=== PATIENT | female | born 1960 | race Caucasian/White ===

== ENCOUNTER → 2016-10-11 | Outpatient (CLI) | payer BC ==
[~2016-10-11] MED LIST: AMLO10TA4 PO; HCT25T PO; IBUP-15; LEVO500T69 PO; LOSA50TA6 PO; LVT.05T; MULT-608; [UNRECOGNIZED DRUG - CODE]
[2016-10-11 14:28] LABS: BASOPHILS % (AUTO) 0 % (0-10); EOSINOPHILS % (AUTO) 0 % (0-10); LYMPHOCYTES # (AUTO) 1.8 X 10^3 (1.0-4.0); LYMPHOCYTES % (AUTO) 82 % (12-44); MEAN CORPUSCULAR HEMOGLOBIN 34 PG (25-34); MEAN CORPUSCULAR HGB CONC 32 G/DL (32-36); MEAN CORPUSCULAR VOLUME 108 FL (80-99); MEAN PLATELET VOLUME 11.2 FL (7.4-10.4); MONOCYTES # (AUTO) 0.3 X 10^3 (0.0-1.0); MONOCYTES % (AUTO) 15 % (0-12); NEUTROPHILS # (AUTO) 0.1 X 10^3 (1.8-7.8); NEUTROPHILS % (AUTO) 3 % (42-75); PLATELET COUNT 120 10^3/uL (130-400); RED BLOOD COUNT 1.73 10^6/uL (4.35-5.85); RED CELL DISTRIBUTION WIDTH 14.2 % (10.0-14.5); RETICULOCYTE % 0.31 % (0.50-2.40); WHITE BLOOD COUNT 2.2 10^3/uL (4.3-11.0)
[2016-10-11 14:35] LABS: PATH WILL NEED TO REVIEW SMEAR PATH TO REVIEW
[2016-10-11 14:59] LABS: ANISOCYTOSIS SLIGHT; ATYPICAL LYMPHOCYTES 8 %; BAND NEUTROPHILS 0 %; BASOPHILS % (MANUAL) 0 %; EOSINOPHILS % (MANUAL) 0 %; LYMPHOCYTES % (MANUAL) 78 %; NEUTROPHILS % (MANUAL) 2 %; TEAR DROP CELLS SLIGHT
== END ==
LOC: LAB 14:08
PROVIDERS: ATTEND Internal Medicine
DX: C91.00 Acute lymphoblastic leukemia not having achieved remission (principal)
CPT/HCPCS: 36415; 85007; 85027; 85045

== ENCOUNTER 2017-05-09 21:30 | Emergency (ER) | payer BC ==
[~2017-05-09] VITALS: Ht 157.5 cm; Wt 42.2 kg
[2017-05-10] VITALS (7 sets, daily range): BP systolic 143–173; BP diastolic 80–97
[2017-05-10 00:58] LABS: BASOPHILS % (AUTO) 0 % (0-10); EOSINOPHILS % (AUTO) 0 % (0-10); LYMPHOCYTES # (AUTO) 1.2 X 10^3 (1.0-4.0); LYMPHOCYTES % (AUTO) 24 % (12-44); MEAN CORPUSCULAR HGB CONC 36 G/DL (32-36); MEAN CORPUSCULAR VOLUME 100 FL (80-99); MEAN PLATELET VOLUME 12.3 FL (7.4-10.4); MONOCYTES # (AUTO) 0.5 X 10^3 (0.0-1.0); MONOCYTES % (AUTO) 10 % (0-12); NEUTROPHILS # (AUTO) 3.2 X 10^3 (1.8-7.8); NEUTROPHILS % (AUTO) 66 % (42-75); RED BLOOD COUNT 1.24 10^6/uL (4.35-5.85); RED CELL DISTRIBUTION WIDTH 21.6 % (10.0-14.5); WHITE BLOOD COUNT 4.8 10^3/uL (4.3-11.0)
[2017-05-10 00:59] LABS: BILIRUBIN,URINE NEGATIVE (NEGATIVE); CLARITY,URINE CLEAR; COLOR,URINE YELLOW; GLUCOSE, URINE (UA) NEGATIVE (NEGATIVE); KETONES,URINE NEGATIVE (NEGATIVE); LEUKOCYTE ESTERASE ,URINE NEGATIVE (NEGATIVE); NITRITE,URINE NEGATIVE (NEGATIVE); PH,URINE 5 (5-9); PROTEIN,URINE NEGATIVE (NEGATIVE); UROBILINOGEN,URINE NORMAL (NORMAL)
[2017-05-10 01:03] LABS: HEMATOCRIT 12 % (35-52); HEMOGLOBIN 4.4 G/DL (11.5-16.0); MEAN CORPUSCULAR HEMOGLOBIN 35 PG (25-34); PLATELET COUNT 29 10^3/uL (130-400)
[2017-05-10 01:09] LABS: CREATININE SERUM 1.78 MG/DL (0.60-1.30); POTASSIUM 5.4 MMOL/L (3.6-5.0)
[2017-05-10 01:10] LABS: ALBUMIN 3.4 GM/DL (3.2-4.5); BILIRUBIN,TOTAL 0.6 MG/DL (0.1-1.0); CALCIUM 8.9 MG/DL (8.5-10.1); MAGNESIUM 1.9 MG/DL (1.8-2.4); TOTAL PROTEIN 5.2 GM/DL (6.4-8.2)
[2017-05-10 01:12] LABS: BACTERIA,URINE TRACE /HPF
[2017-05-10 03:08] LABS: ABSOLUTE RETIC # 19 10e9/L (24-90); BASOPHILS % (AUTO) 0 % (0-10); EOSINOPHILS % (AUTO) 0 % (0-10); LYMPHOCYTES # (AUTO) 0.7 X 10^3 (1.0-4.0); LYMPHOCYTES % (AUTO) 18 % (12-44); MEAN CORPUSCULAR HEMOGLOBIN 36 PG (25-34); MEAN CORPUSCULAR HGB CONC 36 G/DL (32-36); MEAN CORPUSCULAR VOLUME 101 FL (80-99); MONOCYTES # (AUTO) 0.4 X 10^3 (0.0-1.0); MONOCYTES % (AUTO) 10 % (0-12); NEUTROPHILS # (AUTO) 2.7 X 10^3 (1.8-7.8); NEUTROPHILS % (AUTO) 72 % (42-75); RED CELL DISTRIBUTION WIDTH 21.7 % (10.0-14.5); RETICULOCYTE % 1.54 % (0.50-2.40); WHITE BLOOD COUNT 3.7 10^3/uL (4.3-11.0)
[2017-05-10 03:14] LABS: HEMOGLOBIN 4.3 G/DL (11.5-16.0)
[2017-05-10 03:15] LABS: HEMATOCRIT 12 % (35-52); INR 1.3 (0.8-1.4); PLATELET COUNT 25 10^3/uL (130-400)
[2017-05-10 03:54] LABS: BAND NEUTROPHILS 2 %; LYMPHOCYTES % (MANUAL) 7 %; MONOCYTES % (MANUAL) 9 %; NEUTROPHILS % (MANUAL) 82 %
[2017-05-10 03:55] LABS: ANISOCYTOSIS MARKED; MICROCYTOSIS MODERATE
[2017-05-10] MEDS ORDERED: CYCLOBENZAPRINE 10 MG (FLEXERIL) TAB PO ONE (05:15)
[2017-05-10] MEDS ORDERED: diphenhydrAMINE 25 MG TAB (BENADRYL) PO ONE (05:30)
[2017-05-10] MEDS ORDERED: ACETAMINOPHEN 500 MG TAB (TYLENOL) PO ONE (05:30)
[2017-05-10] MEDS ORDERED: POSA100T (06:10)
[2017-05-10] MEDS ORDERED: CYCL5TAB (06:10)
[2017-05-10] MEDS ORDERED: ATOV750O4 (06:10)
[2017-05-10] MEDS ORDERED: LIDO700A45 (06:10)
[2017-05-10] MEDS ORDERED: POTA10TA14 (06:10)
[2017-05-10] MEDS ORDERED: LEVO750T39 (06:10)
[2017-05-10] MEDS ORDERED: ELTR50TA (06:10)
[2017-05-10] MEDS ORDERED: LEVO112T55 (06:13)
[2017-05-10] MEDS ORDERED: ACYC800T (06:13)
[2017-05-10 06:17] LABS: HEMOGLOBIN 7.7 G/DL (11.5-16.0); MEAN PLATELET VOLUME 11.7 FL (7.4-10.4); RED BLOOD COUNT 2.51 10^6/uL (4.35-5.85); RED CELL DISTRIBUTION WIDTH 18.7 % (10.0-14.5); WHITE BLOOD COUNT 3.5 10^3/uL (4.3-11.0)
[2017-05-10] MEDS ORDERED: CEFEPIME INJECTION 2,000 MG in NS (IVPB) 50 ML IV ONE (06:30)
--- NOTE | 2017-05-10 06:42 | Diagnostic Imaging Report ---
Indication: Weakness Portable chest 6:11 AM Heart size and pulmonary vascular normal. Lungs are clear. There are no effusions or pneumothoraces. Right IJ central tip projects over the SVC. Impression: No acute abnormalities in the chest Dictated by: Dictated on workstation # [id number]
--- NOTE | 2017-05-10 06:47 | ED General ---
General Chief Complaint: General Problems/Pain Stated Complaint: WEAKNESS Nursing Triage Note: pt reports having extreme weakness, worsening over the last few days. today weakness became significant, having difficulty ambulating, states this is the weakness she has ever been. pt was seen by cancer doctors today, and labs were stable and they were not concerned, although she did receive one liter ivf. pt reports once she arrived back home she could hardly stand or get to the bathroom. pt has had decreased appetite. pt reports feeling very faint in our waiting room. Nursing Sepsis Screen: No Definite Risk Source of Information: Patient, Family Exam Limitations: No Limitations History of Present Illness Date Seen by Provider: May 09, 2017 Time Seen by Provider: 00:35 Initial Comments This 57-year-old woman presents to the emergency room with complaints of severe weakness that has progressively worsened over the past few days. She reports having labs drawn at [facility] in the bone marrow transplant clinic yesterday. She reports those labs were "stable". She does not know exact values. She reports her weakness has progressed such that she now has difficulty ambulating even short distances around the home. She is short of breath without chest pain. The shortness of air is a new symptom today. 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 She has had some nausea and vomiting for a couple of days as well. She felt like she was overall compensating with these symptoms until she returned home from [facility] yesterday. She denies any significant pain. She was advised to present to the emergency room by Dr. Mancuso with the bone marrow transplant clinic. Her primary care provider is Dr. Love Chakraborty and her local oncologist is Dr. Crespo. Allergies and Home Medications Allergies Coded Allergies: Penicillins (Unverified Allergy, Mild, 05/19/09) Sulfa (Sulfonamide Antibiotics) (Verified Allergy, Unknown, 06/10/09) Uncoded Allergies: [id number] (SULFA (SULFONAMIDE ANTIBIOTICS)) (Allergy, Mild, RASH, 05/19/09) OPIOIDS (Allergy, Unknown, 05/09/17) Home Medications Acyclovir 800 Mg Tablet, (Reported) Amlodipine Besylate 10 Mg Tablet, 10 MG PO, (Reported) Atovaquone 750 Mg/5 Ml Oral.susp, (Reported) Cyclobenzaprine HCl 5 Mg Tablet, (Reported) Eltrombopag Olamine 50 Mg Tablet, (Reported) Levofloxacin 750 Mg Tablet, (Reported) Levothyroxine Sodium 50 Mcg Tab, (Reported) Levothyroxine Sodium 112 Mcg Tablet, (Reported) Lidocaine 1 Each Adh..patch, (Reported) Losartan Potassium 50 Mg Tablet, 50 MG PO DAILY, (Reported) Multivitamins 1 Tab Tablet, (Reported) Phenelzine Sulfate 15 Mg Tablet, (Reported) Posaconazole 100 Mg Tablet.dr, (Reported) Potassium Chloride 10 Meq Tab.er.prt, (Reported) Constitutional: see HPI, No fever EENTM: no symptoms reported Respiratory: see HPI Cardiovascular: no symptoms reported Gastrointestinal: see HPI Genitourinary: no symptoms reported : No Musculoskeletal: no symptoms reported Skin: no symptoms reported Psychiatric/Neurological: No Symptoms Reported Hematologic/Lymphatic: No Symptoms Reported Immunological/Allergic: no symptoms reported Past Jdcbupj-Iyiyzm-Xjxxuz Hx Patient Social History Alcohol Use: Denies Use Recreational Drug Use: No Smoking Status: Never a Smoker Recent Foreign Travel: No Contact w/Someone Who Travel: No Recent Infectious Disease Expo: No Immunizations Up To Date PED Vaccines UTD: Yes Date of Influenza Vaccine: Jan 10, 2017 Surgeries History of Surgeries: Yes (BARIATRIC, belt lipectomy, bone marrow transplant) Respiratory History of Respiratory Disorde: No Cardiovascular History of Cardiac Disorders: Yes Cardiac Disorders: Hypertension Neurological History of Neurological Disord: Yes Reproductive System : No Hx Reproductive Disorders: No Sexually Transmitted Disease: Yes (TRIC) Genitourinary History of Genitourinary Disor: No Gastrointestinal History of Gastrointestinal Di: No Musculoskeletal History of Musculoskeletal Dis: Yes Musculoskeletal Disorders: Arthritis, Chronic Back Pain Endocrine History of Endocrine Disorders: Yes (borderline diabetic) HEENT History of HEENT Disorders: No Cancer History of Cancer: Yes Cancer: Leukemia (AML) Cancer Comment: BONE MARROW TRANSPLANT 12/27/16 Psychosocial History of Psychiatric Problem: Yes Behavioral Health Disorders: Depression Blood Transfusions History of Blood Disorders: Yes (AML status post bone marrow transplant) Adverse Reaction to a Blood Tr: No Physical Exam Vital Signs Vital Signs - First Documented 05/09/17 22:58 Temp 98.7 Pulse 108 Resp 20 B/P (MAP) 87/62 (70) Pulse Ox 100 O2 Delivery Room Air Capillary Refill : Less Than 3 Seconds General Appearance: No Apparent Distress, Thin, Other (lethargic) HEENT: PERRL/EOMI, Normal ENT Inspection, Pharynx Normal Neck: Normal Inspection Respiratory: Lungs Clear, Normal Breath Sounds, No Accessory Muscle Use, No Respiratory Distress Cardiovascular: Regular Rate, Rhythm, No Edema, No Murmur Gastrointestinal: Normal Bowel Sounds, Non Tender, Soft Extremity: Normal Capillary Refill, Normal Inspection, No Pedal Edema Neurologic/Psychiatric: Alert, Oriented x3, No Motor/Sensory Deficits, Normal 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, 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 Skin: Normal Color, Warm/Dry Focused Exam Evaluation Lactate Level Laboratory Tests 05/10/17 06:00: Lactic Acid Level 0.78 Lactic Acid Level Progress/Results/Core Measures Suspected Sepsis Recent Fever Within 48 Hours: No Infection Criteria Present: None New/Unexplained Altered Menta: No Sepsis Screen: No Definite Risk Sepsis Diagnosis: SIRS Temperature:100.5 Pulse: 73 Respiratory Rate: 17 Laboratory Tests 05/10/17 00:23: White Blood Count 4.8 05/10/17 01:15: White Blood Count 3.7L 05/10/17 06:00: White Blood Count 3.5L Blood Pressure 163 /90 Mean: 114 Laboratory Tests 05/10/17 06:00: Lactic Acid Level 0.78 Laboratory Tests 05/10/17 00:23: Creatinine 1.78H, Platelet Count 29*L, Total Bilirubin 0.6 05/10/17 01:15: Platelet Count 25*L, INR Comment 1.3 05/10/17 06:00: Platelet Count 19*L Results/Orders Lab Results Laboratory Tests Test 05/10/17 00:23 05/10/17 01:15 05/10/17 06:00 Range/Units White Blood Count 4.8 3.7 L 3.5 L 4.3-11.0 10^3/uL Red Blood Count 1.24 L 1.20 L 2.51 L 4.35-5.85 10^6/uL Hemoglobin 4.4 *L 4.3 *L 7.7 #L 11.5-16.0 G/DL Hematocrit 12 *L 12 *L 22 L 35-52 % Mean Corpuscular Volume 100 H 101 H 87 80-99 FL Mean Corpuscular Hemoglobin 35 H 36 H 31 25-34 PG Mean Corpuscular Hemoglobin Concent 36 36 35 32-36 G/DL Red Cell Distribution Width 21.6 H 21.7 H 18.7 H 10.0-14.5 % Platelet Count 29 *L 25 *L 19 *L 130-400 10^3/uL Mean Platelet Volume 12.3 H 13.0 H 11.7 H 7.4-10.4 FL Neutrophils (%) (Auto) 66 72 42-75 % Lymphocytes (%) (Auto) 24 18 12-44 % Monocytes (%) (Auto) 10 10 0-12 % Eosinophils (%) (Auto) 0 0 0-10 % Basophils (%) (Auto) 0 0 0-10 % Neutrophils # (Auto) 3.2 2.7 1.8-7.8 X 10^3 Lymphocytes # (Auto) 1.2 0.7 L 1.0-4.0 X 10^3 Monocytes # (Auto) 0.5 0.4 0.0-1.0 X 10^3 Eosinophils # (Auto) 0.0 0.0 0.0-0.3 10^3/uL Basophils # (Auto) 0.0 0.0 0.0-0.1 10^3/uL Urine Color YELLOW Urine Clarity CLEAR Urine pH 5 5-9 Urine Specific [place] 1.020 1.016-1.022 Urine Protein NEGATIVE NEGATIVE Urine Glucose (UA) NEGATIVE NEGATIVE Urine Ketones NEGATIVE NEGATIVE Urine Nitrite NEGATIVE NEGATIVE Urine Bilirubin NEGATIVE NEGATIVE Urine Urobilinogen NORMAL NORMAL MG/DL Urine Leukocyte Esterase NEGATIVE NEGATIVE Urine RBC (Auto) NEGATIVE NEGATIVE Urine RBC NONE /HPF Urine WBC NONE /HPF Urine Squamous Epithelial Cells 2-5 /HPF Urine Crystals NONE /LPF Urine Bacteria TRACE /HPF Urine Casts NONE /LPF Urine Mucus NEGATIVE /LPF Urine Culture Indicated NO Sodium Level 133 L 135-145 MMOL/L Potassium Level 5.4 H 3.6-5.0 MMOL/L Chloride Level 114 H 98-107 MMOL/L Carbon Dioxide Level 10 L 21-32 MMOL/L Anion Gap 9 5-14 MMOL/L Blood Urea Nitrogen 41 H 7-18 MG/DL Creatinine 1.78 H 0.60-1.30 MG/DL Estimat Glomerular Filtration Rate 29 BUN/Creatinine Ratio 23 Glucose Level 132 H 70-105 MG/DL Calcium Level 8.9 8.5-10.1 MG/DL Magnesium Level 1.9 1.8-2.4 MG/DL Total Bilirubin 0.6 0.1-1.0 MG/DL Aspartate Amino Transf (AST/SGOT) 19 5-34 U/L Alanine Aminotransferase (ALT/SGPT) 31 0-55 U/L Alkaline Phosphatase 72 40-136 U/L Total Protein 5.2 L 6.4-8.2 GM/DL Albumin 3.4 3.2-4.5 GM/DL Neutrophils % (Manual) 82 % Lymphocytes % (Manual) 7 % Monocytes % (Manual) 9 % Band Neutrophils 2 % Anisocytosis MARKED Microcytosis MODERATE Macrocytosis MODERATE Absolute Reticulocyte Count 19 L 24-90 10e9/L Percent Reticulocyte Count 1.54 0.50-2.40 % Prothrombin Time 16.0 H 12.2-14.7 SEC INR Comment 1.3 0.8-1.4 Activated Partial Thromboplast Time 25 24-35 SEC Fibrinogen 164 L 221-496 MG/DL D-Dimer 0.65 H 0.00-0.49 UG/ML Lactate Dehydrogenase 108 L 125-220 U/L Lactic Acid Level 0.78 0.50-2.00 MMOL/L Micro Results Microbiology 05/10/17 Blood Culture - Preliminary, Resulted No growth 05/10/17 Blood Culture - Preliminary, Resulted No growth 05/10/17 Influenza Types A,B Antigen (BROOKS) - Final, Complete My Orders Orders - DIAMOND ANNE MD Cbc With Automated Diff (05/10/17 00:49) Comprehensive Metabolic Panel (05/10/17 00:49) Magnesium (05/10/17 00:49) Ua Culture If Indicated (05/10/17 00:49) Saline Lock/Iv-Start (05/10/17 00:49) Fibrin Degradation Products (05/10/17 01:03) Red Cells Leukocytes Reduced (05/10/17 02:02) Type And Screen (05/10/17 02:02) Reticulocyte Count (05/10/17 02:54) LDH (05/10/17 02:54) Fibrinogen (05/10/17 02:54) Haptoglobin Screen (05/10/17 02:54) Smear For Path Review (05/10/17 02:54) Direct Antiglobulin Test (05/10/17 02:54) Protime With Inr (05/10/17 02:54) Partial Thromboplastin Time (05/10/17 02:54) Cyclobenzaprine Tablet (Flexeril Tablet) (05/10/17 05:15) Chest 1 View, Ap/Pa Only (05/10/17 05:30) Blood Culture (05/10/17 05:30) Influenza A And B Antigens (05/10/17 05:30) Lactic Acid Analyzer (05/10/17 05:30) Acetaminophen Tablet (Tylenol Tablet) (05/10/17 05:30) Diphenhydramine Tablet (Benadryl Tablet) (05/10/17 05:30) Cbc No Diff (05/10/17 05:50) Red Cells Leukocytes Reduced (05/10/17 01:15) Platelet Pheresis Lr (05/10/17 06:17) Cefepime Injection (Maxipime Injection) (05/10/17 06:30) Ns Iv 500 Ml (Sodium Chloride 0.9%) (05/10/17 07:21) Iv Infusion <= First Hr Ed (05/09/17 ) Medications Given in ED Vital Signs/I&O Capillary Refill : Less Than 3 Seconds Blood Pressure Mean: 114 Progress Note #1: Time: 01:10 Progress Note Patient was seen and examined. Basic labs were ordered. D-dimer was also ordered because of shortness of breath. Vital signs are stable. Progress Note #2: Time: 03:00 Progress Note Patient is receiving 2 units of packed red blood cells after being found to be severely anemic. Case was discussed with Dr. Mancuso he would like the patient transferred to [facility] after transfusion is complete. At this time, she believes patient can probably come by private vehicle after transfusions. Additional labs were ordered to further evaluate the anemia and to evaluate for possible DIC. Progress Note #3: Time: 05:35 Progress Note Patient received the 2 units of packed red blood cells. During transfusion she developed a low-grade fever up to 100.5. She is receiving Tylenol and Benadryl orally because of possible transfusion reaction. She also received a Flexeril for her hip pain. Patient was noted to have a grossly bloody stool that was bright red and smelled of blood. I have been in contact with the transfer center. The presence of fever was communicated. They agree with proceeding with workup for possible infection. Chest x-ray, UA, blood culture, influenza screen and lactic acid were ordered. Progress Note #4: Time: 06:58 Progress Note Transfer of this patient was accepted by Dr. Mancuso. Due to evidence of active GI bleeding in the context of severe anemia and thrombocytopenia, transfusion of platelets was felt appropriate. One platelet pheresis pack was ordered. I' ve also ordered a crossmatch of 2 additional units of blood with the intent of sending at least one unit of blood with the flight crew. Cefepime is being administered for empiric antibiotic therapy due to the presence of fever. Influenza screen was negative. Chest x-ray and UA showed no evidence of infection. [facility]. Progress Note #5: Progress Note The platelet pack was starting at the time of departure. An additional unit of blood was sent with the patient for transfusion in route. Patient was sent by helicopter due to concerns for potential decompensation in route with possible active GI bleed. Patient was stable and feeling improved at the time of departure. Diagnostic Imaging Diagonstic Imaging: Xray Plain Films/CT/US/NM/MRI: chest Comments Chest x-ray viewed by me and report reviewed. See report below: NAME: DAI HERNANDEZ [facility] REC#: [id number] PT STATUS: REG ER : 1960 PHYSICIAN: DIAMOND ANNE MD ADMIT DATE: 05/09/17/ER Signed Date of Exam:05/10/17 CHEST 1 VIEW, AP/PA ONLY Indication: Weakness Portable chest 6:11 AM Heart size and pulmonary vascular normal. Lungs are clear. There are no effusions or pneumothoraces. Right IJ central tip projects over the SVC. Impression: No acute abnormalities in the chest Dictated by: Dictated on workstation # [id number] Dict: 05/10/17638 Trans: 05/10/1740 [id number] Interpreted by: CHAPARRITA BRIDGES MD Electronically signed by: CHAPARRITA BRIDGES MD 05/10/1740 Departure Impression Impression: Primary Impression: Severe anemia Additional Impressions: Thrombocytopenia Acute renal failure Qualified Codes: N17.9 - Acute kidney failure, unspecified Hematochezia Fever Qualified Codes: R50.9 - Fever, unspecified Disposition: XF SHT-TRM HOSP Condition: Stable Transfer Time Spoke to Accepting Phy: 02:45 Transfer Time: 07:30 Transfer Facility: [facility] to Dr. Mancuso Method of Transfer: Air Departure-Patient Inst. Referrals: LOVE ANDRADE DO (PCP/Family) Primary Care Physician DIAMOND ANNE MD May 10, 2017 06:47
[2017-05-10] MEDS ORDERED: NS IV 500 ML 500 ML ONE (07:21)
== END 2017-05-10 07:31 | disposition short-term general hospital (02) ==
LOC: EDUNIT# 21:30 → ER 21:31
DX: D64.9 Anemia, unspecified (principal); D69.6 Thrombocytopenia, unspecified; N17.9 Acute kidney failure, unspecified; K92.1 Melena; R50.9 Fever, unspecified; I10 Essential (primary) hypertension; F32.9 Major depressive disorder, single episode, unspecified; Z85.6 Personal history of leukemia; Z88.0 Allergy status to penicillin; Z88.2 Allergy status to sulfonamides; Z88.5 Allergy status to narcotic agent; Z98.84 Bariatric surgery status; Z94.81 Bone marrow transplant status
CPT/HCPCS: 36415; 36430; 71045; 80053; 81000; 83010; 83605; 83615; 83735; 85007; 85025; 85027; 85045; 85379; 85384; 85610; 85730; 86850; 86880; 86900; 86901; 86920; 87040; 87804; 96365

== ENCOUNTER → 2017-06-26 | Outpatient (CLI) | payer BC ==
[~2017-06-26] MED LIST changes: +ACYC800T; +ATOV750O4; +CYCL5TAB; +ELTR50TA; +LEVO112T55; +LEVO750T39; +LIDO700A45; +POSA100T; +POTA10TA14
--- NOTE | 2017-06-26 15:40 | Diagnostic Imaging Report ---
INDICATION: Chronic kidney disease. FINDINGS: The right kidney measures 9.0 x 4.6 x 5.1 cm and the left kidney measures 8.6 x 4.2 x 4.2 cm. Cortical thickness appears to be slightly thin. Echogenicity is unremarkable. No calculi are detected. There is no hydronephrosis. Partially filled urinary bladder is unremarkable. IMPRESSION: Mild cortical thinning. No other significant abnormality is detected. Dictated by: Dictated on workstation # [id number]
== END ==
LOC: RAD 13:38
PROVIDERS: ATTEND Internal Medicine Hematology & Oncology
DX: N18.9 Chronic kidney disease, unspecified (principal)
CPT/HCPCS: 76770

== ENCOUNTER 2017-08-19 14:51 | Outpatient (RCR) | payer BC ==
[2017-06-10 15:04] LABS: BASOPHILS % (AUTO) 0 % (0-10); EOSINOPHILS # (AUTO) 0.1 10^3/uL (0.0-0.3); EOSINOPHILS % (AUTO) 1 % (0-10); HEMATOCRIT 23 % (35-52); HEMOGLOBIN 7.5 G/DL (11.5-16.0); LYMPHOCYTES # (AUTO) 1.1 X 10^3 (1.0-4.0); LYMPHOCYTES % (AUTO) 29 % (12-44); MEAN CORPUSCULAR HEMOGLOBIN 33 PG (25-34); MEAN CORPUSCULAR HGB CONC 33 G/DL (32-36); MEAN CORPUSCULAR VOLUME 97 FL (80-99); MONOCYTES # (AUTO) 0.5 X 10^3 (0.0-1.0); MONOCYTES % (AUTO) 13 % (0-12); NEUTROPHILS # (AUTO) 2.1 X 10^3 (1.8-7.8); NEUTROPHILS % (AUTO) 57 % (42-75); PLATELET COUNT 174 10^3/uL (130-400); RED BLOOD COUNT 2.31 10^6/uL (4.35-5.85); WHITE BLOOD COUNT 3.7 10^3/uL (4.3-11.0)
[2017-06-10 15:29] LABS: ALBUMIN 4.1 GM/DL (3.2-4.5); BILIRUBIN,TOTAL 0.7 MG/DL (0.1-1.0); CALCIUM 9.2 MG/DL (8.5-10.1); CREATININE SERUM 1.7 MG/DL (0.60-1.30); MAGNESIUM 2.2 MG/DL (1.8-2.4); TOTAL PROTEIN 6.3 GM/DL (6.4-8.2)
[2017-06-24 14:56] LABS: BASOPHILS % (AUTO) 1 % (0-10); EOSINOPHILS # (AUTO) 0.1 10^3/uL (0.0-0.3); EOSINOPHILS % (AUTO) 1 % (0-10); HEMATOCRIT 24 % (35-52); HEMOGLOBIN 8.4 G/DL (11.5-16.0); LYMPHOCYTES # (AUTO) 1.3 X 10^3 (1.0-4.0); LYMPHOCYTES % (AUTO) 20 % (12-44); MEAN CORPUSCULAR HEMOGLOBIN 35 PG (25-34); MEAN CORPUSCULAR HGB CONC 34 G/DL (32-36); MEAN CORPUSCULAR VOLUME 102 FL (80-99); MEAN PLATELET VOLUME 10.2 FL (7.4-10.4); MONOCYTES # (AUTO) 0.6 X 10^3 (0.0-1.0); MONOCYTES % (AUTO) 9 % (0-12); NEUTROPHILS # (AUTO) 4.6 X 10^3 (1.8-7.8); NEUTROPHILS % (AUTO) 70 % (42-75); PLATELET COUNT 214 10^3/uL (130-400); RED CELL DISTRIBUTION WIDTH 23.2 % (10.0-14.5); WHITE BLOOD COUNT 6.5 10^3/uL (4.3-11.0)
[2017-06-24 15:18] LABS: ALBUMIN 4.2 GM/DL (3.2-4.5); BILIRUBIN,TOTAL 0.6 MG/DL (0.1-1.0); CALCIUM 9.7 MG/DL (8.5-10.1); CREATININE SERUM 2.01 MG/DL (0.60-1.30); TOTAL PROTEIN 6.5 GM/DL (6.4-8.2)
[2017-07-10 10:31] LABS: BASOPHILS % (AUTO) 1 % (0-10); EOSINOPHILS # (AUTO) 0.1 10^3/uL (0.0-0.3); EOSINOPHILS % (AUTO) 2 % (0-10); HEMATOCRIT 25 % (35-52); HEMOGLOBIN 8.5 G/DL (11.5-16.0); LYMPHOCYTES # (AUTO) 1.1 X 10^3 (1.0-4.0); LYMPHOCYTES % (AUTO) 18 % (12-44); MEAN CORPUSCULAR HEMOGLOBIN 37 PG (25-34); MEAN CORPUSCULAR HGB CONC 34 G/DL (32-36); MEAN CORPUSCULAR VOLUME 108 FL (80-99); MEAN PLATELET VOLUME 10.1 FL (7.4-10.4); MONOCYTES # (AUTO) 0.4 X 10^3 (0.0-1.0); MONOCYTES % (AUTO) 7 % (0-12); NEUTROPHILS # (AUTO) 4.3 X 10^3 (1.8-7.8); NEUTROPHILS % (AUTO) 72 % (42-75); PLATELET COUNT 177 10^3/uL (130-400); RED BLOOD COUNT 2.32 10^6/uL (4.35-5.85); RED CELL DISTRIBUTION WIDTH 18.6 % (10.0-14.5); WHITE BLOOD COUNT 5.9 10^3/uL (4.3-11.0)
[2017-07-10 10:53] LABS: BILIRUBIN,TOTAL 0.5 MG/DL (0.1-1.0); CALCIUM 9.8 MG/DL (8.5-10.1); CREATININE SERUM 2.16 MG/DL (0.60-1.30); POTASSIUM 3.9 MMOL/L (3.6-5.0); TOTAL PROTEIN 6.1 GM/DL (6.4-8.2)
[2017-07-22 12:47] LABS: BASOPHILS % (AUTO) 1 % (0-10); EOSINOPHILS # (AUTO) 0.1 10^3/uL (0.0-0.3); EOSINOPHILS % (AUTO) 2 % (0-10); HEMATOCRIT 28 % (35-52); HEMOGLOBIN 9.2 G/DL (11.5-16.0); LYMPHOCYTES # (AUTO) 1.2 X 10^3 (1.0-4.0); LYMPHOCYTES % (AUTO) 18 % (12-44); MEAN CORPUSCULAR HEMOGLOBIN 37 PG (25-34); MEAN CORPUSCULAR HGB CONC 33 G/DL (32-36); MEAN CORPUSCULAR VOLUME 110 FL (80-99); MEAN PLATELET VOLUME 9.5 FL (7.4-10.4); MONOCYTES # (AUTO) 0.5 X 10^3 (0.0-1.0); MONOCYTES % (AUTO) 8 % (0-12); NEUTROPHILS # (AUTO) 4.6 X 10^3 (1.8-7.8); NEUTROPHILS % (AUTO) 72 % (42-75); PLATELET COUNT 240 10^3/uL (130-400); RED BLOOD COUNT 2.52 10^6/uL (4.35-5.85); WHITE BLOOD COUNT 6.4 10^3/uL (4.3-11.0)
[2017-07-22 13:06] LABS: CREATININE SERUM 2.27 MG/DL (0.60-1.30); POTASSIUM 4.2 MMOL/L (3.6-5.0)
[2017-07-22 13:07] LABS: ALBUMIN 4.2 GM/DL (3.2-4.5); BILIRUBIN,TOTAL 0.5 MG/DL (0.1-1.0); CALCIUM 9.4 MG/DL (8.5-10.1); TOTAL PROTEIN 6.5 GM/DL (6.4-8.2)
[2017-08-05 11:32] LABS: BASOPHILS % (AUTO) 0 % (0-10); EOSINOPHILS # (AUTO) 0.1 10^3/uL (0.0-0.3); EOSINOPHILS % (AUTO) 2 % (0-10); HEMATOCRIT 28 % (35-52); HEMOGLOBIN 9.3 G/DL (11.5-16.0); LYMPHOCYTES # (AUTO) 0.6 X 10^3 (1.0-4.0); LYMPHOCYTES % (AUTO) 12 % (12-44); MEAN CORPUSCULAR HEMOGLOBIN 38 PG (25-34); MEAN CORPUSCULAR HGB CONC 34 G/DL (32-36); MEAN CORPUSCULAR VOLUME 112 FL (80-99); MONOCYTES # (AUTO) 0.3 X 10^3 (0.0-1.0); MONOCYTES % (AUTO) 6 % (0-12); NEUTROPHILS # (AUTO) 4.2 X 10^3 (1.8-7.8); NEUTROPHILS % (AUTO) 81 % (42-75); PLATELET COUNT 215 10^3/uL (130-400); RED BLOOD COUNT 2.48 10^6/uL (4.35-5.85); RED CELL DISTRIBUTION WIDTH 12.7 % (10.0-14.5); WHITE BLOOD COUNT 5.2 10^3/uL (4.3-11.0)
[2017-08-05 11:51] LABS: BILIRUBIN,TOTAL 0.4 MG/DL (0.1-1.0); CALCIUM 9.1 MG/DL (8.5-10.1); CREATININE SERUM 2.09 MG/DL (0.60-1.30); TOTAL PROTEIN 6.1 GM/DL (6.4-8.2)
[2017-08-05 11:52] LABS: ALBUMIN 3.9 GM/DL (3.2-4.5)
[~2017-08-19 14:51] MED LIST changes: +ONDANSETRON 4 MG/2 ML (SDV) Z0FRAN IV ONE
[2017-08-19 15:10] LABS: BASOPHILS % (AUTO) 0 % (0-10); EOSINOPHILS # (AUTO) 0.1 10^3/uL (0.0-0.3); EOSINOPHILS % (AUTO) 2 % (0-10); HEMATOCRIT 27 % (35-52); HEMOGLOBIN 8.9 G/DL (11.5-16.0); LYMPHOCYTES # (AUTO) 0.8 X 10^3 (1.0-4.0); LYMPHOCYTES % (AUTO) 16 % (12-44); MEAN CORPUSCULAR HEMOGLOBIN 37 PG (25-34); MEAN CORPUSCULAR HGB CONC 33 G/DL (32-36); MEAN CORPUSCULAR VOLUME 112 FL (80-99); MEAN PLATELET VOLUME 9.7 FL (7.4-10.4); MONOCYTES # (AUTO) 0.5 X 10^3 (0.0-1.0); MONOCYTES % (AUTO) 10 % (0-12); NEUTROPHILS # (AUTO) 3.4 X 10^3 (1.8-7.8); NEUTROPHILS % (AUTO) 73 % (42-75); PLATELET COUNT 223 10^3/uL (130-400); RED CELL DISTRIBUTION WIDTH 12.5 % (10.0-14.5); WHITE BLOOD COUNT 4.7 10^3/uL (4.3-11.0)
[2017-08-19 15:30] LABS: BILIRUBIN,TOTAL 0.3 MG/DL (0.1-1.0); CALCIUM 8.9 MG/DL (8.5-10.1); CREATININE SERUM 2.2 MG/DL (0.60-1.30); POTASSIUM 4.7 MMOL/L (3.6-5.0); TOTAL PROTEIN 6.1 GM/DL (6.4-8.2)
== END 2017-08-25 | disposition home or self-care (01) ==
LOC: ONC 14:51
PROVIDERS: ATTEND Internal Medicine Hematology & Oncology
DX: C92.00 Acute myeloblastic leukemia, not having achieved remission (principal); D61.818 Other pancytopenia; N18.4 Chronic kidney disease, stage 4 (severe); E03.9 Hypothyroidism, unspecified; Z79.899 Other long term (current) drug therapy
CPT/HCPCS: 36415; 36591; 80053; 83735; 85025; 96374; 99213; 99214

== ENCOUNTER → 2017-09-24 | Outpatient (CLI) | payer BC ==
[~2017-09-24] MED LIST changes: -ONDANSETRON 4 MG/2 ML (SDV) Z0FRAN IV ONE
[2017-09-24 16:31] LABS: HEMOGLOBIN 11.2 G/DL (11.5-16.0); MEAN PLATELET VOLUME 10.5 FL (7.4-10.4); RED BLOOD COUNT 3.27 10^6/uL (4.35-5.85); WHITE BLOOD COUNT 6.3 10^3/uL (4.3-11.0)
[2017-09-24 16:50] LABS: ALBUMIN 3.3 GM/DL (3.2-4.5); BILIRUBIN,TOTAL 0.6 MG/DL (0.1-1.0); CALCIUM 8.3 MG/DL (8.5-10.1); CREATININE SERUM 2.34 MG/DL (0.60-1.30); MAGNESIUM 1.8 MG/DL (1.8-2.4); PHOSPHORUS 2.4 MG/DL (2.3-4.7); POTASSIUM 3.7 MMOL/L (3.6-5.0); TOTAL PROTEIN 5.3 GM/DL (6.4-8.2)
== END ==
LOC: LAB 16:11
PROVIDERS: ATTEND Nurse Practitioner
DX: C92.01 Acute myeloblastic leukemia, in remission (principal); Z94.84 Stem cells transplant status
CPT/HCPCS: 36415; 80053; 83735; 84100; 85027

== ENCOUNTER 2017-12-10 10:12 | Outpatient (RCR) | payer BC ==
[2017-09-16 14:52] LABS: BASOPHILS % (AUTO) 0 % (0-10); EOSINOPHILS # (AUTO) 0.1 10^3/uL (0.0-0.3); EOSINOPHILS % (AUTO) 2 % (0-10); HEMATOCRIT 24 % (35-52); HEMOGLOBIN 8.2 G/DL (11.5-16.0); LYMPHOCYTES % (AUTO) 17 % (12-44); MEAN CORPUSCULAR HEMOGLOBIN 37 PG (25-34); MEAN CORPUSCULAR HGB CONC 35 G/DL (32-36); MEAN CORPUSCULAR VOLUME 107 FL (80-99); MEAN PLATELET VOLUME 9.2 FL (7.4-10.4); MONOCYTES # (AUTO) 0.6 X 10^3 (0.0-1.0); MONOCYTES % (AUTO) 9 % (0-12); NEUTROPHILS # (AUTO) 4.5 X 10^3 (1.8-7.8); NEUTROPHILS % (AUTO) 72 % (42-75); PLATELET COUNT 176 10^3/uL (130-400); RED BLOOD COUNT 2.22 10^6/uL (4.35-5.85); RED CELL DISTRIBUTION WIDTH 12.2 % (10.0-14.5); WHITE BLOOD COUNT 6.2 10^3/uL (4.3-11.0)
[2017-09-16 15:18] LABS: ALBUMIN 3.9 GM/DL (3.2-4.5); BILIRUBIN,TOTAL 0.5 MG/DL (0.1-1.0); CALCIUM 8.5 MG/DL (8.5-10.1); CREATININE SERUM 2.69 MG/DL (0.60-1.30); POTASSIUM 3.9 MMOL/L (3.6-5.0)
[2017-10-24 09:47] LABS: BASOPHILS % (AUTO) 0 % (0-10); EOSINOPHILS % (AUTO) 1 % (0-10); HEMATOCRIT 26 % (35-52); HEMOGLOBIN 8.8 G/DL (11.5-16.0); LYMPHOCYTES # (AUTO) 0.9 X 10^3 (1.0-4.0); LYMPHOCYTES % (AUTO) 19 % (12-44); MEAN CORPUSCULAR HEMOGLOBIN 33 PG (25-34); MEAN CORPUSCULAR HGB CONC 34 G/DL (32-36); MEAN CORPUSCULAR VOLUME 97 FL (80-99); MEAN PLATELET VOLUME 9.3 FL (7.4-10.4); MONOCYTES # (AUTO) 0.4 X 10^3 (0.0-1.0); MONOCYTES % (AUTO) 9 % (0-12); NEUTROPHILS # (AUTO) 3.4 X 10^3 (1.8-7.8); NEUTROPHILS % (AUTO) 71 % (42-75); PLATELET COUNT 163 10^3/uL (130-400); RED BLOOD COUNT 2.64 10^6/uL (4.35-5.85); RED CELL DISTRIBUTION WIDTH 17.4 % (10.0-14.5); WHITE BLOOD COUNT 4.8 10^3/uL (4.3-11.0)
[2017-10-24 10:08] LABS: ALBUMIN 3.9 GM/DL (3.2-4.5); BILIRUBIN,TOTAL 0.6 MG/DL (0.1-1.0); CREATININE SERUM 3.84 MG/DL (0.60-1.30)
[2017-11-14 16:35] LABS: ABSOLUTE RETIC # 46 10e9/L (24-90); BASOPHILS % (AUTO) 0 % (0-10); EOSINOPHILS % (AUTO) 0 % (0-10); LYMPHOCYTES # (AUTO) 0.8 X 10^3 (1.0-4.0); LYMPHOCYTES % (AUTO) 16 % (12-44); MEAN CORPUSCULAR HEMOGLOBIN 33 PG (25-34); MEAN CORPUSCULAR HGB CONC 33 G/DL (32-36); MEAN CORPUSCULAR VOLUME 101 FL (80-99); MEAN PLATELET VOLUME 9.4 FL (7.4-10.4); MONOCYTES # (AUTO) 0.4 X 10^3 (0.0-1.0); MONOCYTES % (AUTO) 8 % (0-12); NEUTROPHILS # (AUTO) 3.8 X 10^3 (1.8-7.8); NEUTROPHILS % (AUTO) 76 % (42-75); PLATELET COUNT 152 10^3/uL (130-400); RED BLOOD COUNT 1.95 10^6/uL (4.35-5.85); RED CELL DISTRIBUTION WIDTH 19.7 % (10.0-14.5); RETICULOCYTE % 2.38 % (0.50-2.40); WHITE BLOOD COUNT 5.1 10^3/uL (4.3-11.0)
[2017-11-14 16:39] LABS: HEMATOCRIT 20 % (35-52); HEMOGLOBIN 6.5 G/DL (11.5-16.0)
[2017-11-14 16:59] LABS: ALBUMIN 3.6 GM/DL (3.2-4.5); BILIRUBIN,TOTAL 0.4 MG/DL (0.1-1.0); CALCIUM 8.4 MG/DL (8.5-10.1); CREATININE SERUM 3.74 MG/DL (0.60-1.30); TOTAL PROTEIN 5.5 GM/DL (6.4-8.2)
[2017-11-19 13:10] LABS: BASOPHILS % (AUTO) 0 % (0-10); EOSINOPHILS % (AUTO) 1 % (0-10); HEMATOCRIT 30 % (35-52); HEMOGLOBIN 10.2 G/DL (11.5-16.0); LYMPHOCYTES % (AUTO) 19 % (12-44); MEAN CORPUSCULAR HEMOGLOBIN 32 PG (25-34); MEAN CORPUSCULAR HGB CONC 34 G/DL (32-36); MEAN CORPUSCULAR VOLUME 95 FL (80-99); MEAN PLATELET VOLUME 9.6 FL (7.4-10.4); MONOCYTES # (AUTO) 0.3 X 10^3 (0.0-1.0); MONOCYTES % (AUTO) 7 % (0-12); NEUTROPHILS # (AUTO) 3.7 X 10^3 (1.8-7.8); NEUTROPHILS % (AUTO) 73 % (42-75); PLATELET COUNT 164 10^3/uL (130-400); RED BLOOD COUNT 3.15 10^6/uL (4.35-5.85); RED CELL DISTRIBUTION WIDTH 21.5 % (10.0-14.5); WHITE BLOOD COUNT 5.1 10^3/uL (4.3-11.0)
[2017-11-19 13:39] LABS: CALCIUM 8.4 MG/DL (8.5-10.1); CREATININE SERUM 4.06 MG/DL (0.60-1.30); POTASSIUM 3.7 MMOL/L (3.6-5.0)
[2017-11-26 14:26] LABS: BASOPHILS % (AUTO) 0 % (0-10); EOSINOPHILS % (AUTO) 0 % (0-10); HEMATOCRIT 21 % (35-52); LYMPHOCYTES # (AUTO) 0.8 X 10^3 (1.0-4.0); LYMPHOCYTES % (AUTO) 15 % (12-44); MEAN CORPUSCULAR HEMOGLOBIN 33 PG (25-34); MEAN CORPUSCULAR HGB CONC 33 G/DL (32-36); MEAN CORPUSCULAR VOLUME 100 FL (80-99); MONOCYTES # (AUTO) 0.5 X 10^3 (0.0-1.0); MONOCYTES % (AUTO) 9 % (0-12); NEUTROPHILS % (AUTO) 76 % (42-75); PLATELET COUNT 120 10^3/uL (130-400); RED BLOOD COUNT 2.12 10^6/uL (4.35-5.85); RED CELL DISTRIBUTION WIDTH 20.9 % (10.0-14.5); WHITE BLOOD COUNT 5.3 10^3/uL (4.3-11.0)
[2017-12-04 13:53] LABS: BASOPHILS % (AUTO) 1 % (0-10); EOSINOPHILS % (AUTO) 1 % (0-10); HEMATOCRIT 22 % (35-52); LYMPHOCYTES # (AUTO) 0.7 X 10^3 (1.0-4.0); LYMPHOCYTES % (AUTO) 13 % (12-44); MEAN CORPUSCULAR HEMOGLOBIN 33 PG (25-34); MEAN CORPUSCULAR HGB CONC 31 G/DL (32-36); MEAN CORPUSCULAR VOLUME 106 FL (80-99); MEAN PLATELET VOLUME 8.9 FL (7.4-10.4); MONOCYTES # (AUTO) 0.5 X 10^3 (0.0-1.0); MONOCYTES % (AUTO) 9 % (0-12); NEUTROPHILS % (AUTO) 76 % (42-75); PLATELET COUNT 169 10^3/uL (130-400); RED BLOOD COUNT 2.11 10^6/uL (4.35-5.85); RED CELL DISTRIBUTION WIDTH 21.6 % (10.0-14.5); WHITE BLOOD COUNT 5.3 10^3/uL (4.3-11.0)
[~2017-12-10 10:12] MED LIST changes: +ACETAMINOPHEN 500 MG TAB (TYLENOL) CANCER CTR ONE; +DARBEPOETIN 10 MCG/0.4 ML ARANESP IJ SCH; +NS IV 1000 ML (CANCER CTR) 1,000 ML ONE; +NS IV 500 ML (CANCER CENTER) 500 ML ONE
[2017-12-10 10:54] LABS: BASOPHILS % (AUTO) 0 % (0-10); EOSINOPHILS # (AUTO) 0.1 10^3/uL (0.0-0.3); EOSINOPHILS % (AUTO) 1 % (0-10); HEMATOCRIT 23 % (35-52); HEMOGLOBIN 7.1 G/DL (11.5-16.0); LYMPHOCYTES # (AUTO) 0.6 X 10^3 (1.0-4.0); LYMPHOCYTES % (AUTO) 12 % (12-44); MEAN CORPUSCULAR HEMOGLOBIN 34 PG (25-34); MEAN CORPUSCULAR HGB CONC 32 G/DL (32-36); MEAN CORPUSCULAR VOLUME 109 FL (80-99); MEAN PLATELET VOLUME 9.2 FL (7.4-10.4); MONOCYTES # (AUTO) 0.5 X 10^3 (0.0-1.0); MONOCYTES % (AUTO) 10 % (0-12); NEUTROPHILS # (AUTO) 3.6 X 10^3 (1.8-7.8); NEUTROPHILS % (AUTO) 76 % (42-75); PLATELET COUNT 163 10^3/uL (130-400); RED BLOOD COUNT 2.07 10^6/uL (4.35-5.85); RED CELL DISTRIBUTION WIDTH 20.6 % (10.0-14.5); WHITE BLOOD COUNT 4.7 10^3/uL (4.3-11.0)
== END 2017-12-15 | disposition home or self-care (01) ==
LOC: ONC 10:12
PROVIDERS: ATTEND Internal Medicine Hematology & Oncology
DX: C92.00 Acute myeloblastic leukemia, not having achieved remission (principal); D61.818 Other pancytopenia; N18.4 Chronic kidney disease, stage 4 (severe); E03.9 Hypothyroidism, unspecified; R19.7 Diarrhea, unspecified; L60.0 Ingrowing nail; R63.4 Abnormal weight loss; Z98.84 Bariatric surgery status; Z79.899 Other long term (current) drug therapy
CPT/HCPCS: 36415; 36430; 80048; 80053; 82668; 82728; 83540; 83615; 85025; 85045; 86850; 86900; 86901; 86920; 86945; 86999; 87324; 87449; 96360; 96372; 99213

== ENCOUNTER 2017-12-24 15:05 | Outpatient (RCR) | payer BC ==
[2017-12-17 13:46] LABS: BASOPHILS % (AUTO) 1 % (0-10); EOSINOPHILS # (AUTO) 0.1 10^3/uL (0.0-0.3); EOSINOPHILS % (AUTO) 2 % (0-10); HEMATOCRIT 23 % (35-52); HEMOGLOBIN 7.4 G/DL (11.5-16.0); LYMPHOCYTES # (AUTO) 0.9 X 10^3 (1.0-4.0); LYMPHOCYTES % (AUTO) 20 % (12-44); MEAN CORPUSCULAR HEMOGLOBIN 35 PG (25-34); MEAN CORPUSCULAR HGB CONC 33 G/DL (32-36); MEAN CORPUSCULAR VOLUME 108 FL (80-99); MEAN PLATELET VOLUME 8.9 FL (7.4-10.4); MONOCYTES # (AUTO) 0.6 X 10^3 (0.0-1.0); MONOCYTES % (AUTO) 13 % (0-12); NEUTROPHILS # (AUTO) 2.9 X 10^3 (1.8-7.8); NEUTROPHILS % (AUTO) 65 % (42-75); PLATELET COUNT 168 10^3/uL (130-400); RED BLOOD COUNT 2.11 10^6/uL (4.35-5.85); RED CELL DISTRIBUTION WIDTH 18.9 % (10.0-14.5); WHITE BLOOD COUNT 4.5 10^3/uL (4.3-11.0)
[~2017-12-24 15:05] MED LIST changes: -ACETAMINOPHEN 500 MG TAB (TYLENOL) CANCER CTR ONE; -NS IV 1000 ML (CANCER CTR) 1,000 ML ONE; -NS IV 500 ML (CANCER CENTER) 500 ML ONE
[2017-12-24 15:16] LABS: ABSOLUTE RETIC # 41 10e9/L (24-90); BASOPHILS % (AUTO) 0 % (0-10); EOSINOPHILS # (AUTO) 0.1 10^3/uL (0.0-0.3); EOSINOPHILS % (AUTO) 1 % (0-10); HEMATOCRIT 24 % (35-52); HEMOGLOBIN 7.4 G/DL (11.5-16.0); LYMPHOCYTES % (AUTO) 15 % (12-44); MEAN CORPUSCULAR HEMOGLOBIN 34 PG (25-34); MEAN CORPUSCULAR HGB CONC 31 G/DL (32-36); MEAN CORPUSCULAR VOLUME 111 FL (80-99); MEAN PLATELET VOLUME 9.2 FL (7.4-10.4); MONOCYTES # (AUTO) 0.6 X 10^3 (0.0-1.0); MONOCYTES % (AUTO) 8 % (0-12); NEUTROPHILS # (AUTO) 5.4 X 10^3 (1.8-7.8); NEUTROPHILS % (AUTO) 76 % (42-75); PLATELET COUNT 154 10^3/uL (130-400); RED BLOOD COUNT 2.15 10^6/uL (4.35-5.85); RED CELL DISTRIBUTION WIDTH 17.9 % (10.0-14.5); RETICULOCYTE % 1.91 % (0.50-2.40); WHITE BLOOD COUNT 7.1 10^3/uL (4.3-11.0)
[2017-12-24 15:41] LABS: ALBUMIN 3.6 GM/DL (3.2-4.5); BILIRUBIN,TOTAL 0.4 MG/DL (0.1-1.0); CALCIUM 8.7 MG/DL (8.5-10.1); CREATININE SERUM 3.94 MG/DL (0.60-1.30); POTASSIUM 3.4 MMOL/L (3.6-5.0); TOTAL PROTEIN 5.9 GM/DL (6.4-8.2)
[2017-12-24] MEDS ORDERED: DARBEPOETIN 25 MCG/ML (CANCER CTR) 1 ML VIAL SC SCH (15:45)
== END 2017-12-29 | disposition home or self-care (01) ==
LOC: ONC 15:05
PROVIDERS: ATTEND Internal Medicine Hematology & Oncology
DX: C92.00 Acute myeloblastic leukemia, not having achieved remission (principal); D61.818 Other pancytopenia; N18.4 Chronic kidney disease, stage 4 (severe); E03.9 Hypothyroidism, unspecified; Z79.899 Other long term (current) drug therapy
CPT/HCPCS: 36415; 80053; 82728; 85025; 85045; 96372

== ENCOUNTER 2018-03-14 13:10 | Outpatient (RCR) | payer BC ==
[2018-01-01 12:33] LABS: BASOPHILS % (AUTO) 0 % (0-10); EOSINOPHILS # (AUTO) 0.1 10^3/uL (0.0-0.3); EOSINOPHILS % (AUTO) 1 % (0-10); HEMATOCRIT 23 % (35-52); HEMOGLOBIN 7.4 G/DL (11.5-16.0); LYMPHOCYTES # (AUTO) 0.9 X 10^3 (1.0-4.0); LYMPHOCYTES % (AUTO) 15 % (12-44); MEAN CORPUSCULAR HEMOGLOBIN 35 PG (25-34); MEAN CORPUSCULAR HGB CONC 32 G/DL (32-36); MEAN CORPUSCULAR VOLUME 110 FL (80-99); MEAN PLATELET VOLUME 9.6 FL (7.4-10.4); MONOCYTES # (AUTO) 0.6 X 10^3 (0.0-1.0); MONOCYTES % (AUTO) 10 % (0-12); NEUTROPHILS # (AUTO) 4.4 X 10^3 (1.8-7.8); NEUTROPHILS % (AUTO) 73 % (42-75); PLATELET COUNT 170 10^3/uL (130-400); RED BLOOD COUNT 2.11 10^6/uL (4.35-5.85); RED CELL DISTRIBUTION WIDTH 16.2 % (10.0-14.5)
[2018-01-07 16:11] LABS: BASOPHILS % (AUTO) 0 % (0-10); EOSINOPHILS # (AUTO) 0.1 10^3/uL (0.0-0.3); EOSINOPHILS % (AUTO) 2 % (0-10); HEMATOCRIT 31 % (35-52); HEMOGLOBIN 9.9 G/DL (11.5-16.0); LYMPHOCYTES # (AUTO) 1.2 X 10^3 (1.0-4.0); LYMPHOCYTES % (AUTO) 20 % (12-44); MEAN CORPUSCULAR HEMOGLOBIN 33 PG (25-34); MEAN CORPUSCULAR HGB CONC 32 G/DL (32-36); MEAN CORPUSCULAR VOLUME 104 FL (80-99); MONOCYTES # (AUTO) 0.9 X 10^3 (0.0-1.0); MONOCYTES % (AUTO) 15 % (0-12); NEUTROPHILS % (AUTO) 63 % (42-75); PLATELET COUNT 184 10^3/uL (130-400); RED BLOOD COUNT 2.99 10^6/uL (4.35-5.85); RED CELL DISTRIBUTION WIDTH 18.2 % (10.0-14.5); WHITE BLOOD COUNT 6.3 10^3/uL (4.3-11.0)
[2018-01-15 13:03] LABS: BASOPHILS % (AUTO) 0 % (0-10); EOSINOPHILS # (AUTO) 0.1 10^3/uL (0.0-0.3); EOSINOPHILS % (AUTO) 2 % (0-10); HEMATOCRIT 32 % (35-52); HEMOGLOBIN 10.8 G/DL (11.5-16.0); LYMPHOCYTES # (AUTO) 1.3 X 10^3 (1.0-4.0); LYMPHOCYTES % (AUTO) 16 % (12-44); MEAN CORPUSCULAR HEMOGLOBIN 35 PG (25-34); MEAN CORPUSCULAR HGB CONC 34 G/DL (32-36); MEAN CORPUSCULAR VOLUME 103 FL (80-99); MEAN PLATELET VOLUME 9.2 FL (7.4-10.4); MONOCYTES # (AUTO) 0.9 X 10^3 (0.0-1.0); MONOCYTES % (AUTO) 11 % (0-12); NEUTROPHILS # (AUTO) 5.7 X 10^3 (1.8-7.8); NEUTROPHILS % (AUTO) 71 % (42-75); PLATELET COUNT 162 10^3/uL (130-400); RED BLOOD COUNT 3.11 10^6/uL (4.35-5.85); RED CELL DISTRIBUTION WIDTH 17.6 % (10.0-14.5)
[2018-01-21 14:17] LABS: ABSOLUTE RETIC # 79 10e9/L (24-90); BASOPHILS % (AUTO) 0 % (0-10); EOSINOPHILS # (AUTO) 0.1 10^3/uL (0.0-0.3); EOSINOPHILS % (AUTO) 2 % (0-10); HEMATOCRIT 34 % (35-52); HEMOGLOBIN 10.9 G/DL (11.5-16.0); LYMPHOCYTES # (AUTO) 1.4 X 10^3 (1.0-4.0); LYMPHOCYTES % (AUTO) 19 % (12-44); MEAN CORPUSCULAR HEMOGLOBIN 34 PG (25-34); MEAN CORPUSCULAR HGB CONC 32 G/DL (32-36); MEAN CORPUSCULAR VOLUME 105 FL (80-99); MONOCYTES # (AUTO) 0.7 X 10^3 (0.0-1.0); MONOCYTES % (AUTO) 10 % (0-12); NEUTROPHILS # (AUTO) 4.9 X 10^3 (1.8-7.8); NEUTROPHILS % (AUTO) 70 % (42-75); PLATELET COUNT 170 10^3/uL (130-400); RED BLOOD COUNT 3.24 10^6/uL (4.35-5.85); RED CELL DISTRIBUTION WIDTH 17.2 % (10.0-14.5); RETICULOCYTE % 2.43 % (0.50-2.40); WHITE BLOOD COUNT 7.1 10^3/uL (4.3-11.0)
[2018-01-21 14:33] LABS: ALBUMIN 4.3 GM/DL (3.2-4.5); BILIRUBIN,TOTAL 0.5 MG/DL (0.1-1.0); CALCIUM 8.7 MG/DL (8.5-10.1); CREATININE SERUM 4.99 MG/DL (0.60-1.30); POTASSIUM 4.6 MMOL/L (3.6-5.0); TOTAL PROTEIN 7.1 GM/DL (6.4-8.2)
[2018-01-28 14:37] LABS: BASOPHILS % (AUTO) 0 % (0-10); EOSINOPHILS # (AUTO) 0.1 10^3/uL (0.0-0.3); EOSINOPHILS % (AUTO) 2 % (0-10); HEMATOCRIT 33 % (35-52); HEMOGLOBIN 10.8 G/DL (11.5-16.0); LYMPHOCYTES # (AUTO) 1.5 X 10^3 (1.0-4.0); LYMPHOCYTES % (AUTO) 18 % (12-44); MEAN CORPUSCULAR HEMOGLOBIN 34 PG (25-34); MEAN CORPUSCULAR HGB CONC 33 G/DL (32-36); MEAN CORPUSCULAR VOLUME 105 FL (80-99); MEAN PLATELET VOLUME 9.3 FL (7.4-10.4); MONOCYTES # (AUTO) 1.1 X 10^3 (0.0-1.0); MONOCYTES % (AUTO) 14 % (0-12); NEUTROPHILS # (AUTO) 5.5 X 10^3 (1.8-7.8); NEUTROPHILS % (AUTO) 67 % (42-75); PLATELET COUNT 167 10^3/uL (130-400); RED BLOOD COUNT 3.15 10^6/uL (4.35-5.85); WHITE BLOOD COUNT 8.2 10^3/uL (4.3-11.0)
[2018-02-04 14:55] LABS: BASOPHILS % (AUTO) 0 % (0-10); EOSINOPHILS # (AUTO) 0.1 10^3/uL (0.0-0.3); EOSINOPHILS % (AUTO) 1 % (0-10); HEMATOCRIT 33 % (35-52); HEMOGLOBIN 10.7 G/DL (11.5-16.0); LYMPHOCYTES # (AUTO) 1.6 X 10^3 (1.0-4.0); LYMPHOCYTES % (AUTO) 14 % (12-44); MEAN CORPUSCULAR HEMOGLOBIN 33 PG (25-34); MEAN CORPUSCULAR HGB CONC 32 G/DL (32-36); MEAN CORPUSCULAR VOLUME 103 FL (80-99); MEAN PLATELET VOLUME 9.1 FL (7.4-10.4); MONOCYTES # (AUTO) 1.3 X 10^3 (0.0-1.0); MONOCYTES % (AUTO) 11 % (0-12); NEUTROPHILS # (AUTO) 8.2 X 10^3 (1.8-7.8); NEUTROPHILS % (AUTO) 73 % (42-75); PLATELET COUNT 201 10^3/uL (130-400); RED BLOOD COUNT 3.24 10^6/uL (4.35-5.85); RED CELL DISTRIBUTION WIDTH 16.2 % (10.0-14.5); WHITE BLOOD COUNT 11.1 10^3/uL (4.3-11.0)
[2018-02-11 15:20] LABS: BASOPHILS % (AUTO) 0 % (0-10); EOSINOPHILS # (AUTO) 0.1 10^3/uL (0.0-0.3); EOSINOPHILS % (AUTO) 1 % (0-10); HEMATOCRIT 33 % (35-52); LYMPHOCYTES # (AUTO) 1.7 X 10^3 (1.0-4.0); LYMPHOCYTES % (AUTO) 13 % (12-44); MEAN CORPUSCULAR HEMOGLOBIN 33 PG (25-34); MEAN CORPUSCULAR HGB CONC 33 G/DL (32-36); MEAN CORPUSCULAR VOLUME 100 FL (80-99); MONOCYTES % (AUTO) 8 % (0-12); NEUTROPHILS # (AUTO) 9.7 X 10^3 (1.8-7.8); NEUTROPHILS % (AUTO) 78 % (42-75); PLATELET COUNT 203 10^3/uL (130-400); RED BLOOD COUNT 3.34 10^6/uL (4.35-5.85); RED CELL DISTRIBUTION WIDTH 15.7 % (10.0-14.5); WHITE BLOOD COUNT 12.4 10^3/uL (4.3-11.0)
[2018-02-18 16:36] LABS: BASOPHILS % (AUTO) 0 % (0-10); EOSINOPHILS # (AUTO) 0.1 10^3/uL (0.0-0.3); EOSINOPHILS % (AUTO) 1 % (0-10); HEMATOCRIT 30 % (35-52); HEMOGLOBIN 10.1 G/DL (11.5-16.0); LYMPHOCYTES # (AUTO) 2.2 X 10^3 (1.0-4.0); LYMPHOCYTES % (AUTO) 19 % (12-44); MEAN CORPUSCULAR HEMOGLOBIN 34 PG (25-34); MEAN CORPUSCULAR HGB CONC 34 G/DL (32-36); MEAN CORPUSCULAR VOLUME 100 FL (80-99); MONOCYTES # (AUTO) 1.1 X 10^3 (0.0-1.0); MONOCYTES % (AUTO) 9 % (0-12); NEUTROPHILS # (AUTO) 8.2 X 10^3 (1.8-7.8); NEUTROPHILS % (AUTO) 71 % (42-75); PLATELET COUNT 212 10^3/uL (130-400); RED CELL DISTRIBUTION WIDTH 15.2 % (10.0-14.5); WHITE BLOOD COUNT 11.5 10^3/uL (4.3-11.0)
[2018-03-11 12:13] LABS: BASOPHILS % (AUTO) 1 % (0-10); EOSINOPHILS # (AUTO) 0.2 10^3/uL (0.0-0.3); EOSINOPHILS % (AUTO) 2 % (0-10); HEMATOCRIT 29 % (35-52); HEMOGLOBIN 9.1 G/DL (11.5-16.0); LYMPHOCYTES % (AUTO) 28 % (12-44); MEAN CORPUSCULAR HEMOGLOBIN 34 PG (25-34); MEAN CORPUSCULAR HGB CONC 31 G/DL (32-36); MEAN CORPUSCULAR VOLUME 108 FL (80-99); MEAN PLATELET VOLUME 8.8 FL (7.4-10.4); MONOCYTES # (AUTO) 0.8 X 10^3 (0.0-1.0); MONOCYTES % (AUTO) 12 % (0-12); NEUTROPHILS # (AUTO) 3.9 X 10^3 (1.8-7.8); NEUTROPHILS % (AUTO) 57 % (42-75); PLATELET COUNT 195 10^3/uL (130-400); RED BLOOD COUNT 2.71 10^6/uL (4.35-5.85); WHITE BLOOD COUNT 6.9 10^3/uL (4.3-11.0)
[2018-03-11 12:33] LABS: ALBUMIN 4.1 GM/DL (3.2-4.5); BILIRUBIN,TOTAL 0.5 MG/DL (0.1-1.0); CALCIUM 9.8 MG/DL (8.5-10.1); CREATININE SERUM 3.77 MG/DL (0.60-1.30); POTASSIUM 4.4 MMOL/L (3.6-5.0); TOTAL PROTEIN 7.1 GM/DL (6.4-8.2)
[~2018-03-14 13:10] MED LIST changes: +ACETAMINOPHEN 500 MG TAB (TYLENOL) CANCER CTR ONE; -DARBEPOETIN 10 MCG/0.4 ML ARANESP IJ SCH; +DARBEPOETIN 25 MCG/ML (CANCER CTR) 1 ML VIAL SC SCH; +NS IV 500 ML (CANCER CENTER) 500 ML ONE; +diphenhydrAMINE 25 MG TAB (BENADRYL) CANCER CENTER PO ONE
== END 2018-04-01 | disposition home or self-care (01) ==
LOC: ONC 13:10
PROVIDERS: ATTEND Internal Medicine Hematology & Oncology
DX: D61.818 Other pancytopenia (principal); N18.4 Chronic kidney disease, stage 4 (severe); E03.9 Hypothyroidism, unspecified; Z79.899 Other long term (current) drug therapy
CPT/HCPCS: 36415; 36430; 80053; 82728; 83615; 85025; 85045; 86850; 86900; 86901; 86920; 86945; 86999; 96372; 99213

== ENCOUNTER → 2018-06-02 | Outpatient (CLI) | payer BC ==
[~2018-06-02] MED LIST changes: -ACETAMINOPHEN 500 MG TAB (TYLENOL) CANCER CTR ONE; -DARBEPOETIN 25 MCG/ML (CANCER CTR) 1 ML VIAL SC SCH; -NS IV 500 ML (CANCER CENTER) 500 ML ONE; -diphenhydrAMINE 25 MG TAB (BENADRYL) CANCER CENTER PO ONE
--- NOTE | 2018-06-02 18:28 | Diagnostic Imaging Report ---
INDICATION: Cough. COMPARISON: Comparison made with prior examination from 05/10/2017. FINDINGS: Heart size is normal. Mediastinum is unremarkable. Lungs are clear. There is no pleural effusion or pneumothorax. The central venous catheter has its tip in the superior vena cava. IMPRESSION: No acute cardiopulmonary abnormality. Dictated by: Dictated on workstation # [id number]
== END ==
LOC: RAD 15:42
PROVIDERS: ATTEND Internal Medicine
DX: R05 Cough (principal)
CPT/HCPCS: 71045

== ENCOUNTER 2018-06-25 14:55 | Outpatient (RCR) | payer BC ==
[2018-04-10 13:48] LABS: BASOPHILS % (AUTO) 0 % (0-10); EOSINOPHILS # (AUTO) 0.1 10^3/uL (0.0-0.3); EOSINOPHILS % (AUTO) 2 % (0-10); HEMATOCRIT 29 % (35-52); HEMOGLOBIN 9.3 G/DL (11.5-16.0); LYMPHOCYTES # (AUTO) 1.4 X 10^3 (1.0-4.0); LYMPHOCYTES % (AUTO) 20 % (12-44); MEAN CORPUSCULAR HEMOGLOBIN 35 PG (25-34); MEAN CORPUSCULAR HGB CONC 32 G/DL (32-36); MEAN CORPUSCULAR VOLUME 109 FL (80-99); MONOCYTES # (AUTO) 0.9 X 10^3 (0.0-1.0); MONOCYTES % (AUTO) 13 % (0-12); NEUTROPHILS # (AUTO) 4.4 X 10^3 (1.8-7.8); NEUTROPHILS % (AUTO) 64 % (42-75); PLATELET COUNT 212 10^3/uL (130-400); WHITE BLOOD COUNT 6.8 10^3/uL (4.3-11.0)
[2018-04-10 14:07] LABS: ALBUMIN 4.2 GM/DL (3.2-4.5); BILIRUBIN,TOTAL 0.5 MG/DL (0.1-1.0); CALCIUM 10.5 MG/DL (8.5-10.1); CREATININE SERUM 4.09 MG/DL (0.60-1.30); POTASSIUM 4.5 MMOL/L (3.6-5.0); TOTAL PROTEIN 7.1 GM/DL (6.4-8.2)
[~2018-06-25 14:55] MED LIST changes: +DARBEPOETIN 25 MCG/ML (CANCER CTR) 1 ML VIAL SC SCH
[2018-06-25 15:29] LABS: BASOPHILS % (AUTO) 0 % (0-10); EOSINOPHILS # (AUTO) 0.1 10^3/uL (0.0-0.3); EOSINOPHILS % (AUTO) 1 % (0-10); HEMATOCRIT 31 % (35-52); HEMOGLOBIN 10.2 G/DL (11.5-16.0); LYMPHOCYTES # (AUTO) 1.1 X 10^3 (1.0-4.0); LYMPHOCYTES % (AUTO) 15 % (12-44); MEAN CORPUSCULAR HEMOGLOBIN 35 PG (25-34); MEAN CORPUSCULAR HGB CONC 33 G/DL (32-36); MEAN CORPUSCULAR VOLUME 107 FL (80-99); MEAN PLATELET VOLUME 9.1 FL (7.4-10.4); MONOCYTES # (AUTO) 0.8 X 10^3 (0.0-1.0); MONOCYTES % (AUTO) 12 % (0-12); NEUTROPHILS # (AUTO) 4.9 X 10^3 (1.8-7.8); NEUTROPHILS % (AUTO) 72 % (42-75); PLATELET COUNT 164 10^3/uL (130-400); RED CELL DISTRIBUTION WIDTH 16.3 % (10.0-14.5); WHITE BLOOD COUNT 6.9 10^3/uL (4.3-11.0)
[2018-06-25 15:52] LABS: ALBUMIN 4.2 GM/DL (3.2-4.5); BILIRUBIN,TOTAL 0.5 MG/DL (0.1-1.0); CALCIUM 9.7 MG/DL (8.5-10.1); CREATININE SERUM 2.79 MG/DL (0.60-1.30); POTASSIUM 3.6 MMOL/L (3.6-5.0); TOTAL PROTEIN 7.1 GM/DL (6.4-8.2)
== END 2018-07-09 | disposition home or self-care (01) ==
LOC: ONC 14:55
PROVIDERS: ATTEND Internal Medicine Hematology & Oncology
DX: D61.818 Other pancytopenia (principal); N18.4 Chronic kidney disease, stage 4 (severe); E03.9 Hypothyroidism, unspecified; Z79.899 Other long term (current) drug therapy
CPT/HCPCS: 36415; 80053; 85025; 99213

== ENCOUNTER → 2018-07-23 | Outpatient (CLI) | payer BC ==
[~2018-07-23] MED LIST changes: -DARBEPOETIN 25 MCG/ML (CANCER CTR) 1 ML VIAL SC SCH
--- NOTE | 2018-07-23 15:58 | Diagnostic Imaging Report ---
PROCEDURE: US Thyroid. TECHNIQUE: Multiple real-time grayscale images were obtained of the thyroid in various projections. INDICATION: Thyroid nodule. COMPARISON: No prior imaging is available for comparison. FINDINGS: Right lobe of the thyroid measures 4.2 x 1.6 x 1.8 cm and the left lobe measures 6.1 x 2.7 x 1.8 cm. Isthmus is 6 mm in thickness. Bilateral thyroid nodules are identified. The largest nodules in the lower pole of the left lobe measuring 2.3 x 1.6 x 1.9 cm. This is circumscribed and hypoechoic. No definite microcalcifications are seen. Nodule more cephalad in the left lobe is noted measuring 1.1 x 0.9 x 0.8 cm. No microcalcifications are seen. The right lobe contains a 1.2 x 0.8 x 0.6 cm nodule. There is also a hypoechoic nodule in the medial aspect of the right lobe measuring approximately 1.9 x 0.8 x 0.8 cm which is somewhat ill-defined. IMPRESSION: Bilateral thyroid nodules. The largest nodule is in lower pole of left lobe. Fine needle aspiration of this nodule would be recommended if not already performed. Dictated by: Dictated on workstation # [id number]
== END ==
LOC: RAD 14:24
PROVIDERS: ATTEND Specialist
DX: Z01.818 Encounter for other preprocedural examination (principal); E04.2 Nontoxic multinodular goiter
CPT/HCPCS: 76536

== ENCOUNTER → 2018-08-04 | Outpatient (CLI) | payer BC ==
--- NOTE | 2018-08-04 15:23 | Diagnostic Imaging Report ---
PROCEDURE: CT chest without contrast. TECHNIQUE: Multiple contiguous axial images were obtained through the chest without the use of intravenous contrast. Auto Exposure Controls were utilized during the CT exam to meet ALARA standards for radiation dose reduction. INDICATION: Workup for renal transplant. COMPARISON: Correlation is made with prior chest radiograph from 06/02/2018. FINDINGS: Right-sided line has tip at the SVC right atrial junction. No axillary lymphadenopathy is seen. Hilar and mediastinal evaluation is limited without intravenous contrast but no gross abnormality is seen. No pericardial or pleural fluid is detected. Parenchymal evaluation demonstrates central airways to be patent. There is a micronodular in the right upper lobe adjacent to major fissure, image #16 measuring approximately 2 mm. Semisolid nodule in the subpleural location of the superior segment right lower lobe is noted image #16 measuring approximately 3 mm. Micronodule adjacent to major fissure on the left is seen on image #13 approximately 1-2 mm in size. No other nodules are identified. Upper abdomen demonstrates postoperative changes to the stomach. IMPRESSION: Pulmonary micronodules. Followup could be performed based on patient's risk factors. No other significant abnormality is seen. Dictated by: Dictated on workstation # [id number]
== END ==
LOC: RAD 13:18
PROVIDERS: ATTEND Specialist
DX: Z01.818 Encounter for other preprocedural examination (principal); R91.8 Other nonspecific abnormal finding of lung field
CPT/HCPCS: 71250

== ENCOUNTER 2018-09-08 12:09 | Outpatient (CLI) | payer BC ==
[~2018-09-08] VITALS: Ht 157.5 cm; Wt 61.2 kg
[2018-09-08 12:17] VITALS: BP 104/65
[2018-09-08] MEDS ORDERED: CLINDAMYCIN 600 MG/50 ML IVPB 50 ML IV ONE (12:30)
[2018-09-08] MEDS ORDERED: FA/V1TAB PO (12:46)
[2018-09-08] MEDS ORDERED: TURM538C PO (15:58)
[2018-09-08] MEDS ORDERED: CALC625T14 PO (15:58)
[2018-09-08] MEDS ORDERED: LEVO100T7 PO (15:58)
[2018-09-08] MEDS ORDERED: CETI10TA20 PO (15:58)
[2018-09-08] MEDS ORDERED: ERGO2000 PO (15:58)
[2018-09-08] MEDS ORDERED: VALA1000 PO (15:58)
[2018-09-08] MEDS ORDERED: PANT40TA3 PO (15:58)
[2018-09-08] MEDS ORDERED: AMLO5TAB9 PO (15:58)
[2018-09-08] MEDS ORDERED: MULT-985 PO (15:58)
== END 2018-09-08 12:40 | disposition home or self-care (01) ==
LOC: PREOP 12:09
PROVIDERS: ATTEND Surgery
DX: Z01.818 Encounter for other preprocedural examination (principal)
CPT/HCPCS: 87081

== ENCOUNTER 2018-09-09 15:07 | Outpatient (RCR) | payer BC ==
[~2018-09-09 15:07] MED LIST changes: +AMLO5TAB9 PO; +CALC625T14 PO; +CETI10TA20 PO; +ERGO2000 PO; +FA/V1TAB PO; +LEVO100T7 PO; +MULT-985 PO; +PANT40TA3 PO; +TURM538C PO; +VALA1000 PO
[2018-09-09 15:35] LABS: BASOPHILS % (AUTO) 1 % (0-10); EOSINOPHILS # (AUTO) 0.4 10^3/uL (0.0-0.3); EOSINOPHILS % (AUTO) 5 % (0-10); HEMATOCRIT 33 % (35-52); HEMOGLOBIN 10.6 G/DL (11.5-16.0); LYMPHOCYTES # (AUTO) 1.4 X 10^3 (1.0-4.0); LYMPHOCYTES % (AUTO) 20 % (12-44); MEAN CORPUSCULAR HEMOGLOBIN 36 PG (25-34); MEAN CORPUSCULAR HGB CONC 32 G/DL (32-36); MEAN CORPUSCULAR VOLUME 111 FL (80-99); MEAN PLATELET VOLUME 9.6 FL (7.4-10.4); MONOCYTES # (AUTO) 1.2 X 10^3 (0.0-1.0); MONOCYTES % (AUTO) 18 % (0-12); NEUTROPHILS # (AUTO) 3.8 X 10^3 (1.8-7.8); NEUTROPHILS % (AUTO) 56 % (42-75); PLATELET COUNT 161 10^3/uL (130-400); RED CELL DISTRIBUTION WIDTH 14.9 % (10.0-14.5); WHITE BLOOD COUNT 6.8 10^3/uL (4.3-11.0)
[2018-09-09 16:20] LABS: ALBUMIN 4.2 GM/DL (3.2-4.5); BILIRUBIN,TOTAL 0.3 MG/DL (0.1-1.0); CALCIUM 11.7 MG/DL (8.5-10.1); CREATININE SERUM 4.22 MG/DL (0.60-1.30); TOTAL PROTEIN 7.1 GM/DL (6.4-8.2)
[2018-09-11] MEDS ORDERED: ACHD5005 PO (09:38)
== END 2018-12-08 | disposition home or self-care (01) ==
LOC: ONC 15:07
PROVIDERS: ATTEND Internal Medicine Hematology & Oncology
DX: D61.818 Other pancytopenia (principal); N18.4 Chronic kidney disease, stage 4 (severe); E03.9 Hypothyroidism, unspecified; Z79.899 Other long term (current) drug therapy
CPT/HCPCS: 36415; 80053; 83615; 85025; 99213

== ENCOUNTER 2018-09-11 06:10 | Day surgery (SDC) | payer BC ==
[~2018-09-11] VITALS: Ht 157.5 cm; Wt 61.2 kg
[2018-09-11] VITALS (9 sets, daily range): BP systolic 93–127; BP diastolic 62–83
[2018-09-11] MEDS ORDERED: proPOfol 200 MG/20 ML (DIPRIVAN) VIAL IV ONE (06:50)
[2018-09-11] MEDS ORDERED: ONDANSETRON 4 MG/2 ML (SDV) Z0FRAN ONE (06:50)
[2018-09-11] MEDS ORDERED: LIDOCAINE PF 2% 5 ML (XYLOCAINE) VIAL ONE (06:50)
[2018-09-11] MEDS ORDERED: DEXAMETHASONE 10 MG/ML (DECADRON) 1 ML VIAL ONE (06:50)
[2018-09-11] MEDS ORDERED: ROCURONIUM 10 MG/ML 5 ML SYRINGE IV ONE (06:50)
[2018-09-11] MEDS ORDERED: fentaNYL INJECTION 100 MCG/2 ML AMP ONE (06:51)
[2018-09-11] MEDS ORDERED: SEVOFLURANE (ULTANE) 15 ML INHAL SOLN ONE ×2 (06:51→09:04)
[2018-09-11] MEDS ORDERED: NEOSTIGMINE 1 MG/ML 5 ML SYRINGE ONE (06:54)
[2018-09-11] MEDS ORDERED: GLYCOPYRROLATE 0.2 MG/ML (ROBINUL) 2 ML VIAL ONE ×2 (06:54→09:03)
[2018-09-11] MEDS ORDERED: LACTATED RINGERS 1,000 ML IV PRN (07:09)
[2018-09-11] MEDS ORDERED: CATHETER FLUSH 10 ML SYR IV PRN (07:15)
[2018-09-11] MEDS ORDERED: CLINDAMYCIN 600 MG/50 ML IVPB 50 ML IV ONE (07:15)
[2018-09-11] MEDS ORDERED: LIDOCAINE 1% INJ 20 ML 20 ML VIAL ONE (07:23)
[2018-09-11] MEDS ORDERED: BUP/EPI 0.5% 1:200,000 (SENSORCAINE) 30 ML VIAL ONE (07:23)
[2018-09-11] MEDS ORDERED: NS IV 500 ML 500 ML IV SCH (07:30)
--- NOTE | 2018-09-11 08:04 | Progress Note-Pre Operative ---
Pre-Operative Progress Note H&P Reviewed The H&P was reviewed, patient examined and no changes noted. Date Seen by Provider: Sep 11, 2018 Time Seen by Provider: 07:45 Date H&P Reviewed: Sep 11, 2018 Time H&P Reviewed: 07:45 Pre-Operative Diagnosis: chronic kidney disease VIDYA QUICK DO Sep 11, 2018 08:04
[2018-09-11] MEDS ORDERED: PHENYLEPHRINE 100 MCG/ML 10 ML (ANESTHESIA) SYR ONE (08:11)
[2018-09-11] MEDS ORDERED: HYDROmorphone 2 MG/ML VIAL (DILAUDID) IV ONE (09:30)
[2018-09-11] MEDS ORDERED: ONDANSETRON 4 MG/2 ML (SDV) Z0FRAN IVP PRN (09:30)
--- NOTE | 2018-09-11 09:37 | Progress Note-Post Operative ---
Post-Operative Progess Note Surgeon (s)/Workers Compensation Claims Assistant (s) Surgeon VIDYA QUICK DO Workers Compensation Claims Assistant: Dr. Chance Pre-Operative Diagnosis chronic kidney disease Post-Operative Diagnosis same Procedure & Operative Findings Date of Procedure 09/11/18 Procedure Performed/Findings lap peritoneal dialysis catheter placement and omental pexy ruq Anesthesia Type gen Estimated Blood Loss Estimated blood loss (mL): min Specimens/Packing Specimens Removed na VIDYA QUICK DO Sep 11, 2018 09:37
[2018-09-11] MEDS ORDERED: ACHD5005 PO (09:38)
--- NOTE | 2018-09-11 09:44 | Discharge Inst-Simple/Standard ---
Discharge Inst-Standard Discharge Medications New, Converted or Re-Newed RX: RX on Chart Patient Instructions/Follow Up Plan of Care/Instructions/FU: 2 weeks Randy. F/u with dialysis center as scheduled. Activity as Tolerated: No Discharge Diet: Regular Diet Other Inst to Patient Follow up Appt: Make appointment for 2 week Randy Keep appointments with Dialysis. Instructions: No lifting greater than 10 pounds. No strenuous activity. May shower in 24 hours, no tub bath or soaking. Use incentive spirometer at home as directed. No Smoking Skin/Wound Care: May remove bandages in 48 hours. You have special glue over incisions it will fall off on its own. Symptoms to Report: Appetite Changes, Extremity Discoloration, Numbness/Tingling, Swelling Increased, Bleeding Excessive, Eyesight Changes, Pain Increased, Urine Color Change, Constipation(Persistent), Fever over 101 degree F, Pain/Pressure in chest, Urinating Difficulty, Cough Up/Vomit Blood, Heart Beat Irreg/Pounding, Pain/Pressure in jaw, Vaginal Bleeding Increase, Cramps in feet or legs, Lightheadedness, Pain/Pressure in shoulder, Diarrhea(Persistent), Memory Changes Suddenly, Questions/Concerns, Weight gain consecutive days, Dizziness/Fainting, Nausea/Vomiting, Shortness of Breath, Weight gain over 2 pounds If questions or concerns contact your physician Or seek help at emergency department. VIDYA QUICK DO Sep 11, 2018 09:44
[2018-09-11] MEDS ORDERED: HYDROcodone/APAP 5 MG/325 MG (LORTAB) TAB ONE (10:32)
--- NOTE | 2018-09-11 10:40 | NUR ---
LORTAB 5/325 MG 1 PO GIVEN FOR PAIN THAT THE PATIENT RATES A 5 OUT OF 10.
--- NOTE | 2018-09-11 10:40 | Anesthesia-General Post-Op ---
General Patient Condition Mental Status/LOC: Same as Preop Cardiovascular: Satisfactory Nausea/Vomiting: Absent Respiratory: Satisfactory Pain: Controlled Complications: Absent Post Op Complications Complications None Follow Up Care/Instructions Patient Instructions None needed. Anesthesia/Patient Condition Patient Condition Patient is doing well, no complaints, stable vital signs, no apparent adverse anesthesia problems. No complications reported per nursing. RL CARDONA CRNA Sep 11, 2018 10:40
[2018-09-11] MEDS ORDERED: HYDROcodone/APAP 5 MG/325 MG (LORTAB) TAB PO ONE (12:45)
--- NOTE | 2018-09-11 19:26 | OPERATIVE REPORT ---
DATE OF SERVICE: 09/11/2018 PREOPERATIVE DIAGNOSIS: Chronic kidney disease. POSTOPERATIVE DIAGNOSIS: Chronic kidney disease. PROCEDURE: Laparoscopic peritoneal dialysis catheter placement and omentopexy. SURGEON: Liu Padilla DO APRON TRIMMER: Dr. Chance, assisted in retraction, dissection and closure. ANESTHESIA: General. ESTIMATED BLOOD LOSS: Minimal. COMPLICATIONS: None. INDICATIONS: The patient is a 58-year-old female who is going to start peritoneal dialysis. She was explained risks and benefits of procedure and wished to proceed with procedure. Consent was signed in the chart. PROCEDURE: The patient was taken to the operating suite. She was prepped and draped in sterile fashion. Timeout was performed. In the subxiphoid region a local anesthetic was infiltrated and a 12 mm incision was made. Cautery dissection was used to dissect down to the fascia, which was then scored, grasped and elevated and the abdomen was then entered. A 0 Vicryl was placed in a [id number] fashion for closure at the end of the case. A pneumoperitoneum was achieved. The abdomen had normal appearance. The omentum was draped all the way down into the pelvis and mobile. Local anesthetic was then infiltrated to the right of the umbilicus. A 10 mm incision was made at which a trocar was then placed in an angled fashion down towards the pelvis until the trocar was entered. A 62 cm peritoneal dialysis catheter was inserted through the trocar and placed down the pelvis in the usual fashion. The trocar was removed and the cuff was then placed intramuscularly. Concern of the omentum being down in the pelvis so far with risk of occluding the catheter. A 5 mm trocar was then placed in left lower quadrant. The omentum was grasped, elevated and a pexy was created using a Stefan-Jose through a stab incision in the right upper quadrant. This allowed more open space for the peritoneal dialysis catheter down the pelvis. The catheter was then tunneled from the insertion point out laterally on the right side. Approximately 500 mL of saline were then placed within the abdomen through the catheter and it flushed and cecil back without any difficulties. Approximately 300 mL of saline was left within the abdomen to float the catheter. The abdomen was then desufflated, the trocars removed. A 0 Vicryl placed in a [id number] fashion at the beginning of the case was then sutured that what was then tied. The skin was then closed using 4-0 Monocryl in subcuticular fashion and Skin Affix was placed over the incisions after it was washed and dried. The patient tolerated procedure well without any complications. She was taken to recovery room in stable condition. Job ID: [id number] DocumentID: [id number] Dictated Date: 09/11/2018 13:21:14 Stripping Shovel Oiler Date: 09/11/2018 19:25:50 Dictated By: DO ELEANOR DUTTON
== END 2018-09-11 11:20 | disposition home or self-care (01) ==
LOC: SDC 06:10
PROVIDERS: ATTEND Surgery
DX: I12.9 Hypertensive chronic kidney disease with stage 1 through stage 4 chronic kidney disease, or unspecified chronic kidney disease (principal); N18.4 Chronic kidney disease, stage 4 (severe); E03.9 Hypothyroidism, unspecified; C92.00 Acute myeloblastic leukemia, not having achieved remission; Z79.899 Other long term (current) drug therapy

== ENCOUNTER 2018-10-16 12:58 | Day surgery (SDC) | payer BC, MEDICARE ==
[~2018-10-16] VITALS: Ht 157.5 cm; Wt 62.6 kg
[2018-10-16] VITALS (7 sets, daily range): BP systolic 108–132; BP diastolic 68–86
[~2018-10-16 12:58] MED LIST changes: +ACHD5005 PO
[2018-10-16] MEDS ORDERED: NS IV 500 ML 500 ML IV SCH (14:00)
--- NOTE | 2018-10-16 14:10 | Progress Note-Pre Operative ---
Pre-Operative Progress Note H&P Reviewed The H&P was reviewed, patient examined and no changes noted. Date Seen by Provider: Oct 16, 2018 Time Seen by Provider: 14:09 Date H&P Reviewed: Oct 16, 2018 Time H&P Reviewed: 14:09 Pre-Operative Diagnosis: chronic kidney disease VIDYA QUICK DO Oct 16, 2018 14:10
[2018-10-16] MEDS ORDERED: BUP/EPI 0.5% 1:200,000 (MARCAINE) 10ML VIAL IJ ONE (14:12)
[2018-10-16] MEDS ORDERED: CLINDAMYCIN 600 MG/50 ML IVPB 50 ML IV ONE (14:15)
[2018-10-16] MEDS ORDERED: proPOfol 200 MG/20 ML (DIPRIVAN) VIAL IV ONE (14:16)
[2018-10-16] MEDS ORDERED: MIDAZOLAM 2 MG/2 ML (VERSED) VIAL ONE (14:16)
--- NOTE | 2018-10-16 14:51 | Progress Note-Post Operative ---
Post-Operative Progess Note Surgeon (s)/Transfer And Line Up Worker (s) Surgeon VIDYA QUICK DO Transfer And Line Up Worker: na Pre-Operative Diagnosis chronic kidney disease Post-Operative Diagnosis same Procedure & Operative Findings Date of Procedure 10/16/18 Procedure Performed/Findings removal hemodialysis catheter Anesthesia Type mac c local Estimated Blood Loss Estimated blood loss (mL): min Specimens/Packing Specimens Removed na VIDYA QUICK DO Oct 16, 2018 14:51
--- NOTE | 2018-10-16 14:54 | Discharge Inst-Simple/Standard ---
Discharge Inst-Standard Patient Instructions/Follow Up Plan of Care/Instructions/FU: 2 weeks niharika Activity as Tolerated: Yes Discharge Diet: Regular Diet Other Inst to Patient Follow up Appt: Make appointment for 2 weeks. Instructions: No strenuous activity. May shower in 24 hours, no tub bath or soaking. Use incentive spirometer at home as directed. No Smoking Skin/Wound Care: May remove bandage in 24 hours. Replace daily. Keep area clean and dry. Symptoms to Report: Appetite Changes, Extremity Discoloration, Numbness/Tingling, Swelling Increased, Bleeding Excessive, Eyesight Changes, Pain Increased, Urine Color Change, Constipation(Persistent), Fever over 101 degree F, Pain/Pressure in [address]irudh st, Urinating Difficulty, Cough Up/Vomit Blood, Heart Beat Irreg/Pounding, Pain/Pressure in jaw, Vaginal Bleeding Increase, Cramps in feet or legs, Lightheadedness, Pain/Pressure in shoulder, Diarrhea(Persistent), Memory Changes Suddenly, Questions/Concerns, Weight gain consecutive days, Dizziness/Fainting, Nausea/Vomiting, Shortness of Breath, Weight gain over 2 pounds If questions or concerns contact your physician Or seek help at emergency department. VIDYA QUICK DO Oct 16, 2018 14:54
[2018-10-16] MEDS ORDERED: ONDANSETRON 4 MG/2 ML (SDV) Z0FRAN IVP PRN (15:15)
[2018-10-16] MEDS ORDERED: morphine INJ 10 MG/ML 1ML (SYR OR VIAL) IVP ONE (15:15)
--- NOTE | 2018-10-17 02:47 | OPERATIVE REPORT ---
DATE OF SERVICE: 10/16/2018 PREOPERATIVE DIAGNOSES: Renal failure and chronic kidney disease. POSTOPERATIVE DIAGNOSES: Renal failure and chronic kidney disease. PROCEDURE: Removal of hemodialysis catheter, right chest. SURGEON: Vidya Padilla DO ANESTHESIA: MAC with local. ESTIMATED BLOOD LOSS: Minimal. COMPLICATIONS: None. INDICATIONS: The patient is a 58-year-old female, who has hemodialysis catheter, which is no longer using. The patient is using peritoneal dialysis now. The patient was explained risks and benefits of procedure and wished to proceed with procedure. Consent was signed in the chart. DESCRIPTION OF PROCEDURE: The patient was taken to the operating suite. She was prepped and draped in sterile fashion. Timeout was performed. Local anesthetic was infiltrated along the tract of the catheter. Catheter was grasped and had slight traction placed on and hemostat that was used to dissect around it until the catheter was freed all the way up to the cuff, which was then slowly withdrawn until completely removed. The pressure was held at the internal jugular vein for 10 minutes until hemostasis had been achieved. The area was then washed and dried and sterile bandage was applied. The patient tolerated procedure well without any complications. She was taken to recovery room in stable condition. Job ID: [id number] DocumentID: [id number] Dictated Date: 10/16/2018 17:06:36 Law Firm Partner Date: 10/17/2018 02:46:44 Dictated By: VIDYA PADILLA DO
--- OUTSIDE RECORDS SUMMARY | 2018-10-17 08:22 | XMS REPORT | Encounter Summary ---
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 documented as of this encounter Last Filed Vital Signs Reading Time Taken Comments Vital Sign 134/82 08/05/2018 12:11 PM CDT Blood Pressure 70 08/05/2018 12:11 PM CDT Pulse 36.6 C (97.8 F) 08/05/2018 12:11 PM CDT Temperature 16 08/05/2018 12:11 PM CDT Respiratory Rate 100% 08/05/2018 12:11 PM CDT Oxygen Saturation - - Inhaled Oxygen Concentration 60.4 kg (133 lb 3.2 oz) 08/05/2018 12:11 PM CDT Weight 157.5 cm (5' 2.01") 08/05/2018 12:11 PM CDT Height 24.36 08/05/2018 12:11 PM CDT Body Mass Index documented in this encounter Functional Status Date of Assessment Functional Status Response 06/19/2018 Does the patient have a hearing impairment: No 06/19/2018 Does the patient have a visual impairment: Yes 06/19/2018 Does the patient have impaired ambulation: No 06/19/2018 Does the patient have an activity of daily living No (ADL) impairment: 05/15/2017 Does the patient have an instrumental activity of No daily living (IADL) impairment: Date of Assessment Cognitive Status Response 06/19/2018 Does the patient have a cognitive impairment: No documented as of this encounter Progress Notes * Chemo Kaufman MD - 08/05/2018 12:30 PM CDT Date of Service: 03/29/2017 Reason for Visit: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 s/p post CD 34 selected boost for poor graft function. Underwent reversal of gastric bypass on 11/22/17. Heme/Onc Care Subjective: Still has occasional vomiting post dialysis. Denies fever, chills, nausea, diar pam, sore throat, cough, SOA, swelling, rash. No changes in mouth. No rash Acco mpanied in clinic today by her . Has gained wt, with increased appetite since starting hemo dialysis. May transition to peritoneal dialysis History of Present Illness Transplant History Date of Transplant:12/26/16 Transplant Type:Allogeneic Related Conditioning Regimen:BUCY post CY; CTN 1301 Conditioning Regimen Type:Myeloablative Rationale for reduced/NST regimen: N/A Diagnosis/Stage:AML FLT3+ Disease Status at Transplant:CR Cytogenetic/Fish AT DIAGNOSIS: 46, XX[20] fish neg Stem Cell Source:Bone Marrow Graft Manipulation:Not Applicable NMDP DID: N/A Donor Information: Age 58, Sex male, HLA-Match:8of8 HLA Antibody Screen: N/A CMV Status: Donor - Negative; Recipient - Positive Blood Type: Donor -A Positive; Recipient - O Positive Consents / Study# / Protocol#:8322, chemotherapy, blood, allogeneic, storage /processing, BU CY, 1301 Pretransplant Coordinator:Jessica Gautam RN PMH : Bariatric surgery 2 (08/13) years ago and lost 140 lbs. Recent plastic surgery on lower abdomen No other surgeries. No other hospitalizations. H/o hypothyroid on meds 110 mcg daily. Social Hist : . 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 No h/o smoking. Alcohol social ly. Has two children 30 and 32 yrs. 2 biological grand children Review of Systems Constitutional: Positive for fatigue after dialysis. HENT: Negative. Eyes: Negative. Respiratory: Negative. Cardiovascular: Negative. Gastrointestinal: vomiting after dialysis Genitourinary:elevated creat Musculoskeletal: leg cramps. Skin: Negative. Neurological: Negative. Psychiatric/Behavioral: Negative. Immunosuppressed Rest of ROS negative. Objective: acyclovir (ZOVIRAX) 200 mg capsule Take 1 capsule by mouth twice daily. atovaquone (MEPRON) 750 mg/5 mL oral suspension Take 10 mL by mouth daily breakfast. Biotin 2,500 mcg cap Take 2 capsules by mouth every morning. ergocalciferol (VITAMIN D-2) 50,000 unit capsule Take 1 capsule by mouth susana ry 7 days. fexofenadine(+) (YONAS) 180 mg tablet Take 180 mg by mouth every morning. KLOR-CON M10 10 mEq tablet TAKE TWO TABLETS BY MOUTH TWICE DAILY WITH A MEAL & FULL GLASS OF WATER (Patient taking differently: TAKE TWO TABLETS BY MOUTH ONCE DAILY WITH A MEAL & FULL GLASS OF WATER) levothyroxine (SYNTHROID) 100 mcg tablet Take 1 tablet by mouth daily 30 min utes before breakfast. bo-sp-bkra-FA-vit K-cwlm-toF10 (DEKAS BARIATRIC) 22.5 mg-400 mcg -500 mcg-10 mg chew Chew 1 Dose by mouth at bedtime daily. pantoprazole DR (PROTONIX) 40 mg tablet Take 1 tablet by mouth twice daily. thiamine (VITAMIN B-1) 100 mg tablet Take 1 tablet by mouth daily. traMADol (ULTRAM) 50 mg tablet Take 1 tablet by mouth every 6 hours as neede d. Vitals: 09/17/17 1356 BP: 123/77 Pulse: 73 Resp: 15 Temp: 36.7 C (98 F) TempSrc: Oral SpO2: 100% Weight: 42.9 kg (94 lb 9.6 oz) Height: 157.5 cm (62.01") Body mass index is 22.7 kg/(m^2). Pain Addressed: N/A Patient Evaluated for a Clinical Trial: Patient not eligible for a treatment tri al (including not needing treatment, needs palliative care, in remission). Karnofsky Scale: 70% Cares for self; unable to do normal activity, or active wor k Physical Exam Constitutional: She is oriented to person, place, and time. She appears well-dev eloped and well-nourished. No distress. Petite. Head: Normocephalic and atraumatic. Mouth/Throat: Oropharynx is clear and moist. No oropharyngeal exudate. Eyes: Conjunctivae and EOM are normal. Pupils are equal, round, and reactive to light. Right eye exhibits no discharge. Left eye exhibits no discharge. Neck: Normal range of motion. Cardiovascular: Normal rate, regular rhythm and normal heart sounds. Pulmonary/Chest: Effort normal and breath sounds normal. No respiratory distress . She has no wheezes. She has no rales. Abdominal: Soft. Bowel sounds are normal. She exhibits no distension. There is n o tenderness. Musculoskeletal: Normal range of motion. She exhibits no edema or deformity. No sclerosis Neurological: She is alert and oriented to person, place, and time. Coordination normal. Skin: Skin is warm and dry. No rash noted. She is not diaphoretic. Psychiatric: She has a normal mood and affect. Her behavior is normal. Judgment and thought content normal. CBC w/Diff Lab Results Component Value Date/Time WBC 4.3 (L) 08/05/2018 12:08 PM RBC 2.89 (L) 08/05/2018 12:08 PM HGB 10.7 (L) 08/05/2018 12:08 PM HCT 31.4 (L) 08/05/2018 12:08 PM MCV 108.9 (H) 08/05/2018 12:08 PM MCH 37.0 (H) 08/05/2018 12:08 PM MCHC 34.0 08/05/2018 12:08 PM RDW 16.5 (H) 08/05/2018 12:08 PM PLTCT 135 (L) 08/05/2018 12:08 PM MPV 8.0 08/05/2018 12:08 PM Lab Results Component Value Date/Time NEUT 52 08/05/2018 12:08 PM ANC 2.20 08/05/2018 12:08 PM LYMA 33 08/05/2018 12:08 PM ALC 1.40 08/05/2018 12:08 PM JENNIFER 11 08/05/2018 12:08 PM AMC 0.50 08/05/2018 12:08 PM EOSA 3 08/05/2018 12:08 PM AEC 0.10 08/05/2018 12:08 PM BASA 1 08/05/2018 12:08 PM ABC 0.00 08/05/2018 12:08 PM Comprehensive Metabolic Profile Lab Results Component Value Date/Time NA 134 (L) 08/05/2018 12:08 PM K 3.8 08/05/2018 12:08 PM CL 98 08/05/2018 12:08 PM CO2 30 08/05/2018 12:08 PM GAP 6 08/05/2018 12:08 PM BUN 38 (H) 08/05/2018 12:08 PM CR 3.75 (H) 08/05/2018 12:08 PM GLU 118 (H) 08/05/2018 12:08 PM GLU 112 (H) 06/25/2018 03:24 PM Lab Results Component Value Date/Time CA 10.4 08/05/2018 12:08 PM PO4 3.0 06/19/2018 03:31 PM ALBUMIN 4.6 08/05/2018 12:08 PM TOTPROT 7.1 08/05/2018 12:08 PM ALKPHOS 71 08/05/2018 12:08 PM AST 20 08/05/2018 12:08 PM ALT 13 08/05/2018 12:08 PM TOTBILI 0.4 08/05/2018 12:08 PM GFR 12 (L) 08/05/2018 12:08 PM GFRAA 15 (L) 08/05/2018 12:08 PM Assessment and Plan: Primary Diagnosis: Denovo AML, 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 -Lineage specific chimerism sent 02/25. Lymphoid 100% donor and Myeloid 100% d onor. - Plan to start midosaturin when counts are higher. - BM biopsy 02/26/17, negative for AML. Fish for XX/XY 99.4% donor - Day 100 BM on Apr 04 shows 30% cellularity and is neg for AML. - Post CD34 selected boost on 05/24/17. - 6 mos bmbx shows CR, 99.8% donor. -1 yr -100% donor ( of 518 cells, 500 are XY and 18 X-, suggestive of loss of Y chromosome) Heme: - chronic anemia. likely due to renal failure. receiving Aranesp through Dr. Silvana gilliam in [place]. --was on Promacta 03/12/2017- as Plt count is >150, decreased promacta to 100 /50 on 07/18; decreased to 50 mg daily from 07/29/17. Now stopped. FEN/Renal: - Creatinine remains elevated, Nephrology consulted, appreciate recommendations, s/p renal bx, which revealed Oxalate nephropathy - follows with nephrology in [place] Dr. Mckeon - This is likely related to previous gastric bypass surgery. - Per Nephrology, this may get better if we reverse bypass surgery. underwent reversal of gastric bypass on 11/22/17. - thinking of kidney transplant from the brother who donated the stem cells, bu t he may not be the best donor due to health issues ( prostate). She is on the d onor list for kidney Tx after 2 yrs post BMT -peritoneal dialysis planned ID: [email or web address]. - 6 mos vaccines 07/15/17 -8 mos vaccine September 2017 -10 vaccines 06 Jan 2018 with FLu vaccine -1 yr vaccines 03/06/18 - CMV Status:Donor - Negative; Recipient - Positive CMV. Once-weekly CMV monit oring until day 365. - CD4 cont at 1 yr 169, checking today and if >250 will d/c Mepron. Continuing Valacyclovir per [facility]. Cardiac: - hypertension, will follow with Nephrology re medications Pulm:Denies any respiratory distress. - Day 100 PFT are normal - Had PFT on 06/03, will use for day 180 LTFU. - 1yr FEV1 98% GI: - occasional vomiting, altho less and appetite improved Flex sig, on 05/10, showed: 12 mm clean based ulcer on jejunal side of anastomosis , changes of sleeve gastrectomy; distal gastric granularity and erythema, Venancio na throughout; exam stopped in sigmoid colon. Hemorrhoids. - Onprotonix - S/p Colonoscopy and EGD with capsule placement on05/14 which showed jejunal u lcers - push colonoscopy 05/29/16 neg for ulcers. Bx - inflammation and rare apop totic bodies. - History of gastric bypass, currently on M/vitamins - LFTs normalized. VENEER SAWYER:h/o vagina bleeding now resolved. Followed by [facility] at [facility] - [facility] Ordered outpatient, transvaginal US and pelvis US (05/09) showed multiple fi broids, complex cystic in low left adnexa. Rec to have hysterectomy in future - Per roller coaster designer recs, ordered MRI pelvis (05/13) for further evaluation of fibroids, showed 3 intramural fibroids, which distort the fundal endometrium. Patient to follow-up with ob-cash posting representative. Neuro: - H/o migraine headaches,none today Pain: - Hx chronic "sciatica" back pain that goes down left hip to knee. - Recent repeat MRI shows no fracture, avascular necrosis or marrow infiltration . Skin:No new rash - Has two left hip lipoma's that are stable. Psych: - Pleasant. Hx of dysthymia. - Onc-psych following. GvHD Staging/Grading: - 09/21/17- Started Solumedrol 1mg/kg/day, B&B on admission. EGD/flex sig results showing very rare crypt apoptoses in small bowel and colon, inconclusive for GVHD. With stool + for adenovirus will DC steroids and monitor closely. - Currently participant in 1301 clinical trial, not candidate for other gvhd cli nical trials. - Received post transplant Cytoxan on day +3 and +4. - No other GvHD ppx per CTN 1301 study -no acitve gvhd RTC 3 mos lab provider (LTFU in October) and palliative care. Follow up with [facility]. Patient planning a 3 mos stay in [place] later this year. Chemo Kaufman MD documented in this encounter Plan of Treatment Not on filedocumented as of this encounter Visit Diagnoses Diagnosis Acute myeloid leukemia in remission (HCC) - Primary Acute myeloid leukemia in remission H/O bone marrow transplant (HCC) Bone marrow replaced by transplant ESRD on hemodialysis (HCC) End stage renal disease documented in this encounter
--- OUTSIDE RECORDS SUMMARY | 2018-10-17 08:22 | XMS REPORT | Encounter Summary ---
Author Author [facility] Organization [facility] Address Unknown Phone Unavailable Care Team Providers Care Manager Law Name Role Phone Rebeca Green MD Unavailable Love Chambers DO PCP Reason for Visit * Reason Comments Pain Encounter Details Care Team Description Date Type Department Jeremiah Dave DO [address] [facility] [address] [place] [address] CKD (chronic kidney disease) stage 5, GFR less than 15 ml/min (HCC) (Primary Dx); Myalgia; Nausea 08/05/2018 Office Visit [facility] [address] [place] [address] [phone] Social History Date Tobacco Use Types Packs/Day [...] Time Taken Comments Vital Sign 134/82 08/05/2018 2:29 PM CDT Blood Pressure 70 08/05/2018 2:29 PM CDT Pulse 36.6 C (97.9 F) 08/05/2018 2:29 PM CDT Temperature 16 08/05/2018 2:29 PM CDT Respiratory Rate 100% 08/05/2018 2:29 PM CDT Oxygen Saturation - - Inhaled Oxygen Concentration 60.4 kg (133 lb 2.5 oz) 08/05/2018 2:29 PM CDT Weight 157.5 cm (5' 2.01") 08/05/2018 2:29 PM CDT Height 24.35 08/05/2018 2:29 PM CDT Body Mass Index documented in [...] as of this encounter Progress Notes * Jeremiah Dave, - 08/05/2018 1:15 PM CDT PALLIATIVE CARE OUTPATIENT VISIT PC Outpatient Visit #: 1 new Date of Service: 08/05/2018 Referring Clinician: Preferred Name: Ting PCP: Love Chambers PC Code: [id number] Shared Note: Not yet ASSESSMENT Ting Rob is a 58 y.o. female with AML S/P MSD AND CD34 STEM CELL BOOST 05/24/17. HAVING ISSUES WITH KIDNEY DUE TO A GASTRIC BYPASS HE HAD 2 YEARS AGO 2 015. NOW MAY NEED A KIDNEY TRANSPLANT FROM THE BROTHER THT HAVE HIM STEM. REVE RSED GASTRIC BYPASS ON 10/2017 CELLS. CREAT 3.43 GFR 14. - CKD V - Nausea - Myalgias Current Treatments: HD, following up on creatinine clearance test and either sto pping dialysis or pursuing PD. Awaiting kidney donation (she is on [facility], [facility] at this [facility]). Using Tylenol prn, reviewed no NSA IDs with her renal disease (she had previously only heard this from her dentist) . Nausea is self limited following dialysis, hoping to be off of this soon, cont inue to monitor. Prognosis (Estimated): Based on current function, current medical issues, goals of care, and prognosis models, my estimated prognosis is unknown, probably years with great functional status. PLAN Long discussion about illness planning for her planned travel to [place] for sever al months. Reviewed the following article (recognizing she does not have advance d cancer, but chronic illness that may require therapy overseas): doi: [email or web address]/p [email or web address] Advised: - Creating document with her medical history, translating into Tamazight - Calling her insurance company and checking on international coverage plans - She would work with the [employer] to get dialysate in [place] if she is on P D - Check with insurance regarding 4 month supply of medications - She is on no controlled substances, so this should not be an issue - Physically she should be strong enough to make the trip, did encourage wheelc hair transport arranged in airports. SERIOUS ILLNESS CONVERSATIONS: (include dates; if left blank not yet addressed) Illness understanding: Excellent Desire for information: Prognostic discussion: Goals: Worries: Strength comes from: Critical abilities you would not imagine being able to live without: Trade offs you would be willing or not willing to make for the possibility of m ore time: Family knowledge of the above: with her, he worries a bit about a trip but wants to take her if she is able to go. They are both well travelled. ADVANCE CARE PLANNING Goals of Care: Curative Code Status: Full Code (by default) Level of Intervention: Full Intervention (by default) DPOA: On file Living Will: None on file TPOPP: None on file Return to clinic: 6 weeks (if needed) sooner if needed. Will help with document preparation if needed. Subjective SUBJECTIVE Reason for Visit: Anna Marie Ting Rob is a 58 y.o. female with AML S/P MSD AND CD34 STEM CELL BOOST 05/24/17. HAVING ISSUES WITH KIDNEY DUE TO A GASTRIC BYPASS HE HAD 2 YEARS AGO 2 015. NOW MAY NEED A KIDNEY TRANSPLANT FROM THE BROTHER THT HAVE HIM STEM. REVE RSED GASTRIC BYPASS ON 10/2017 CELLS. CREAT 3.43 GFR 14. She is here with Mu. I attend this visit with Marj Wu. She is having nausea with vomiting 1-2x per week, usually following diaylsis. Sh e just had a creatinine clearance test yesterday, hoping to learn more in the ne xt few days regarding if she will need to continue dialysis, and if so if she ca n switch to PD. Urinates regularly. Trying to walk more. Wants to travel but quite concerned about impact on health. She now has a trip p ossibly set up for the end of October 2018. Her and her would be travelli ng to [place] for 3-4 months and she has several questions about this. If she is o n PD, a [employer] ([place] helps get patient supplies where they are at. Having body aches and cramping with HD. She has muscle aches related to gardenin g in the last several days, which she manages with Tylenol. Lincoln Symptom Assessment Scale (ESAS-r-CS) 08/06/2018 Symptom / Score Pain: 6 Shortness of Breath: 0 Tiredness / Fatigue: 4 Drowsiness / Sleepy: 0 Insomnia: 0 Nausea: 4 Lack of Appetite: 3 Constipation: 2 Depression: 0 Anxiety: 2 [place] Completed by: Patient 0=Best Possible 10=Worst Possible Comprehensive Pain Assessment Words: Muscle aches Intensity: Pain: 6; Location: Duration: after strenuous activity (gardening over the weekend) Aggrevating: Alleviating: Tylenol and rest, massage Review of Systems Constitutional: Positive for fatigue. Gastrointestinal: Positive for nausea. Musculoskeletal: Positive for myalgias. All other systems reviewed and are negative. ONCOLOGY HISTORY Cancer Staging No matching staging information was found for the patient. Gastric Bypass in July 2014. Reversal in October 2017. 160 lb weight loss and pann iculectomy. She developed oxylosis and renal failure and has been hemodialysis d ependent. AML s/p transplant on 12/26/16. Had CD34 boost on 05/24/17. Medical History: Diagnosis Date Anemia iron def Depression Hyperglycemia Hypothyroid Leukemia (HCC) Migraine headache Osteoarthritis Sleep apnea 160 lbs weight loss and second sleep study, no longer has sleep apnea per pt Weight gain Surgical History: Procedure Laterality Date ENDOMETRIAL ABLATION 06/22/2009 UPPER GASTROINTESTINAL ENDOSCOPY N/A 01/16/2017 ESOPHAGOGASTRODUODENOSCOPY performed by Ceasar Velez MD at ENDO/GI UPPER GASTROINTESTINAL ENDOSCOPY 01/16/2017 ESOPHAGOGASTRODUODENOSCOPY CONTROL BLEEDING performed by Ceasar Velez MD at EN DO/GI BRONCHOSCOPY N/A 02/25/2017 BRONCHOSCOPY WITH LAVAGE performed by Jose Pardo MD at ENDO/GI UPPER GASTROINTESTINAL ENDOSCOPY N/A 03/12/2017 ESOPHAGOGASTRODUODENOSCOPY performed by Danilo Liang MD at ENDO/GI SIGMOIDOSCOPY N/A 03/12/2017 SIGMOIDOSCOPY DIAGNOSTIC performed by Danilo Liang MD at ENDO/GI SIGMOIDOSCOPY N/A 05/10/2017 SIGMOIDOSCOPY DIAGNOSTIC performed by Danilo Liang MD at ENDO/GI UPPER GASTROINTESTINAL ENDOSCOPY N/A 05/10/2017 ESOPHAGOGASTRODUODENOSCOPY performed by Danilo Liang MD at ENDO/GI COLONOSCOPY N/A 05/14/2017 COLONOSCOPY performed by Shayne Kemp MD at ENDO/GI UPPER GASTROINTESTINAL ENDOSCOPY N/A 05/29/2017 Balloon Enteroscopy. performed by Ceasar Velez MD at ENDO/GI ENTEROSCOPY 05/29/2017 ENTEROSCOPY BIOPSY performed by Ceasar Velez MD at ENDO/GI UPPER GASTROINTESTINAL ENDOSCOPY N/A 09/17/2017 ESOPHAGOGASTRODUODENOSCOPY performed by Prerna Alvarez DO at ENDO/GI SIGMOIDOSCOPY N/A 09/17/2017 SIGMOIDOSCOPY DIAGNOSTIC performed by Prerna Alvaerz DO at ENDO/GI UPPER GASTROINTESTINAL ENDOSCOPY 09/17/2017 ESOPHAGOGASTRODUODENOSCOPY BIOPSY performed by Prerna Alvarez DO at ENDO/GI SIGMOIDOSCOPY 09/17/2017 SIGMOIDOSCOPY WITH BIOPSY - FLEXIBLE performed by Prerna Alvarez DO at ENDO /GI COSMETIC SURGERY Total lower body lift with muscle replari after lost 150lbs from gastric bypass GASTRIC BYPASS mini gastric bypass GASTRIC BYPASS Mini gastric bypass HX EYE SURGERY Family History Problem Relation Age of Onset Heart Disease Father Cancer-Breast Neg Hx Cervical Cancer Neg Hx Cancer-Colon Neg Hx Cancer-Ovarian Neg Hx Cancer-Uterine Neg Hx Diabetes Neg Hx Social History Socioeconomic History Marital status: Spouse name: Mu Grace Number of children: 2 Years of education: 20 Highest education level: Not on file Occupational History 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 Last reading 12:11 PM BP 134/82 Pulse 70 Resp 16 Temp 36.6 C (97.8 F) Temp src Oral SpO2 100 % Weight 60.4 kg (133 lb 3.2 oz) Height 157.5 cm (62.01") Pain Score Zero EXAM General appearance: no acute distress, sitting in chair in clinic, verbal, no gr imace, well-developed, Eyes: open, no discharge, no icterus, Throat: slight dry lips, normal dentition, no signs of thrush, Lungs: no secretions, no acc muscle use, no apnea, CTAB, no W/R/R, Heart: RRR, no MRG, Extremities: moves all extremities, no edema, Neurologic: no seizures, no myoclonus, no neuro deficits, oriented to time, pers on and place, Psych: calm, interactive, normal memory and judgement, Skin: warm, dry, no lesions, ECOG Performance Status: ECOG Performance Status: 1 - Restricted in physically s trenuous activity but ambulatory and able to carry out work of a light or sedent cassandra nature, e.g. light house work, office work. Palliative Performance Status: Palliative Performance Scale (PPS): 80 MEDICATIONS acetaminophen (TYLENOL EXTRA STRENGTH) 500 mg tablet Take 2 tablets by mouth daily as needed. Biotin 2,500 mcg cap Take 1 capsule by mouth every morning. calcitriol (ROCALTROL) 0.5 mcg capsule Take 0.5 mcg by mouth daily. calcium acetate (PHOSLO) 667 mg tablet Take two tablets by mouth three times daily with meals. cetirizine (ZYRTEC) 10 mg tablet Take 10 mg by mouth daily as needed for All ergy symptoms. Cholecalciferol (VITAMIN D3) 5,000 unit capsule Take one capsule by mouth da sarita. Post dialysis dextran 70/hypromellose (GENTEAL TEARS; BION TEARS) 0.1/0.3 % dpet ophthalmi c solution Apply 1 drop to both eyes every 8 hours as needed for Dry Eyes. fluticasone (FLONASE) 50 mcg/actuation nasal spray Apply 1 spray to each nos tril as directed daily as needed. Shake bottle gently before using. folic acid/B cplx/C/selen/zinc (DIALYVITE 3000 PO) Take 1 tablet by mouth da sarita. lactobacillus rhamnosus (GG) (CULTURELLE) 10 billion cell cap Take 1 capsule by mouth daily. levothyroxine (SYNTHROID) 100 mcg tablet TAKE 1 TABLET BY MOUTH ONCE DAILY 3 0 MINUTES BEFORE BREAKFAST methylcellulose (with sugar) (CITRUCEL FIBER LAXATIVE PO) Take 1 each by alvaro th daily. pantoprazole DR (PROTONIX) 40 mg tablet TAKE 1 TABLET BY MOUTH TWICE DAILY TURMERIC PO Take 500 mg by mouth daily. valACYclovir (VALTREX) 1 gram tablet Take 1,000 mg by mouth every 24 hours. RESULTS REVIEW Imaging and labs reviewed CBC Lab Results Component Value Date/Time WBC 4.3 (L) 08/05/2018 12:08 PM HGB 10.7 (L) 08/05/2018 12:08 PM PLTCT 135 (L) 08/05/2018 12:08 PM Lab Results Component Value Date/Time NEUT 52 08/05/2018 12:08 PM ANC 2.20 08/05/2018 12:08 PM Comprehensive Metabolic Profile Lab Results Component Value Date/Time NA 134 (L) 08/05/2018 12:08 PM K 3.8 08/05/2018 12:08 PM BUN 38 (H) 08/05/2018 [...] PM GFRAA 15 (L) 08/05/2018 12:08 PM ADMINISTRATIVE Jeremiah Dave, DO Palliative Medicine Attending Pager: [phone], or find me on Vo[employer]te Nights/Weekends - Page [phone] for Palliative Care On-Call Total Time 35min ([phone]) with 30 min spent education and counseling face-to- face with patient and in clinic. F/U - OUTPT Time [id number] [phone] [phone] 10 40 85 [id number] 15 45 90 [id number] 25 55 [phone] 40 70 115 documented in this encounter Plan of Treatment Not on filedocumented as of this encounter Visit Diagnoses Diagnosis CKD (chronic kidney disease) stage 5, GFR less than 15 ml/min (HCC) - Primary Chronic kidney disease, Stage V Myalgia Mylagia and myositis, unspecified Nausea Nausea alone documented in this encounter
--- OUTSIDE RECORDS SUMMARY | 2018-10-17 08:22 | XMS REPORT | Encounter Summary ---
Author Author [facility] Organization [facility] Address Unknown Phone Unavailable Care Team Providers Care Job Coach Name Role Phone Rebeca Green MD Unavailable Love Chambers DO PCP Reason for Visit * Reason Comments Medication Refill Encounter Details Care Team Description Date Type Department Lindsey Bruno RN 07/16/2018 Refill [facility] [address] [place] [phone] Social History Date Tobacco Use Types Packs/Day Years Used Never Smoker Smokeless Tobacco: Never Used Drinks/Week oz/Week Comments Alcohol Use very rarely Yes Sex Assigned at Date Recorded Not on file Industry Job Start Date Occupation Not on file Not on file Not on file Travel End Travel History Travel Start No recent travel history available. documented as of this encounter Functional Status Date of Assessment [...] impairment: No documented as of this encounter Plan of Treatment Not on filedocumented as of this encounter Visit Diagnoses Not on filedocumented in this encounter
--- OUTSIDE RECORDS SUMMARY | 2018-10-17 08:22 | XMS REPORT | Clinical Summary ---
Author Author [facility] Organization [facility] Address Unknown Phone Unavailable Care Team Providers Care Outside Sales Inspector Name Role Phone Rebeca Green MD Unavailable Love Chambers DO PCP Source Comments Some departments are not documenting in the electronic medical record. If you d o not see the information that you expected, contact Release of Information in [facility] [employer] Information Management department at [phone] for further assistan ce in locating additional records.[facility] Allergies Comments Active Allergy Reactions Severity Noted Date Pt states was only a rash due to amoxicillin Amoxicillin RASH Medium 06/29/2013 Hydrocodone RASH Medium 10/12/2016 Latex RASH Medium 10/12/2016 Oxycodone RASH Medium 10/12/2016 Pt states was only a rash due to amoxicillin Penicillin G RASH Medium 06/29/2013 Sulfa (Sulfonamide RASH High 06/29/2013 Antibiotics) Medications End Date Status Medication Sig Dispensed Refills Start Date Active Biotin 2,500 mcg cap Take 1 0 capsule by mouth every morning. Active acetaminophen (TYLENOL Take 2 0 EXTRA STRENGTH) 500 mg tablets by tablet mouth daily as needed. Active Cholecalciferol (VITAMIN Take one 90 capsule 0 D3) 5,000 unit capsule capsule by 9 mouth daily. Post dialysis Active levothyroxine (SYNTHROID) TAKE 1 TABLET 30 tablet 11 100 mcg tablet BY MOUTH ONCE 9 DAILY 30 MINUTES BEFORE BREAKFAST Active pantoprazole DR TAKE 1 TABLET 90 tablet 3 (PROTONIX) 40 mg tablet BY MOUTH 9 TWICE DAILY Active TURMERIC PO Take 500 mg 0 by mouth daily. Active valACYclovir (VALTREX) 1 Take 1,000 mg 0 gram tablet by mouth every 24 hours. Active calcitriol (ROCALTROL) Take 0.5 mcg 0 0.5 mcg capsule by mouth daily. Active methylcellulose (with Take 1 each 0 sugar) (CITRUCEL FIBER by mouth LAXATIVE PO) daily. Active cetirizine (ZYRTEC) 10 mg Take 10 mg by 0 tablet mouth daily as needed for Allergy symptoms. Active folic acid/B Take 1 tablet 0 cplx/C/selen/zinc by mouth (DIALYVITE 3000 PO) daily. Active lactobacillus rhamnosus Take 1 0 (GG) (CULTURELLE) 10 capsule by billion cell cap mouth daily. Active fluticasone (FLONASE) 50 Apply 1 spray 0 mcg/actuation nasal spray to each nostril as directed daily as needed. Shake bottle gently before using. Active dextran 70/hypromellose Apply 1 drop 0 (GENTEAL TEARS; BION to both eyes TEARS) 0.1/0.3 % dpet every 8 hours ophthalmic solution as needed for Dry Eyes. Active calcium acetate (PHOSLO) TAKE 2 180 tablet 0 667 mg tablet TABLETS BY 9 MOUTH THREE TIMES DAILY WITH MEALS Active Problems Problem Noted Date ESRD on hemodialysis 02/22/2018 Examination of participant in clinical trial 11/28/2017 History of small intestine ulcer 05/15/2017 Overview: Added automatically from request for surgery [id number] Left hip pain 05/10/2017 Hematochezia 05/10/2017 MARY (acute kidney injury) 03/27/2017 History of antineoplastic chemotherapy 03/19/2017 CMV pneumonia 03/05/2017 Hypocalcemia 02/25/[address] scan, chest 02/22/2017 Overview: Added automatically from request for surgery [id number] 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 Acute peptic ulcer of stomach 02/12/2017 Vaginal bleeding 01/19/2017 H/O stem cell transplant 01/05/2017 Overview: Transplant History Date of Transplant:12/26/16 Transplant Type:Allogeneic Related Conditioning Regimen:BUCY post CY 1301 Conditioning Regimen Type:Myeloablative Rationale for reduced/NST [...] / Study# / Protocol#:8322, chemotherapy, blood, allogeneic, storage/processing, BU CY, 1301 Pretransplant Coordinator:Jessica Gautam RN 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 Overview: Transplant History Date of Transplant:12/26/16 Transplant Type:Allogeneic Related Conditioning Regimen:BUCY post CY 1301 Conditioning Regimen Type:Myeloablative Rationale for reduced/NST [...] / Study# / Protocol#:8322, chemotherapy, blood, allogeneic, storage/processing, BU CY, 1301 Pretransplant Coordinator:Jessica Gautam RN Pancytopenia 12/18/2016 Overview: Added automatically from request for surgery [id number] Nausea 11/14/2016 Hypomagnesemia 11/08/2016 Fatigue 10/17/2016 Acute myeloid leukemia in remission 10/13/2016 H/O gastric bypass 10/13/2016 Drug-induced pancytopenia 10/12/2016 Anxiety about health 10/12/2016 Hypothyroidism 07/06/2013 Hypertension 07/06/2013 Resolved Problems Problem Noted Date Resolved Date Stage 5 chronic kidney disease not on chronic dialysis 02/20/2018 02/22/2018 Metabolic acidosis 02/20/2018 02/25/2018 Stage 5 chronic kidney disease not on chronic dialysis 12/04/2017 02/22/2018 Adenovirus infection 09/20/2017 03/06/2018 Malnutrition 05/14/2017 03/06/2018 Anemia due to unknown mechanism 05/10/2017 03/06/2018 Gastrointestinal hemorrhage 05/10/2017 05/15/2017 Overview: Added automatically from request for surgery [id number] Jaundice 02/18/2017 03/27/2017 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 02/01/2017 Neutropenic fever 01/06/2017 01/19/2017 Mucositis due to antineoplastic therapy 01/04/2017 01/22/2017 Cough 01/03/2017 01/19/2017 Fever 01/03/2017 01/19/2017 Diarrhea 12/31/2016 03/06/2018 Conditioning chemotherapy prior to peripheral blood stem cell transplant 12/19/2016 01/05/2017 GIB (gastrointestinal bleeding) 12/18/2016 01/19/2017 Overview: Added automatically from request for surgery [id number] Pancytopenia due to antineoplastic chemotherapy 11/24/2016 02/18/2017 On antineoplastic chemotherapy 11/24/2016 12/03/2016 Transaminitis 11/17/2016 12/03/2016 Hypokalemia 11/08/2016 12/04/2017 Anemia due to chemotherapy 11/07/2016 03/06/2018 Chemotherapy induced neutropenia 11/07/2016 12/18/2016 Acute leukemia 10/12/2016 01/22/2017 Obesity 07/06/2013 01/22/2017 Weight gain 07/06/2013 01/22/2017 Encounters Care Team Description Date Type Specialty Azalia Reid BMT Follow-up (2 year (12/26) labs, DEXA, ECHO, PFT, BMBX) 10/13/2018 Telephone Oncology Wendy Schultz Financial/Insurance Questions (updated benefit collection to add medicare secondary) 09/23/2018 Telephone Transplant Surgery Pat Drummond, MENDOZA Kidney Evaluation 09/23/2018 Telephone Transplant Surgery Erin Mancuso MD 08/12/2018 Refill Oncology Jeremiah Dave DO CKD (chronic kidney disease) stage 5, GFR less than 15 ml/min (HCC) (Primary Dx); Myalgia; Nausea 08/05/2018 Office Visit Oncology Chemo Kaufman MD Acute myeloid leukemia in remission (HCC) (Primary Dx); H/O bone marrow transplant (HCC); ESRD on hemodialysis (HCC) 08/05/2018 Office Visit Oncology Chemo Kaufman MD H/O stem cell transplant (HCC) 08/05/2018 Lab Only Oncology from Last 3 Months Immunizations Name Administration Dates Next Due Flu Vaccine=>6 Months 01/06/2018, 04/08/2017, 02/12/2017 Quadrivalent PF Hepatitis B Vaccine Adult 07/15/2017 3 Dose IM Hepatitis B Vaccine Ill 03/06/2018, 10/07/2017 Patient 4 Dose IM Hib conj vaccine, 4 dose 01/06/2018, 10/07/2017, 07/15/2017 (PRP-T) IM (ActHIB) IPV 01/06/2018, 10/07/2017, 07/15/2017 Meningococcal Conjug 07/15/2017 Vaccine IM (Menveo) Lan Component 1 Meningococcal Conjug 07/15/2017 Vaccine IM (Menveo) [id number] Component 2 Pneumococcal Vaccine 03/06/2018 (23-Yuliana Adult) Pneumococcal 01/06/2018, 10/07/2017, 07/15/2017 Vaccine(13-Yuliana Peds/immunocompromised adult) Tdap Vaccine 01/06/2018, 10/07/2017, 07/15/2017 Family History Medical History Relation Name Comments Heart Disease Father Cancer-Breast Neg Hx Cancer-Colon Neg Hx Cancer-Ovarian Neg Hx Cancer-Uterine Neg Hx Cervical Cancer Neg Hx Diabetes Neg Hx Relation Name Status Comments Father Alive Mother Alive Social History Date Tobacco Use Types Packs/Day Years Used Never Smoker Smokeless Tobacco: Never Used Drinks/Week oz/Week Comments Alcohol Use very rarely Yes Sex Assigned at Date Recorded Not on file Industry Job Start Date Occupation Not on file Not on file Not on file Travel End Travel History Travel Start No recent travel history available. Last Filed Vital Signs Reading Time Taken [...] 08/05/2018 2:29 PM CDT Body Mass Index Plan of Treatment Health Maintenance Due Date Last Done Comments PHYSICAL (COMPREHENSIVE) 01/19/1967 EXAM CERVICAL CANCER SCREENING 01/19/1990 SHINGLES RECOMBINANT 01/19/2010 VACCINE (1 of 2) INFLUENZA VACCINE 12/30/2018 01/06/2018, 04/08/2017, 02/12/2017 BREAST CANCER SCREENING 03/06/2019 03/06/2018, 12/06/2016 COLORECTAL CANCER 05/14/2027 05/14/2017 SCREENING DTAP/TDAP VACCINES (4 - 01/07/2028 01/06/2018, 10/07/2017, 07/15/2017 Td) HEPATITIS C SCREENING Completed 06/19/2018 HIV SCREENING Completed 06/19/2018 Implants Device Identifier Shelf Expiration Date Model / Serial / Lot Implanted Type Area Manufactur er [id number] 10/29/2018 [id number] / N/A / [id number] Catheter 19cm 12fr Hirsch Right: Chest UNIDENTIFI Trifusion Carbothane 3 Lumen - Sn/A Wall ED MFG Implanted: Qty: 1 on 12/18/2016 by Etienne Gilliam MD at [facility] [id number] 06/30/2019 [id number] / N/A / [id number] Catheter 24cm 14.5fr Glidepath Right: Chest C R BARD Straight Polyurethane Kit - Sn/A Wall Implanted: Qty: 1 on 02/21/2018 by Ricardo Ferrell MD at [facility] Procedures Comments Procedure Name Priority Date/Time Associated Diagnosis CBC AND DIFF Routine 08/05/2018 H/O stem cell transplant 12:08 PM CDT (HCC) COMPREHENSIVE METABOLIC Routine 08/05/2018 H/O stem cell transplant PANEL 12:08 PM CDT (HCC) MAGNESIUM Routine 08/05/2018 H/O stem cell transplant 12:08 PM CDT (HCC) from Last 3 Months Results * CBC AND DIFF (08/05/2018 12:08 PM CDT) White Blood 4.3 (L) 4.5 - 11.0 K/UL [facility] Cells RBC 2.89 (L) 4.0 - 5.0 M/UL [facility] Hemoglobin 10.7 (L) 12.0 - 15.0 GM/DL [facility] Hematocrit 31.4 (L) 36 - 45 % [facility] MCV 108.9 (H) 80 - 100 FL [facility] MCH 37.0 (H) 26 - 34 PG [facility] MCHC 34.0 32.0 - 36.0 G/DL [facility] RDW 16.5 (H) 11 - 15 % [facility] Platelet Count 135 (L) 150 - 400 K/UL [facility] MPV 8.0 7 - 11 FL [facility] Neutrophils 52 41 - 77 % [facility] Lymphocytes 33 24 - 44 % [facility] Monocytes 11 4 - 12 % [facility] Eosinophils 3 0 - 5 % [facility] Basophils 1 0 - 2 % [facility] Absolute 2.20 1.8 - 7.0 K/UL [facility] Neutrophil Count Absolute Lymph 1.40 1.0 - 4.8 K/UL [facility] Count Absolute 0.50 0 - 0.80 K/UL [facility] Monocyte Count Absolute 0.10 0 - 0.45 K/UL [facility] Eosinophil Count Absolute 0.00 0 - 0.20 K/UL [facility] Basophil Count Specimen Blood Performing Organization Address [facility] [place] Phone Number [facility] [address] [place] [address] * MAGNESIUM (08/05/2018 12:08 PM CDT) Pathologist [facility] Magnesium 2.3 1.6 - 2.6 mg/dL [facility] Specimen Blood Performing Organization Address [facility] [place] Phone Number [facility] [address] [place] [address] * COMPREHENSIVE METABOLIC PANEL (08/05/2018 12:08 PM CDT) Sodium 134 (L) 137 - 147 MMOL/L [facility] Potassium 3.8 3.5 - 5.1 MMOL/L [facility] Chloride 98 98 - 110 MMOL/L [facility] Glucose 118 (H) 70 - 100 MG/DL [facility] Blood Urea 38 (H) 7 - 25 MG/DL [facility] Nitrogen Creatinine 3.75 (H) 0.4 - 1.00 MG/DL [facility] Calcium 10.4 8.5 - 10.6 MG/DL [facility] Total Protein 7.1 6.0 - 8.0 G/DL [facility] Total Bilirubin 0.4 0.3 - 1.2 MG/DL [facility] Albumin 4.6 3.5 - 5.0 G/DL [facility] Alk Phosphatase 71 25 - 110 U/L [facility] AST (SGOT) 20 7 - 40 U/L [facility] CO2 30 21 - 30 MMOL/L [facility] ALT (SGPT) 13 7 - 56 U/L [facility] Anion Gap 6 3 - 12 [facility] eGFR Non 12 (L) >60 mL/min [facility] Comment: [place] The eGFR is not validated for use in drug dosing adjustments.Continue to use estimated creatinine clearance per dosing reference text.Please contact the Clinical Pharmacist for questions. eGFR 15 (L) >60 mL/min [facility] [place] Comment: The eGFR is not validated for use in drug dosing adjustments.Continue to use estimated creatinine clearance per dosing reference text.Please contact the Clinical Pharmacist for questions. Specimen Blood Performing Organization Address City/State/Zipcode Phone Number [facility] [address] [place] [address] from Last 3 Months Insurance Type Payer Benefit Subscriber ID Effective Phone Address Plan / Dates Group Medicare MEDICARE MEDICARE xxxxxxxxxxx 2018-P PART A AND resent B PPO BCBS BCBS xxxxxxxxxxxx 2018- TRANSPLANT Present Medicare MEDICARE MEDICARE xxxxxxxxxxx 2018- PART A AND Present B PPO [place] xxxxxxxxxxxx 2016-P PREF CARE resent BLUE Advance Directives Patient Peanut Picker Explanation Type Date Recorded Perceptive Content Scan Advance 05/29/2017 11:19 AM Directive/DPOA Date Inactivated Comments Code Status Date Activated 02/26/2018 2:55 PM Full Code 02/19/2018 8:05 PM Provider has discussed Code Status No, more discussion w/Patient or Family? needed 09/22/2017 2:53 PM Full Code 09/17/2017 6:08 PM Provider has discussed Code Status Yes w/Patient or Family? 05/15/2017 2:15 PM Full Code 05/10/2017 9:25 AM Provider has discussed Code Status No, discussion not w/Patient or Family? necessary based on Dx 03/07/2017 4:09 PM Full Code 03/01/2017 3:29 PM Provider has discussed Code Status Yes w/Patient or Family? 03/01/2017 3:29 PM Full Code 02/22/2017 7:31 PM Provider has discussed Code Status No, more discussion w/Patient or Family? needed
--- OUTSIDE RECORDS SUMMARY | 2018-10-17 08:22 | XMS REPORT | Encounter Summary ---
Author Author [facility] Organization [facility] Address Unknown Phone Unavailable Care Team Providers Care Quantity Surveyor Name Role Phone Rebeca Green MD Unavailable Love Chambers DO PCP Reason for Visit * Reason Comments Labs Only Encounter Details Care Team Description Date Type Department Chemo Kaufman MD [address] [place] [address] [phone] H/O stem cell transplant (HCC) 08/05/2018 Lab Only The [place] [address] [address] Social History Date Tobacco Use Types Packs/Day [...] Not on filedocumented as of this encounter Procedures Comments Procedure Name Priority Date/Time Associated Diagnosis CBC AND DIFF Routine 08/05/2018 H/O stem cell transplant 12:08 PM CDT (HCC) MAGNESIUM Routine 08/05/2018 H/O stem cell transplant 12:08 PM CDT (HCC) COMPREHENSIVE METABOLIC Routine 08/05/2018 H/O stem cell transplant PANEL 12:08 PM CDT (HCC) documented in this encounter Results * CBC AND DIFF (08/05/2018 12:08 [...] Basophil Count Specimen Blood Performing Organization Address City/State/Zipcode Phone Number [facility] [address] [place] [address] * COMPREHENSIVE METABOLIC PANEL (08/05/2018 12:08 PM [...] 12 (L) >60 mL/min [facility] Comment: Citizen [place] The eGFR is not validated for use in drug dosing adjustments.Continue to use estimated creatinine clearance per dosing reference text.Please contact the Clinical Pharmacist for questions. eGFR 15 (L) >60 mL/min [facility] Citizen [place] Comment: The eGFR is not validated for use in drug dosing adjustments.Continue to use estimated creatinine clearance per dosing reference text.Please contact the Clinical Pharmacist for questions. Specimen Blood Performing Organization Address City/[facility]/Zipcode Phone Number [facility] [address] [place] [address] * MAGNESIUM (08/05/2018 12:08 PM CDT) Magnesium 2.3 1.6 - 2.6 mg/dL [facility] Specimen Blood Performing Organization Address City/[facility]/Zipcode Phone Number [facility] [address] [place] [address] documented in this encounter Visit Diagnoses Diagnosis H/O stem cell transplant (HCC) Peripheral stem cells replaced by transplant documented in this encounter
--- OUTSIDE RECORDS SUMMARY | 2018-10-17 08:22 | XMS REPORT | Encounter Summary ---
Author Author [facility] Organization [facility] Address Unknown Phone Unavailable Care Team Providers Care Stenographer Secretary Name Role Phone Rebeca Green MD Unavailable Love Chambers DO PCP Reason for Visit * Reason Comments BMT Follow-up 2 year (12/26) labs, DEXA, ECHO, PFT, BMBX Encounter Details Care Team Description Date Type Department Azalia Reid BMT Follow-up (2 year (12/26) labs, DEXA, ECHO, PFT, BMBX) 10/13/2018 Telephone The [facility] [address] [place] [phone] Social History Date Tobacco Use Types Packs/Day [...] impairment: No documented as of this encounter Miscellaneous Notes * Telephone Encounter - Azalia Reid - 10/13/2018 2:48 PM CDT 10/13/2018 2:48 PM JAM - she said the testing needs to be done ADINA as she nee ds them completed before she can get on a list for a transplant. She is availab le any day about 9 am - on vacation 12/26-01/30. documented in this encounter Plan of Treatment Not on filedocumented as of this encounter Visit Diagnoses Not on filedocumented in this encounter
--- OUTSIDE RECORDS SUMMARY | 2018-10-17 08:22 | XMS REPORT | Encounter Summary ---
Author Author [facility] Organization [facility] Address Unknown Phone Unavailable Care Team Providers Care Cigarette Making Machine Hopper Feeder Name Role Phone Rebeca Green MD Unavailable Loev Chambers DO PCP Reason for Visit * Reason Comments Financial/Insurance updated benefit collection to add medicare secondary Questions Encounter Details Care Team Description Date Type Department Wendy Schultz Financial/Insurance Questions (updated benefit collection to add medicare secondary) 09/23/2018 Telephone The [address] [address] Social History Date Tobacco Use Types Packs/Day [...] encounter Miscellaneous Notes * Telephone Encounter - Wendy Schultz - 09/23/2018 3:20 PM CDT TFA received message from inp nurse coordinator that patient called to advise kenna szymanski now has medicare A and B effective 05/30/18 BENEFIT COLLECTION: UPDATED Verified by:Wendy Schultz Date: September 23, 2018 ID #: [id number] #: [id number] Subscriber: self Ins Plan: BCBARABRA KSEFF: 08/30/2016 Phone#: [phone] Plan Type: [facility] Plan A Deductible: $1000(met 2019) Co-ins:80/20% Out of Pocket:$6250(met 2019) Inpt Copay:subj to ded and coinsurance Outpt Copay: subj to ded and coinsurance OV PCP/Spec Copay:$40/ $60 Plan limitations/concerns:No BDCT facility required. Donor Benefits: covered Travel/lodging-Recipient: not covered Donor: not covered Spoke with: Genny Downs(call ref# [id number]) RX Plan:[facility] RXBIN:[id number] Phone #: [phone] 30 day retail/90 day m/o cost: 20% of drug cost(gen)/ 40% of drug cost(pref bra nd)/ 65% of drug cost(non pref brand) Valcyte: not covered Generic: $726.49 approx. RX Ded: $1000 w/medical(met 2019) RX OOP: $6250 w/medical(met 2019) Spoke with: Yaquelin JUDGE ID #: [id number] Subscriber: self Ins Plan:MEDICARE A&B EFF: 05/30/18 Phone#: [phone] Plan Type: A & B - 2019 BENEFIT SUMMARY: PART A: DAYS REFRESH AFTER 60 CONSECUTIVE OUTPT DAYS DAYS 1-60 $1364 DEDUCTIBLE DAYS 61-90 $341/DAY COPAY DAYS 91-150 (USING ANY LIFETIME RESERVE DAYS) $682DAY COPAY DAYS > 150 PT PORTION 100%; after a 3-day minimum medically necessary inpatient hospital stay for a related illness or injury. PART A/ SNF BENEFITS: IN 2018: DAYS 1-20 PT PORTION $0; DAYS 21-100 $170.50/DAY COPAY; DAYS > 100 PT PORTION 100% PART B IN 2018: DEDUCTIBLE $185 WITH 80% REIMBURSEMENT OF ALLOWABLE, NO OUT OF POCKET MAXIMUM MEDICARE WILL PAY FOR DRUGS INFUSED THROUGH AN ITEM OF DME, LIKE AN INFUSION PUM P, OR DRUGS GIVEN BY A NEBULIZER WHEN GIVEN BY A LICENSED MEDICAL PROVIDER. PART B WILL COVER IMMUNOSUPPRESSIVE DRUGS IF [facility] COVERED THE TRANSPLANT, EVEN SECONDARY PAYER No Case Management, No transplant Network, No prior authorizations, No benefit l imits Auth requirements:No eval or listing auth for kidney only documented in this encounter Plan of Treatment Not on filedocumented as of this encounter Visit Diagnoses Not on filedocumented in this encounter
--- OUTSIDE RECORDS SUMMARY | 2018-10-17 08:22 | XMS REPORT | Encounter Summary ---
Author Author [facility] Organization [facility] Address Unknown Phone Unavailable Care Team Providers Care Popcorn Vendor Name Role Phone Rebeca Green MD Unavailable Love Chambers DO PCP Reason for Visit * Reason Comments Medication Refill Encounter Details Care Team Description Date Type Department Chemo Kaufman MD [address] [place] [address] [phone] 07/15/2018 Refill The [place] [id number] [phone] Social History Date Tobacco Use Types Packs/Day [...]
--- OUTSIDE RECORDS SUMMARY | 2018-10-17 08:22 | XMS REPORT | Encounter Summary ---
Author Author [facility] Organization [facility] Address Unknown Phone Unavailable Care Team Providers Care Cullet Washer Name Role Phone Rebeca Green MD Unavailable Love Chambers DO PCP Reason for Visit * Reason Comments Kidney Evaluation Encounter Details Care Team Description Date Type Department Pat Drummond RN Kidney Evaluation 09/23/2018 Telephone The [address] [address] Social History Date Tobacco Use [...] encounter Miscellaneous Notes * Telephone Encounter - Pat Drummond RN - 09/23/2018 10:40 AM CDT Pt called to communicate new Medicare ID # [id number] and that she believed it was for both A&B. She also stated that her Heme/Onc apt is scheduled sometime in October. NE to verify with Dr. Gonzalez that she does not need a repeat colonoscopy. Verbalized to pt when she was next due for other routine cancer screenings. [place] v/u of conversation. documented in this encounter Plan of Treatment Not on filedocumented as of this encounter Visit Diagnoses Not on filedocumented in this encounter
--- OUTSIDE RECORDS SUMMARY | 2018-10-17 08:22 | XMS REPORT | Encounter Summary ---
Author Author [facility] Organization [facility] Address Unknown Phone Unavailable Care Team Providers Care Portal Administrator Name Role Phone Rebeca Green MD Unavailable Love Chambers DO PCP Reason for Visit * Reason Comments Medication Refill Encounter Details Care Team Description Date Type Department Erin Mancuso MD [address] [place] [address] [phone] 08/12/2018 Refill The [facility] [address] [place] [address] Social History Date Tobacco Use Types Packs/Day [...]
--- OUTSIDE RECORDS SUMMARY | 2018-10-17 08:22 | XMS REPORT | Encounter Summary ---
Author Author [facility] Organization [facility] Address Unknown Phone Unavailable Care Team Providers Care Head Animal Trainer Name Role Phone Rebeca Green MD Unavailable Love Chambers DO PCP Encounter Details Care Team Description Date Type Department Eliceo Gonzalez MD 4000 [facility] [address] [place] [address] 07/08/2018 Hospital [facility] 4000 [facility] [address] [place], [place] [id number] Social History Date Tobacco Use Types Packs/Day [...] impairment: No documented as of this encounter Medications at Time of Discharge Start Date End Date Medication Sig Dispensed Refills acetaminophen (TYLENOL Take 2 0 EXTRA STRENGTH) 500 mg tablets by tablet mouth daily as needed. Biotin 2,500 mcg cap Take 1 0 capsule by mouth every morning. calcitriol (ROCALTROL) Take 0.5 mcg 0 0.5 mcg capsule by mouth daily. cetirizine (ZYRTEC) 10 mg Take 10 mg by 0 tablet mouth daily as needed for Allergy symptoms. 05/06/2018 Cholecalciferol (VITAMIN Take one 90 capsule 0 D3) 5,000 unit capsule capsule by mouth daily. Post dialysis dextran 70/hypromellose Apply 1 drop 0 (GENTEAL TEARS; BION to both eyes TEARS) 0.1/0.3 % dpet every 8 hours ophthalmic solution as needed for Dry Eyes. fluticasone (FLONASE) 50 Apply 1 spray 0 mcg/actuation nasal spray to each nostril as directed daily as needed. Shake bottle gently before using. folic acid/B Take 1 tablet 0 cplx/C/selen/zinc by mouth (DIALYVITE 3000 PO) daily. lactobacillus rhamnosus Take 1 0 (GG) (CULTURELLE) 10 capsule by billion cell cap mouth daily. 06/06/2018 levothyroxine (SYNTHROID) TAKE 1 TABLET 30 tablet 11 100 mcg tablet BY MOUTH ONCE DAILY 30 MINUTES BEFORE BREAKFAST methylcellulose (with Take 1 each 0 sugar) (CITRUCEL FIBER by mouth LAXATIVE PO) daily. 06/06/[address] TAKE 1 TABLET 90 tablet 3 (PROTONIX) 40 mg tablet BY MOUTH TWICE DAILY TURMERIC PO Take 500 mg 0 by mouth daily. valACYclovir (VALTREX) 1 Take 1,000 mg 0 gram tablet by mouth every 24 hours. 05/06/2018 07/16/2018 calcium acetate (PHOSLO) Take two 180 each 0 667 mg tablet tablets by mouth three times daily with meals. documented as of this encounter Plan of Treatment Not on filedocumented as of this encounter Procedures Comments Procedure Name Priority Date/Time Associated Diagnosis US THYROID EXTERNAL Routine 07/08/2018 Pre-transplant evaluation IMAGING 12:25 PM CDT for kidney transplant documented in this encounter Results * US THYROID EXTERNAL IMAGING (07/08/2018 12:25 PM CDT) Specimen Narrative Performed At This order has been auto finalized and does not contain a result. [facility] Performing Organization Address City/State/Zipcode Phone Number [facility] [address] [address]A documented in this encounter Visit Diagnoses Diagnosis Pre-transplant evaluation for kidney transplant Other specified pre-operative examination documented in this encounter
--- OUTSIDE RECORDS SUMMARY | 2018-10-17 08:23 | XMS REPORT | Encounter Summary ---
Author Author [facility] Organization [facility] Address Unknown Phone Unavailable Care Team Providers Care School Nurse Name Role Phone Rebeca Green MD Unavailable Love Chambers DO PCP Encounter Details Care Team Description Date Type Department Marisol Godinez 07/08/2018 Documentation The [address] [address] Social History Date Tobacco Use [...] as of this encounter Progress Notes * Marisol Godinez - 07/08/2018 10:55 AM CDT SW left second message for patient's dialysis clinic requesting return call from RN or SW- wanting to confirm her dialysis adherence, as well as to confirm that she is not receiving any [facility] premium assistance. Marisol Godinez LMSW documented in this encounter Plan of Treatment Not on filedocumented as of this encounter Visit Diagnoses Not on filedocumented in this encounter
--- OUTSIDE RECORDS SUMMARY | 2018-10-17 08:23 | XMS REPORT | Encounter Summary ---
Author Author [facility] Organization [facility] Address Unknown Phone Unavailable Care Team Providers Care General Assignment Reporter Name Role Phone Rebeca Green MD Unavailable Love Chambers DO PCP Reason for Visit * Reason Comments Financial/Insurance financial assessment received, reviewed and approved Questions Encounter Details Care Team Description Date Type Department Wendy Schultz Financial/Insurance Questions (financial assessment received, reviewed and approved) 06/24/2018 Telephone The [address] [address] Social History Date Tobacco Use [...] * Telephone Encounter - Wendy Schultz - 06/24/2018 2:44 PM CDT TFA received patients financial assessment by mail with supporting documents. FA P has been reviewed and approved. Patient has adequate resources for post transp lant care. TFA will notify patient and TXP team that patient is financially shi red documented in this encounter Plan of Treatment Not on filedocumented as of this encounter Visit Diagnoses Not on filedocumented in this encounter
--- OUTSIDE RECORDS SUMMARY | 2018-10-17 08:23 | XMS REPORT | Encounter Summary ---
Author Author [facility] Organization [facility] Address Unknown Phone Unavailable Care Team Providers Care Blood And Plasma Laboratory Assistant Name Role Phone Rebeca Green MD Unavailable Love Chambers DO PCP Reason for Visit * Reason Comments Committee Review Encounter Details Care Team Description Date Type Department Pat Drummond RN Committee Review 06/26/2018 Telephone The [address] [address] Social History Date Tobacco Use [...] Telephone Encounter - Pat Drummond RN - 06/26/2018 12:58 PM CDT Pt discussed in selection committee on 06/25/2018. Pt deferred r/t pending furthe r testing as well as Heme verbalizing- pt okay to move forward with transplant 2 years post-cancer treatment (September 2018) per Dr. Gonzalez. Phoned patient to up-date her on committee decision as well as with the recomme ndation list of the committee to have completed. Pt v/u and verbalized that she will call her coordinator with location of where she would like to have stated t esting completed. documented in this encounter Plan of Treatment Not on filedocumented as of this encounter Visit Diagnoses Not on filedocumented in this encounter
--- OUTSIDE RECORDS SUMMARY | 2018-10-17 08:23 | XMS REPORT | Encounter Summary ---
Author Author [facility] Organization [facility] Address Unknown Phone Unavailable Care Team Providers Care Patient Svcs Mgr Name Role Phone Rebeca Green MD Unavailable Love Chambers DO PCP Encounter Details Care Team Description Date Type Department Anjelica Najera LPN Pre-transplant evaluation for kidney transplant (Primary Dx) 07/03/2018 Orders Only The [address] [address] Social History Date Tobacco Use Types Packs/Day [...] Date/Time Associated Diagnosis CBC AND DIFF Routine 06/25/2018 Pre-transplant evaluation 3:24 PM CDT for kidney transplant COMPREHENSIVE METABOLIC Routine 06/25/2018 Pre-transplant evaluation PANEL 3:24 PM CDT for kidney transplant documented in this encounter Results * CBC AND DIFF (06/25/2018 3:24 PM CDT) White Blood 6.9 4.3 - 11.0 10^3/uL [facility] Cells RBC 2.91 (L) 4.35 - 5.85 10^6/uL [facility] Hemoglobin 10.2 (L) 11.5 - 16.0 G/DL [facility] Hematocrit 31 (L) 35 - 52 % [facility] MCV 107 (H) 80 - 99 FL [facility] MCH 35 (H) 25 - 34 PG [facility] MCHC 33 32 - 36 G/DL [facility] RDW 16.3 (H) 10.0 - 14.5 % [facility] Platelet Count 164 130 - 400 10^3/uL [facility] MPV 9.1 7.4 - 10.4 FL [facility] Neutrophils 72 42 - 75 % [facility] Lymphocytes 15 12 - 44 % [facility] Monocytes 12 0 - 12 % [facility] Eosinophil 1 0 - 10 % [facility] Basophil 0 0 - 10 % [facility] Absolute 4.9 1.8 - 7.8 X10^3 [facility] Neutrophil Count Absolute Lymph 1.1 1.0 - 4.0 X10^3 [facility] Count Absolute 0.8 0.0 - 1.0 X10^3 [facility] Monocyte Count Absolute 0.1 0.0 - 0.3 X10^3 [facility] Eosinophil Count Absolute 0.0 0.0 - 0.1 X10^3 [facility] Basophil Count Specimen Blood Narrative Performed At [facility] Lab Verified by Anjelica Najera on 07/03/2018. Performing Organization Address City/State/Zipcode Phone Number [facility] * COMPREHENSIVE METABOLIC PANEL (06/25/2018 3:24 PM CDT) Sodium 138 135 - 145 MMOL/L [facility] Potassium 3.6 3.6 - 5.0 MMOL/L [facility] Chloride 99 98 - 107 MMOL/L [facility] CO2 29 21 - 32 MMOL/L [facility] Anion Gap 10 5 - 14 MMOL/L [facility] Blood Urea 16 7 - 18 MG/DL [facility] Nitrogen Creatinine 2.79 (H) 0.60 - 1.30 MG/DL [facility] eGFR Non 17 mL/min/1.73 M2 [facility] Glucose 112 (H) 70 - 105 H [facility] Calcium 9.7 8.5 - 10.1 MG/DL [facility] Total Bilirubin 0.5 0.1 - 1.0 MG/DL [facility] Alk Phosphatase 90 40 - 136 U/L [facility] AST (SGOT) 20 5 - 34 U/L [facility] ALT (SGPT) 16 0 - 55 U/L [facility] Total Protein 7.1 6.4 - 8.2 GM/DL [facility] Albumin 4.2 3.2 - 4.5 GM/DL [facility] Specimen Blood Narrative Performed At [facility] Outside Lab Verified by Anjelica Najera on 07/03/2018. Performing Organization Address City/State/Zipcode Phone Number [facility] documented in this encounter Visit Diagnoses Diagnosis Pre-transplant evaluation for kidney transplant - Primary Other specified pre-operative examination documented in this encounter
--- OUTSIDE RECORDS SUMMARY | 2018-10-17 08:23 | XMS REPORT | Encounter Summary ---
Author Author [facility] Organization [facility] Address Unknown Phone Unavailable Care Team Providers Care Subscription Clerk Name Role Phone Rebeca Green MD Unavailable Love Chambers DO PCP Reason for Visit * Reason Comments Kidney Evaluation records request sent to Dr. Jesenia Aguilar for most recent PAP results. Encounter Details Care Team Description Date Type Department Pat Drummond RN Kidney Evaluation (records request sent to Dr. Jesenia Aguilar for most recent PAP results. ) 06/20/2018 Documentation The [address] [id number] Social History Date Tobacco Use Types Packs/Day [...]
--- OUTSIDE RECORDS SUMMARY | 2018-10-17 08:23 | XMS REPORT | Encounter Summary ---
Author Author [facility] Organization [facility] Address Unknown Phone Unavailable Care Team Providers Care Turf Grower Name Role Phone Rbeeca Green MD Unavailable Love Chambers DO PCP Reason for Visit * Reason Comments Abstract f/u question r/t living donor Encounter Details Care Team Description Date Type Department Pat Drummond RN Abstract (f/u question r/t living donor) 06/24/2018 Telephone The [address] [address] Social History Date Tobacco Use [...] Telephone Encounter - Pat Drummond RN - 06/24/2018 1:52 PM CDT This RN contacted Ms. Rob in regards to her previous comments r/t her broth er possibly being "denied" as a living donor at this center. Upon further discus antonio, Ms. Rob verbalized to this coordinator that her brother "wasn't yanira nieto denied, but was possibly told that he would be a difficult case". This RN then gave Ms. Rob her direct phone line and asked that she ask her brother to call this coordinator if/when he had the time. Ms. Rob v/u. documented in this encounter Plan of Treatment Not on filedocumented as of this encounter Visit Diagnoses Not on filedocumented in this encounter
--- OUTSIDE RECORDS SUMMARY | 2018-10-17 08:23 | XMS REPORT | Encounter Summary ---
Author Author [facility] Organization [facility] Address Unknown Phone Unavailable Care Team Providers Care Explosive Operator Fuse Name Role Phone Rebeca Green MD Unavailable Love Chambers DO PCP Reason for Referral * Radiology Services (Routine) Referred By Contact Referred To Contact Status Reason Specialty Diagnoses / Procedures Eliceo Gonzalez MD 4000 [facility] [address] [place] [id number] New Request Diagnoses Pre-transplant evaluation for kidney transplant P rocedures CT CHEST WO CONTRAST Reason for Visit * Reason Comments Kidney Evaluation Encounter Details Care Team Description Date Type Department Maricruz Covington RN Kidney Evaluation 07/08/2018 Telephone The [facility] [address] [address] Social History Date Tobacco Use Types Packs/Day [...] as of this encounter Miscellaneous Notes * Addendum Note - Maricruz Covington RN - 07/08/2018 12:31 PM CDT Addended by: MARICRUZ COVINGTON on: 07/08/2018 12:31 PM Modules accepted: Orders * Telephone Encounter - Maricruz Covington RN - 07/08/2018 12:14 PM CDT Pt called to confirm to-do list on deferral letter sent to her on 06/27/18; she v erbalized that she would like to complete the testing at [place]. This RN v/u and verbalized that orders would be faxed to [facility]. Verbalized to pt that if she had any difficulties with scheduling to please call. Pt v/u documented in this encounter Plan of Treatment Order Schedule Name Type Priority Associated Diagnoses Expected: 07/08/2018 (Approximate), Expires: 07/08/2019 CT CHEST WO CONTRAST Imaging Routine Pre-transplant evaluation for kidney transplant Expected: 07/08/2018 (Approximate), Expires: 07/09/2019 US THYROID Imaging Routine Pre-transplant evaluation for kidney transplant documented as of this encounter Results * US THYROID EXTERNAL IMAGING (07/08/2018 12:25 PM CDT) Specimen Narrative Performed At This order has been auto finalized and does not contain a result. [facility] [place] Performing Organization Address City/State/Zipcode Phone Number [facility] [place] [address] [place] [address] [facility] documented in this encounter Visit Diagnoses Diagnosis Pre-transplant evaluation for kidney transplant - Primary Other specified pre-operative examination documented in this encounter
--- OUTSIDE RECORDS SUMMARY | 2018-10-17 08:23 | XMS REPORT | Encounter Summary ---
Author Author [facility] Organization [facility] Address Unknown Phone Unavailable Care Team Providers Care Joint Runner Name Role Phone Rebeca Green MD Unavailable Love Chambers DO PCP Reason for Visit * Reason Comments Kidney Evaluation Education doc Encounter Details Care Team Description Date Type Department Carol Ann Sanders RN Kidney Evaluation (Education doc) 06/20/2018 Telephone The [address] [address] Social History Date Tobacco Use [...] encounter Miscellaneous Notes * Telephone Encounter - Carol Ann Sanders RN - 06/20/2018 4:19 PM CDT 06/19/18 Education documentation documented in this encounter Plan of Treatment Not on filedocumented as of this encounter Visit Diagnoses Not on filedocumented in this encounter
--- OUTSIDE RECORDS SUMMARY | 2018-10-17 08:24 | XMS REPORT | Encounter Summary ---
Author Author [facility] Organization [facility] Address Unknown Phone Unavailable Care Team Providers Care Supervisor Agricultural Education Name Role Phone Rebeca Green MD Unavailable Love Chambers DO PCP Reason for Visit * Reason Comments Financial/Insurance financial consult Questions Encounter Details Care Team Description Date Type Department Wendy Schultz Financial/Insurance Questions (financial consult) 06/19/2018 Telephone The [address] [address] Social History Date Tobacco Use [...] * Telephone Encounter - Wendy Schultz - 06/19/2018 1:19 PM CDT Wendy Schultz met with Ting Rob for insurance consult. There appe ar to be no coverage/insurance barriers with [employer] [place] plan. [place] expressed no i nsurance concerns related to cost of post-transplant care and medications and ve rbalized understanding of Transplant Finance Coordinator's discussion and docume nts presented. No Authorization required prior to listing. Financial assessment given to patient to complete and return within 10 days Documents presented: Signed Patient Liability Form, Medication Cost Estimate documented in this encounter Plan of Treatment Not on filedocumented as of this encounter Visit Diagnoses Not on filedocumented in this encounter
--- OUTSIDE RECORDS SUMMARY | 2018-10-17 08:24 | XMS REPORT | Encounter Summary ---
Author Author [facility] Organization [facility] Address Unknown Phone Unavailable Care Team Providers Care Copy Clerk Name Role Phone Rebeca Green MD Unavailable Love Chambers DO PCP Reason for Visit * Reason Comments Medication Refill Encounter Details Care Team Description Date Type Department Chemo Kaufman MD [address] [place] [address] [phone] 06/06/2018 Refill The [place] [id number] [address] Social History Date Tobacco Use Types Packs/Day [...] Status Date of Assessment Functional Status Response 02/19/2018 Does the patient have a hearing impairment: No 05/15/2017 Does the patient have a visual impairment: No 05/15/2017 Does the patient have impaired ambulation: No 05/15/2017 Does the patient have an activity of daily living No (ADL) impairment: 05/15/2017 Does the patient have an instrumental activity of No daily living (IADL) impairment: Date of Assessment Cognitive Status Response 05/15/2017 Does the patient have a cognitive impairment: No documented as of this encounter Plan of Treatment Not on filedocumented as of this encounter Visit Diagnoses Not on filedocumented in this encounter
--- OUTSIDE RECORDS SUMMARY | 2018-10-17 08:24 | XMS REPORT | Encounter Summary ---
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 Name Role Phone Rebeca Green MD Unavailable Love Chambers DO PCP Reason for Visit * Reason Comments Kidney Evaluation Encounter Details Care Team Description Date Type Department Neftali Ivan MD Forwarding Address Unknown Left [facility] 08/29/18 Pre-transplant evaluation for kidney transplant (Primary Dx) 06/19/2018 Transplant [facility] [address] [place] [address] [id number] Social History Date Tobacco Use Types Packs/Day [...] Signs Reading Time Taken Comments Vital Sign 113/90 06/19/2018 10:06 AM CDT Blood Pressure 77 06/19/2018 10:06 AM CDT Pulse 36.6 C (97.8 F) 06/19/2018 10:05 AM CDT Temperature - - Respiratory Rate 100% 06/19/2018 10:05 AM CDT Oxygen Saturation - - Inhaled Oxygen Concentration 56.7 kg (125 lb) 06/19/2018 10:05 AM CDT Weight 157.5 cm (5' 2") 06/19/2018 10:05 AM CDT Height 22.86 06/19/2018 10:05 AM CDT Body Mass Index documented in this [...] as of this encounter Progress Notes * Neftali Ivan MD - 06/19/2018 12:20 PM CDT [facility] PRE-TRANSPLANT EVALUATION ATTENDING: Dr. Santos Ivan MD REQUESTING PHYSICIAN: Dr. Mike MD Date of Service: 06/19/2018 Ting Rob is a 58 y.o. 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 Subjective: History of Present Illness Ting Rob is a 58-year-old woman with end-stage renal disease secondary to oxalosis. Her primary knockdown man, Dr. Mckeon has r equested that the Transplant Surgery Service here at the [facility] consult on Ms. Rob in order to evaluate her as a potential candid ate for renal transplantation. Ms. Rob is currently on hemodialysis. She is supported on hemodialysis three times per week. She tolerates this well. Nancy szymanski does have a strong functional status. She can climb multiple flights of stair s and walk multiple city blocks without any shortness of breath, chest pain, cla udication, or undue fatigue. She is able to execute all of her activities of da sarita living. She is tolerating a full volume diet and moving her bowels on a reg ular basis. She does have a history gastric bypass that did undergo reversal in October of 2017. Her initial gastric bypass was in July of 2014. Review of Systems Constitutional: Positive for activity change and fatigue. Negative for appetite change, chills, diaphoresis, fever and unexpected weight change. HENT: Negative. Eyes: Negative. Respiratory: Negative. Cardiovascular: Negative. Gastrointestinal: Negative. Endocrine: Negative. Genitourinary: Negative. Musculoskeletal: Negative. Skin: Negative. 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 Past Surgical History: Procedure Laterality Date ENDOMETRIAL ABLATION 06/22/2009 UPPER GASTROINTESTINAL ENDOSCOPY N/A 01/16/2017 ESOPHAGOGASTRODUODENOSCOPY performed by Ceasar Velez MD at ENDO/GI UPPER GASTROINTESTINAL ENDOSCOPY 01/16/2017 ESOPHAGOGASTRODUODENOSCOPY CONTROL BLEEDING performed by Ceasar Velez MD at END O/GI BRONCHOSCOPY N/A 02/25/2017 BRONCHOSCOPY WITH LAVAGE performed [...] N/A 09/17/2017 SIGMOIDOSCOPY DIAGNOSTIC performed by Prerna Alvarez DO at ENDO/GI UPPER GASTROINTESTINAL ENDOSCOPY 09/17/2017 ESOPHAGOGASTRODUODENOSCOPY BIOPSY performed by Prerna Alvarez DO at ENDO/GI SIGMOIDOSCOPY 09/17/2017 SIGMOIDOSCOPY WITH BIOPSY - FLEXIBLE performed by Prerna Alvarez DO at ENDO /GI COSMETIC SURGERY Total lower body lift with muscle replari after lost 150lbs from gastric bypass GASTRIC BYPASS mini gastric bypass GASTRIC BYPASS Mini gastric bypass HX EYE SURGERY panniculectomy Objective: acetaminophen (TYLENOL EXTRA STRENGTH) 500 mg tablet Take 2 tablets by mouth daily as needed. Biotin 2,500 mcg cap Take 2 capsules by mouth every morning. calcium acetate (PHOSLO) 667 mg tablet Take two tablets by mouth three times daily with meals. calcium citrate (CALCITRATE) 950 mg tab Take 950 mg by mouth twice daily. Cholecalciferol (VITAMIN D3) 5,000 unit capsule Take one capsule by mouth da sarita. Post dialysis codeine/guaiFENesin (ROBITUSSIN-AC) 10/100 mg/5 mL oral solution Take 10 mL by mouth at bedtime as needed for Cough. dextran 70/hypromellose (GENTEAL TEARS; BION TEARS) 0.1/0.3 % dpet ophthalmi c solution Apply one drop to both eyes four times daily. fexofenadine(+) (YONAS) 180 mg tablet Take 180 mg by mouth every morning. fluticasone (FLONASE) 50 mcg/actuation nasal spray Apply two sprays to each nostril as directed daily. Shake bottle gently before using. lactobacillus rhamnosus (GG) (CULTURELLE) 10 billion cell cap Take 1 capsule by mouth daily with breakfast. levothyroxine (SYNTHROID) 100 mcg tablet TAKE 1 TABLET BY MOUTH ONCE DAILY 3 0 MINUTES BEFORE BREAKFAST Multivitamins with Fluoride (MULTI-VITAMIN PO) Take 1 tablet by mouth daily. other medication THC Lotion: Apply to the affected area at bedtime pantoprazole DR (PROTONIX) 40 mg tablet TAKE 1 TABLET BY MOUTH TWICE DAILY thiamine (VITAMIN B-1) 100 mg tablet Take 1 tablet by mouth daily. (Patient taking differently: Take 100 mg by mouth at bedtime daily.) traMADol (ULTRAM) 50 mg tablet Take one tablet by mouth every 6 hours as nee ded. Allergies Allergen Reactions Sulfa (Sulfonamide Antibiotics) RASH Amoxicillin RASH Pt states was only a rash due to amoxicillin Hydrocodone RASH Latex RASH Oxycodone RASH Penicillin G RASH Pt states was only a rash due to amoxicillin Family History Problem Relation Age of Onset Heart Disease Father Cancer-Breast Neg Hx Cervical Cancer Neg Hx Cancer-Colon Neg Hx Cancer-Ovarian Neg Hx Cancer-Uterine Neg Hx Diabetes Neg Hx Vitals: 06/19/18 1005 06/19/18 1006 BP: 138/81 113/90 Pulse: 72 77 Temp: 36.6 C (97.8 F) TempSrc: Oral SpO2: 100% Weight: 56.7 kg (125 lb) Height: 157.5 cm (62") Body mass index is 22.86 kg/m. Labs and Diagnostic Tests: Urinalysis: Lab Results Component Value Date/Time UCOLOR STRAW 02/19/2018 03:15 PM TURBID CLEAR 02/19/2018 03:15 PM USPGR 1.009 02/19/2018 03:15 PM UPH 6.0 02/19/2018 03:15 PM UPROTEIN 1+ (A) 02/19/2018 03:15 PM UAGLU 1+ (A) 02/19/2018 03:15 PM UKET NEG 02/19/2018 03:15 PM UBILE NEG 02/19/2018 03:15 PM UBLD NEG 02/19/2018 03:15 PM UROB NORMAL 02/19/2018 03:15 PM Viral Serologies: Viral Serologies Latest Ref Rng & Units 09/03/2017 02/25/2017 CMV IgG - - - EBV Capsid IgG - - - EBV Capsid IgM - - - EBV Nuclear AG, AB - - - EBV Early AG,AB - - - HSV Type 2 IgG NEG-NEG - - CMV PCR - - CMV DNA DETECTED BKVQ1 BKND-BK Virus Not Detected BK Virus Not Detected - CBC with Diff: CBC with Diff Latest Ref Rng & Units 05/06/2018 03/06/2018 WBC 4.5 - 11.0 K/UL 5.5 5.9 RBC 4.0 - 5.0 M/UL 3.10(L) 2.48(L) HGB 12.0 - 15.0 GM/DL 11.2(L) 8.4(L) HCT 36 - 45 % 33.3(L) 25.4(L) MCV 80 - 100 FL 107.4(H) 102.3(H) MCH 26 - 34 PG 36.1(H) 34.0 MCHC 32.0 - 36.0 G/DL 33.6 33.2 RDW 11 - 15 % 15.2(H) 14.3 PLT 150 - 400 K/UL 167 159 MPV 7 - 11 FL 7.1 7.5 NEUT 41 - 77 % 51 59 ANC 1.8 - 7.0 K/UL 2.80 3.50 LYMA 24 - 44 % 31 25 ALYM 1.0 - 4.8 K/UL 1.70 1.50 JENNIFER 4 - 12 % 15(H) 13(H) AMONO 0 - 0.80 K/UL 0.80 0.80 EOSA 0 - 5 % 2 2 AEOS 0 - 0.45 K/UL 0.10 0.10 BASA 0 - 2 % 1 1 ABAS 0 - 0.20 K/UL 0.00 0.10 CMP: CMP Latest Ref Rng & Units 05/06/2018 03/06/2018 NA 137 - 147 MMOL/L 131(L) 130(L) K 3.5 - 5.1 MMOL/L 3.8 4.2 CL 98 - 110 MMOL/L 98 98 CO2 21 - 30 MMOL/L 28 27 GAP 3 - 12 5 5 BUN 7 - 25 MG/DL 42(H) 29(H) CR 0.4 - 1.00 MG/DL 3.65(H) 3.43(H) GLUX 70 - 100 MG/DL 97 119(H) CA 8.5 - 10.6 MG/DL 10.4 9.1 TP 6.0 - 8.0 G/DL 7.0 6.3 ALB 3.5 - 5.0 G/DL 4.0 3.6 ALKP 25 - 110 U/L 77 100 ALT 7 - 56 U/L 12 11 TBILI 0.3 - 1.2 MG/DL 0.3 0.4 GFR >60 mL/min 13(L) 14(L) GFRAA >60 mL/min 15(L) 17(L) Other Common Labs: Other Common Labs Latest Ref Rng & Units 05/06/2018 03/06/2018 IRON 50 - 160 MCG/DL - - TIBC 270 - 380 MCG/DL - - PSAT 28 - 42 % - - ANGELO 10 - 200 NG/ML - - PO4 2.0 - 4.5 MG/DL - - MG 1.6 - 2.6 mg/dL 2.1 1.8 VITD 30 - 80 NG/ML - - UPRO NEG-NEG - - UCRR MG/DL - - UPCRC - - - URICA 2.0 - 7.0 MG/DL - - HBA1C - - - Imaging: Results for orders placed during the hospital encounter of 02/19/18 CT CHEST WO CONTRAST Impression 1. No consolidation. 2. Single new 3 mm right upper lobe pulmonary nodule. Other pulmonary nodules ar e stable. Attention on 6 month follow-up CT to assess stability and determine ma lignant potential. 3. Stable left thyroid lobe hypoattenuating nodule which meets criteria for thyr oid ultrasound if not already performed. #Follow Finalized by Martell Gómez M.D. on 02/24/2018 2:09 PM. Dictated by Armando Gómez M.D. on 02/24/2018 1:59 PM. Results for orders placed during the hospital encounter of 02/19/18 CHEST SINGLE VIEW Impression No acute cardiopulmonary abnormality. Finalized by Nikky Carvajal M.D. on 02/21/2018 6:30 AM. Dictated by Nikky pritchett M.D. on 02/21/2018 6:29 AM. Physical Exam Constitutional: She is oriented to person, place, and time. No distress. Cardiovascular: Normal rate, regular rhythm, normal heart sounds and intact dist al pulses. Exam reveals no gallop and no friction rub. No murmur heard. 2+ femoral pulses bilaterally. Pulmonary/Chest: Effort normal and breath sounds normal. No respiratory distress . She has no wheezes. She has no rales. She exhibits no tenderness. Abdominal: Soft. She exhibits no distension and no mass. There is no tenderness. No hernia. Well healed laparoscopic port site incisions and panniculectomy incision. Musculoskeletal: She exhibits no edema, tenderness or deformity. Neurological: She is alert and oriented to person, place, and time. Skin: Skin is warm and dry. No rash noted. She is not diaphoretic. No erythema. No pallor. Psychiatric: She has a normal mood and affect. Her behavior is normal. Thought c ontent normal. Assessment and Plan: Ting Rob is a 58 y.o. year old woman with renal disease secondary t o oxylosis. Ting Rob is a good candidate for renal transplantation . We had a thorough discussion regarding renal transplantation. We discussed t he kidney allocation system and how it is based upon waiting time, starting from the date dialysis is initiated. We spoke about the sources for renal allograft s, including living and donor allografts. The patient does not current ly have a potential living renal allograft donor. We specifically spoke about the kidney transplant procedure. We spoke about the recovery process as well as the possibility for post-operative complications including; rejection, arteri al stenosis, renal vein thrombosis, ureteral complications, lymphocele, and woun d complications. We talked about the need for and the potential complications o f immunosuppression, including infection and the modest increase risk of cancer due to immunosuppression. We also spoke about delayed graft function and the pos sibility for a brief period of dialysis after transplantation Santos Ivan MD Transplant Surgery documented in this encounter Plan of Treatment Not on filedocumented as of this encounter Visit Diagnoses Diagnosis Pre-transplant evaluation for kidney transplant - Primary Other specified pre-operative examination documented in this encounter
--- OUTSIDE RECORDS SUMMARY | 2018-10-17 08:24 | XMS REPORT | Encounter Summary ---
Author Author [facility] Organization [facility] Address Unknown Phone Unavailable Care Team Providers Care Acid Wash Operator Name Role Phone Rebeca Green MD Unavailable Love Chambers DO PCP Reason for Visit * Reason Comments Kidney Evaluation * Transplant (Routine) Referred By Contact Referred To Contact Status Reason Specialty Diagnoses / Procedures Danny Mckeon MD [address] [id number] 8 [facility] [address] [address] No Auth Needed Transplant Diagnoses Surgery Pre-transplant evaluation for kidney transplant Encounter Details Care Team Description Date Type Department Renuka Orozco APRN 4000 [facility] [address] [place] [address] [phone] Eliceo Gonzalez MD 4000 [facility] [address] [place] [address] [phone] Pre-transplant evaluation for end stage renal disease (Primary Dx); ESRD (end stage renal disease) (HCC); Acute myeloid leukemia in remission (HCC); 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 Transplant [facility] [address] [address] Social History Date Tobacco Use Types Packs/Day [...] Time Taken Comments Vital Sign 113/90 06/19/2018 10:03 AM CDT Blood Pressure 77 06/19/2018 10:03 AM CDT Pulse 36.6 C (97.8 F) 06/19/2018 10:00 AM CDT Temperature - - Respiratory Rate 100% 06/19/2018 10:00 AM CDT Oxygen Saturation - - Inhaled Oxygen Concentration 56.7 kg (125 lb) 06/19/2018 10:00 AM CDT Weight 157.5 cm (5' 2") 06/19/2018 10:00 AM CDT Height 22.86 06/19/2018 10:00 AM CDT Body Mass Index documented in [...] impairment: No documented as of this encounter Patient Instructions * Patient Instructions* Juanita Fleming RN - 06/19/2018 10:20 AM CDT You were seen by members of the Pre Renal/Pancreas Transplant Team today who has recommended that you complete the following: Lab work Pap records Colonoscopy records EKG Complete Financial Plan Please work on completing your financial plan given to you by the Transplant Fin ancial Advisor. Please keep your Nurse Coordinator informed of ANY changes in your health and in surance status. We recommend that you sign up for MyChart. The activation code has been provided to you in your after visit summary for today's visit. It was a pleasure to see you today. Thank you for partnering with [facility] for your care. If you should have any questions or concerns, please feel free to contact us. Pat Drummond RN Pre-Renal/Pancreas Cigarette Tester [facility] Phone [phone] , [email or web address] [address] [place] [address] Seen By: Applications Project Manager Dr. Gonzalez, Surgeon , Pharmacist Abbie ValdezD, Diet james Hines, [facility] Wendy Schultz [facility], aMrisol Godinez [facility]. documented in this encounter Progress Notes * Marisol Godinez - 06/19/2018 10:20 AM CDT SOCIAL WORK PSYCHOSOCIAL ASSESSMENT Name: [facility] #: [id number] Date: 06/27/2018 Referral Source: Renal Transplant Team Referral Reason: Psychosocial evaluation for kidney transplant Date Referred: Source of Information: Patient Patient's Address: [address] [place] [id number] Date(s) Interviewed: 06/19/18 Telephone #: [phone] (home) 1. PRESENT SITUATION: Sex: female Age: 58 y.o. Birthdate: 1960 Primary Language: Bahraini Ethnic Background: Restorationism: (Optional) Diagnosis: ESRD, oxalate nephropathy, BMT Statement of Presenting Problem(s): Patient is a 58 y/o female who pr esents for evaluation for kidney transplant. 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 She has been on HD at [facility] 01/2018. She dialyzes MWF at 7:45am for 3h30m. She denies any non-adheren ce with her dialysis regimen. She drives herself to dialysis and other appointm ents. Patient has a history of AML and received a BMT from her brother at [facility] in 11/2016. She also has a history of gastric bypass in 2014, which was then rev ersed in 07/2017. She was last hospitalized at [facility] in 01/2018. SW left message for her dialysis unit requesting return call to confirm her adhe rence with HD. 07/08/18: left second message for patient's dialysis unit requesting return homero l. 2. PATIENT'S LIVING SITUATION PRIOR TO ADMISSION Citizenship: [place] Citizen Comments: Patient lives with her , Mu. They have one dog as a househ old pet. They have lived in their current home, which they own, since 05/2015. There are six stairs to enter the home and they have a flight of stairs up to th eir bedroom. They have the opportunity to live in [place] from September-April as St meza is doing a phased mcc from his job as a professor, they are still inv estigating if this will be an option in terms of dialysis and insurance however. Patient had home infusion services following her BMT, she has never had a stay in a SNF, rehab or LTACH. She is independent with ambulation and with ADL's. They do pay for a cleaning service, but patient is able to independently manage the other household needs. Patient was born in [place], [place] and was raised in [place], [place]. 3. 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 She voiced understanding of the average time off work post-transplant of 6-12 weeks and denies any financial concerns related to time off work. Mu is employed full-time as a mold construction supervisor at [employer] and is on a phased mcc for the next two years where he will t each a semester and then be off the following semester. He is currently also wo rking on his third book on terrorism. Patient has BCBS through Mu's employme nt and she is enrolling in Medicare based upon ESRD/dialysis. Patient verbalize d understanding of the limitations of Medicare (36 months) after a successful tr ansplant. She fills her medications at [facility] in [place] and she denies any financial barriers related to medication access or to going without medicat ions. She is not receiving any sources of financial assistance with her daily l iving expenses. 4. SUPPORTIVE RELATIONSHIPS/ COMMUNITY RESOURCES Caregivers: Mu Grace (spouse- [phone]) Lindsey Ballesteros Darorn (mother- [phone]) Living Donors: unsure at this time, patient stated that she plans to post on [facility] ebook about her need for kidney transplant/plea for living donor, as well as jayden riggins to her cousins asking that they consider living donation Comments: Patient and her have been for four years. Patient felix s two sons ([place], [place] and [place], [place]) and four grandchildren. Mu has t hree children ([place], [place] and [place]) and two grandchildren. Patient's parents are living in [place] and she has one brother. Mu will serve as her primary ca regiver post-transplant and her friend, Marj (works from home/drive) and daughter -in-law, Nelson (works/drives and lives in [place], [place]) will be available as back- up caregivers if needed. SW discussed the requirement to stay locally for two w eeks post transplant d/c and provided patient with the area lodging list and wit h the N[facility] and [facility] fundraising brochures. Patient will likely stay with her cousin, Nallely, who lives in the [facility] home. Patient voiced understanding of the weekly to bi-weekly [facility] clinic appointments for the first few months fo llowing transplant and annual visits thereafter. She verbalized understanding o f the need to have a caregiver to assist with care and transportation post-trans plant. She also acknowledged that she will have driving restrictions during her post-transplant recovery. 5. COGNITIVE ABILITIES Highest Level of Education: Master's degrees in Bahraini/Communication and Fine A rts/Creative Writing Comments: Patient looks forward to traveling after transplant and hopes to be ab le to live in [place] over the summer/fall if this is compatible with dialysis. S he stated that she takes her medications as prescribed from their bottles and th at she only ever misses her binder on occasion. She voiced understanding of the need to take immunosuppressive medications for the life of the transplant. She denies having any history of tobacco use, substance use or of ETOH abuse. She did use a topical lotion in the past that had THC in it, but has not been using that since March. She reports rare alcohol use, less than once a month. She has a history of depression and stated that there is a family history of depres antonio and she is not taking any psychotropic medications at this time, but has in the past. She denies having any history of suicidal ideation/attempts. She de nies any pending legal issues. She has completed DPOA paperwork and it is on fi le in the EMR. She enjoys traveling, hiking, canoeing, fishing, reading, gardening and doing ar ts/crafts. 6. SOCIAL WORK EVALUATION Comments: SW met with patient and her , Mu, as part of her evaluation for kidney transplant. She has health insurance coverage through [facility] to meet her medical needs following transplant and is currently enrolling in Medicare ba sed on ESRD/dialysis. She receives support from her who will serve as h er primary caregiver post transplant and her friend and whevovqg-aj-liv will be available as back-up supports as needed. She has reasonable expectations for th e transplant process. She has no reported history of tobacco use, substance use or of ETOH abuse. She has a history of depression and appears to be coping nor herbie at this time. Social Work Impression/Recommendation: * SW did not identify any psychosocial contraindications to proceed with kidney transplant listing if deemed appropriate by the selection committee. 7. PLAN Plan Discussed with Patient / Family: {PLAN DISCUSSED, AGREED UPON Plan Agreed Upon with Patient / Family: {PLAN DISCUSSED, AGREED UPON * SW reviewed the Renal Transplant Patient Responsibilities form with patient an d her , form signed by SW, patient and spouse who both expressed agreemen t with the transplant expectations. Original provided to patient and copy provi ded to the transplant team to be scanned into the medical record. Marisol Godinez LMSW * Jesenia Chang - 06/19/2018 10:20 AM CDT Renal Transplant Nutrition Evaluation Impressions: I see no nutritional contraindications to transplantation at this t jeanine. Pt has an appropriate body habitus for RTx. Body mass index is 22.86 kg/m . Estimated body mass index is 22.86 kg/m as calculated from the following: Height as of this encounter: 157.5 cm (62"). Weight as of this encounter: 56.7 kg (125 lb). Subjective: Pt reported current weight: 125# Usual wt in the past 6 mo: stable Pt reported muscle/weight loss: see note Nutrition related compliance: Fair 58 yo female with Hx of ESRD 2/2 oxalate nephropathy on HD since 01/2018. Pt rep orts she had a Mini Gastric Bypass in July of 2014, her highest weight at the jimy e was 283 pounds, she was stable at 215 founds until she was diagnosed with luke pat and underwent at BMT in November 2016. Through that process she dropped kayley n to 80 pounds which is when she had the surgery revered in October 2017. She sta rted dialysis in January 2018. She denies GI distress, she will occasionally vo william after dialysis. No diarrhea or constipation. She has to follow a low phospho beatrice diet and takes a Renal MVI. She drinks protein supplements at dialysis. She doesn't exercise. She has fallen 3 times this year she related to tripping over something. Is able to walk up a flight of stairs and carry >5 pounds. Her weight is stable at this time. Instructed on post-transplant nutrition related expectations. Discussed importan ce of hand hygiene, food safety, grapefruit avoidance. Goals: Cont Renal-Dialysis Diet MD referral received on 06/20/2018 for medical nutrition therapy services. Jesenia Chang, MS, RD, LD *[id number] * Juanita Fleming, RN - 06/19/2018 10:20 AM CDT Seen by: Social work: Marisol had no concerns. Patient would like LD information to try and get the word out. Long standing depression, no medications but stable. Does n't follow with a provider. Finance: Wendy gave a FAP Pharmacy: [facility] had no major concerns. Patient occassionally forgets binders but i t is a new medication. Professor Of Violin: Jesenia stated weight was ok. Noted patient does vomit after dialysis MOCA: 26 Surgeon: Moncho had no concerns, CT needed to be downloaded, will be reviewed in c ommittee to know if it needs to be updated. Applications Project Manager: Carlos would like an EKG and labs. Functionally is fine, probably d oesn't need stress. Need prior colonoscopy records, potentially completed at years ago. Pap was completed in [place], [place], Mammo was completed at . You were seen by members of the Pre Renal/Pancreas Transplant Team today who has recommended that you complete the following: Lab work Pap records Colonoscopy records EKG Complete Financial Plan Please work on completing your financial plan given to you by the Transplant Fin ancial Advisor. Please keep your Nurse Coordinator informed of ANY changes in your health and in surance status. We recommend that you sign up for MyChart. The activation code has been provided to you in your after visit summary for today's visit. It was a pleasure to see you today. Thank you for partnering with [facility] for your care. If you should have any questions or concerns, please feel free to contact us. Pat Drummond RN Pre-Renal/Pancreas Cigarette Tester [facility] Phone [phone] , [email or web address] [address] [place] [address] Seen By: Applications Project Manager Dr. Gonzalez, Surgeon , Pharmacist Abbie Santiago PharmD, Jimmy Hines, [facility] Wendy Schultz [facility], Marisol Godinez [facility]. * Abbie Santiago, PHARMD - 06/19/2018 10:20 AM CDT Pharmacy Kidney Transplant Evaluation I met with Ting Rob for their pharmacy transplant evaluation. A med ication history and reconciliation were performed (including prescription medica tions, supplements, over the counter, and herbal products). The medication list was updated and the patients current medication list is included below. Home Medications Medication Sig acetaminophen (TYLENOL EXTRA STRENGTH) 500 mg tablet Take 2 tablets by mouth sofia ly as needed. Biotin 2,500 mcg cap Take 1 capsule by mouth every morning. calcitriol (ROCALTROL) 0.5 mcg capsule Take 0.5 mcg by mouth daily. calcium acetate (PHOSLO) 667 mg tablet Take two tablets by mouth three times sofia ly with meals. Patient taking differently: Take 1,334 mg by mouth three times daily with meals. And one with snacks cetirizine (ZYRTEC) 10 mg tablet Take 10 mg by mouth daily as needed for Allergy symptoms. Cholecalciferol (VITAMIN D3) 5,000 unit capsule Take one capsule by mouth daily. Post dialysis dextran 70/hypromellose (GENTEAL TEARS; BION TEARS) 0.1/0.3 % dpet ophthalmic so lution Apply 1 drop to both eyes every 8 hours as needed for Dry Eyes. fluticasone (FLONASE) 50 mcg/actuation nasal spray Apply 1 spray to each nostril as directed daily as needed. Shake bottle gently before using. folic acid/B cplx/C/selen/zinc (DIALYVITE 3000 PO) Take 1 tablet by mouth daily. lactobacillus rhamnosus (GG) (CULTURELLE) 10 billion cell cap Take 1 capsule by mouth daily. levothyroxine (SYNTHROID) 100 mcg tablet TAKE 1 TABLET BY MOUTH ONCE DAILY 30 TN NUTES BEFORE BREAKFAST methylcellulose (with sugar) (CITRUCEL FIBER LAXATIVE PO) Take 1 each by mouth d aily. pantoprazole DR (PROTONIX) 40 mg tablet TAKE 1 TABLET BY MOUTH TWICE DAILY TURMERIC PO Take 500 mg by mouth daily. valACYclovir (VALTREX) 1 gram tablet Take 1,000 mg by mouth every 24 hours. Medication Adherence: Rosas (0=Never, 1=Rarely, 2=Sometimes, 3=Often, 4=Always) Method utilized to manage medications: Routine, carries meal time medications wi th her How often do you forget to take one or more of your prescription medications? 1, twice a month might forget binder How often do you run out of one or more of your prescription medications before getting a new refill? 0 How often do you have difficulty swallowing medications or taking your medicatio ns? 0 How often do you have difficulty affording your prescription medications? 0 How often does your pharmacy have difficulty filing your prescription medication s? 0 Patient Education: During this visit the patient was provided with an overview of therapies that wi ll be initiated post-transplant, including but not limited to significant side e ffects and dosing schedules.No REMS are required for any of the prescribed medic ations for this patient. Emphasis was placed on the importance of medication adherence both pre and post- transplant. The patient was encouraged to contact the transplant pharmacist with any follow up questions. Ting Darron expressed understanding of the information discussed. Assessment: Comments: I met with Ms. Rob and her for a kidney transplant evalua tion. She has a history of BMT and is knowledegable on her medications. Potential Drug Interactions: None Potential Barriers to Transplantation: None Recommendation: No medication related barriers to transplantation were identifie dNisa Santiago PHARMD * Eliceo Gonzalez MD - 06/19/2018 10:20 AM CDT 06/19/[address] Danny Mckeon, We had pleasure of seeing Ting Rob in our [facility] l/Pancreas Transplant clinic for evaluation for Kidney transplant. Enclosed are details from our visit. HPI: Ting Rob is a 58 y.o. 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 Developed acute kidney injury and was found to have oxalate nephropat hy on biopsy August 2017. Has been on dialysis since January 2018. She is accompa nied today by her who intends to be her support person at the time of tr ansplant. She had gastric bypass in 2014 and underwent reversal of gastric bypass . Her weight alfonso was 80 pounds and is now stable around 125 pounds. 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 Sh e had AML and the bone marrow transplant has been largely uneventful. She did have CD 34 selected boost for poor graft function May 2017. She denies recent illness and hospitalization. 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 Chimerism is 100% donor 05/2017 CD 34 selected boost for poor graft function History of atypical pneumonia CT chest 01/14/17: small focus of consolidation and groundglass opacity, likely atypical pneumonia and small left lower lobe nodules, per ID concern for fungus. Fluc discontinued and started on tx Posaconazole for mold coverage. Fungitell elevated Obesity Resolved after Arielle-en-Y Past Medical History: Diagnosis Date Anemia iron def Depression Hyperglycemia Hypothyroid Leukemia (HCC) Migraine headache Osteoarthritis Sleep apnea 160 lbs weight loss and second sleep study, no longer has sleep apnea per pt Weight gain Past Surgical History Past Surgical History: Procedure Laterality Date ENDOMETRIAL [...] BYPASS Mini gastric bypass HX EYE SURGERY REVIEW OF SYSTEMS Pre-Transplant Considerations: CAD: No Stroke: No Cancer: AML Liver Disease/Hepatitis:No KELVIN/Pulmonary HTN: No Midodrine use: No Sensitizing Events: , Transfusion and Transplant DVT: No Nephrotic Syndrome:No Weight Loss needed: No General: Denies fever/chills Skin: Denies Rash and Hives HENT: Denies cough, visual changes Pulmonary: Denies dyspnea, wheezes Gastrointestinal: Denies GERD, Diarrhea and Constipation Genitourinary: Denies urinary tract infection, hematuria and kidney stone Neurologic: Denies Weakness and Stroke Psychological: Denies Depression and Anxiety Hematologic/Lymphatic: Denies Bleeding and Bruising Viral infections/ID: Denies history of shingles and herpes Exercise Tolerance: Ting Rob does not exercise routinely. She is able to ascend 2 fligh ts of stairs without chest pain, shortness of breath, orthopnea, PND, claudicati on or resting leg pain. All other pertinent ROS as above or negative Colonoscopy Yes Last performed: fall 2017, poor prep Colonoscopy at [facility] was normal Mammogram Yes Last performed: 03/2018, normal Pap Smear Yes Last performed: 2019, ascus. 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 [employer] Tobacco Use Smoking status: Never Smoker Smokeless tobacco: Never Used Substance and Sexual Activity Alcohol use: Yes Comment: very rarely Drug use: No Sexual activity: Never Other Topics Concern Not on file Social History Narrative Lives with Family History Family History Problem Relation Age of Onset Heart Disease Father Cancer-Breast Neg Hx Cervical Cancer Neg Hx Cancer-Colon Neg Hx Cancer-Ovarian Neg Hx Cancer-Uterine Neg Hx Diabetes Neg Hx Allergies: Allergies Allergen Reactions Sulfa (Sulfonamide Antibiotics) SEE COMMENTS Listed as anaphylaxis however pt states she has never had an anaphylactic reac tion to a medication before. Amoxicillin RASH Pt states was only a rash due to amoxicillin Hydrocodone RASH Latex RASH Oxycodone RASH Penicillin G RASH Pt states was only a rash due to amoxicillin Current Outpatient Medications: acetaminophen (TYLENOL EXTRA STRENGTH) 500 mg tablet, Take 2 tablets by alvaro th daily as needed., Disp: , Rfl: Biotin 2,500 mcg cap, Take 2 capsules by mouth every morning., Disp: , Rfl: calcium acetate (PHOSLO) 667 mg tablet, Take two tablets by mouth three jimy es daily with meals., Disp: 180 each, Rfl: 0 calcium citrate (CALCITRATE) 950 mg tab, Take 950 mg by mouth twice daily., Disp: , Rfl: Cholecalciferol (VITAMIN D3) 5,000 unit capsule, Take one capsule by mouth daily. Post dialysis, Disp: 90 capsule, Rfl: 0 codeine/guaiFENesin (ROBITUSSIN-AC) 10/100 mg/5 mL oral solution, Take 10 m L by mouth at bedtime as needed for Cough., Disp: , Rfl: dextran 70/hypromellose (GENTEAL TEARS; BION TEARS) 0.1/0.3 % dpet ophthalm ic solution, Apply one drop to both eyes four times daily., Disp: 36 each, Rfl: 1 fexofenadine(+) (YONAS) 180 mg tablet, Take 180 mg by mouth every morning ., Disp: , Rfl: fluticasone (FLONASE) 50 mcg/actuation nasal spray, Apply two sprays to eac h nostril as directed daily. Shake bottle gently before using., Disp: 48 g, Rfl: 3 lactobacillus rhamnosus (GG) (CULTURELLE) 10 billion cell cap, Take 1 capsu le by mouth daily with breakfast., Disp: , Rfl: levothyroxine (SYNTHROID) 100 mcg tablet, TAKE 1 TABLET BY MOUTH ONCE DAILY 30 MINUTES BEFORE BREAKFAST, Disp: 30 tablet, Rfl: 11 Multivitamins with Fluoride (MULTI-VITAMIN PO), Take 1 tablet by mouth herbert y., Disp: , Rfl: other medication, THC Lotion: Apply to the affected area at bedtime, Disp: , Rfl: pantoprazole DR (PROTONIX) 40 mg tablet, TAKE 1 TABLET BY MOUTH TWICE DAILY , Disp: 90 tablet, Rfl: 3 thiamine (VITAMIN B-1) 100 mg tablet, Take 1 tablet by mouth daily. (Patien t taking differently: Take 100 mg by mouth at bedtime daily.), Disp: 90 tablet, Rfl: 3 traMADol (ULTRAM) 50 mg tablet, Take one tablet by mouth every 6 hours as n eeded., Disp: 30 tablet, Rfl: 0 CBC w/Diff Lab Results Component Value Date/Time WBC 5.5 05/06/2018 01:17 PM RBC 3.10 (L) 05/06/2018 01:17 PM HGB 11.2 (L) 05/06/2018 01:17 PM HCT 33.3 (L) 05/06/2018 01:17 PM MCV 107.4 (H) 05/06/2018 01:17 PM MCH 36.1 (H) 05/06/2018 01:17 PM MCHC 33.6 05/06/2018 01:17 PM RDW 15.2 (H) 05/06/2018 01:17 PM PLTCT 167 05/06/2018 01:17 PM MPV 7.1 05/06/2018 01:17 PM Lab Results Component Value Date/Time NEUT 51 05/06/2018 01:17 PM ANC 2.80 05/06/2018 01:17 PM LYMA 31 05/06/2018 01:17 PM ALC 1.70 05/06/2018 01:17 PM JENNIFER 15 (H) 05/06/2018 01:17 PM AMC 0.80 05/06/2018 01:17 PM EOSA 2 05/06/2018 01:17 PM AEC 0.10 05/06/2018 01:17 PM BASA 1 05/06/2018 01:17 PM ABC 0.00 05/06/2018 01:17 PM Comprehensive Metabolic Profile Lab Results Component Value Date/Time NA 131 (L) 05/06/2018 01:17 PM K 3.8 05/06/2018 01:17 PM CL 98 05/06/2018 01:17 PM CO2 28 05/06/2018 01:17 PM GAP 5 05/06/2018 01:17 PM BUN 42 (H) 05/06/2018 01:17 PM CR 3.65 (H) 05/06/2018 01:17 PM GLU 97 05/06/2018 01:17 PM Lab Results Component Value Date/Time CA 10.4 05/06/2018 01:17 PM PO4 3.6 02/26/2018 05:51 AM ALBUMIN 4.0 05/06/2018 01:17 PM TOTPROT 7.0 05/06/2018 01:17 PM ALKPHOS 77 05/06/2018 01:17 PM AST 17 05/06/2018 01:17 PM ALT 12 05/06/2018 01:17 PM TOTBILI 0.3 05/06/2018 01:17 PM GFR 13 (L) 05/06/2018 01:17 PM GFRAA 15 (L) 05/06/2018 01:17 PM Urine Lab Results Component Value Date/Time UCOLOR STRAW 02/19/2018 03:15 PM TURBID CLEAR 02/19/2018 03:15 PM USPGR 1.009 02/19/2018 03:15 PM UPH 6.0 02/19/2018 03:15 PM UPROTEIN 1+ (A) 02/19/2018 03:15 PM UAGLU 1+ (A) 02/19/2018 03:15 PM UKET NEG 02/19/2018 03:15 PM UBILE NEG 02/19/2018 03:15 PM UBLD NEG 02/19/2018 03:15 PM UROB NORMAL 02/19/2018 03:15 PM Lab Results Component Value Date/Time UNIT NEG 02/19/2018 03:15 PM ULEU NEG 02/19/2018 03:15 PM UWBC 0-2 02/19/2018 03:15 PM URBC 0-2 02/19/2018 03:15 PM No results found for this or any previous visit. Physical Exam: Vitals: 06/19/18 1000 06/19/18 1003 BP: 138/81 113/90 Pulse: 72 77 Temp: 36.6 C (97.8 F) TempSrc: Oral SpO2: 100% Weight: 56.7 kg (125 lb) Height: 157.5 cm (62") General:NAD, Alert and Oriented x3, calm and pleasant HEENT exam: Moist Mucus Membranes, No oral lesions Neck: Normal ROM, no LAD, no JVD. No carotid bruit is present Heart: RRR, S1, S2, without murmur, rub, or gallop Lungs: Clear to auscultation bilaterally without wheezes or rhonchi Abdomen: Soft, no pannus. Multiple surgical scars. Non tender abdomen without he patosplenomegaly Neuro: Nonfocal deficits without tremors M/S: Normal ROM and strength Ext: No edema is present in the lower extremities. 2+ dorsalis pedis pulses are present Vascular: 2+ femoral pulses are present Psyc: Appropriate affect and mood CBC w diff Lab Results Component Value Date/Time WBC 5.5 05/06/2018 01:17 PM RBC 3.10 (L) 05/06/2018 01:17 PM HGB 11.2 (L) 05/06/2018 01:17 PM HCT 33.3 (L) 05/06/2018 01:17 PM MCV 107.4 (H) 05/06/2018 01:17 PM MCH 36.1 (H) 05/06/2018 01:17 PM MCHC 33.6 05/06/2018 01:17 PM RDW 15.2 (H) 05/06/2018 01:17 PM PLTCT 167 05/06/2018 01:17 PM MPV 7.1 05/06/2018 01:17 PM Lab Results Component Value Date/Time NEUT 51 05/06/2018 01:17 PM ANC 2.80 05/06/2018 01:17 PM LYMA 31 05/06/2018 01:17 PM ALC 1.70 05/06/2018 01:17 PM JENNIFER 15 (H) 05/06/2018 01:17 PM AMC 0.80 05/06/2018 01:17 PM EOSA 2 05/06/2018 01:17 PM AEC 0.10 05/06/2018 01:17 PM BASA 1 05/06/2018 01:17 PM ABC 0.00 05/06/2018 01:17 PM Comprehensive Metabolic Profile Lab Results Component Value Date/Time NA 131 (L) 05/06/2018 01:17 PM K 3.8 05/06/2018 01:17 PM CL 98 05/06/2018 01:17 PM CO2 28 05/06/2018 01:17 PM GAP 5 05/06/2018 01:17 PM BUN 42 (H) 05/06/2018 01:17 PM CR 3.65 (H) 05/06/2018 01:17 PM GLU 97 05/06/2018 01:17 PM Lab Results Component Value Date/Time CA 10.4 05/06/2018 01:17 PM PO4 3.6 02/26/2018 05:51 AM ALBUMIN 4.0 05/06/2018 01:17 PM TOTPROT 7.0 05/06/2018 01:17 PM ALKPHOS 77 05/06/2018 01:17 PM AST 17 05/06/2018 01:17 PM ALT 12 05/06/2018 01:17 PM TOTBILI 0.3 05/06/2018 01:17 PM GFR 13 (L) 05/06/2018 01:17 PM GFRAA 15 (L) 05/06/2018 01:17 PM Urine Lab Results Component Value Date/Time UCOLOR STRAW 02/19/2018 03:15 PM TURBID CLEAR 02/19/2018 03:15 PM USPGR 1.009 02/19/2018 03:15 PM UPH 6.0 02/19/2018 03:15 PM UPROTEIN 1+ (A) 02/19/2018 03:15 PM UAGLU 1+ (A) 02/19/2018 03:15 PM UKET NEG 02/19/2018 03:15 PM UBILE NEG 02/19/2018 03:15 PM UBLD NEG 02/19/2018 03:15 PM UROB NORMAL 02/19/2018 03:15 PM Lab Results Component Value Date/Time UNIT NEG 02/19/2018 03:15 PM ULEU NEG 02/19/2018 03:15 PM UWBC 0-2 02/19/2018 03:15 PM URBC 0-2 02/19/2018 03:15 PM Assessment and Plan: Ting Rob is a 58 y.o. 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 Ting Rob is a reasonable candidate for a Kidney transplant. Potential living donors: Yes Potential barriers for Transplantation: Multiple medical comorbidites and Recen t cancer ESRD Oxalate nephropathy, status post arielle-en-y reversal 2017. 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 Brother may no longer be able to donate. Will discuss timing of transplant alex fraga with BMT Cardiovascular risk stratification 11/2017 echocardiogram Left Ventricle: Normal size. Mild concentric hypertrophy. Normal ejection fracti on. No regional wall motion abnormalities seen. Unable to assess left ventricula r diastolic function. Right Ventricle: Normal size and ejection fraction. Aortic Valve: Bicuspid aortic valve with fusion of the right and left coronary c usps. No significant stenosis. mild association regurgitation. Mild regurgitatio n. Left thyroid lobe hypoattenuating nodule Needs thyroid ultrasound History of atypical pneumonia 12/2016, treated with posaconazole May need ID consult regarding prophylaxis Screening 03/2018 mammogram unremarkable. Needs annually Pap smear performed by outside PCP, will obtain record I explained the advantages of transplantation over dialysis to the patient. I ex plained the advantages of living kidney donation over donation. I revie wed immunosuppression and the increased risk of infections, diabetes, and malign roney post-transplantation. Ting Rob was accompanied by her spouse. We also discussed KDPI scores and new allocation system. The use, compliance wit h meds and side effects of immunosuppression including cancer and infection were also discussed. The risk of primary graft non-function, SGF, DGF, rejection, pr imary disease recurrence were also discussed. The patient demonstrated a full an d adequate understanding and denied any questions or concerns at this time. Ting Gil Darron was informed they have a right to refuse any kidney that i s offered to them for transplant without affecting their status on the wait list . We will complete the evaluation process and discuss candidacy in the Transplant Selection Committee for a final decision. Thank you for giving us the opportunity in taking care of this patient. Please do not hesitate to contact us with any questions or concerns that you may have. Sincerely, Eliceo Gonzalez MD [facility] * Wendy Schultz - 06/19/2018 10:20 AM CDT Wendy Schultz met with Ting Rob for insurance consult. There appe ar to be no coverage/insurance barriers with [employer] [place] plan. Ting expressed no i nsurance concerns related to cost of post-transplant care and medications and ve rbalized understanding of Transplant Finance Coordinator's discussion and docume nts presented. No Authorization required prior to listing. Financial assessment given to patient to complete and return within 10 days Documents presented: Signed Patient Liability Form, Medication Cost Estimate documented in this encounter Plan of Treatment Date/Time Name Type Priority Associated Diagnoses 06/19/2018 3:31 PM CDT RED TOP TUBE FOR MTN Lab Routine Pre-transplant evaluation TRANSPLANT for end stage renal disease ESRD (end stage renal disease) ([facility]) 06/19/2018 3:31 PM CDT LAVENDER (EDTA) TOP TUBE Lab Routine Pre-transplant evaluation FOR MTN TRANSPLANT for end stage renal disease ESRD (end stage renal disease) ([facility]) Order Schedule Name Type Priority Associated Diagnoses Expected: 06/19/2018 (Approximate), Expires: 06/19/2019 RED TOP TUBE FOR MTN Lab Routine Pre-transplant evaluation TRANSPLANT for end stage renal disease ESRD (end stage renal disease) ([facility]) Expected: 06/19/2018 (Approximate), Expires: 06/20/2019 LAVENDER (EDTA) TOP TUBE Lab Routine Pre-transplant evaluation FOR MTN TRANSPLANT for end stage renal disease ESRD (end stage renal disease) ([facility]) documented as of this encounter Results * URINALYSIS, MICROSCOPIC (06/19/2018 3:33 PM CDT) WBCs,UA 0-2 0 - 2 /HPF [facility] RBCs,UA 0-2 0 - 3 /HPF [facility] Squamous 2-5 0 - 5 [facility] Epithelial Cells Specimen Urine - Urine Performing Organization Address [facility] Phone Number [facility] [address] [place] [address] * URINALYSIS DIPSTICK (06/19/2018 3:33 PM CDT) Color,UA STRAW [facility] Turbidity,UA CLEAR CLEAR-CLEAR [facility] Specific 1.005 1.003 - 1.035 [facility] [place]-Urine pH,UA 7.0 5.0 - 8.0 [facility] Protein,UA 1+ (A) NEG-NEG [facility] Glucose,UA NEG NEG-NEG [facility] Ketones,UA NEG NEG-NEG [facility] Bilirubin,UA NEG NEG-NEG [facility] Blood,UA NEG NEG-NEG [facility] Urobilinogen,UA NORMAL NORM-NORMAL [facility] Nitrite,UA NEG NEG-NEG [facility] Leukocytes,UA NEG NEG-NEG [facility] Urine Ascorbic NEG NEG-NEG [facility] Acid, UA Specimen Urine - Urine Performing Organization Address [facility] [place] Phone Number [facility] [address] [place] [address] * PHENCYCLIDINES-URINE RANDOM (06/19/2018 3:32 PM CDT) Pathologist [facility] Phencyclidine NEG NEG-NEG [facility] (PCP) Comment: RESULTS WERE OBTAINED BY IMMUNOASSAY AND ARE PRESUMPTIVE ONLY. POSITIVE INDICATES THE PRESENCE OF SUBSTANCE WITH CHARACTERISTICS SIMILAR TO DRUG-DRUG CLASS OR METABOLITE IN CONC. EQUAL TO OR EXCEEDING VALUES LISTED. PHENCYCLIDINE (PCP)25 NG/ML Specimen Urine - Urine Performing Organization Address [facility] [place] Phone Number [facility] [address] [place] [address] * OPIATES-URINE RANDOM (06/19/2018 3:32 PM CDT) Opiates-Urine NEG NEG-NEG [facility] Comment: RESULTS WERE OBTAINED BY IMMUNOASSAY AND ARE PRESUMPTIVE ONLY. POSITIVE INDICATES THE PRESENCE OF SUBSTANCE WITH CHARACTERISTICS SIMILAR TO DRUG-DRUG CLASS OR METABOLITE IN CONC. EQUAL TO OR EXCEEDING VALUES LISTED. OPIATES 2000 NG/ML Specimen Urine - Urine Performing Organization Address [facility] [place] Phone Number [facility] [address] [place] [address] * COCAINE-URINE RANDOM (06/19/2018 3:32 PM CDT) Cocaine-Urine NEG NEG-NEG [facility] Comment: RESULTS WERE OBTAINED BY IMMUNOASSAY AND ARE PRESUMPTIVE ONLY. POSITIVE INDICATES THE PRESENCE OF SUBSTANCE WITH CHARACTERISTICS SIMILAR TO DRUG-DRUG CLASS OR METABOLITE IN CONC. EQUAL TO OR EXCEEDING VALUES LISTED. COCAINE 300 NG/ML Specimen Urine - Urine Performing Organization Address [facility] Phone Number [facility] [address] [place] [address] * CANNABINOIDS-URINE RANDOM (06/19/2018 3:32 PM CDT) THC NEG NEG-NEG [facility] Comment: RESULTS WERE OBTAINED BY IMMUNOASSAY AND ARE PRESUMPTIVE ONLY. POSITIVE INDICATES THE PRESENCE OF SUBSTANCE WITH CHARACTERISTICS SIMILAR TO DRUG-DRUG CLASS OR METABOLITE IN CONC. EQUAL TO OR EXCEEDING VALUES LISTED. CANNABINOIDS 50 NG/ML Specimen Urine - Urine Performing Organization Address [facility] Phone Number [facility] [address] [place] [address] * BENZODIAZEPINES-URINE RANDOM (06/19/2018 3:32 PM CDT) Benzodiazepines NEG NEG-NEG [facility] Comment: RESULTS WERE OBTAINED BY IMMUNOASSAY AND ARE PRESUMPTIVE ONLY. POSITIVE INDICATES THE PRESENCE OF SUBSTANCE WITH CHARACTERISTICS SIMILAR TO DRUG-DRUG CLASS OR METABOLITE IN CONC. EQUAL TO OR EXCEEDING VALUES LISTED. BENZODIAZEPINES 200 NG/ML Specimen Urine - Urine Performing Organization Address [facility] [place] Phone Number [facility] [address] [place] [address] * BARBITURATES-URINE RANDOM (06/19/2018 3:32 PM CDT) Barbiturates,Ur NEG NEG-NEG [facility] ine Comment: RESULTS WERE OBTAINED BY IMMUNOASSAY AND ARE PRESUMPTIVE ONLY. POSITIVE INDICATES THE PRESENCE OF SUBSTANCE WITH CHARACTERISTICS SIMILAR TO DRUG-DRUG CLASS OR METABOLITE IN CONC. EQUAL TO OR EXCEEDING VALUES LISTED. BARBITURATES 200 NG/ML Specimen Urine - Urine Performing Organization Address [facility] Phone Number [facility] [address] [place] [address] * AMPHETAMINES-URINE RANDOM (06/19/2018 3:32 PM CDT) Amphetamines NEG NEG-NEG [facility] Comment: RESULTS WERE OBTAINED BY IMMUNOASSAY AND ARE PRESUMPTIVE ONLY. POSITIVE INDICATES THE PRESENCE OF SUBSTANCE WITH CHARACTERISTICS SIMILAR TO DRUG-DRUG CLASS OR METABOLITE IN CONC. EQUAL TO OR EXCEEDING VALUES LISTED. AMPHETAMINES 1000 NG/ML Specimen Urine - Urine Performing Organization Address [facility] Phone Number [facility] [address] [place] [address] * TOXOPLASMA IGM (06/19/2018 3:31 PM CDT) Toxoplasma IgM NEG [facility] Specimen Blood Performing Organization Address [facility] [place] Phone Number [facility] [address] [place] [phone] * TOXOPLASMA IGG (06/19/2018 3:31 PM CDT) Toxoplasma IgG NEG [facility] Specimen Blood Performing Organization Address [facility] [place] Phone Number [facility] [address] [place] [address] * SYPHILIS AB SCREEN (06/19/2018 3:31 PM CDT) Syphilis AB, NEG NEG-NEG [facility] Total Comment: Negative EIA: Negative results indicate no past or present syphilis infection. Early infection can not be excluded. Specimen Blood Performing Organization Address [facility] Phone Number [facility] [address] [place] [address] * PROTIME INR (PT) (06/19/2018 3:31 PM CDT) INR 0.9 0.8 - 1.2 [facility] Specimen Blood Performing Organization Address [facility] Phone Number [facility] [address] [place] [address] * PHOSPHORUS (06/19/2018 3:31 PM CDT) Phosphorus 3.0Comment: NOTE NEW REFERENCE 2.0 - 4.5 MG/DL [facility] RANGES Specimen Blood Performing Organization Address [facility] Phone [facility] [address] [place] [address] * HSV I/II GLYCOPROTEIN G AB (06/19/2018 3:31 PM CDT) HSV Type 1 IgG NEG NEG-NEG [facility] HSV Type 2 IgG POS (A) NEG-NEG [facility] Specimen Blood Performing Organization Address [facility] Phone Number [facility] [address] [place] [address] * HIV-1/2 ANTIGEN/ANTIBODY SCREEN (06/19/2018 3:31 PM CDT) HIV 1 and 2 AG NEG NEG-NEG [facility] AB Screen Specimen Blood Performing Organization Address [facility] Phone Number [facility] [address] [place] [address] * HEPATITIS C AB (06/19/2018 3:31 PM CDT) Anti HCV NEG NEG-NEG [facility] Specimen Blood Performing Organization Address [facility] Phone Number [facility] [address] [place] [address] * HEPATITIS B SURFACE AG (06/19/2018 3:31 PM CDT) HBsAg NEG NEG-NEG [facility] Specimen Blood Performing Organization Address [facility] Number [facility] [address] [place] [address] * HEPATITIS B SURFACE AB (06/19/2018 3:31 PM CDT) Anti HBs <2.5 mIU/ml [facility] Comment: Hepatitis B Surface Antibody Reference Ranges >12.0 Positive 8.0-12.0Equivocal <8.0Negative Specimen Blood Performing Organization Address [facility] Phone Number [facility] [address] [place] [address] * HEPATITIS B CORE AB TOT (IGG+IGM) (06/19/2018 3:31 PM CDT) Anti HBc Total NEG [facility] Specimen Blood Performing Organization Address [facility] Phone Number [facility] [address] [place] [address] * GGTP (06/19/2018 3:31 PM CDT) GGTP 11 9 - 64 U/L [facility] Specimen Blood Performing Organization Address [facility]/Zipcode Phone Number [facility] [address] [place] [address] * JOSE MANUEL DIAZ PANEL(EBV) (06/19/2018 3:31 PM CDT) EBV Capsid IgG POS [facility] EBV Nuclear NEG [facility] Ag,Ab EBV Early Ag,Ab POS [facility] EBV Capsid IgM NEG NEG-NEG [facility] Specimen Blood Performing Organization Address [facility]/Zipcode Phone Number [facility] [address] [place] [address] * COMPREHENSIVE METABOLIC PANEL (06/19/2018 3:31 PM CDT) Sodium 133 (L) 137 - 147 MMOL/L [facility] Potassium 3.3 (L) 3.5 - 5.1 MMOL/L [facility] Chloride 96 (L) 98 - 110 MMOL/L [facility] Glucose 112 (H) 70 - 100 MG/DL [facility] Blood Urea 31 (H) 7 - 25 MG/DL [facility] Nitrogen Creatinine 3.83 (H) 0.4 - 1.00 MG/DL [facility] Calcium 11.0 (H) 8.5 - 10.6 MG/DL [facility] Total Protein 7.5 6.0 - 8.0 G/DL [facility] Total Bilirubin 0.4 0.3 - 1.2 MG/DL [facility] Albumin 4.6 3.5 - 5.0 G/DL [facility] Alk Phosphatase 94 25 - 110 U/L [facility] AST (SGOT) 23 7 - 40 U/L [facility] CO2 29 21 - 30 MMOL/L [facility] ALT (SGPT) 21 7 - 56 U/L [facility] Anion Gap 8 3 - 12 [facility] eGFR Non 12 (L) >60 mL/min [facility] Comment: [place] The eGFR is not validated for use in drug dosing adjustments.Continue to use estimated creatinine clearance per dosing reference text.Please contact the Clinical Pharmacist for questions. eGFR 15 (L) >60 mL/min [facility] [place] Comment: The eGFR is not validated for use in drug dosing adjustments.Continue to use estimated creatinine clearance per dosing reference text.Please contact the Clinical Pharmacist for questions. Specimen Blood Performing Organization Address City/[facility]/Zipcode Phone Number [facility] [address] [place] [address] * CMV AB IGM (06/19/2018 3:31 PM CDT) CMV, IgM NEG NEG-NEG [facility] Specimen Blood Performing Organization Address [facility]/Zipcode Phone Number [facility] [address] [place] [address] * CMV AB IGG (06/19/2018 3:31 PM CDT) CMV, IgG POS [facility] Specimen Blood Performing Organization Address [facility]/Zipcode Phone Number [facility] [address] [place] [address] * CBC AND DIFF (06/19/2018 3:31 PM CDT) White Blood 5.7 4.5 - 11.0 K/UL [facility] Cells RBC 2.92 (L) 4.0 - 5.0 M/UL [facility] Hemoglobin 10.3 (L) 12.0 - 15.0 GM/DL [facility] Hematocrit 30.5 (L) 36 - 45 % [facility] MCV 104.2 (H) 80 - 100 FL [facility] MCH 35.1 (H) 26 - 34 PG [facility] MCHC 33.6 32.0 - 36.0 G/DL [facility] RDW 16.0 (H) 11 - 15 % [facility] Platelet Count 233 150 - 400 K/UL [facility] MPV 7.2 7 - 11 FL [facility] Neutrophils 56 41 - 77 % [facility] Lymphocytes 29 24 - 44 % [facility] Monocytes 12 4 - 12 % [facility] Eosinophils 3 0 - 5 % [facility] Basophils 0 0 - 2 % [facility] Absolute 3.20 1.8 - 7.0 K/UL [facility] Neutrophil Count Absolute Lymph 1.60 1.0 - 4.8 K/UL [facility] Count Absolute 0.70 0 - 0.80 K/UL [facility] Monocyte Count Absolute 0.10 0 - 0.45 K/UL [facility] Eosinophil Count Absolute 0.00 0 - 0.20 K/UL [facility] Basophil Count Specimen Blood Performing Organization Address City/State/Zipcode Phone Number [facility] [address] [place] [address] documented in this encounter Visit Diagnoses Diagnosis Pre-transplant evaluation for end stage renal disease - Primary Other specified pre-operative examination ESRD (end stage renal disease) (HCC) End stage renal disease 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
--- OUTSIDE RECORDS SUMMARY | 2018-10-17 08:24 | XMS REPORT | Encounter Summary ---
Author Author [facility] Organization [facility] Address Unknown Phone Unavailable Care Team Providers Care Supervisor Agency Appointments Name Role Phone Rebeca Green MD Unavailable Love Chambers DO PCP Encounter Details Care Team Description Date Type Department Eliceo Gonzalez MD [address] [facility] [address] [place] [address] Encounter for other preprocedural examination 06/19/2018 Hospital [facility] Encounter Health System [address] [facility] [address] [place] [address] Social History Date Tobacco Use Types Packs/Day [...] as of this encounter Plan of Treatment Date/Time Name Type Priority Associated Diagnoses 06/19/2018 3:31 PM CDT LAVENDER (EDTA) TOP TUBE Lab Routine Pre-transplant evaluation FOR MTN TRANSPLANT for end stage renal disease ESRD (end stage renal disease) ([facility]) 06/19/2018 3:31 PM CDT RED TOP TUBE FOR MTN Lab Routine Pre-transplant evaluation TRANSPLANT for end stage renal disease ESRD (end stage renal disease) ([facility]) documented as of this encounter Procedures Comments Procedure Name Priority Date/Time Associated Diagnosis URINALYSIS, MICROSCOPIC Routine 06/19/2018 Pre-transplant evaluation 3:33 PM CDT for end stage renal disease ESRD (end stage renal disease) (HCC) URINALYSIS DIPSTICK Routine 06/19/2018 Pre-transplant evaluation 3:33 PM CDT for end stage renal disease ESRD (end stage renal disease) (HCC) PHENCYCLIDINES-URINE Routine 06/19/2018 Pre-transplant evaluation RANDOM 3:32 PM CDT for end stage renal disease ESRD (end stage renal disease) (HCC) OPIATES-URINE RANDOM Routine 06/19/2018 Pre-transplant evaluation 3:32 PM CDT for end stage renal disease ESRD (end stage renal disease) (HCC) COCAINE-URINE RANDOM Routine 06/19/2018 Pre-transplant evaluation 3:32 PM CDT for end stage renal disease ESRD (end stage renal disease) ([facility]) CANNABINOIDS-URINE RANDOM Routine 06/19/2018 Pre-transplant evaluation 3:32 PM CDT for end stage renal disease ESRD (end stage renal disease) (HCC) BENZODIAZEPINES-URINE Routine 06/19/2018 Pre-transplant evaluation RANDOM 3:32 PM CDT for end stage renal disease ESRD (end stage renal disease) (HCC) BARBITURATES-URINE RANDOM Routine 06/19/2018 Pre-transplant evaluation 3:32 PM CDT for end stage renal disease ESRD (end stage renal disease) (HCC) AMPHETAMINES-URINE RANDOM Routine 06/19/2018 Pre-transplant evaluation 3:32 PM CDT for end stage renal disease ESRD (end stage renal disease) (HCC) HIV-1/2 ANTIGEN/ANTIBODY Routine 06/19/2018 Pre-transplant evaluation SCREEN 3:31 PM CDT for end stage renal disease ESRD (end stage renal disease) (HCC) SYPHILIS AB SCREEN Routine 06/19/2018 Pre-transplant evaluation 3:31 PM CDT for end stage renal disease ESRD (end stage renal disease) (HCC) TOXOPLASMA IGM Routine 06/19/2018 Pre-transplant evaluation 3:31 PM CDT for end stage renal disease ESRD (end stage renal disease) (HCC) TOXOPLASMA IGG Routine 06/19/2018 Pre-transplant evaluation 3:31 PM CDT for end stage renal disease ESRD (end stage renal disease) (HCC) HSV I/II GLYCOPROTEIN G Routine 06/19/2018 Pre-transplant evaluation AB 3:31 PM CDT for end stage renal disease ESRD (end stage renal disease) (HCC) HEPATITIS C AB Routine 06/19/2018 Pre-transplant evaluation 3:31 PM CDT for end stage renal disease ESRD (end stage renal disease) (HCC) HEPATITIS B CORE AB TOT Routine 06/19/2018 Pre-transplant evaluation (IGG+IGM) 3:31 PM CDT for end stage renal disease ESRD (end stage renal disease) (HCC) HEPATITIS B SURFACE AG Routine 06/19/2018 Pre-transplant evaluation 3:31 PM CDT for end stage renal disease ESRD (end stage renal disease) (HCC) HEPATITIS B SURFACE AB Routine 06/19/2018 Pre-transplant evaluation 3:31 PM CDT for end stage renal disease ESRD (end stage renal disease) (HCC) GGTP Routine 06/19/2018 Pre-transplant evaluation 3:31 PM CDT for end stage renal disease ESRD (end stage renal disease) (HCC) JOSE MANUEL DIAZ PANEL(EBV) Routine 06/19/2018 Pre-transplant evaluation 3:31 PM CDT for end stage renal disease ESRD (end stage renal disease) (HCC) CMV AB IGM Routine 06/19/2018 Pre-transplant evaluation 3:31 PM CDT for end stage renal disease ESRD (end stage renal disease) (HCC) CMV AB IGG Routine 06/19/2018 Pre-transplant evaluation 3:31 PM CDT for end stage renal disease ESRD (end stage renal disease) (HCC) PROTIME INR (PT) Routine 06/19/2018 Pre-transplant evaluation 3:31 PM CDT for end stage renal disease ESRD (end stage renal disease) ([facility]) CBC AND DIFF Routine 06/19/2018 Pre-transplant evaluation 3:31 PM CDT for end stage renal disease ESRD (end stage renal disease) ([facility]) PHOSPHORUS Routine 06/19/2018 Pre-transplant evaluation 3:31 PM CDT for end stage renal disease ESRD (end stage renal disease) ([facility]) COMPREHENSIVE METABOLIC Routine 06/19/2018 Pre-transplant evaluation PANEL 3:31 PM CDT for end stage renal disease ESRD (end stage renal disease) ([facility]) documented in this encounter Results * URINALYSIS DIPSTICK (06/19/2018 3:33 PM CDT) Color,UA STRAW [facility] Turbidity,UA CLEAR CLEAR-CLEAR [facility] Specific 1.005 1.003 - 1.035 [facility] [place]-Urine pH,UA 7.0 5.0 - 8.0 [facility] [...] Specimen Urine - Urine Performing Organization Address [facility] Phone Number [facility] [address] [place] [address] * URINALYSIS, MICROSCOPIC (06/19/2018 3:33 PM CDT) WBCs,UA 0-2 0 - 2 /HPF [facility] RBCs,UA 0-2 0 - 3 /HPF [facility] Squamous 2-5 0 - 5 [facility] Epithelial Cells Specimen Urine - Urine Performing Organization Address City/[facility] Phone Number [facility] [address] [place] [address] * AMPHETAMINES-URINE RANDOM (06/19/2018 3:32 PM CDT) Amphetamines NEG NEG-NEG MAIN LAB Comment: RESULTS WERE OBTAINED BY IMMUNOASSAY AND ARE PRESUMPTIVE ONLY. POSITIVE INDICATES THE PRESENCE OF SUBSTANCE WITH CHARACTERISTICS SIMILAR TO DRUG-DRUG CLASS OR METABOLITE IN CONC. EQUAL TO OR EXCEEDING VALUES LISTED. AMPHETAMINES 1000 NG/ML Specimen Urine - Urine Performing Organization Address [facility] Phone Number [facility] [address] [place] [address] * BARBITURATES-URINE RANDOM (06/19/2018 3:32 PM CDT) Barbiturates,Ur NEG NEG-NEG MAIN LAB ine Comment: RESULTS WERE OBTAINED BY IMMUNOASSAY AND ARE PRESUMPTIVE ONLY. POSITIVE INDICATES THE PRESENCE OF SUBSTANCE WITH CHARACTERISTICS SIMILAR TO DRUG-DRUG CLASS OR METABOLITE IN CONC. EQUAL TO OR EXCEEDING VALUES LISTED. BARBITURATES 200 NG/ML Specimen Urine - Urine Performing Organization Address [facility] Phone Number [facility] [address] [place] [address] * BENZODIAZEPINES-URINE RANDOM (06/19/2018 3:32 PM CDT) Benzodiazepines NEG NEG-NEG [facility] Comment: RESULTS WERE OBTAINED BY IMMUNOASSAY AND ARE PRESUMPTIVE ONLY. POSITIVE INDICATES THE PRESENCE OF SUBSTANCE WITH CHARACTERISTICS SIMILAR TO DRUG-DRUG CLASS OR METABOLITE IN CONC. EQUAL TO OR EXCEEDING VALUES LISTED. BENZODIAZEPINES 200 NG/ML Specimen Urine - Urine Performing Organization Address [facility] Phone Number [facility] [address] [place] [address] * CANNABINOIDS-URINE RANDOM (06/19/2018 3:32 PM CDT) THC NEG NEG-NEG [facility] Comment: RESULTS WERE OBTAINED BY IMMUNOASSAY AND ARE PRESUMPTIVE ONLY. POSITIVE INDICATES THE PRESENCE OF SUBSTANCE WITH CHARACTERISTICS SIMILAR TO DRUG-DRUG CLASS OR METABOLITE IN CONC. EQUAL TO OR EXCEEDING VALUES LISTED. CANNABINOIDS 50 NG/ML Specimen Urine - Urine Performing Organization Address [facility] Phone Number [facility] [address] [place] [address] * COCAINE-URINE RANDOM (06/19/2018 3:32 PM CDT) Cocaine-Urine NEG NEG-NEG [facility] Comment: RESULTS WERE OBTAINED BY IMMUNOASSAY AND ARE PRESUMPTIVE ONLY. POSITIVE INDICATES THE PRESENCE OF SUBSTANCE WITH CHARACTERISTICS SIMILAR TO DRUG-DRUG CLASS OR METABOLITE IN CONC. EQUAL TO OR EXCEEDING VALUES LISTED. COCAINE 300 NG/ML Specimen Urine - Urine Performing Organization Address [facility] Phone Number [facility] [address] [place] [address] * OPIATES-URINE RANDOM (06/19/2018 3:32 PM CDT) Opiates-Urine NEG NEG-NEG [facility] LAB Comment: RESULTS WERE OBTAINED BY IMMUNOASSAY AND ARE PRESUMPTIVE ONLY. POSITIVE INDICATES THE PRESENCE OF SUBSTANCE WITH CHARACTERISTICS SIMILAR TO DRUG-DRUG CLASS OR METABOLITE IN CONC. EQUAL TO OR EXCEEDING VALUES LISTED. OPIATES 2000 NG/ML Specimen Urine - Urine Performing Organization Address [facility] Phone Number [facility] [address] [place] [address] * PHENCYCLIDINES-URINE RANDOM (06/19/2018 3:32 PM CDT) Phencyclidine NEG NEG-NEG [facility] (PCP) Comment: RESULTS WERE OBTAINED BY IMMUNOASSAY AND ARE PRESUMPTIVE ONLY. POSITIVE INDICATES THE PRESENCE OF SUBSTANCE WITH CHARACTERISTICS SIMILAR TO DRUG-DRUG CLASS OR METABOLITE IN CONC. EQUAL TO OR EXCEEDING VALUES LISTED. PHENCYCLIDINE (PCP)25 NG/ML Specimen Urine - Urine Performing Organization Address [facility] Phone Number MAIN LAB [address] [place] [address] * CBC AND DIFF (06/19/2018 3:31 PM CDT) White Blood 5.7 4.5 - 11.0 K/UL MAIN LAB Cells RBC 2.92 (L) 4.0 - 5.0 M/UL [facility] Hemoglobin 10.3 (L) 12.0 - 15.0 GM/DL MAIN LAB Hematocrit 30.5 (L) 36 - 45 % MAIN LAB MCV 104.2 (H) 80 - 100 FL MAIN LAB MCH 35.1 (H) 26 - 34 PG [facility]IN LAB MCHC 33.6 32.0 - 36.0 G/DL [facility]IN LAB RDW 16.0 (H) 11 - 15 % [facility] Platelet Count 233 150 - 400 K/UL [facility] MPV 7.2 7 - 11 FL [facility]IN LAB Neutrophils 56 41 - 77 [...] Basophil Count Specimen Blood Performing Organization Address City/[facility]/Zipcode Phone Number [facility] [address] [place] [address] * CMV AB IGG (06/19/2018 3:31 PM CDT) CMV, IgG POS [facility] Specimen Blood Performing Organization Address [facility] Phone Number [facility] [address] [place] [address] * CMV AB IGM (06/19/2018 3:31 PM CDT) CMV, IgM NEG NEG-NEG [facility] Specimen Blood Performing Organization Address [facility] Phone Number [facility] [address] [place] [address] * COMPREHENSIVE METABOLIC PANEL (06/19/2018 3:31 PM [...] AST (SGOT) 23 7 - 40 U/L MAIN LAB CO2 29 21 - 30 MMOL/L MAIN LAB ALT (SGPT) 21 7 - 56 U/L MAIN LAB Anion Gap 8 3 - 12 MAIN LAB eGFR Non 12 (L) >60 mL/min MAIN LAB Comment: [place] The eGFR is not validated for use in drug dosing adjustments.Continue to use estimated creatinine clearance per dosing reference text.Please contact the Clinical Pharmacist for questions. eGFR 15 (L) >60 mL/min [facility] [place] Comment: The eGFR is not validated for use in drug dosing adjustments.Continue to use estimated creatinine clearance per dosing reference text.Please contact the Clinical Pharmacist for questions. Specimen Blood Performing Organization Address City/[facility]/Zipcode Phone Number MAIN LAB [address] [place] [address] * JOSE MANUEL DIAZ PANEL(EBV) (06/19/2018 3:31 PM CDT) EBV Capsid IgG POS MAIN LAB EBV Nuclear NEG MAIN LAB Ag,Ab EBV Early Ag,Ab POS [facility] EBV Capsid IgM NEG NEG-NEG [facility] Specimen Blood Performing Organization Address [facility] Phone Number [facility] LAB [address] [place] [address] * GGTP (06/19/2018 3:31 PM CDT) GGTP 11 9 - 64 U/L MAIN LAB Specimen Blood Performing Organization Address [facility] Phone Number [facility] LAB [address] [place] [address] * HEPATITIS B CORE AB TOT (IGG+IGM) (06/19/2018 3:31 PM CDT) Anti HBc Total NEG [facility]IN [facility] Specimen Blood Performing Organization Address [facility] Phone Number [facility] [address] [place] [address] * HEPATITIS B SURFACE AB (06/19/2018 3:31 PM CDT) Anti HBs <2.5 mIU/ml [facility] Comment: Hepatitis B Surface Antibody Reference Ranges >12.0 Positive 8.0-12.0Equivocal <8.0Negative Specimen Blood Performing Organization Address City/[facility]/Zipcode Phone Number MAIN LAB [address] [place] [address] * HEPATITIS B SURFACE AG (06/19/2018 3:31 PM CDT) HBsAg NEG NEG-NEG MAIN LAB Specimen Blood Performing Organization Address City/[facility] Phone Number [facility] [address] [place] [address] * HEPATITIS C AB (06/19/2018 3:31 PM CDT) Anti HCV NEG NEG-NEG [facility] Specimen Blood Performing Organization Address City/[facility] Phone Number [facility] [address] [place] [address] * HIV-1/2 ANTIGEN/ANTIBODY SCREEN (06/19/2018 3:31 PM CDT) HIV 1 and 2 AG NEG NEG-NEG MAIN LAB AB Screen Specimen Blood Performing Organization Address [facility] Phone Number [facility] [address] [place] [address] * HSV I/II GLYCOPROTEIN G AB (06/19/2018 3:31 PM CDT) HSV Type 1 IgG NEG NEG-NEG MAIN LAB HSV Type 2 IgG POS (A) NEG-NEG MAIN LAB Specimen Blood Performing Organization Address [facility] Phone Number [facility] [address] [place] [address] * PHOSPHORUS (06/19/2018 3:31 PM CDT) Phosphorus 3.0Comment: NOTE NEW REFERENCE 2.0 - 4.5 MG/DL MAIN LAB RANGES Specimen Blood Performing Organization Address [facility] Phone Number [facility] [address] [place] [address] * PROTIME INR (PT) (06/19/2018 3:31 PM CDT) INR 0.9 0.8 - 1.2 MAIN LAB Specimen Blood Performing Organization Address [facility] Phone Number [facility] [address] [place] [address] * SYPHILIS AB SCREEN (06/19/2018 3:31 PM CDT) Syphilis AB, NEG NEG-NEG MAIN LAB Total Comment: Negative EIA: Negative results indicate no past or present syphilis infection. Early infection can not be excluded. Specimen Blood Performing Organization Address City/State/Zipcode Phone Number [facility] [address] [place] [address] * TOXOPLASMA IGG (06/19/2018 3:31 PM CDT) Toxoplasma IgG NEG [facility] Specimen Blood Performing Organization Address City/[facility]/Zipcode Phone Number [facility] [address] [place] [address] * TOXOPLASMA IGM (06/19/2018 3:31 PM CDT) Toxoplasma IgM NEG [facility] Specimen Blood Performing Organization Address [facility] Phone Number [facility] [address] [place] [address] documented in this encounter Visit Diagnoses Diagnosis Pre-transplant evaluation for end stage renal disease Other specified pre-operative examination ESRD (end stage renal disease) (HCC) End stage renal disease documented in this encounter
--- OUTSIDE RECORDS SUMMARY | 2018-10-17 08:24 | XMS REPORT | Encounter Summary ---
Author Author [facility] Organization [facility] Address Unknown Phone Unavailable Care Team Providers Care Language And Literature Division Chair Name Role Phone Rebeca Green MD Unavailable Love Chambers DO PCP Reason for Visit * Reason Comments Transplant Referral 48hr appt reminder - patient confirmed Encounter Details Care Team Description Date Type Department Yuli Moralez Transplant Referral (48hr appt reminder - patient confirmed) 06/17/[address] [address] Social History Date Tobacco Use [...]
--- OUTSIDE RECORDS SUMMARY | 2018-10-17 08:25 | XMS REPORT | Encounter Summary ---
Author Author [facility] Organization [facility] Address Unknown Phone Unavailable Care Team Providers Care Mobility Architect Manager Name Role Phone Rebeca Green MD Unavailable Love Chambers DO PCP Reason for Visit * Reason Comments Labs Only Encounter Details Care Team Description Date Type Department Fran Burger MD [address] [place], [place] [id number] Acute myeloid leukemia in remission (HCC); Drug-induced pancytopenia (HCC); H/O bone marrow transplant (HCC); H/O stem cell transplant (HCC) 05/06/2018 Lab Only [facility] [address] [phone] Social History Date Tobacco Use Types Packs/Day [...] Comments Procedure Name Priority Date/Time Associated Diagnosis CD4 ABSOLUTE CELL COUNT Routine 05/06/2018 Acute myeloid leukemia in 1:17 PM QUALITY MEASUREMENT SPECIALIST remission (HCC) Drug-induced pancytopenia (HCC) H/O bone marrow transplant (HCC) CBC AND DIFF Routine 05/06/2018 H/O stem cell transplant 1:17 PM QUALITY MEASUREMENT SPECIALIST (HCC) MAGNESIUM Routine 05/06/2018 H/O stem cell transplant 1:17 PM QUALITY MEASUREMENT SPECIALIST (HCC) COMPREHENSIVE METABOLIC Routine 05/06/2018 H/O stem cell transplant PANEL 1:17 PM QUALITY MEASUREMENT SPECIALIST (HCC) documented in this encounter Results * CBC AND DIFF (05/06/2018 1:17 PM QUALITY MEASUREMENT SPECIALIST) White Blood 5.5 4.5 - 11.0 K/UL [facility] Cells RBC 3.10 (L) 4.0 - 5.0 M/UL [facility] Hemoglobin 11.2 (L) 12.0 - 15.0 GM/DL [facility] Hematocrit 33.3 (L) 36 - 45 % [facility] MCV 107.4 (H) 80 - 100 FL [facility] MCH 36.1 (H) 26 - 34 PG [facility] MCHC 33.6 32.0 - 36.0 G/DL [facility] RDW 15.2 (H) 11 - 15 % [facility] Platelet Count 167 150 - 400 K/UL [facility] MPV 7.1 7 - 11 FL [facility] Neutrophils 51 41 - 77 % [facility] Lymphocytes 31 24 - 44 % [facility] Monocytes 15 (H) 4 - 12 % [facility] Eosinophils 2 0 - 5 % [facility] Basophils 1 0 - 2 % [facility] Absolute 2.80 1.8 - 7.0 K/UL [facility] Neutrophil Count Absolute Lymph 1.70 1.0 - 4.8 K/UL [facility] Count Absolute 0.80 0 - 0.80 K/UL [facility] Monocyte Count Absolute 0.10 0 - 0.45 K/UL [facility] Eosinophil Count Absolute 0.00 0 - 0.20 K/UL [facility] Basophil Count Specimen Blood Performing Organization Address City/State/Zipcode Phone Number [facility] [address] [place] [address] * COMPREHENSIVE METABOLIC PANEL (05/06/2018 1:17 PM QUALITY MEASUREMENT SPECIALIST) Sodium 131 (L) 137 - 147 MMOL/L [facility] Potassium 3.8 3.5 - 5.1 MMOL/L [facility] Chloride 98 98 - 110 MMOL/L [facility] Glucose 97 70 - 100 MG/DL [facility] Blood Urea 42 (H) 7 - 25 MG/DL [facility] Nitrogen Creatinine 3.65 (H) 0.4 - 1.00 MG/DL [facility] Calcium 10.4 8.5 - 10.6 MG/DL [facility] Total Protein 7.0 6.0 - 8.0 G/DL [facility] Total Bilirubin 0.3 0.3 - 1.2 MG/DL [facility] Albumin 4.0 3.5 - 5.0 G/DL [facility] Alk Phosphatase 77 25 - 110 U/L [facility] AST (SGOT) 17 7 - 40 U/L [facility] CO2 28 21 - 30 MMOL/L [facility] ALT (SGPT) 12 7 - 56 U/L [facility] Anion Gap 5 3 - 12 [facility] eGFR Non 13 (L) >60 mL/min [facility] Comment: Citizen Of [place] The eGFR is not validated for use in drug dosing adjustments.Continue to use estimated creatinine clearance per dosing reference text.Please contact the Clinical Pharmacist for questions. eGFR 15 (L) >60 mL/min [facility] Citizen [place] Comment: The eGFR is not validated for use in drug dosing adjustments.Continue to use estimated creatinine clearance per dosing reference text.Please contact the Clinical Pharmacist for questions. Specimen Blood Performing Organization Address City/State/Zipcode Phone Number [facility] [address] [place] [address] * MAGNESIUM (05/06/2018 1:17 PM QUALITY MEASUREMENT SPECIALIST) Magnesium 2.1 1.6 - 2.6 mg/dL [facility] Specimen Blood Performing Organization Address City/[facility]/Zipcode Phone Number [facility] [address] [place] [address] * CD4 ABSOLUTE CELL COUNT (05/06/2018 1:17 PM QUALITY MEASUREMENT SPECIALIST) CD4 Count 285 (L) 440 - 2,160 MAIN LAB CD4 % 18.2 (L) 28 - 63 % MAIN LAB Specimen Blood Performing Organization Address City/State/Zipcode Phone Number MAIN LAB [address] [place] [address] documented in this encounter Visit Diagnoses Diagnosis Acute myeloid leukemia in remission (HCC) Acute myeloid leukemia in remission Drug-induced pancytopenia (HCC) Other drug-induced pancytopenia H/O bone marrow transplant (HCC) Bone marrow replaced by transplant H/O stem cell transplant (HCC) Peripheral stem cells replaced by transplant documented in this encounter
--- OUTSIDE RECORDS SUMMARY | 2018-10-17 08:25 | XMS REPORT | Encounter Summary ---
Author Author [facility] Organization [facility] Address Unknown Phone Unavailable Care Team Providers Care Farm Rancher Name Role Phone Rebeca Green MD Unavailable Love Chambers DO PCP Reason for Visit * Reason Comments Medication Refill Encounter Details Care Team Description Date Type Department Ulisses Newell MD [address] [place] [address] [phone] 06/06/2018 Refill The [place] [id number] [place] [address] Social History Date Tobacco Use Types Packs/Day [...]
--- OUTSIDE RECORDS SUMMARY | 2018-10-17 08:25 | XMS REPORT | Encounter Summary ---
Author Author [facility] Organization [facility] Address Unknown Phone Unavailable Care Team Providers Care Rock Worker Name Role Phone Rebeca Green MD Unavailable Love Chambers DO PCP Reason for Visit * Reason Comments Transplant Referral Appointment Reminder Call Encounter Details Care Team Description Date Type Department Mia Sterling Transplant Referral (Appointment Reminder Call) 06/05/2018 Telephone The [address] [address] Social History Date Tobacco Use [...]
--- OUTSIDE RECORDS SUMMARY | 2018-10-17 08:25 | XMS REPORT | Encounter Summary ---
Author Author [facility] Organization [facility] Address Unknown Phone Unavailable Care Team Providers Care Airborne And Air Delivery Specialist Name Role Phone Rebeca Green MD Unavailable Love Chambers DO PCP Reason for Visit * Reason Comments Pain Palliative Care Fatigue * Consult, Test & Treat (Routine) Referred By Contact Referred To Contact Status Reason Specialty Diagnoses / Procedures Spencer Vazquez, VALUATION CONSULTANT [address] [place] [address] Cc-Ww Bmt Exm [address] No Auth Needed Palliative Diagnoses Medicine CCSC / AML, recent kidney Oncology failure. Encounter Details Care Team Description Date Type Department Fran Burger MD [address] [place] [address] [phone] MARY (acute kidney injury) (HCC) 05/06/2018 Office Visit [facility] [address] [phone] Social History Date Tobacco Use Types Packs/Day [...] Signs Reading Time Taken Comments Vital Sign 139/74 05/06/2018 1:26 PM SHUTTLE VENEERING SUPERVISOR Blood Pressure 73 05/06/2018 1:26 PM SHUTTLE VENEERING SUPERVISOR Pulse 36.4 C (97.5 F) 05/06/2018 1:26 PM SHUTTLE VENEERING SUPERVISOR Temperature 16 05/06/2018 1:26 PM SHUTTLE VENEERING SUPERVISOR Respiratory Rate 100% 05/06/2018 1:26 PM SHUTTLE VENEERING SUPERVISOR Oxygen Saturation - - Inhaled Oxygen Concentration 57.5 kg (126 lb 12.2 oz) 05/06/2018 1:26 PM SHUTTLE VENEERING SUPERVISOR Weight 157.5 cm (5' 2.01") 05/06/2018 1:26 PM SHUTTLE VENEERING SUPERVISOR Height 23.18 05/06/2018 1:26 PM SHUTTLE VENEERING SUPERVISOR Body Mass Index documented in this encounter [...] as of this encounter Progress Notes * Fran Burger MD - 05/06/2018 1:15 PM SHUTTLE VENEERING SUPERVISOR PALLIATIVE CARE OUTPATIENT VISIT PC Outpatient Visit #: 1 new Date of Service: 05/06/2018 Referring Clinician: Preferred Name: Ting PCP: Love [...] ON 10/2017 CELLS. CREAT 3.43 GFR 14. Current Treatments: HD Prognosis (Estimated): Based on current function, current medical issues, goals of care, and prognosis models, my estimated prognosis is PLAN No major changes at this time. Will follow peripherally and revisit when ready t o do more extended travel. SERIOUS ILLNESS CONVERSATIONS: (include dates; if left blank not yet addressed) Illness understanding: Desire for information: Prognostic discussion: Goals: Worries: Strength comes from: Critical abilities you would not imagine being able to live without: Trade offs you would be willing or not willing to make for the possibility of m ore time: Family knowledge of the above: ADVANCE CARE PLANNING Goals of Care: Curative Code Status: Full Code (by default) Level of Intervention: Full Intervention (by default) DPOA: On file Living Will: None on file TPOPP: None on file Return to clinic: Subjective SUBJECTIVE Reason for Visit: Pain; Palliative Care; and Fatigue Ting Rob is a 58 y.o. female with AML S/P MSD AND CD34 STEM CELL BOOST 05/24/17. HAVING ISSUES WITH KIDNEY DUE TO A GASTRIC BYPASS HE HAD 2 YEARS AGO 2 015. NOW MAY NEED A KIDNEY TRANSPLANT FROM THE BROTHER BLAS HAVE HIM STEM. REVE RSED GASTRIC BYPASS ON 10/2017 CELLS. CREAT 3.43 GFR 14. She is here with Mu. I attend this visit without other members of [facility] palliative care team. She is having nausea with vomiting 1-2x per week, and weight gain is reversing a nd now going up too high. Trying to walk more. Feels H is going well. Wants to travel but quite concerned about impact on health Having body aches and cramping with HD. [place] Symptom Assessment Scale (ESAS-r-CS) 05/06/2018 Symptom / Score 0=Best Possible 10=Worst Possible Comprehensive Pain Assessment Words: Intensity: ; Location: Duration: Aggrevating: Alleviating: OPIOID RISK TOOL Score Score Patient Score Family History of: Male Female Alcohol 3 1 Illegal drugs 3 2 Prescription drugs 4 4 Personal History of: Alcohol 3 3 Illegal drugs 4 4 Prescription drugs 5 5 Age(16-45=1) 1 1 ADD, OCD, Bipolar, Schizophrenia 2 2 Depression 1 1 Significant Trauma/Abuse 0 3 Total: Total Score Risk Category: 0-3=Low Risk 4-7=Moderate Risk 8+=High Risk Reference: Cecilio HERNANDEZ. Predicting aberrant behaviors in opioid-treated patients: Preliminary validation of the opioid risk tool. Pain Medicine. 2005;6(6):432-44 2. Review of Systems ONCOLOGY HISTORY Cancer Staging No matching staging information was found for the patient. 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 EXAM General appearance: no acute distress, sitting in chair in clinic, verbal, no gr imace, well-developed, Eyes: open, no discharge, no icterus, Throat: slight dry lips, normal dentition, no signs of thrush, Neck: no JVD, Lungs: no secretions, no acc muscle use, no apnea, CTAB, no W/R/R, Heart: RRR, no MRG, Abdomen: non distended, soft, nontender, minimal bowel sounds, Extremities: moves all extremities, no edema, Neurologic: no seizures, no myoclonus, no neuro deficits, oriented to time, pers on and place, Psych: calm, interactive, normal memory and judgement, Skin: warm, dry, no lesions, ECOG Performance Status: Palliative Performance Status: MEDICATIONS acetaminophen (TYLENOL EXTRA STRENGTH) 500 mg tablet Take 2 tablets by mouth daily as needed. acyclovir (ZOVIRAX) 200 mg capsule TAKE 1 CAPSULE BY MOUTH TWICE DAILY atovaquone (MEPRON) 750 mg/5 mL oral suspension TAKE 10 ML BY MOUTH ONCE HAROON LY WITH BREAKFAST Biotin 2,500 mcg cap Take 2 capsules by mouth every morning. calcium acetate (PHOSLO) 667 mg tablet Take two tablets by mouth three times daily with meals. calcium citrate (CALCITRATE) 950 mg tab Take 950 mg by mouth twice daily. Cholecalciferol (VITAMIN D3) 5,000 unit capsule Take one capsule by mouth sara stein. Post dialysis codeine/guaiFENesin (ROBITUSSIN-AC) 10/100 mg/5 mL [...] with breakfast. levothyroxine (SYNTHROID) 100 mcg tablet Take 1 tablet by mouth daily 30 min utes before breakfast. Multivitamins with Fluoride (MULTI-VITAMIN PO) Take 1 tablet by mouth daily. other medication THC Lotion: Apply to the affected area at bedtime pantoprazole DR (PROTONIX) 40 mg tablet Take one tablet by mouth twice daily . thiamine (VITAMIN B-1) 100 mg tablet Take 1 tablet by mouth daily. (Patient taking differently: Take 100 mg by mouth at bedtime daily.) traMADol (ULTRAM) 50 mg tablet Take one tablet by mouth every 6 hours as nee ded. RESULTS REVIEW Imaging and labs reviewed CBC Lab Results Component Value Date/Time WBC 5.5 05/06/2018 01:17 PM HGB 11.2 (L) 05/06/2018 01:17 PM PLTCT 167 05/06/2018 01:17 PM Lab Results Component Value Date/Time NEUT 51 05/06/2018 01:17 PM ANC 2.80 05/06/2018 01:17 PM Comprehensive Metabolic Profile Lab Results Component Value Date/Time NA 131 (L) 05/06/2018 01:17 PM K 3.8 05/06/2018 01:17 PM BUN 42 (H) 05/06/2018 [...] PM GFRAA 15 (L) 05/06/2018 01:17 PM ADMINISTRATIVE Fran Burger MD, [facility], [facility] Attending Voalte (preferred) - - Pager [phone] Nights/Weekends - [phone] for Palliative Care On-Call Note: Palliative care teams are now on Voalte Total Time 45min ([id number]) with 45min spent education and counseling face-to-f ramana with patient and family in clinic. F/U - OUTPT Time [id number] [phone] [id number] 10 40 85 [id number] 15 45 90 [id number] 25 55 [phone] 40 70 115 TLE VENEERING SUPERVISOR documented in this encounter Plan of Treatment Not on filedocumented as of this encounter Visit Diagnoses Diagnosis MARY (acute kidney injury) (HCC) Acute kidney failure, unspecified documented in this encounter
--- OUTSIDE RECORDS SUMMARY | 2018-10-17 08:25 | XMS REPORT | Encounter Summary ---
Author Author [facility] Organization [facility] Address Unknown Phone Unavailable Care Team Providers Care Freight Clerk Name Role Phone Rebeca Green MD Unavailable Love Chambers DO PCP Reason for Visit * Reason Comments BMT Follow-up Encounter Details Care Team Description Date Type Department Fran Burger MD [address] [place] [address] [phone] Chemo Kaufman MD [address] [place] [address] [phone] H/O stem cell transplant (HCC) (Primary Dx); Acute myeloid leukemia in remission (HCC); H/O gastric bypass; ESRD on hemodialysis (HCC) 05/06/2018 Office Visit [facility] [place] [id number] [place] [id number] Social History Date Tobacco Use Types Packs/Day [...] Comments Vital Sign 139/74 05/06/2018 1:26 PM OVERHAULER BUS TRUCK Blood Pressure 73 05/06/2018 1:26 PM OVERHAULER BUS TRUCK Pulse 36.4 C (97.6 F) 05/06/2018 1:26 PM OVERHAULER BUS TRUCK Temperature 16 05/06/2018 1:26 PM OVERHAULER BUS TRUCK Respiratory Rate 100% 05/06/2018 1:26 PM OVERHAULER BUS TRUCK Oxygen Saturation - - Inhaled Oxygen Concentration 57.7 kg (127 lb 3.2 oz) 05/06/2018 1:26 PM OVERHAULER BUS TRUCK Weight 157.5 cm (5' 2.01") 05/06/2018 1:26 PM OVERHAULER BUS TRUCK Height 23.26 05/06/2018 1:26 PM OVERHAULER BUS TRUCK Body Mass Index documented in this encounter [...] Progress Notes * Chemo Kaufman MD - 05/06/2018 12:50 PM OVERHAULER BUS TRUCK Date of Service: 03/29/2017 Reason for Visit:Following post allogeneic transplant for AML CR1 on CTN 1301 14 mos. s/p post CD 34 selected boost for poor graft function. Underwent reversal of gastric bypass on 11/22/17. Heme/Onc Care Subjective: Has occasional vomiting. Denies fever, chills, nausea, vomiting, diarrhea, sore throat, cough, SOA, swelling, rash. No changes in mouth. Accompanied in clinic t cy by her . Has gained wt, with increased appetite since starting dialysis. No NVD Being considered for peritoneal dialysis History of Present Illness Transplant [...] Hist : . 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 No h/o smoking. Alcohol social ly. Has two children 30 and 32 yrs. 2 biological grand children Review of Systems Constitutional: Positive for fatigue. HENT: Negative. Eyes: Negative. Respiratory: Negative. Cardiovascular: Negative. Gastrointestinal: negative. H/o wt loss. Genitourinary:elevated creat Musculoskeletal: Negative. Skin: Negative. Neurological: Negative. Psychiatric/Behavioral: Negative. Immunosuppressed [...] mouth daily 30 min utes before breakfast. [id number] (DEKAS BARIATRIC) 22.5 mg-400 mcg -500 mcg-10 mg chew Chew 1 Dose by mouth at bedtime daily. pantoprazole DR (PROTONIX) 40 mg tablet Take 1 tablet by mouth twice daily. thiamine (VITAMIN B-1) 100 mg tablet Take 1 tablet by mouth daily. traMADol (ULTRAM) 50 mg tablet Take 1 tablet by mouth every 6 hours as sandra wright. 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 likely due to renal failure. receiving Aranesp through Dr. Silvana gilliam in [place]. --was on Promacta 03/12/2017- as Plt count is >150, decreased promacta to 100 /50 on 07/18; decreased to 50 mg daily from 07/29/17. Now stopped. FEN/Renal: - Creatinine remains elevated, Nephrology consulted, appreciate recommendations, s/p renal bx, which revealed Oxalate nephropathy - follows with nephrology in [place] Dr. Mckeon - This is likely related to previous gastric bypass surgery. - Per Nephrology, this may get better if we reverse bypass surgery. underwent reversal of gastric bypass on 11/22/17. -has wt loss since last visit - leg edema: resolved with lasix. - now thinking of kidney transplant from the brother who donated the stem cells -peritoneal dialysis planned ID: Afebrile. - On ppx renally dosed acyclovir andMepron. - 6 mos vaccines 07/15/17 -8 mos vaccine September 2017 -10 vaccines 06 Jan 2018 with FLu vaccine -1 yr vaccines 03/06/18 - CMV Status:Donor - Negative; Recipient - Positive CMV. Once-weekly CMV monit oring until day 365. - CD4 cont at 1 yr 169, checking today and if >250 will d/c Mepron and acyclovir Cardiac: - hypertension, will follow with Nephrology [...] bypass, currently on M/vitamins - LFTs normalized. 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 Followed by Insurance Marketing Specialist at [facility] - Insurance Marketing Specialist Ordered outpatient, transvaginal US and pelvis US (05/09) showed multiple fi broids, complex cystic in low left adnexa. Rec to have hysterectomy in future - Per machine setup operator recs, ordered MRI pelvis (05/13) for further evaluation of fibroids, showed 3 intramural fibroids, which distort the fundal endometrium. Patient to follow-up with ob-bottling line operator. Neuro: - H/o migraine headaches,none today Pain: [...] acitve gvhd RTC 3 mos lab provider and palliative care. Follow up with renal transplant serv ice Chemo Kaufman MD HAULER BUS TRUCK * Edilson Cartagena RN - 05/06/2018 12:50 PM OVERHAULER BUS TRUCK DLI 05/23/2017 Day+348 Date of Transplant12/27/1715 months Transplant Type:Allogeneic Related Conditioning Regimen:BUCY post CY 1301 Conditioning Regimen Type:Myeloablative Rationale for reduced/NST regimen: N/A Diagnosis/Stage:AML FLT3+ Disease Status at Transplant:CR Cytogenetic/Fish AT DIAGNOSIS: 46, XX[20] fish neg Stem Cell Source:Bone Marrow Graft Manipulation:Not Applicable NMDP DID: N/A Donor Information: Age 58, Sex male, HLA-Match:8of8 HLA Antibody Screen: N/A CMV Status:Donor - Negative; Recipient - Positive Blood Type:Donor -A Positive;Recipient - O Positive Consents / Study# / Protocol#:8322, chemotherapy, blood, allogeneic, storage /processing, BU CY, 1301 Pretransplant Coordinator:Jessica Gautam RN Posttransplant Coordinator: Edilson Cartagena RN CMV monitoring: once-weekly CMV monitoring until day 365- Completed per Dr. Juan M dawn EBV monitoring: N/A VRE status: Positive Chimerism results: Day 30 drawn 01/25-100% DONOR- per Dr. Kaufman no Day 60 ne eded. Day 180- 99.8%, 03/06- 100% Transfusion parameters:standard Electrolyte replacement goal: Standard GVHD location:possible GI Current GVHD treatment: Tapers (drug and end date):N/A PJP Prophylaxis:Dapsone PFT/spirometry Q3M, next due: Spirometry 05/06, due July 2018 Central line: NA LTFU orders placed for day 2 year Outside Oncologist: Dr. Gallardo 05/06- Pt reports feeling well today. Spirometry added on today. Labs reviewed and stable. Creat Clearance discussed with patient prior to dialysis. Immunization record printed for pt. After visit summary denied by patient. No other questions or concerns. NEWS Score: 0 RTC: 2month provider; labs (cbcd, chem 12, mag) 08/05- MDV/Labs HAULER BUS TRUCK documented in this encounter Plan of Treatment Not on filedocumented as of this encounter Procedures Comments Procedure Name Priority Date/Time Associated Diagnosis SPIROMETRY Routine 05/06/2018 H/O stem cell transplant 2:30 PM OVERHAULER BUS TRUCK ([facility]) documented in this encounter Results * MAGNESIUM (08/05/2018 12:08 PM CDT) Magnesium 2.3 1.6 - 2.6 mg/dL [facility] Specimen Blood Performing Organization Address City/[facility]/Zipcode Phone Number [facility] [address] [place] [address] * COMPREHENSIVE METABOLIC PANEL (08/05/2018 12:08 PM CDT) [facility] Sodium 134 (L) 137 - 147 MMOL/L [facility] Potassium 3.8 3.5 - 5.1 MMOL/L [facility] Chloride 98 98 - 110 MMOL/L [facility] Glucose 118 (H) 70 - 100 MG/DL [facility] Blood Urea 38 (H) 7 - 25 MG/DL [facility] Nitrogen Creatinine 3.75 (H) 0.4 - 1.00 MG/DL [facility] Calcium 10.4 8.5 - 10.6 MG/DL [facility] Total Protein 7.1 6.0 - 8.0 G/DL [facility] Total Bilirubin 0.4 0.3 - 1.2 MG/DL [facility] Albumin 4.6 3.5 - 5.0 G/DL [facility] Alk Phosphatase 71 25 - 110 U/L [facility] AST (SGOT) 20 7 - 40 U/L [facility] CO2 30 21 - 30 MMOL/L [facility] ALT (SGPT) 13 7 - 56 U/L [facility] Anion Gap 6 3 - 12 [facility] eGFR Non 12 (L) >60 mL/min [facility] Comment: [place] The eGFR is not validated for use in drug dosing adjustments.Continue to use estimated creatinine clearance per dosing reference text.Please contact the Clinical Pharmacist for questions. eGFR 15 (L) >60 mL/min [facility] [place] Comment: The eGFR is not validated for use in drug dosing adjustments.Continue to use estimated creatinine clearance per dosing reference text.Please contact the Clinical Pharmacist for questions. Specimen Blood Performing Organization Address City/State/Zipcode Phone Number [facility] [address] [place] [address] * CBC AND DIFF (08/05/2018 12:08 PM CDT) [facility] White Blood 4.3 (L) 4.5 - 11.0 K/UL [facility] Cells RBC 2.89 (L) 4.0 - 5.0 M/UL [facility] Hemoglobin 10.7 (L) 12.0 - 15.0 [...] Organization Address City/State/Zipcode Phone Number [facility] [address] [place] [address] * SPIROMETRY (05/06/2018 2:30 PM OVERHAULER BUS TRUCK) FVC-Pre 2.93 L [facility] FVC-%Pred-pre 89 % [facility] FEV1-Pre 2.36 L [facility] FEV1-%Pred-Pre 92 % [facility] FEV1/FVC-Pre 80 % [facility] [id number] 68 % [facility] [id number] 2.38 L/sec [facility] [id number]-%Pred-P 99 % [facility] re Specimen Narrative Performed At Performing Organization Address City/State/Zipcode Phone Number [facility] [address] [place] [address] documented in this encounter Visit Diagnoses Diagnosis H/O stem cell transplant (HCC) - Primary Peripheral stem cells replaced by transplant Acute myeloid leukemia in remission (HCC) Acute myeloid leukemia in remission H/O gastric bypass Bariatric surgery status ESRD on hemodialysis (HCC) End stage renal disease documented in this encounter
--- OUTSIDE RECORDS SUMMARY | 2018-10-17 08:25 | XMS REPORT | Encounter Summary ---
Author Author [facility] Organization [facility] Address Unknown Phone Unavailable Care Team Providers Care Fabrication Machine Operator Name Role Phone Rebeca Green MD Unavailable Love Chambers DO PCP Encounter Details Care Team Description Date Type Department Nallely Malik RN Acute myeloid leukemia in remission (HCC) (Primary Dx); Drug-induced pancytopenia (HCC); H/O bone marrow transplant (HCC) 05/05/2018 Orders Only [facility] [place] [id number] Social History Date Tobacco Use Types Packs/Day [...] Not on filedocumented as of this encounter Results * CD4 ABSOLUTE CELL COUNT (05/06/2018 1:17 PM SURETY BOND AGENT) CD4 Count 285 (L) 440 - 2,160 [facility] CD4 % 18.2 (L) 28 - 63 % [facility] Specimen Blood Performing Organization Address City/State/Zipcode Phone Number [facility] [address] [place] [address] documented in this encounter Visit Diagnoses Diagnosis Acute myeloid leukemia in remission (HCC) - Primary Acute myeloid leukemia in remission Drug-induced pancytopenia (HCC) Other drug-induced pancytopenia H/O bone marrow transplant (HCC) Bone marrow replaced by transplant documented in this encounter
--- OUTSIDE RECORDS SUMMARY | 2018-10-17 08:25 | XMS REPORT | Encounter Summary ---
Author Author [facility] Organization [facility] Address Unknown Phone Unavailable Care Team Providers Care Coroner'S Juror Name Role Phone Rebeca Green MD Unavailable Love Chambers DO PCP Reason for Visit * Reason Comments BMT Follow-up Encounter Details Care Team Description Date Type Department Marj Miranda RN BMT Follow-up 05/09/2018 Telephone [facility] [address] [place] [phone] Social History Date Tobacco Use Types Packs/Day [...] encounter Miscellaneous Notes * Telephone Encounter - Marj Miranda RN - 05/09/2018 2:13 PM HYDROLOGY PROFESSOR Patient called regarding her CD4 count. Results of [address] Binh cardoza Called patient and told her it is ok to stop taking Mepron and Acyclovir at t his time. OLOGY PROFESSOR documented in this encounter Plan of Treatment Not on filedocumented as of this encounter Visit Diagnoses Not on filedocumented in this encounter
--- OUTSIDE RECORDS SUMMARY | 2018-10-17 08:25 | XMS REPORT | Encounter Summary ---
Author Author [facility] Organization [facility] Address Unknown Phone Unavailable Care Team Providers Care Hatchery Attendant Name Role Phone Rebeca Green MD Unavailable Love Chambers DO PCP Encounter Details Care Team Description Date Type Department Marj Orr RN 05/05/2018 Documentation [facility] [address] [phone] Social History Date Tobacco Use Types Packs/Day [...] as of this encounter Progress Notes * Marj Orr RN - 05/05/2018 9:28 PM TECHNICAL ACCOUNT REPRESENTATIVE DX; AML S/P MSD AND CD34 STEM CELL BOOST 05/24/17. HAVING ISSUES WITH KIDNEY DUE TO A GASTRIC BYPASS HE HAD 2 YEARS AGO 2014. NOW MAY NEED A KIDNEY TRANSPLA NT FROM THE BROTHER THT HAVE HIM STEM. REVERSED GASTRIC BYPASS ON 10/2017 CELLS . CREAT 3.43 GFR 14. TX; SUPPORTIVE CARE DOC BLUE TEAM DPOA YES TPOPP NA ORT NEED LIVES; [facility] [place] HAS A HX OF LOW CHRONIC SCIATICA BACK PAIN NICAL ACCOUNT REPRESENTATIVE documented in this encounter Plan of Treatment Not on filedocumented as of this encounter Visit Diagnoses Not on filedocumented in this encounter
--- OUTSIDE RECORDS SUMMARY | 2018-10-17 08:26 | XMS REPORT | Clinical Summary ---
Author Author User, [email or web address] Organization [facility] Address Unknown Phone Unavailable Allergies, Adverse Reactions, Alerts Allergy Name Reaction Description Start Date Severity Status Provider SULFA Critical Active Love Perla Chambers SULFA DRUGS Dermatological problems, e.g., rash, hives 1991 Critical No Longer Active Love Perla Chambers AMOXICILLIN Dermatological problems, e.g., rash, hives 1987 Critical Active Love Perla Garcianer PENICILLIN Dermatological problems, e.g., rash, hives 1987 Critical Active Love Perla Chambers Conditions or Problems Problem Name Problem Code Onset Date Status Entry Date Provider Comment Standard Description Annotate BRONCHITIS 490 Resolved Love Chambers Bronchitis, not specified as acute or chronic COUGH 786.2 Resolved Love Chambers Cough OBESITY 278.00 Resolved Love Chambers Obesity, unspecified WEIGHT GAIN, ABNORMAL 783.1 Active Love Chambers Abnormal weight gain DEPRESSION 311 1990 Active Love Chambers Depressive disorder, not elsewhere classified Not treated well DIZZINESS 780.4 Resolved Love Chambers Dizziness and giddiness PNEUMONIA, ATYPICAL, HX OF V12.6 Resolved Love Chambers Personal history of diseases of respiratory system HYPERTENSION, BENIGN ESSENTIAL, CONTROLLED 401.1 Active Love Chambers Benign essential hypertension OSTEOARTHRITIS 715.90 Active Love Chambers Osteoarthrosis, unspecified whether generalized or localized, involving unspecified site previous old chart dx PAP SMEAR, LGSIL (ABNORMAL), HX OF V13.29 Resolved Love Chambers Personal history of other genital system and obstetric disorders COLPOSCOPY, HX OF V15.89 Resolved Love Chambers Other specified personal history presenting hazards to health Dr Vyas 12/31 BIPOLAR AFFECT DISORD, DEPRESSED, MODERATE 296.52 Active Love Chambers Bipolar I disorder, most recent episode (or current) depressed, moderate HYPERCHOLESTEROLEMIA 272.0 Active Love Chambers Pure hypercholesterolemia WELL WOMAN V70.0 Resolved Love Chambers Routine general medical examination at a health care facility BACK PAIN 724.5 Resolved Love Chambers Backache, unspecified ABNORMAL PAP SMEAR 795.00 Resolved Love Chambers Abnormal glandular Papanicolaou smear of cervix FUNGAL DERMATITIS 111.9 Resolved Love Chambers Dermatomycosis, unspecified SKIN LESION 709.9 Resolved Love Chambers Unspecified disorder of skin and subcutaneous tissue URINARY FREQUENCY 788.41 Resolved Love Chambers Urinary frequency DETRUSOR, OVERACTIVE 596.51 Resolved Love Chambers Hypertonicity of bladder COUGH 786.2 Resolved Love Chambers Cough URI 465.9 Resolved Love Chambers Acute upper respiratory infections of unspecified site ANEMIA NOS 285.9 Resolved Love Chambers Anemia, unspecified HYPOTHYROIDISM, PRIMARY 244.9 Resolved Love Chambers Unspecified hypothyroidism WRIST PAIN, RIGHT 719.43 Resolved Love Chambers Pain in joint involving forearm PREMENSTRUAL SYNDROME 625.4 Resolved Love Chambers Premenstrual tension syndromes PERIMENOPAUSAL SYNDROME 627.9 Resolved Love Chambers Unspecified menopausal and postmenopausal disorder HYPOTHYROIDISM, PRIMARY 244.9 Active Love Chambers Unspecified hypothyroidism BACK PAIN 724.5 Resolved Love Chambers Backache, unspecified MUSCLE CONTRACTION HEADACHES 307.81 Resolved Love Chambers Tension headache OTHER SPECIFIED CIRCULATORY SYSTEM DISORDERS 459.89 Resolved Love Chambers Other specified circulatory system disorders MENORRHAGIA 626.2 Resolved Love Chambers Excessive or frequent menstruation MENOPAUSAL SYNDROME 627.0 Resolved Love Chambers Premenopausal menorrhagia ANEMIA, IRON DEFICIENCY NEC 280.8 Active Love Chambers Other specified iron deficiency anemias DYSPNEA 786.09 Resolved Love Chambers Other dyspnea and respiratory abnormality CHEST PAIN, ATYPICAL 786.59 Resolved Love Chambers Other chest pain MIGRAINE HEADACHE 346.90 Active Love Chambers Migraine, unspecified, without mention of intractable migraine, without mention of status migrainosus FOOT PAIN, LEFT 729.5 Resolved Love Chambers Pain in limb KNEE PAIN 719.46 Resolved Love Chambers Pain in joint involving lower leg FOOT PAIN, RIGHT 729.5 Resolved Love Chambers Pain in limb OBSTRUCTIVE SLEEP APNEA 780.57 Active Love Chambers Unspecified sleep apnea HYPERGLYCEMIA, MILD 790.6 Active Love Chambers Other abnormal blood chemistry ONYCHOMYCOSIS, TOENAILS 110.1 Active Love Chambers Dermatophytosis [facility] HEALTH SCREENING V70.0 Resolved Love Chambers Routine general medical examination at a health care facility Medication List Medication Instructions Start Date Stop Date Generic Name NDC Status Provider Patient Instruction CYMBALTA 30 MG CPEP 1 PO daily DULOXETINE HCL 89964526123 No Longer Active Love Chambers MOBIC 15 MG TABS 1 PO daily MELOXICAM 68294267682 Active Love Chambers METFORMIN HCL 500 MG TABS 1 PO daily METFORMIN HCL 49458931721 Active Love Chambers LAMISIL 250 MG TAB 1 PO daily TERBINAFINE HCL 73121403785 Active Luisa Haley LEVOTHYROXINE SODIUM 112 MCG TABS 1 PO daily LEVOTHYROXINE SODIUM 48687588783 Active Luisa Haley NARDIL 15 MG TABS 1 PO BID PHENELZINE SULFATE 57170840347 No Longer Active Flor Matthews HYDROCODONE-ACETAMINOPHEN 5-325 MG TABS 1-2 PO Q4-6 hrs prn pain HYDROCODONE-ACETAMINOPHEN 37957628983 Active Love Chambers IBUPROFEN 600 MG TAB 1 PO TID prn IBUPROFEN 59276676520 Active Love Chambers ADVIL 200 MG CAPS 2 PO Q6hrs prn IBUPROFEN 10053308366 No Longer Active Love Chambers FIORICET 50-325-40 MG TABS 1 PO Q 4 hours prn [id number] 66985460740 No Longer Active Love Chambers LASIX 20 MG TAB 1 PO daily prn fluid retention FUROSEMIDE 03421883639 No Longer Active Love Chambers TOPAMAX 25 MG TABS 1 PO BID TOPIRAMATE 89211253199 No Longer Active Love Chambers COZAAR 50 MG TAB 1 PO daily LOSARTAN POTASSIUM 45425417205 Active Luisa Tera DIFLUCAN 100 MG TAB 1 PO Daily FLUCONAZOLE 97964903920 No Longer Active Love Perla Chambers HYDROCHLOROTHIAZIDE 25 MG TAB 1 PO QD HYDROCHLOROTHIAZIDE 33085894014 No Longer Active Love Perla Chambers MAXALT-ENTRY LEVEL RECRUITER 10 MG TBDP 1 PO upon onset of migraine RIZATRIPTAN BENZOATE 86579000507 No Longer Active Love Perla Chambers NORVASC 5 MG TAB 1 PO daily AMLODIPINE BESYLATE 12087349423 Active Luisamaggy Haley ZOMIG 5 MG TABS 1 PO prn headache onset ZOLMITRIPTAN 66542592965 Active Luisamaggy Haley NAPROXEN 500 MG TAB 1 PO BID for 2 weeks then BID prn. NAPROXEN 35158424940 No Longer Active Luisa Haley PARAFON FORTE DSC 500 MG TABS 1 PO TID prn CHLORZOXAZONE 39320819629 No Longer Active Love Perla Chambers FLEXERIL 10 MG TAB 1 PO TID prn CYCLOBENZAPRINE HCL 57350268114 No Longer Active Love Perla Chambers MELATONIN 5 MG TABS 1 PO QHS MELATONIN 21330899007 No Longer Active Love Perla Chambers LORATADINE 10 MG TABS 1 PO daily LORATADINE 56081749374 No Longer Active Love Perla Chambers LISINOPRIL-HYDROCHLOROTHIAZIDE 20-25 MG TABS 1/2 po daily LISINOPRIL-HYDROCHLOROTHIAZIDE 10026726700 No Longer Active Love Perla Chambers IBUPROFEN 200 MG TABS 1-2 PO Q6hrs prn IBUPROFEN 63399451151 No Longer Active Love Perla Chambers HYDROCHLOROTHIAZIDE 12.5 MG CAPS 1 PO QD HYDROCHLOROTHIAZIDE 45240412436 No Longer Active Love Perla Chambers CALCIUM 500 MG TABS 1 po daily CALCIUM 50656244877 No Longer Active Love Perla Chambers ROBITUSSIN A-C 10-100 MG/5ML SYRUP 5cc PO Q 4-6 hr prn ROBITUSSIN A-C 10-100 MG/5ML SYRUP 58535710929 No Longer Active Luisa Haley ROBITUSSIN A-C 10-100 MG/5ML SYRUP 5cc PO Q 4-6 hr prn ROBITUSSIN A-C 10-100 MG/5ML SYRUP 08242275008 No Longer Active Love Perla Chambers KETOCONAZOLE 2 % CREA apply to affected areas daily for 10 days KETOCONAZOLE 89626446388 No Longer Active Z Z ROBITUSSIN A-C 10-100 MG/5ML SYRUP 5cc PO Q 4-6 hr prn ROBITUSSIN A-C 10-100 MG/5ML SYRUP 04543193820 No Longer Active Love Perla Chambers ASTELIN 137 MCG/SPRAY SOLN 2 sprays each nostril BID AZELASTINE HCL 36951359769 No Longer Active Love Perla Chambers PREDNISONE 10 MG TAB 1 po daily for 5 days PREDNISONE 80343656179 No Longer Active Crystal LaGalle BIAXIN XL PAC 500 MG TB24 2 PO daily for 7 days CLARITHROMYCIN 16258585147 No Longer Active Love Perla Chambers TESSALON PERLES 100 MG CAPS 1 PO TID BENZONATATE 33654346002 No Longer Active Love Perla Chambers ZOMIG ZMT 5 MG TBDP 1 PO as directed ZOLMITRIPTAN 39018065349 No Longer Active Love Perla Chambers ROBITUSSIN A-C 10-100 MG/5ML SYRUP 5cc PO Q 4-6 hr prn ROBITUSSIN A-C 10-100 MG/5ML SYRUP 87243986876 No Longer Active Love Perla Chambers MULTIVITAMINS TABS 1 PO daily MULTIPLE VITAMIN 76503548514 Active Loev Perla Chambers LAMISIL 250 MG TABS 1 po daily TERBINAFINE HCL 74439228894 No Longer Active Love Perla Chambers DIFLUCAN 100 MG TAB as directed and again on the FLUCONAZOLE 66383066448 No Longer Active Love Perla Chambers LAMISIL 250 MG TABS 1 po daily TERBINAFINE HCL 78422805334 No Longer Active Love Perla Chambers LAMISIL 250 MG TABS 1 po daily TERBINAFINE HCL 50158109395 No Longer Active Love Perla Chambers MULTIVITAMINS TABS 1 po daily MULTIPLE VITAMIN 71498558042 No Longer Active Love Perla Chambers CELEXA 40 MG TABS 2 tabs po daily CITALOPRAM HYDROBROMIDE 84214715582 No Longer Active Love Perla Reyes VIOXX 25 MG TABS ROFECOXIB 78334362669 No Longer Active Love Perla Reyes FLEXERIL 10 MG TAB 1 PO TID prn CYCLOBENZAPRINE HCL 18828378304 No Longer Active Love Perla Reyes CELEBREX 200 MG CAPS 1 po qd prn CELECOXIB 47978588924 No Longer Active Love Perla Reyes MERIDIA 10 MG CAPS 1 PO QAM SIBUTRAMINE HCL MONOHYDRATE 68852603949 No Longer Active Love Perlaneela Chambers ZYPREXA 5 MG TABS 1 PO QD for 3 days then dc OLANZAPINE 95769796392 No Longer Active Love Perla Reyes GEODON 80 MG CAPS 1 PO BID ZIPRASIDONE HCL 43577821866 No Longer Active Love Perla Chambers GEODON 40 MG CAPS 2 PO BID for 3 days then 80mg PO BID ZIPRASIDONE HCL 09899224958 No Longer Active Love Perla Chambers ZYPREXA 10 MG TABS 1 po daily OLANZAPINE 14628578444 No Longer Active Love Perla Chambers ZITHROMAX Z-FRENCH 250 MG TABS as directed AZITHROMYCIN 87792208507 No Longer Active Love Perla Chambers ROBITUSSIN A-C 10-100 MG/5ML SYRUP 5cc PO Q 4-6 hr prn ROBITUSSIN A-C 10-100 MG/5ML SYRUP 00692879926 No Longer Active Love Perla Chambers YONAS 180 MG TABS 1 po daily FEXOFENADINE HCL 74671122881 No Longer Active E Extra COZAAR 100 MG TABS 1 po daily LOSARTAN POTASSIUM 56892312021 No Longer Active E Extra Vital Signs Date Name Value Unit Range Description blood pressure, diastolic - 8462-4 84 mm[Hg] BP thurman blood pressure, systolic - 8480-6 138 mm[Hg] BP sys pulse rate E&M - 8867-4 78 /min Heart rate respiratory rate E&M - 9279-1 14 /min Resp rate temperature E&M 98.0 [degF] Body temperature weight E&M - 3141-9 280 [lb_av] Weight Measured blood pressure, diastolic - 8462-4 92 mm[Hg] BP thurman blood pressure, systolic - 8480-6 154 mm[Hg] BP sys pulse rate E&M - 8867-4 80 /min Heart rate respiratory rate E&M - 9279-1 18 /min Resp rate weight E&M - 3141-9 270 [lb_av] Weight Measured Diagnostic Results Date Name Value Unit Range Description Clinical Lists Update: CBC - Hematology red blood cell distribution width 15.3 % mean corpuscular volume, RBC 98 fL leukocyte count, blood 8.4 10*3/mm3 hematocrit, blood 41 % platelet count 183 10*3/mm3 hemoglobin, blood 12.5 g/dL erythrocyte (RBC) count 4.19 10*6/mm3 Clinical Lists Update: CBC,CMP,FLP,TSH,FREE T4,FERRITIN,HGA1C - Chemistry Estimated Glomerular Filtration Rate (calc) 78 mL/min/1.73m2 albumin, serum 4.3 g/dL alkaline phosphatase, serum 51 U/L urea nitrogen, blood 11 mg/dL calcium, serum 10.1 mg/dL chloride, serum 102 mmol/L cholesterol, serum 218 mg/dL carbon dioxide, venous blood 26.0 mmol/L creatinine, serum 0.8 mg/dL ferritin, serum 52.8 ng/mL thyroxine, serum, free 1.04 ng/dL HDL cholesterol, serum 42.0 mg/dL hemoglobin A1C, blood, as % of total hemoglobin 6.1 % thyroid stimulating hormone, serum 2.36 u[iU]/mL LDL cholesterol, serum 126 mg/dL potassium, serum 5.0 mmol/L protein, total, serum 6.6 g/dL aspartate aminotransferase (SGOT), serum 36 U/L alanine aminotransferase (SGPT), serum 32 U/L bilirubin, serum, total 0.5 mg/dL triglyceride, serum, fasting 248 mg/dL sodium, serum 135 mmol/L anion gap, serum 12 cholesterol/HDL ratio, serum, percent 5.2 glucose, plasma fasting 112 mg/dL Clinical Lists Update: CBC,CMP,FLP,TSH,FREE T4,FERRITIN,HGA1C - Hematology hemoglobin, blood 12.7 g/dL hematocrit, blood 39 % erythrocyte (RBC) count 3.95 10*6/mm3 platelet count 173 10*3/mm3 leukocyte count, blood 6.7 10*3/mm3 mean corpuscular volume, RBC 99 fL red blood cell distribution width 14.0 % Clinical Lists Update: CBC,CMP,FLP,TSH,Free T4,HgA1c,HgA1c,Ferritin - Chemistry ferritin, serum 40.1 ng/mL aspartate aminotransferase (SGOT), serum 24 U/L hemoglobin A1C, blood, as % of total hemoglobin 5.8 % anion gap, serum 10 HDL cholesterol, serum 42.0 mg/dL thyroxine, serum, free 0.84 ng/dL chloride, serum 103 mmol/L sodium, serum 138 mmol/L creatinine, serum 0.8 mg/dL cholesterol/HDL ratio, serum, percent 5.0 carbon dioxide, venous blood 30.0 mmol/L cholesterol, serum 211 mg/dL thyroid stimulating hormone, serum 4.38 u[iU]/mL LDL cholesterol, serum 121 mg/dL albumin, serum 4.3 g/dL potassium, serum 4.5 mmol/L Estimated Glomerular Filtration Rate (calc) 79 mL/min/1.73m2 protein, total, serum 6.7 g/dL alkaline phosphatase, serum 53 U/L alanine aminotransferase (SGPT), serum 31 U/L urea nitrogen, blood 11 mg/dL bilirubin, serum, total 0.4 mg/dL glucose, plasma fasting 109 mg/dL triglyceride, serum, fasting 239 mg/dL calcium, serum 10.3 mg/dL Clinical Lists Update: CBC,CMP,FLP,TSH,Free T4,HgA1c,HgA1c,Ferritin - Hematology hemoglobin, blood 13.2 g/dL red blood cell distribution width 13.9 % erythrocyte (RBC) count 4.37 10*6/mm3 platelet count 231 10*3/mm3 mean corpuscular volume, RBC 98 fL hematocrit, blood 43 % leukocyte count, blood 8.7 10*3/mm3 Clinical Lists Update: CBC,CMP,PT,INR,ESR,UA ER LABS - Chemistry Estimated Glomerular Filtration Rate (calc) 47 mL/min/1.73m2 glucose, plasma fasting 144 mg/dL sodium, serum 135 mmol/L bilirubin, serum, total 0.3 mg/dL alanine aminotransferase (SGPT), serum 45 U/L aspartate aminotransferase (SGOT), serum 24 U/L protein, total, serum 7.7 g/dL potassium, serum 3.5 mmol/L creatinine, serum 1.2 mg/dL carbon dioxide, venous blood 29 mmol/L chloride, serum 101 mmol/L calcium, serum 10.5 mg/dL urea nitrogen, blood 17 mg/dL alkaline phosphatase, serum 78 U/L albumin, serum 4.0 g/dL Clinical Lists Update: CBC,CMP,PT,INR,ESR,UA ER LABS - Coagulation international normalized ratio (INR) 0.9 PTT patient 26 s prothrombin time (patient) 12.2 s Clinical Lists Update: CBC,CMP,PT,INR,ESR,UA ER LABS - Hematology hemoglobin, blood 13.2 g/dL platelet count 221 10*3/mm3 erythrocyte (RBC) count 4.24 10*6/mm3 leukocyte count, blood 9.4 10*3/mm3 mean corpuscular volume, RBC 94 fL erythrocyte sedimentation rate 11 mm/h red blood cell distribution width 13.9 % hematocrit, blood 40 % Clinical Lists Update: CBC,CMP,PT,INR,ESR,UA ER LABS - Urinalysis nitrite, urine, semiquantitative neg ketones, urine, by test strip neg bilirubin, urine neg glucose, urine, semiquantitative neg pH, urine, semiquantitative 6 specific gravity, urine 1.005 urobilinogen, urine, semiquantitative (dipstick) normal appearance, urine Clear Yellow WBC urine on microscopy none {Cells}/[HPF] RBC urine by microscopy none bacteria, urine microscopy neg hyaline casts, urine none /[LPF] protein, urine, semiquantitative (dipstick) neg mucus on urinalysis neg blood in urine (hemoglobin) by dipstick neg epithelial cells, urine rare /[LPF] Encounters Code Encounter Date Provider Facility CPT-96138 Ofc Vst, Est Level IV 16:11:20 CDT Love Chambers [facility] CPT-90734 Ofc Vst, Est Level III 19:44:03 CDT Love Chambers DO, FACP CPT-40755 Ofc Vst, Est Level IV 13:30:56 CHILD [employer]UDY TEAM DIRECTOR Love Chambers DO, FACP CPT-36703 Ofc Vst, Est Level IV 21:25:51 CHILD STUDY TEAM DIRECTOR Love Chambers DO, FACP CPT-65233 Ofc Vst, Est Level IV 16:11:11 CDT Love Perla Chambers Love S Chambers, DO, FACP CPT-10327 Ofc Vst, Est Level IV 14:32:22 CDT Loverina Spivey Chambers, DO, FACP CPT-35132 Ofc Vst, Est Level IV 15:27:30 CDT Love Perla Spivey Chambers, DO, FACP CPT-25752 Ofc Vst, Est Level IV 14:37:33 CDT Love Perla Spivey Chambers, DO, FACP CPT-00424 Ofc Vst, Est Level IV 15:32:09 CDT Love Perla Spivey Reyes, DO, FACP CPT-85163 Ofc Vst, Est Level IV 16:00:22 CDT Love Perla Spivey Reyes, DO, FACP CPT-81098 Ofc Vst, Est Level IV 15:32:51 CDT Loverina Spivey Reyes, DO, FACP CPT-55670 Ofc Vst, Est Level V 15:25:22 CHILD STUDY TEAM DIRECTOR Love Chambers [facility] CPT-14147 Ofc Vst, Est Level V 15:28:03 CHILD STUDY TEAM DIRECTOR Love Spivey Reyes, DO, FACP CPT-21432 Ofc Vst, Est Level IV 16:40:35 CDT Love Chambers [facility] CPT-56857 Ofc Vst, Est Level IV 16:33:24 CDT Loverina Spivey Reyes, DO, FACP CPT-34699 Ofc Vst, Est Level IV 17:15:32 CHILD STUDY TEAM DIRECTOR Love Spivey Reyes, DO, FACP CPT-79996 Ofc Vst, Est Level IV 16:56:58 CHILD STUDY TEAM DIRECTOR Love Spivey Reyes, DO, FACP CPT-66153 Ofc Vst, Est Level IV 15:16:21 CDT Love Perla Reyes [facility] CPT-32662 Ofc Vst, Est Level IV 18:11:14 CHILD STUDY TEAM DIRECTOR Love Oneillannstephon GarciaChambers [facility] CPT-57779 Ofc Vst, Est Level III 17:02:57 CDT Love Oneillannstephon GarciaChambers [facility] CPT-68670 Ofc Vst, Est Level IV 14:18:56 CHILD STUDY TEAM DIRECTOR Love Oneillannstephon GarciaChambers [facility] CPT-88411 Ofc Vst, Est Level IV 17:13:05 CHILD STUDY TEAM DIRECTOR Love Oneillannstephon GarciaChambers [facility] CPT-54597 Ofc Vst, Est Level IV 18:05:16 CDT Love Perla Garcianer [facility] CPT-10525 Ofc Vst, Est Level III 14:56:10 CHILD STUDY TEAM DIRECTOR Love Oneillanne Reyes [facility] CPT-56303 Ofc Vst, Est Level III 15:24:17 CHILD STUDY TEAM DIRECTOR Love Garcianer [facility] CPT-16082 Ofc Vst, Est Level III 15:58:31 CHILD STUDY TEAM DIRECTOR Love Oneillanne Reyes [facility] CPT-49228 Ofc Vst, New Level III 14:58:51 CHILD STUDY TEAM DIRECTOR Love Garcianer [facility] Procedures Code Procedure Name Date Entry Date Standard Description CPT-02431 Preventive, Est, (40-64) 22:30:22 CDT CPT-81055 Preventive, Est, (40-64) 11:56:00 CDT CPT-12329 Preventive, Est, (40-64) 16:42:03 CHILD STUDY TEAM DIRECTOR CPT-09880 Preventive, New, (40-64) 14:29:23 CHILD STUDY TEAM DIRECTOR
--- OUTSIDE RECORDS SUMMARY | 2018-10-17 08:27 | XMS REPORT | Clinical Summary ---
Author Author User, Campus Sponsorship Organization [facility] [place] Address Unknown Phone Unavailable Allergies, Adverse Reactions, [...] TOENAILS 110.1 Active Love Chambers [facility] HEALTH SCREENING V70.0 Resolved Love Chambers Routine general medical examination at a health care facility Medication List Medication Instructions Start Date Stop Date Generic Name NDC Status Provider Patient Instruction CYMBALTA 30 MG CPEP 1 PO daily DULOXETINE HCL 89666777138 No Longer Active Love Chambers MOBIC 15 MG TABS 1 PO daily MELOXICAM 80801667652 Active Love Chambers METFORMIN HCL 500 MG TABS 1 PO daily METFORMIN HCL 76146580600 Active Love Chambers LAMISIL 250 MG TAB 1 PO daily TERBINAFINE HCL 45432820076 Active Luisa Haley LEVOTHYROXINE SODIUM 112 MCG TABS 1 PO daily LEVOTHYROXINE SODIUM 66852555322 Active Love Chambers NARDIL 15 MG TABS 1 PO BID PHENELZINE SULFATE 39906455333 No Longer Active Flor Matthews HYDROCODONE-ACETAMINOPHEN 5-325 MG TABS 1-2 PO Q4-6 hrs prn pain HYDROCODONE-ACETAMINOPHEN 85882194133 Active Love Chambers IBUPROFEN 600 MG TAB 1 PO TID prn IBUPROFEN 31356637841 Active Love Chambers ADVIL 200 MG CAPS 2 PO Q6hrs prn IBUPROFEN 39000177752 No Longer Active Love Chambers FIORICET 50-325-40 MG TABS 1 PO Q 4 hours prn LVMLODSSYD-HBQM-NEOEIFPO 08018855646 No Longer Active Love Chambers LASIX 20 MG TAB 1 PO daily prn fluid retention FUROSEMIDE 85532405723 No Longer Active Love Chambers TOPAMAX 25 MG TABS 1 PO BID TOPIRAMATE 18304676410 No Longer Active Loverina Chambers COZAAR 50 MG TAB 1 PO daily LOSARTAN POTASSIUM 36952857079 Active Luisa Tera DIFLUCAN 100 MG TAB 1 PO Daily FLUCONAZOLE 89295613432 No Longer Active Love Perla Chambers HYDROCHLOROTHIAZIDE 25 MG TAB 1 PO QD HYDROCHLOROTHIAZIDE 76325421813 No Longer Active Love Perla Chambers MAXALT-SYSTEM TECHNOLOGIST 10 MG TBDP 1 PO upon onset of migraine RIZATRIPTAN BENZOATE 02911099256 No Longer Active Love Perla Chambers NORVASC 5 MG TAB 1 PO daily AMLODIPINE BESYLATE 65844915687 Active Luisamaggy Haley ZOMIG 5 MG TABS 1 PO prn headache onset ZOLMITRIPTAN 70584295803 Active Luisamaggy Haley NAPROXEN 500 MG TAB 1 PO BID for 2 weeks then BID prn. NAPROXEN 55508979996 No Longer Active Luisamaggy Haley PARAFON FORTE DSC 500 MG TABS 1 PO TID prn CHLORZOXAZONE 06588908589 No Longer Active Love Perla Chambers FLEXERIL 10 MG TAB 1 PO TID prn CYCLOBENZAPRINE HCL 64967267456 No Longer Active Love Perla Chambers MELATONIN 5 MG TABS 1 PO QHS MELATONIN 18902089159 No Longer Active Love Perla Chambers LORATADINE 10 MG TABS 1 PO daily LORATADINE 55950588041 No Longer Active Love Perla Chambers LISINOPRIL-HYDROCHLOROTHIAZIDE 20-25 MG TABS 1/2 po daily LISINOPRIL-HYDROCHLOROTHIAZIDE 87545648402 No Longer Active Love Perla Chambers IBUPROFEN 200 MG TABS 1-2 PO Q6hrs prn IBUPROFEN 17042842682 No Longer Active Love Perla Chambers HYDROCHLOROTHIAZIDE 12.5 MG CAPS 1 PO QD HYDROCHLOROTHIAZIDE 55686727559 No Longer Active Love Perla Chambers CALCIUM 500 MG TABS 1 po daily CALCIUM 84641091445 No Longer Active Love Perla Chambers ROBITUSSIN A-C 10-100 MG/5ML SYRUP 5cc PO Q 4-6 hr prn ROBITUSSIN A-C 10-100 MG/5ML SYRUP 01163891436 No Longer Active Luisa Haley ROBITUSSIN A-C 10-100 MG/5ML SYRUP 5cc PO Q 4-6 hr prn ROBITUSSIN A-C 10-100 MG/5ML SYRUP 13895425704 No Longer Active Love Perla Chambers KETOCONAZOLE 2 % CREA apply to affected areas daily for 10 days KETOCONAZOLE 40045951633 No Longer Active Z Z ROBITUSSIN A-C 10-100 MG/5ML SYRUP 5cc PO Q 4-6 hr prn ROBITUSSIN A-C 10-100 MG/5ML SYRUP 24885036762 No Longer Active Love Perla Chambers ASTELIN 137 MCG/SPRAY SOLN 2 sprays each nostril BID AZELASTINE HCL 20865185199 No Longer Active Love Perla Chambers PREDNISONE 10 MG TAB 1 po daily for 5 days PREDNISONE 12549673982 No Longer Active Crystal LaGalle BIAXIN XL PAC 500 MG TB24 2 PO daily for 7 days CLARITHROMYCIN 26259232544 No Longer Active Love Perla Chambers TESSALON PERLES 100 MG CAPS 1 PO TID BENZONATATE 27748242021 No Longer Active Love Perla Chambers ZOMIG ZMT 5 MG TBDP 1 PO as directed ZOLMITRIPTAN 49661236477 No Longer Active Love Perla Chambers ROBITUSSIN A-C 10-100 MG/5ML SYRUP 5cc PO Q 4-6 hr prn ROBITUSSIN A-C 10-100 MG/5ML SYRUP 58730871870 No Longer Active Love Perla Reyes MULTIVITAMINS TABS 1 PO daily MULTIPLE VITAMIN 98984531286 Active Love Perla Garcianer LAMISIL 250 MG TABS 1 po daily TERBINAFINE HCL 86167068523 No Longer Active Love Perla Garcianer DIFLUCAN 100 MG TAB as directed and again on the FLUCONAZOLE 66786207807 No Longer Active Love Perla Garcianer LAMISIL 250 MG TABS 1 po daily TERBINAFINE HCL 74749891008 No Longer Active Love Perla Garcianer LAMISIL 250 MG TABS 1 po daily TERBINAFINE HCL 69501835455 No Longer Active Love Perla Reyes MULTIVITAMINS TABS 1 po daily MULTIPLE VITAMIN 51742358287 No Longer Active Love Perla Reyes CELEXA 40 MG TABS 2 tabs po daily CITALOPRAM HYDROBROMIDE 25816810749 No Longer Active Love Perla Reyes VIOXX 25 MG TABS ROFECOXIB 17415905011 No Longer Active Love Perlaneela Chambers FLEXERIL 10 MG TAB 1 PO TID prn CYCLOBENZAPRINE HCL 46658500543 No Longer Active Love Perla Reyse CELEBREX 200 MG CAPS 1 po qd prn CELECOXIB 31991953868 No Longer Active Love Perlaneela Chambers MERIDIA 10 MG CAPS 1 PO QAM SIBUTRAMINE HCL MONOHYDRATE 64669025703 No Longer Active Love Perlaneela Chambers ZYPREXA 5 MG TABS 1 PO QD for 3 days then dc OLANZAPINE 29367533062 No Longer Active Love Perlaneela Chambers GEODON 80 MG CAPS 1 PO BID ZIPRASIDONE HCL 68055460049 No Longer Active Love Perla Chambers GEODON 40 MG CAPS 2 PO BID for 3 days then 80mg PO BID ZIPRASIDONE HCL 60613977585 No Longer Active Love Perla Chambers ZYPREXA 10 MG TABS 1 po daily OLANZAPINE 11706164248 No Longer Active Love Perla Chambers ZITHROMAX Z-FRENCH 250 MG TABS as directed AZITHROMYCIN 18484905061 No Longer Active Love Perla Chambers ROBITUSSIN A-C 10-100 MG/5ML SYRUP 5cc PO Q 4-6 hr prn ROBITUSSIN A-C 10-100 MG/5ML SYRUP 32015814336 No Longer Active Love Perla Chambers YONAS 180 MG TABS 1 po daily FEXOFENADINE HCL 68647559680 No Longer Active E Extra COZAAR 100 MG TABS 1 po daily LOSARTAN POTASSIUM 61966440169 No Longer Active E Extra Vital Signs [...] /[LPF] Encounters Code Encounter Date Provider Facility CPT-50715 Ofc Vst, Est Level IV 16:11:20 CDT Love Chambers [facility] CPT-35252 Ofc Vst, Est Level III 19:44:03 CDT Love Chambers DO, FACP CPT-49014 Ofc Vst, Est Level IV 13:30:56 [employer]WE[employer] MANUFACTURING SUPERVISOR Love Chambers DO, FACP CPT-45326 Ofc Vst, Est Level IV 21:25:51 [employer]WE[employer] MANUFACTURING SUPERVISOR Love Chambers DO, FACP CPT-84343 Ofc Vst, Est Level IV 16:11:11 CDT Love Perla Chambers Love S Chambers, DO, FACP CPT-37332 Ofc Vst, Est Level IV 14:32:22 CDT Love Perla Spivey Chambers, DO, FACP CPT-30598 Ofc Vst, Est Level IV 15:27:30 CDT Love Perla Spivey Chambers, DO, FACP CPT-26592 Ofc Vst, Est Level IV 14:37:33 CDT Love Perla Spivey Chambers, DO, FACP CPT-03149 Ofc Vst, Est Level IV 15:32:09 CDT Loverina Spivey Reyes, DO, FACP CPT-56420 Ofc Vst, Est Level IV 16:00:22 CDT Loverina Spivey Reyes, DO, FACP CPT-61259 Ofc Vst, Est Level IV 15:32:51 CDT Love Perla Spivey Chambers, DO, FACP CPT-81988 Ofc Vst, Est Level V 15:25:22 EYEWE[employer] MANUFACTURING SUPERVISOR Love Chambers [facility] CPT-40717 Ofc Vst, Est Level V 15:28:03 EYEWE[employer] MANUFACTURING SUPERVISOR Love Spivey Chambers, DO, FACP CPT-99233 Ofc Vst, Est Level IV 16:40:35 CDT Loverina Chambers [facility] CPT-79193 Ofc Vst, Est Level IV 16:33:24 CDT Loverina Spivey Reyes, DO, FACP CPT-26719 Ofc Vst, Est Level IV 17:15:32 EYEWE[employer] MANUFACTURING SUPERVISOR Love Spivey Reyes, DO, FACP CPT-14666 Ofc Vst, Est Level IV 16:56:58 EYEWEAR MANUFACTURING SUPERVISOR Love Spivey Reyes, DO, FACP CPT-91043 Ofc Vst, Est Level IV 15:16:21 CDT Love Perla Reyes [facility] [place] CPT-73912 Ofc Vst, Est Level IV 18:11:14 EYEWE[employer] MANUFACTURING SUPERVISOR Love Oneillannstephon GarciaChambers [facility] [place] CPT-87263 Ofc Vst, Est Level III 17:02:57 CDT Love Perla Chambers [facility] [place] CPT-26413 Ofc Vst, Est Level IV 14:18:56 EYEWE[employer] MANUFACTURING SUPERVISOR Love Oneillanne Chambers [facility] [place] CPT-78634 Ofc Vst, Est Level IV 17:13:05 EYEWE[employer] MANUFACTURING SUPERVISOR Love Perla Chambers [facility] [place] CPT-92255 Ofc Vst, Est Level IV 18:05:16 CDT Love Perla Chambers [facility] [place] CPT-52457 Ofc Vst, Est Level III 14:56:10 EYEWEAR MANUFACTURING SUPERVISOR Love Oneillanne Reyes [facility] [place] CPT-84685 Ofc Vst, Est Level III 15:24:17 EYEWE[employer] MANUFACTURING SUPERVISOR Love Oneillannstephon GarciaChambers [facility] [place] CPT-89088 Ofc Vst, Est Level III 15:58:31 EYEWEAR MANUFACTURING SUPERVISOR Love Oneillanne Reyes [facility] [place] CPT-97475 Ofc Vst, New Level III 14:58:51 EYEWEAR MANUFACTURING SUPERVISOR Love Oneillannstephon GarciaChambers [facility] [place] Procedures Code Procedure Name Date Entry Date Standard Description CPT-28319 Preventive, Est, (40-64) 22:30:22 CDT CPT-34247 Preventive, Est, (40-64) 11:56:00 CDT CPT-12663 Preventive, Est, (40-64) 16:42:03 EYEWEAR MANUFACTURING SUPERVISOR CPT-90278 Preventive, New, (40-64) 14:29:23 EYEWEAR MANUFACTURING SUPERVISOR
--- OUTSIDE RECORDS SUMMARY | 2018-10-17 08:28 | XMS REPORT | Clinical Summary ---
Author Author User, [employer] Organization [facility] [place] Address Unknown Phone Unavailable Allergies, Adverse Reactions, [...] TOENAILS 110.1 Active Love Chambers [facility]atophytosis of [facility] HEALTH SCREENING V70.0 Resolved Love Chambers Routine general medical examination at a health care facility Medication List Medication Instructions Start Date Stop Date Generic Name NDC Status Provider Patient Instruction CYMBALTA 30 MG CPEP 1 PO daily DULOXETINE HCL 50836950886 No Longer Active Love Chambers MOBIC 15 MG TABS 1 PO daily MELOXICAM 91641067011 Active Love Chambers METFORMIN HCL 500 MG TABS 1 PO daily METFORMIN HCL 59969303860 Active Love Chambers LAMISIL 250 MG TAB 1 PO daily TERBINAFINE HCL 91429752861 Active Luisa Haley LEVOTHYROXINE SODIUM 112 MCG TABS 1 PO daily LEVOTHYROXINE SODIUM 39915023299 Active Luisa Haley NARDIL 15 MG TABS 1 PO BID PHENELZINE SULFATE 85285273575 No Longer Active Flor Matthews HYDROCODONE-ACETAMINOPHEN 5-325 MG TABS 1-2 PO Q4-6 hrs prn pain HYDROCODONE-ACETAMINOPHEN 44592675446 Active Love Chambers IBUPROFEN 600 MG TAB 1 PO TID prn IBUPROFEN 93256317678 Active Love Chambers ADVIL 200 MG CAPS 2 PO Q6hrs prn IBUPROFEN 68773314889 No Longer Active oLve Chambers FIORICET 50-325-40 MG TABS 1 PO Q 4 hours prn PIAGRKPOEV-XZCH-BUEDNUHH 09573752656 No Longer Active Love Chambers LASIX 20 MG TAB 1 PO daily prn fluid retention FUROSEMIDE 05772912610 No Longer Active Love Chambers TOPAMAX 25 MG TABS 1 PO BID TOPIRAMATE 80206664405 No Longer Active Love Chambers COZAAR 50 MG TAB 1 PO daily LOSARTAN POTASSIUM 42202683403 Active Luisa Tera DIFLUCAN 100 MG TAB 1 PO Daily FLUCONAZOLE 59032569286 No Longer Active Love Perla Chambers HYDROCHLOROTHIAZIDE 25 MG TAB 1 PO QD HYDROCHLOROTHIAZIDE 49232413650 No Longer Active Love Perla Chambers MAXALT-QUAHOGGER 10 MG TBDP 1 PO upon onset of migraine RIZATRIPTAN BENZOATE 03826985996 No Longer Active Love Perla Chambers NORVASC 5 MG TAB 1 PO daily AMLODIPINE BESYLATE 98286016097 Active Luisamaggy Haley ZOMIG 5 MG TABS 1 PO prn headache onset ZOLMITRIPTAN 97070236283 Active Luisamaggy Haley NAPROXEN 500 MG TAB 1 PO BID for 2 weeks then BID prn. NAPROXEN 62983227027 No Longer Active Luisa Haley PARAFON FORTE DSC 500 MG TABS 1 PO TID prn CHLORZOXAZONE 90233318133 No Longer Active Love Perla Chambers FLEXERIL 10 MG TAB 1 PO TID prn CYCLOBENZAPRINE HCL 57249297668 No Longer Active Love Perla Chambers MELATONIN 5 MG TABS 1 PO QHS MELATONIN 55921245527 No Longer Active Love Perla Chambers LORATADINE 10 MG TABS 1 PO daily LORATADINE 63958412885 No Longer Active Love Perla Chambers LISINOPRIL-HYDROCHLOROTHIAZIDE 20-25 MG TABS 1/2 po daily LISINOPRIL-HYDROCHLOROTHIAZIDE 70318397509 No Longer Active Love Perla Chambers IBUPROFEN 200 MG TABS 1-2 PO Q6hrs prn IBUPROFEN 94431049389 No Longer Active Love Perla Chambers HYDROCHLOROTHIAZIDE 12.5 MG CAPS 1 PO QD HYDROCHLOROTHIAZIDE 17629050317 No Longer Active Love Perla Chambers CALCIUM 500 MG TABS 1 po daily CALCIUM 50787508165 No Longer Active Love Perla Chambers ROBITUSSIN A-C 10-100 MG/5ML SYRUP 5cc PO Q 4-6 hr prn ROBITUSSIN A-C 10-100 MG/5ML SYRUP 53387084478 No Longer Active Luisa Haley ROBITUSSIN A-C 10-100 MG/5ML SYRUP 5cc PO Q 4-6 hr prn ROBITUSSIN A-C 10-100 MG/5ML SYRUP 74382915121 No Longer Active Love Perla Chambers KETOCONAZOLE 2 % CREA apply to affected areas daily for 10 days KETOCONAZOLE 96299719747 No Longer Active Z Z ROBITUSSIN A-C 10-100 MG/5ML SYRUP 5cc PO Q 4-6 hr prn ROBITUSSIN A-C 10-100 MG/5ML SYRUP 22293748493 No Longer Active Love Perla Chambers ASTELIN 137 MCG/SPRAY SOLN 2 sprays each nostril BID AZELASTINE HCL 76126737501 No Longer Active Love Perla Chambers PREDNISONE 10 MG TAB 1 po daily for 5 days PREDNISONE 91274960411 No Longer Active Crystal LaGalle BIAXIN XL PAC 500 MG TB24 2 PO daily for 7 days CLARITHROMYCIN 58979764755 No Longer Active Love Perla Chambers TESSALON PERLES 100 MG CAPS 1 PO TID BENZONATATE 39649290312 No Longer Active Love Perla Chambers ZOMIG ZMT 5 MG TBDP 1 PO as directed ZOLMITRIPTAN 97999675720 No Longer Active Love Perla Chambers ROBITUSSIN A-C 10-100 MG/5ML SYRUP 5cc PO Q 4-6 hr prn ROBITUSSIN A-C 10-100 MG/5ML SYRUP 95946548007 No Longer Active Love Perla Chambers MULTIVITAMINS TABS 1 PO daily MULTIPLE VITAMIN 18630120614 Active Love Perla Chambers LAMISIL 250 MG TABS 1 po daily TERBINAFINE HCL 43387084112 No Longer Active Love Perla Chambers DIFLUCAN 100 MG TAB as directed and again on the FLUCONAZOLE 43669056782 No Longer Active Love Perla Chambers LAMISIL 250 MG TABS 1 po daily TERBINAFINE HCL 52674461436 No Longer Active Love Perla Chambers LAMISIL 250 MG TABS 1 po daily TERBINAFINE HCL 54986861441 No Longer Active Love Perla Chambers MULTIVITAMINS TABS 1 po daily MULTIPLE VITAMIN 84841802484 No Longer Active Love Perla Chambers CELEXA 40 MG TABS 2 tabs po daily CITALOPRAM HYDROBROMIDE 46929208644 No Longer Active Love Perla Reyes VIOXX 25 MG TABS ROFECOXIB 42719712176 No Longer Active Love Perla Reyes FLEXERIL 10 MG TAB 1 PO TID prn CYCLOBENZAPRINE HCL 79825375689 No Longer Active Love Perla Reyes CELEBREX 200 MG CAPS 1 po qd prn CELECOXIB 52695611245 No Longer Active Love Perla Reyes MERIDIA 10 MG CAPS 1 PO QAM SIBUTRAMINE HCL MONOHYDRATE 65949285791 No Longer Active Love Perlaneela Chambers ZYPREXA 5 MG TABS 1 PO QD for 3 days then dc OLANZAPINE 00326483176 No Longer Active Love Perla Reyes GEODON 80 MG CAPS 1 PO BID ZIPRASIDONE HCL 29526931427 No Longer Active Love Perla Chambers GEODON 40 MG CAPS 2 PO BID for 3 days then 80mg PO BID ZIPRASIDONE HCL 50157763705 No Longer Active Love Perla Chambers ZYPREXA 10 MG TABS 1 po daily OLANZAPINE 04113468402 No Longer Active Love Perla Chambers ZITHROMAX Z-FRENCH 250 MG TABS as directed AZITHROMYCIN 58050334496 No Longer Active Love Perla Chambers ROBITUSSIN A-C 10-100 MG/5ML SYRUP 5cc PO Q 4-6 hr prn ROBITUSSIN A-C 10-100 MG/5ML SYRUP 38390553625 No Longer Active Love Perla Chambers YONAS 180 MG TABS 1 po daily FEXOFENADINE HCL 84444546570 No Longer Active E Extra COZAAR 100 MG TABS 1 po daily LOSARTAN POTASSIUM 96910604972 No Longer Active E Extra Vital Signs [...] Value Unit Range Description Clinical Lists Update: CBC,CMP,FLP,TSH,FREE T4,FERRITIN,HGA1C - Chemistry [...] 43 % leukocyte count, blood 8.7 10*3/mm3 Encounters Code Encounter Date Provider Facility CPT-18828 Ofc Vst, Est Level IV 16:11:20 CDT Loverina Garcianer [facility] CPT-30376 Ofc Vst, Est Level III 19:44:03 CDT Love Perla Reyes Chambers, DO, FACP CPT-26181 Ofc Vst, Est Level IV 13:30:56 LASER SPECIALIST Love Chambers, DO, FACP CPT-59452 Ofc Vst, Est Level IV 21:25:51 LASER SPECIALIST Love Chambers, DO, FACP CPT-97386 Ofc Vst, Est Level IV 16:11:11 CDT Loverina Chambers, DO, FACP CPT-38752 Ofc Vst, Est Level IV 14:32:22 CDT Loverina Chambers, DO, FACP CPT-99224 Ofc Vst, Est Level IV 15:27:30 CDT Loverina Chambers, DO, FACP CPT-09365 Ofc Vst, Est Level IV 14:37:33 CDT Love Chambers, DO, FACP CPT-94665 Ofc Vst, Est Level IV 15:32:09 CDT Loverina Chambers, DO, FACP CPT-58324 Ofc Vst, Est Level IV 16:00:22 CDT Loverina Chambers, DO, FACP CPT-23204 Ofc Vst, Est Level IV 15:32:51 CDT Loverina Chambers, DO, FACP CPT-39467 Ofc Vst, Est Level V 15:25:22 LASER SPECIALIST Love Chambers [facility] CPT-79991 Ofc Vst, Est Level V 15:28:03 LASER SPECIALIST Love Chambers, DO, FACP CPT-04102 Ofc Vst, Est Level IV 16:40:35 CDT Love Chambers [facility] CPT-57269 Ofc Vst, Est Level IV 16:33:24 CDT Love Perla Chambers, DO, FACP CPT-06563 Ofc Vst, Est Level IV 17:15:32 LASER SPECIALIST Love Chambers, DO, FACP CPT-45008 Ofc Vst, Est Level IV 16:56:58 LASER SPECIALIST Love Chambers, DO, FACP CPT-44271 Ofc Vst, Est Level IV 15:16:21 CDT Love Chambers [facility] [place] CPT-45179 Ofc Vst, Est Level IV 18:11:14 LASER SPECIALIST Love Chambers [facility] [place] CPT-46539 Ofc Vst, Est Level III 17:02:57 CDT Love Chambers [facility] [place] CPT-96548 Ofc Vst, Est Level IV 14:18:56 LASER SPECIALIST Love Chambers [facility] [place] CPT-05311 Ofc Vst, Est Level IV 17:13:05 LASER SPECIALIST Love Chambers [facility] [place] CPT-32389 Ofc Vst, Est Level IV 18:05:16 CDT Love Chambers [facility] [place] CPT-66315 Ofc Vst, Est Level III 14:56:10 LASER SPECIALIST Love Chambers [facility] [place] CPT-63842 Ofc Vst, Est Level III 15:24:17 LASER SPECIALIST Love Chambers [facility] [place] CPT-71430 Ofc Vst, Est Level III 15:58:31 LASER SPECIALIST Love Chambers [facility] [place] CPT-77430 Ofc Vst, New Level III 14:58:51 LASER SPECIALIST Love Chambers [facility] [place] Procedures Code Procedure Name Date Entry Date Standard Description CPT-04947 Preventive, Est, (40-64) 22:30:22 CDT CPT-62334 Preventive, Est, (40-64) 11:56:00 CDT CPT-02391 Preventive, Est, (40-64) 16:42:03 LASER SPECIALIST CPT-72437 Preventive, New, (40-64) 14:29:23 LASER SPECIALIST
--- OUTSIDE RECORDS SUMMARY | 2018-10-17 08:29 | XMS REPORT | Clinical Summary ---
Author Author User, [employer] Organization [facility] [place] Address Unknown Phone Unavailable Allergies, Adverse Reactions, [...] TOENAILS 110.1 Active Love Chambers Dermatophytosis of [facility] HEALTH SCREENING V70.0 Resolved Love Chambers Routine general medical examination at a health care facility Medication List Medication Instructions Start Date Stop Date Generic Name NDC Status Provider Patient Instruction CYMBALTA 30 MG CPEP 1 PO daily DULOXETINE HCL 93339194987 No Longer Active Love Chambers MOBIC 15 MG TABS 1 PO daily MELOXICAM 01963638869 Active Love Chambers METFORMIN HCL 500 MG TABS 1 PO daily METFORMIN HCL 72536844458 Active Love Chambers LAMISIL 250 MG TAB 1 PO daily TERBINAFINE HCL 88039482186 Active Luisa Haley LEVOTHYROXINE SODIUM 112 MCG TABS 1 PO daily LEVOTHYROXINE SODIUM 73099209796 Active Love Chambers NARDIL 15 MG TABS 1 PO BID PHENELZINE SULFATE 17772158129 No Longer Active Flor Matthews HYDROCODONE-ACETAMINOPHEN 5-325 MG TABS 1-2 PO Q4-6 hrs prn pain HYDROCODONE-ACETAMINOPHEN 86914742394 Active Love Chambers IBUPROFEN 600 MG TAB 1 PO TID prn IBUPROFEN 98379722000 Active Love Chambers ADVIL 200 MG CAPS 2 PO Q6hrs prn IBUPROFEN 53941640787 No Longer Active Love Chambers FIORICET 50-325-40 MG TABS 1 PO Q 4 hours prn [id number] 60371038871 No Longer Active Lvoe Chambers LASIX 20 MG TAB 1 PO daily prn fluid retention FUROSEMIDE 00711376227 No Longer Active Love Chambers TOPAMAX 25 MG TABS 1 PO BID TOPIRAMATE 20546105680 No Longer Active Loverina Chambers COZAAR 50 MG TAB 1 PO daily LOSARTAN POTASSIUM 54989260239 Active Luisa Tera DIFLUCAN 100 MG TAB 1 PO Daily FLUCONAZOLE 39376089205 No Longer Active Love Perla Chambers HYDROCHLOROTHIAZIDE 25 MG TAB 1 PO QD HYDROCHLOROTHIAZIDE 51422462575 No Longer Active Love Perla Chambers MAXALT-TEMPER MILL ROLLER 10 MG TBDP 1 PO upon onset of migraine RIZATRIPTAN BENZOATE 78474294503 No Longer Active Love Perla Chambers NORVASC 5 MG TAB 1 PO daily AMLODIPINE BESYLATE 17678933573 Active Luisamaggy Haley ZOMIG 5 MG TABS 1 PO prn headache onset ZOLMITRIPTAN 19715401485 Active Luisamaggy Haley NAPROXEN 500 MG TAB 1 PO BID for 2 weeks then BID prn. NAPROXEN 54516232960 No Longer Active Luisamaggy Haley PARAFON FORTE DSC 500 MG TABS 1 PO TID prn CHLORZOXAZONE 80372274876 No Longer Active Love Perla Chambers FLEXERIL 10 MG TAB 1 PO TID prn CYCLOBENZAPRINE HCL 59578247067 No Longer Active Love Perla Chambers MELATONIN 5 MG TABS 1 PO QHS MELATONIN 60940306393 No Longer Active Love Perla Chambers LORATADINE 10 MG TABS 1 PO daily LORATADINE 34762205233 No Longer Active Love Perla Chambers LISINOPRIL-HYDROCHLOROTHIAZIDE 20-25 MG TABS 1/2 po daily LISINOPRIL-HYDROCHLOROTHIAZIDE 31712941050 No Longer Active Love Perla Chambers IBUPROFEN 200 MG TABS 1-2 PO Q6hrs prn IBUPROFEN 94606211257 No Longer Active Love Perla Chambers HYDROCHLOROTHIAZIDE 12.5 MG CAPS 1 PO QD HYDROCHLOROTHIAZIDE 77538094404 No Longer Active Love Perla Chambers CALCIUM 500 MG TABS 1 po daily CALCIUM 14671643033 No Longer Active Love Perla Chambers ROBITUSSIN A-C 10-100 MG/5ML SYRUP 5cc PO Q 4-6 hr prn ROBITUSSIN A-C 10-100 MG/5ML SYRUP 09818402739 No Longer Active Luisa Haley ROBITUSSIN A-C 10-100 MG/5ML SYRUP 5cc PO Q 4-6 hr prn ROBITUSSIN A-C 10-100 MG/5ML SYRUP 40459092717 No Longer Active Love Perla Chambers KETOCONAZOLE 2 % CREA apply to affected areas daily for 10 days KETOCONAZOLE 23624528232 No Longer Active Z Z ROBITUSSIN A-C 10-100 MG/5ML SYRUP 5cc PO Q 4-6 hr prn ROBITUSSIN A-C 10-100 MG/5ML SYRUP 47969534662 No Longer Active Love Perla Chambers ASTELIN 137 MCG/SPRAY SOLN 2 sprays each nostril BID AZELASTINE HCL 08624925648 No Longer Active Love Perla Chambers PREDNISONE 10 MG TAB 1 po daily for 5 days PREDNISONE 11050821517 No Longer Active Crystal LaGalle BIAXIN XL PAC 500 MG TB24 2 PO daily for 7 days CLARITHROMYCIN 52709599231 No Longer Active Love Perla Chambers TESSALON PERLES 100 MG CAPS 1 PO TID BENZONATATE 76217623132 No Longer Active Love Perla Chambers ZOMIG ZMT 5 MG TBDP 1 PO as directed ZOLMITRIPTAN 96659760703 No Longer Active Love Perla Chambers ROBITUSSIN A-C 10-100 MG/5ML SYRUP 5cc PO Q 4-6 hr prn ROBITUSSIN A-C 10-100 MG/5ML SYRUP 86162510816 No Longer Active Love Perla Reyes MULTIVITAMINS TABS 1 PO daily MULTIPLE VITAMIN 40031744833 Active Love Perla Garcianer LAMISIL 250 MG TABS 1 po daily TERBINAFINE HCL 55914185852 No Longer Active Love Perla Garcianer DIFLUCAN 100 MG TAB as directed and again on the FLUCONAZOLE 04411583546 No Longer Active Love Perla Garcianer LAMISIL 250 MG TABS 1 po daily TERBINAFINE HCL 33456143167 No Longer Active Love Perla Garcianer LAMISIL 250 MG TABS 1 po daily TERBINAFINE HCL 07540188803 No Longer Active Love Perla Reyes MULTIVITAMINS TABS 1 po daily MULTIPLE VITAMIN 22085769423 No Longer Active Love Perla Reyes CELEXA 40 MG TABS 2 tabs po daily CITALOPRAM HYDROBROMIDE 35796033009 No Longer Active Love Perla Reyes VIOXX 25 MG TABS ROFECOXIB 63989430238 No Longer Active Love Perlaneela Chambers FLEXERIL 10 MG TAB 1 PO TID prn CYCLOBENZAPRINE HCL 34057793487 No Longer Active Love Perla Reyes CELEBREX 200 MG CAPS 1 po qd prn CELECOXIB 71616456850 No Longer Active Love Perlaneela Chambers MERIDIA 10 MG CAPS 1 PO QAM SIBUTRAMINE HCL MONOHYDRATE 45005884698 No Longer Active Love Perlaneela Chambers ZYPREXA 5 MG TABS 1 PO QD for 3 days then dc OLANZAPINE 37625072405 No Longer Active Love Perlaneela Chambers GEODON 80 MG CAPS 1 PO BID ZIPRASIDONE HCL 58373328455 No Longer Active Love Perla Chambers GEODON 40 MG CAPS 2 PO BID for 3 days then 80mg PO BID ZIPRASIDONE HCL 94784424049 No Longer Active Love Perla Chambers ZYPREXA 10 MG TABS 1 po daily OLANZAPINE 94282962628 No Longer Active Love Perla Chambers ZITHROMAX Z-FRENCH 250 MG TABS as directed AZITHROMYCIN 68306182296 No Longer Active Love Perla Chambers ROBITUSSIN A-C 10-100 MG/5ML SYRUP 5cc PO Q 4-6 hr prn ROBITUSSIN A-C 10-100 MG/5ML SYRUP 75733474976 No Longer Active Love Perla Chambers YONAS 180 MG TABS 1 po daily FEXOFENADINE HCL 58917090548 No Longer Active E Extra COZAAR 100 MG TABS 1 po daily LOSARTAN POTASSIUM 39161741100 No Longer Active E Extra Vital Signs [...] /[LPF] Encounters Code Encounter Date Provider Facility CPT-14747 Ofc Vst, Est Level IV 16:11:20 CDT Love Chambers [facility] CPT-44066 Ofc Vst, Est Level III 19:44:03 CDT Love Chambers DO, FACP CPT-42301 Ofc Vst, Est Level IV 13:30:56 [facility] Love Chambers DO, FACP CPT-43868 Ofc Vst, Est Level IV 21:25:51 [facility] Love Chambers DO, FACP CPT-05286 Ofc Vst, Est Level IV 16:11:11 CDT Love Perla Chambers Love S Chambers, DO, FACP CPT-88865 Ofc Vst, Est Level IV 14:32:22 CDT Love Perla Spivey Chambers, DO, FACP CPT-54907 Ofc Vst, Est Level IV 15:27:30 CDT Love Perla Spivey Chambers, DO, FACP CPT-06547 Ofc Vst, Est Level IV 14:37:33 CDT Love Perla Spivey Chambers, DO, FACP CPT-16949 Ofc Vst, Est Level IV 15:32:09 CDT Loverina Spivey Reyes, DO, FACP CPT-12013 Ofc Vst, Est Level IV 16:00:22 CDT Loverina Spivey Reyes, DO, FACP CPT-96737 Ofc Vst, Est Level IV 15:32:51 CDT Love Perla Spivey Chambers, DO, FACP CPT-52993 Ofc Vst, Est Level V 15:25:22 CHIEF [facility]OOK Love Chambers [facility] CPT-22116 Ofc Vst, Est Level V 15:28:03 CHIEF COOK Love Spivey Chambers, DO, FACP CPT-47251 Ofc Vst, Est Level IV 16:40:35 CDT Loverina Chambers [facility] CPT-53194 Ofc Vst, Est Level IV 16:33:24 CDT Loverina Spivey Reyes, DO, FACP CPT-87745 Ofc Vst, Est Level IV 17:15:32 CHIEF COOK Love Spivey Reyes, DO, FACP CPT-33286 Ofc Vst, Est Level IV 16:56:58 CHIEF COOK Love Spivey Reyes, DO, FACP CPT-00408 Ofc Vst, Est Level IV 15:16:21 CDT Love Perla Reyes [facility] [place] CPT-21784 Ofc Vst, Est Level IV 18:11:14 CHIEF COOK Love Oneillannstephon GarciaChambers [facility] [place] CPT-90025 Ofc Vst, Est Level III 17:02:57 CDT Love Perla Chambers [facility] [place] CPT-90718 Ofc Vst, Est Level IV 14:18:56 CHIEF COOK Love Oneillanne Chambers [facility] [place] CPT-89969 Ofc Vst, Est Level IV 17:13:05 CHIEF COOK Love Perla Chambers [facility] [place] CPT-43104 Ofc Vst, Est Level IV 18:05:16 CDT Love Perla Chambers [facility] [place] CPT-24578 Ofc Vst, Est Level III 14:56:10 CHIEF COOK Love Oneillanne Reyes [facility] [place] CPT-97874 Ofc Vst, Est Level III 15:24:17 CHIEF COOK Love Oneillannstephon GarciaChambers [facility] [place] CPT-63510 Ofc Vst, Est Level III 15:58:31 CHIEF COOK Love Oneillanne Reyes [facility] [place] CPT-96461 Ofc Vst, New Level III 14:58:51 CHIEF COOK Love Oneillannstephon GarciaChambers [facility] [place] Procedures Code Procedure Name Date Entry Date Standard Description CPT-80863 Preventive, Est, (40-64) 22:30:22 CDT CPT-38315 Preventive, Est, (40-64) 11:56:00 CDT CPT-50350 Preventive, Est, (40-64) 16:42:03 CHIEF COOK CPT-88989 Preventive, New, (40-64) 14:29:23 CHIEF COOK
--- OUTSIDE RECORDS SUMMARY | 2018-10-17 08:30 | XMS REPORT ---
Author Author User, [email or web address] Organization [facility] [place] Address Unknown Phone Unavailable Allergies, Adverse Reactions, [...] Unspecified hypothyroidism WRIST PAIN, RIGHT 719.43 Resolved Loev Chambers Pain in joint involving forearm PREMENSTRUAL [...] Pain in limb KNEE PAIN 719.46 Resolved Lvoe Chambers Pain in joint involving lower leg FOOT PAIN, RIGHT 729.5 Resolved Love Chambers Pain in limb OBSTRUCTIVE SLEEP APNEA 780.57 Active Love Chambers Unspecified sleep apnea HYPERGLYCEMIA, MILD 790.6 Active Love Chambers Other abnormal blood chemistry ONYCHOMYCOSIS, TOENAILS 110.1 Active Love Chambers Dermatophytosis of [facility] HEALTH SCREENING V70.0 Resolved Love Chambers Routine general medical examination at a health care facility Medication List Medication Instructions Start Date Stop Date Generic Name NDC Status Provider Patient Instruction CYMBALTA 30 MG CPEP 1 PO daily DULOXETINE HCL 59090749127 No Longer Active Love Chambers MOBIC 15 MG TABS 1 PO daily MELOXICAM 30353405680 Active Love Chambers METFORMIN HCL 500 MG TABS 1 PO daily METFORMIN HCL 30461982152 Active Love Chambers LAMISIL 250 MG TAB 1 PO daily TERBINAFINE HCL 02011335897 Active Luisa Haley LEVOTHYROXINE SODIUM 112 MCG TABS 1 PO daily LEVOTHYROXINE SODIUM 78260235525 Active Love Chambers NARDIL 15 MG TABS 1 PO BID PHENELZINE SULFATE 56907087541 No Longer Active Flor Matthews HYDROCODONE-ACETAMINOPHEN 5-325 MG TABS 1-2 PO Q4-6 hrs prn pain HYDROCODONE-ACETAMINOPHEN 51009854784 Active Love Chambers IBUPROFEN 600 MG TAB 1 PO TID prn IBUPROFEN 32650843568 Active Love Chambers ADVIL 200 MG CAPS 2 PO Q6hrs prn IBUPROFEN 17625472496 No Longer Active Love Chambers FIORICET 50-325-40 MG TABS 1 PO Q 4 hours prn [id number] 83891438491 No Longer Active Love Chambers LASIX 20 MG TAB 1 PO daily prn fluid retention FUROSEMIDE 81631187480 No Longer Active oLve Chambers TOPAMAX 25 MG TABS 1 PO BID TOPIRAMATE 47486211710 No Longer Active Loverina Chambers COZAAR 50 MG TAB 1 PO daily LOSARTAN POTASSIUM 70233652335 Active Luisa Tera DIFLUCAN 100 MG TAB 1 PO Daily FLUCONAZOLE 21451897778 No Longer Active Love Perla Chambers HYDROCHLOROTHIAZIDE 25 MG TAB 1 PO QD HYDROCHLOROTHIAZIDE 24164523399 No Longer Active Love Perla Chambers MAXALT-OB TECH 10 MG TBDP 1 PO upon onset of migraine RIZATRIPTAN BENZOATE 88507843022 No Longer Active Love Perla Chambers NORVASC 5 MG TAB 1 PO daily AMLODIPINE BESYLATE 68551870296 Active Luisamaggy Haley ZOMIG 5 MG TABS 1 PO prn headache onset ZOLMITRIPTAN 07687130777 Active Luisamaggy Haley NAPROXEN 500 MG TAB 1 PO BID for 2 weeks then BID prn. NAPROXEN 70159646319 No Longer Active Luisamaggy Haley PARAFON FORTE DSC 500 MG TABS 1 PO TID prn CHLORZOXAZONE 95969232046 No Longer Active Love Perla Chambers FLEXERIL 10 MG TAB 1 PO TID prn CYCLOBENZAPRINE HCL 31776312274 No Longer Active Love Perla Chambers MELATONIN 5 MG TABS 1 PO QHS MELATONIN 42572328547 No Longer Active Love Perla Chambers LORATADINE 10 MG TABS 1 PO daily LORATADINE 65124600994 No Longer Active Love Perla Chambers LISINOPRIL-HYDROCHLOROTHIAZIDE 20-25 MG TABS 1/2 po daily LISINOPRIL-HYDROCHLOROTHIAZIDE 73716428645 No Longer Active Love Perla Chambers IBUPROFEN 200 MG TABS 1-2 PO Q6hrs prn IBUPROFEN 17083743655 No Longer Active Love Perla Chambers HYDROCHLOROTHIAZIDE 12.5 MG CAPS 1 PO QD HYDROCHLOROTHIAZIDE 90158516099 No Longer Active Love Perla Chambers CALCIUM 500 MG TABS 1 po daily CALCIUM 25860562603 No Longer Active Love Perla Chambers ROBITUSSIN A-C 10-100 MG/5ML SYRUP 5cc PO Q 4-6 hr prn ROBITUSSIN A-C 10-100 MG/5ML SYRUP 39275639873 No Longer Active Luisa Haley ROBITUSSIN A-C 10-100 MG/5ML SYRUP 5cc PO Q 4-6 hr prn ROBITUSSIN A-C 10-100 MG/5ML SYRUP 65977182724 No Longer Active Love Perla Chambers KETOCONAZOLE 2 % CREA apply to affected areas daily for 10 days KETOCONAZOLE 18771819781 No Longer Active Z Z ROBITUSSIN A-C 10-100 MG/5ML SYRUP 5cc PO Q 4-6 hr prn ROBITUSSIN A-C 10-100 MG/5ML SYRUP 24032365852 No Longer Active Love Perla Chambers ASTELIN 137 MCG/SPRAY SOLN 2 sprays each nostril BID AZELASTINE HCL 96952716847 No Longer Active Love Perla Chambers PREDNISONE 10 MG TAB 1 po daily for 5 days PREDNISONE 65160755810 No Longer Active Crystal LaGalle BIAXIN XL PAC 500 MG TB24 2 PO daily for 7 days CLARITHROMYCIN 97121353756 No Longer Active Love Perla Chambers TESSALON PERLES 100 MG CAPS 1 PO TID BENZONATATE 72956970339 No Longer Active Love Perla Chambers ZOMIG ZMT 5 MG TBDP 1 PO as directed ZOLMITRIPTAN 43180620256 No Longer Active Love Perla Chambers ROBITUSSIN A-C 10-100 MG/5ML SYRUP 5cc PO Q 4-6 hr prn ROBITUSSIN A-C 10-100 MG/5ML SYRUP 60095611029 No Longer Active Love Perla Reyes MULTIVITAMINS TABS 1 PO daily MULTIPLE VITAMIN 53271005287 Active Love Perla Garcianer LAMISIL 250 MG TABS 1 po daily TERBINAFINE HCL 26163665219 No Longer Active Love Perla Garcianer DIFLUCAN 100 MG TAB as directed and again on the FLUCONAZOLE 94277296482 No Longer Active Love Perla Garcianer LAMISIL 250 MG TABS 1 po daily TERBINAFINE HCL 04806016628 No Longer Active Love Perla Garcianer LAMISIL 250 MG TABS 1 po daily TERBINAFINE HCL 13786586257 No Longer Active Love Perla Reyes MULTIVITAMINS TABS 1 po daily MULTIPLE VITAMIN 25786166137 No Longer Active Love Perla Reyes CELEXA 40 MG TABS 2 tabs po daily CITALOPRAM HYDROBROMIDE 11676577000 No Longer Active Love Perla Reyes VIOXX 25 MG TABS ROFECOXIB 83229937561 No Longer Active Love Perlaneela Chambers FLEXERIL 10 MG TAB 1 PO TID prn CYCLOBENZAPRINE HCL 26882510914 No Longer Active Love Perla Reyes CELEBREX 200 MG CAPS 1 po qd prn CELECOXIB 85151560453 No Longer Active Love Perlaneela Chambers MERIDIA 10 MG CAPS 1 PO QAM SIBUTRAMINE HCL MONOHYDRATE 98364132609 No Longer Active Love Perlaneela Chambers ZYPREXA 5 MG TABS 1 PO QD for 3 days then dc OLANZAPINE 64985595605 No Longer Active Love Perlaneela Chambers GEODON 80 MG CAPS 1 PO BID ZIPRASIDONE HCL 83495396416 No Longer Active Love Perla Chambers GEODON 40 MG CAPS 2 PO BID for 3 days then 80mg PO BID ZIPRASIDONE HCL 76475452632 No Longer Active Love Perla Chambers ZYPREXA 10 MG TABS 1 po daily OLANZAPINE 47911154367 No Longer Active Love Perla Chambers ZITHROMAX Z-FRENCH 250 MG TABS as directed AZITHROMYCIN 34364016421 No Longer Active Love Perla Chambers ROBITUSSIN A-C 10-100 MG/5ML SYRUP 5cc PO Q 4-6 hr prn ROBITUSSIN A-C 10-100 MG/5ML SYRUP 61599646516 No Longer Active Love Perla Chambers YONAS 180 MG TABS 1 po daily FEXOFENADINE HCL 89789742854 No Longer Active E Extra COZAAR 100 MG TABS 1 po daily LOSARTAN POTASSIUM 80534267147 No Longer Active E Extra Vital Signs [...] /[LPF] Encounters Code Encounter Date Provider Facility CPT-73679 Ofc Vst, Est Level IV 16:11:20 CDT Love Chambers [facility] CPT-81651 Ofc Vst, Est Level III 19:44:03 CDT Love Chambers DO, FACP CPT-13414 Ofc Vst, Est Level IV 13:30:56 HIM TECH Love Chambers DO, FACP CPT-46993 Ofc Vst, Est Level IV 21:25:51 HIM TECH Love Chambers DO, FACP CPT-56694 Ofc Vst, Est Level IV 16:11:11 CDT Love Perla Chambers Love S Chambers, DO, FACP CPT-59332 Ofc Vst, Est Level IV 14:32:22 CDT Love Perla Spivey Chambers, DO, FACP CPT-12116 Ofc Vst, Est Level IV 15:27:30 CDT Love Perla Spivey Chambers, DO, FACP CPT-18681 Ofc Vst, Est Level IV 14:37:33 CDT Love Perla Spivey Chambers, DO, FACP CPT-86412 Ofc Vst, Est Level IV 15:32:09 CDT Loverina Spivey Reyes, DO, FACP CPT-91660 Ofc Vst, Est Level IV 16:00:22 CDT Loverina Spivey Reyes, DO, FACP CPT-22861 Ofc Vst, Est Level IV 15:32:51 CDT Love Perla Spivey Chambers, DO, FACP CPT-03733 Ofc Vst, Est Level V 15:25:22 HIM TECH Love Chambers [facility] CPT-78060 Ofc Vst, Est Level V 15:28:03 HIM TECH Love Spivey Chambers, DO, FACP CPT-85521 Ofc Vst, Est Level IV 16:40:35 CDT Loverina Chambers [facility] CPT-03352 Ofc Vst, Est Level IV 16:33:24 CDT Loverina Spivey Reyes, DO, FACP CPT-98270 Ofc Vst, Est Level IV 17:15:32 HIM TECH Love Spivey Reyes, DO, FACP CPT-02089 Ofc Vst, Est Level IV 16:56:58 HIM TECH Love Spivey Reyes, DO, FACP CPT-88296 Ofc Vst, Est Level IV 15:16:21 CDT Love Perla Reyes [facility] [place] CPT-14136 Ofc Vst, Est Level IV 18:11:14 HIM TECH Love Oneillannstephon GarciaChambers [facility] [place] CPT-61312 Ofc Vst, Est Level III 17:02:57 CDT Love Perla Chambers [facility] [place] CPT-89630 Ofc Vst, Est Level IV 14:18:56 HIM TECH Love Oneillanne Chambers [facility] [place] CPT-73286 Ofc Vst, Est Level IV 17:13:05 HIM TECH Love Perla Chambers [facility] [place] CPT-72605 Ofc Vst, Est Level IV 18:05:16 CDT Love Perla Chambers [facility] [place] CPT-70353 Ofc Vst, Est Level III 14:56:10 HIM TECH Love Oneillanne Reyes [facility] [place] CPT-11464 Ofc Vst, Est Level III 15:24:17 HIM TECH Love Oneillannstephon GarciaChambers [facility] [place] CPT-31711 Ofc Vst, Est Level III 15:58:31 HIM TECH Love Oneillanne Reyes [facility] [place] CPT-29810 Ofc Vst, New Level III 14:58:51 HIM TECH Love Oneillannstephon GarciaChambers [facility] [place] Procedures Code Procedure Name Date Entry Date Standard Description CPT-26610 Preventive, Est, (40-64) 22:30:22 CDT CPT-89174 Preventive, Est, (40-64) 11:56:00 CDT CPT-89107 Preventive, Est, (40-64) 16:42:03 HIM TECH CPT-80268 Preventive, New, (40-64) 14:29:23 HIM TECH
--- OUTSIDE RECORDS SUMMARY | 2018-10-17 08:31 | XMS REPORT | Clinical Summary ---
Author Author User, [employer] Organization Formerly [facility] [place] Address Unknown Phone Unavailable Allergies, Adverse Reactions, [...] TOENAILS 110.1 Active Love Chambers Dermatophytosis of [facility] HEALTH SCREENING V70.0 Resolved Love Chambers Routine general medical examination at a health care facility Medication List Medication Instructions Start Date Stop Date Generic Name NDC Status Provider Patient Instruction CYMBALTA 30 MG CPEP 1 PO daily DULOXETINE HCL 67142885573 No Longer Active Love Chambers MOBIC 15 MG TABS 1 PO daily MELOXICAM 33732197921 Active Love Chambers METFORMIN HCL 500 MG TABS 1 PO daily METFORMIN HCL 01320304457 Active Love Chambers LAMISIL 250 MG TAB 1 PO daily TERBINAFINE HCL 24155031297 Active Luisa Haley LEVOTHYROXINE SODIUM 112 MCG TABS 1 PO daily LEVOTHYROXINE SODIUM 99650626724 Active Love Chambers NARDIL 15 MG TABS 1 PO BID PHENELZINE SULFATE 00845138643 No Longer Active Flor Matthews HYDROCODONE-ACETAMINOPHEN 5-325 MG TABS 1-2 PO Q4-6 hrs prn pain HYDROCODONE-ACETAMINOPHEN 51578483898 Active Love Chambers IBUPROFEN 600 MG TAB 1 PO TID prn IBUPROFEN 31176117956 Active Love Chambers ADVIL 200 MG CAPS 2 PO Q6hrs prn IBUPROFEN 07977057757 No Longer Active Love Chambers FIORICET 50-325-40 MG TABS 1 PO Q 4 hours prn [id number] 62085590600 No Longer Active Love Chambers LASIX 20 MG TAB 1 PO daily prn fluid retention FUROSEMIDE 87114190041 No Longer Active Love Chambers TOPAMAX 25 MG TABS 1 PO BID TOPIRAMATE 02873969540 No Longer Active Loverina Chambers COZAAR 50 MG TAB 1 PO daily LOSARTAN POTASSIUM 67177197054 Active Luisa Tera DIFLUCAN 100 MG TAB 1 PO Daily FLUCONAZOLE 46590593464 No Longer Active Love Perla Chambers HYDROCHLOROTHIAZIDE 25 MG TAB 1 PO QD HYDROCHLOROTHIAZIDE 73737856922 No Longer Active Love Perla Chambers MAXALT-PNEUMATIC RIVETER 10 MG TBDP 1 PO upon onset of migraine RIZATRIPTAN BENZOATE 31680876946 No Longer Active Love Perla Chambers NORVASC 5 MG TAB 1 PO daily AMLODIPINE BESYLATE 63010813497 Active Luisamaggy Haley ZOMIG 5 MG TABS 1 PO prn headache onset ZOLMITRIPTAN 97915321608 Active Luisamaggy Haley NAPROXEN 500 MG TAB 1 PO BID for 2 weeks then BID prn. NAPROXEN 85622398320 No Longer Active Luisamaggy Haley PARAFON FORTE DSC 500 MG TABS 1 PO TID prn CHLORZOXAZONE 95095855777 No Longer Active Love Perla Chambers FLEXERIL 10 MG TAB 1 PO TID prn CYCLOBENZAPRINE HCL 67679185613 No Longer Active Love Perla Chambers MELATONIN 5 MG TABS 1 PO QHS MELATONIN 56418621348 No Longer Active Love Perla Chambers LORATADINE 10 MG TABS 1 PO daily LORATADINE 35823636117 No Longer Active Love Perla Chambers LISINOPRIL-HYDROCHLOROTHIAZIDE 20-25 MG TABS 1/2 po daily LISINOPRIL-HYDROCHLOROTHIAZIDE 80938666581 No Longer Active Love Perla Chambers IBUPROFEN 200 MG TABS 1-2 PO Q6hrs prn IBUPROFEN 54081825079 No Longer Active Love Perla Chambers HYDROCHLOROTHIAZIDE 12.5 MG CAPS 1 PO QD HYDROCHLOROTHIAZIDE 10795701900 No Longer Active Love Perla Chambers CALCIUM 500 MG TABS 1 po daily CALCIUM 62778536636 No Longer Active Love Perla Chambers ROBITUSSIN A-C 10-100 MG/5ML SYRUP 5cc PO Q 4-6 hr prn ROBITUSSIN A-C 10-100 MG/5ML SYRUP 64579180240 No Longer Active Luisa Haley ROBITUSSIN A-C 10-100 MG/5ML SYRUP 5cc PO Q 4-6 hr prn ROBITUSSIN A-C 10-100 MG/5ML SYRUP 49361163380 No Longer Active Love Perla Chambers KETOCONAZOLE 2 % CREA apply to affected areas daily for 10 days KETOCONAZOLE 78467239695 No Longer Active Z Z ROBITUSSIN A-C 10-100 MG/5ML SYRUP 5cc PO Q 4-6 hr prn ROBITUSSIN A-C 10-100 MG/5ML SYRUP 29596791667 No Longer Active Love Perla Chambers ASTELIN 137 MCG/SPRAY SOLN 2 sprays each nostril BID AZELASTINE HCL 02495526290 No Longer Active Love Perla Chambers PREDNISONE 10 MG TAB 1 po daily for 5 days PREDNISONE 89719255732 No Longer Active Crystal LaGalle BIAXIN XL PAC 500 MG TB24 2 PO daily for 7 days CLARITHROMYCIN 53114826911 No Longer Active Love Perla Chambers TESSALON PERLES 100 MG CAPS 1 PO TID BENZONATATE 18253484160 No Longer Active Love Perla Chambers ZOMIG ZMT 5 MG TBDP 1 PO as directed ZOLMITRIPTAN 77464196896 No Longer Active Love Perla Chambers ROBITUSSIN A-C 10-100 MG/5ML SYRUP 5cc PO Q 4-6 hr prn ROBITUSSIN A-C 10-100 MG/5ML SYRUP 30579695850 No Longer Active Love Perla Reyes MULTIVITAMINS TABS 1 PO daily MULTIPLE VITAMIN 87468549438 Active Love Perla Garcianer LAMISIL 250 MG TABS 1 po daily TERBINAFINE HCL 28679408421 No Longer Active Love Perla Garcianer DIFLUCAN 100 MG TAB as directed and again on the FLUCONAZOLE 89084476444 No Longer Active Love Perla Garcianer LAMISIL 250 MG TABS 1 po daily TERBINAFINE HCL 05462908228 No Longer Active Love Perla Garcianer LAMISIL 250 MG TABS 1 po daily TERBINAFINE HCL 35437310787 No Longer Active Love Perla Reyes MULTIVITAMINS TABS 1 po daily MULTIPLE VITAMIN 66579944893 No Longer Active Love Perla Reyes CELEXA 40 MG TABS 2 tabs po daily CITALOPRAM HYDROBROMIDE 33553158284 No Longer Active Love Perla Reyes VIOXX 25 MG TABS ROFECOXIB 68165701130 No Longer Active Love Perlaneela Chambers FLEXERIL 10 MG TAB 1 PO TID prn CYCLOBENZAPRINE HCL 84185321475 No Longer Active Love Perla Reyes CELEBREX 200 MG CAPS 1 po qd prn CELECOXIB 40514069331 No Longer Active Love Perlaneela Chambers MERIDIA 10 MG CAPS 1 PO QAM SIBUTRAMINE HCL MONOHYDRATE 00836180885 No Longer Active Love Perlaneela Chambers ZYPREXA 5 MG TABS 1 PO QD for 3 days then dc OLANZAPINE 98588351989 No Longer Active Love Perlaneela Chambers GEODON 80 MG CAPS 1 PO BID ZIPRASIDONE HCL 15270273306 No Longer Active Love Perla Chambers GEODON 40 MG CAPS 2 PO BID for 3 days then 80mg PO BID ZIPRASIDONE HCL 66747818192 No Longer Active Love Perla Chambers ZYPREXA 10 MG TABS 1 po daily OLANZAPINE 67834574269 No Longer Active Love Perla Chambers ZITHROMAX Z-FRENCH 250 MG TABS as directed AZITHROMYCIN 96434108687 No Longer Active Love Perla Chambers ROBITUSSIN A-C 10-100 MG/5ML SYRUP 5cc PO Q 4-6 hr prn ROBITUSSIN A-C 10-100 MG/5ML SYRUP 11442877888 No Longer Active Love Perla Chambers YONAS 180 MG TABS 1 po daily FEXOFENADINE HCL 37608883166 No Longer Active E Extra COZAAR 100 MG TABS 1 po daily LOSARTAN POTASSIUM 06527585797 No Longer Active E Extra Vital Signs [...] /[LPF] Encounters Code Encounter Date Provider Facility CPT-98976 Ofc Vst, Est Level IV 16:11:20 CDT Love Chambers [place] [facility] CPT-44600 Ofc Vst, Est Level III 19:44:03 CDT Love Chambers DO, FACP CPT-52191 Ofc Vst, Est Level IV 13:30:56 VAN HELPER Love Chambers DO, FACP CPT-58075 Ofc Vst, Est Level IV 21:25:51 V[facility] HELPER Love Chambers DO, FACP CPT-23654 Ofc Vst, Est Level IV 16:11:11 CDT Love Perla Chambers Love S Chambers, DO, FACP CPT-11750 Ofc Vst, Est Level IV 14:32:22 CDT Love Perla Spivey Chambers, DO, FACP CPT-17597 Ofc Vst, Est Level IV 15:27:30 CDT Love Perla Spivey Chambers, DO, FACP CPT-53031 Ofc Vst, Est Level IV 14:37:33 CDT Love Perla Spivey Chambers, DO, FACP CPT-14168 Ofc Vst, Est Level IV 15:32:09 CDT Loverina Spivey Reyes, DO, FACP CPT-12298 Ofc Vst, Est Level IV 16:00:22 CDT Loverina Spivey Reyes, DO, FACP CPT-93216 Ofc Vst, Est Level IV 15:32:51 CDT Love Perla Spivey Chambers, DO, FACP CPT-37945 Ofc Vst, Est Level V 15:25:22 VAN HELPER Love Chambers [facility] CPT-03292 Ofc Vst, Est Level V 15:28:03 VAN HELPER Love Spivey Chambers, DO, FACP CPT-00386 Ofc Vst, Est Level IV 16:40:35 CDT Loverina Chambers [facility] CPT-38081 Ofc Vst, Est Level IV 16:33:24 CDT Loverina Spivey Reyes, DO, FACP CPT-97236 Ofc Vst, Est Level IV 17:15:32 VAN HELPER Love Spivey Reyes, DO, FACP CPT-39657 Ofc Vst, Est Level IV 16:56:58 VAN HELPER Love Spivey Reyes, DO, FACP CPT-47455 Ofc Vst, Est Level IV 15:16:21 CDT Love Perla Reyes [facility] [place] CPT-18087 Ofc Vst, Est Level IV 18:11:14 VAN HELPER Love Oneillannstephon GarciaChambers [facility] [place] CPT-90505 Ofc Vst, Est Level III 17:02:57 CDT Love Perla Chambers [facility] [place] CPT-11198 Ofc Vst, Est Level IV 14:18:56 VAN HELPER Love Oneillanne Chambers [facility] [place] CPT-06302 Ofc Vst, Est Level IV 17:13:05 VAN HELPER Love Perla Chambers [facility] [place] CPT-34274 Ofc Vst, Est Level IV 18:05:16 CDT Love Perla Chambers [facility] [place] CPT-67191 Ofc Vst, Est Level III 14:56:10 VAN HELPER Love Oneillanne Reyes [facility] [place] CPT-12208 Ofc Vst, Est Level III 15:24:17 VAN HELPER [facility] [place] CPT-40479 Ofc Vst, Est Level III 15:58:31 VAN HELPER Love Oneillanne Reyes [facility] [place] CPT-13816 Ofc Vst, New Level III 14:58:51 VAN HELPER Love Oneillannstephon GarciaChambers [facility] [place] Procedures Code Procedure Name Date Entry Date Standard Description CPT-71939 Preventive, Est, (40-64) 22:30:22 CDT CPT-91865 Preventive, Est, (40-64) 11:56:00 CDT CPT-83876 Preventive, Est, (40-64) 16:42:03 VAN HELPER CPT-24009 Preventive, New, (40-64) 14:29:23 VAN HELPER
--- OUTSIDE RECORDS SUMMARY | 2018-10-17 08:31 | XMS REPORT | Clinical Summary ---
Author Author User, [employer] Organization [facility] [place] Address Unknown Phone Unavailable Allergies, Adverse Reactions, [...] TOENAILS 110.1 Active Love Chambers Dermatophytosis of [facility] HEALTH SCREENING V70.0 Resolved Love Chambers Routine general medical examination at a health care facility Medication List Medication Instructions Start Date Stop Date Generic Name NDC Status Provider Patient Instruction CYMBALTA 30 MG CPEP 1 PO daily DULOXETINE HCL 48466772929 No Longer Active Love Chambers MOBIC 15 MG TABS 1 PO daily MELOXICAM 99172420982 Active Love Chambers METFORMIN HCL 500 MG TABS 1 PO daily METFORMIN HCL 55417964462 Active Love Chambers LAMISIL 250 MG TAB 1 PO daily TERBINAFINE HCL 46436990057 Active Luisa Haley LEVOTHYROXINE SODIUM 112 MCG TABS 1 PO daily LEVOTHYROXINE SODIUM 99023697988 Active Love Chambers NARDIL 15 MG TABS 1 PO BID PHENELZINE SULFATE 57519375535 No Longer Active Flor Matthews HYDROCODONE-ACETAMINOPHEN 5-325 MG TABS 1-2 PO Q4-6 hrs prn pain HYDROCODONE-ACETAMINOPHEN 20227956241 Active Love Chambers IBUPROFEN 600 MG TAB 1 PO TID prn IBUPROFEN 29850244526 Active Love Chambers ADVIL 200 MG CAPS 2 PO Q6hrs prn IBUPROFEN 41110621619 No Longer Active Love Chambers FIORICET 50-325-40 MG TABS 1 PO Q 4 hours prn [id number] 35390292850 No Longer Active Love Chambers LASIX 20 MG TAB 1 PO daily prn fluid retention FUROSEMIDE 45340735648 No Longer Active Love Chambers TOPAMAX 25 MG TABS 1 PO BID TOPIRAMATE 57390304430 No Longer Active Loverina Chambers COZAAR 50 MG TAB 1 PO daily LOSARTAN POTASSIUM 10067323275 Active Luisa Tera DIFLUCAN 100 MG TAB 1 PO Daily FLUCONAZOLE 64915233249 No Longer Active Love Perla Chambers HYDROCHLOROTHIAZIDE 25 MG TAB 1 PO QD HYDROCHLOROTHIAZIDE 01848157329 No Longer Active Love Perla Chambers MAXALT-RN RESEARCH 10 MG TBDP 1 PO upon onset of migraine RIZATRIPTAN BENZOATE 60809326421 No Longer Active Love Perla Chambers NORVASC 5 MG TAB 1 PO daily AMLODIPINE BESYLATE 53803238292 Active Luisamaggy Haley ZOMIG 5 MG TABS 1 PO prn headache onset ZOLMITRIPTAN 97399354182 Active Luisamaggy Haley NAPROXEN 500 MG TAB 1 PO BID for 2 weeks then BID prn. NAPROXEN 07698494007 No Longer Active Luisamaggy Haley PARAFON FORTE DSC 500 MG TABS 1 PO TID prn CHLORZOXAZONE 74177624603 No Longer Active Love Perla Chambers FLEXERIL 10 MG TAB 1 PO TID prn CYCLOBENZAPRINE HCL 76591038670 No Longer Active Love Perla Chambers MELATONIN 5 MG TABS 1 PO QHS MELATONIN 96500320621 No Longer Active Love Perla Chambers LORATADINE 10 MG TABS 1 PO daily LORATADINE 48390570231 No Longer Active Love Perla Chambers LISINOPRIL-HYDROCHLOROTHIAZIDE 20-25 MG TABS 1/2 po daily LISINOPRIL-HYDROCHLOROTHIAZIDE 63174505300 No Longer Active Love Perla Chambers IBUPROFEN 200 MG TABS 1-2 PO Q6hrs prn IBUPROFEN 14637282278 No Longer Active Love Perla Chambers HYDROCHLOROTHIAZIDE 12.5 MG CAPS 1 PO QD HYDROCHLOROTHIAZIDE 62762319049 No Longer Active Love Perla Chambers CALCIUM 500 MG TABS 1 po daily CALCIUM 38499494000 No Longer Active Love Perla Chambers ROBITUSSIN A-C 10-100 MG/5ML SYRUP 5cc PO Q 4-6 hr prn ROBITUSSIN A-C 10-100 MG/5ML SYRUP 61110607245 No Longer Active Luisa Haley ROBITUSSIN A-C 10-100 MG/5ML SYRUP 5cc PO Q 4-6 hr prn ROBITUSSIN A-C 10-100 MG/5ML SYRUP 75184074433 No Longer Active Love Perla Chambers KETOCONAZOLE 2 % CREA apply to affected areas daily for 10 days KETOCONAZOLE 23011230245 No Longer Active Z Z ROBITUSSIN A-C 10-100 MG/5ML SYRUP 5cc PO Q 4-6 hr prn ROBITUSSIN A-C 10-100 MG/5ML SYRUP 63972116931 No Longer Active Love Perla Chambers ASTELIN 137 MCG/SPRAY SOLN 2 sprays each nostril BID AZELASTINE HCL 51515786206 No Longer Active Love Perla Chambers PREDNISONE 10 MG TAB 1 po daily for 5 days PREDNISONE 66991802680 No Longer Active Crystal LaGalle BIAXIN XL PAC 500 MG TB24 2 PO daily for 7 days CLARITHROMYCIN 67800142690 No Longer Active Love Perla Chambers TESSALON PERLES 100 MG CAPS 1 PO TID BENZONATATE 75620170103 No Longer Active Love Perla Chambers ZOMIG ZMT 5 MG TBDP 1 PO as directed ZOLMITRIPTAN 19376546650 No Longer Active Love Perla Chambers ROBITUSSIN A-C 10-100 MG/5ML SYRUP 5cc PO Q 4-6 hr prn ROBITUSSIN A-C 10-100 MG/5ML SYRUP 63258106062 No Longer Active Love Perla Reyes MULTIVITAMINS TABS 1 PO daily MULTIPLE VITAMIN 39936584332 Active Love Perla Garcianer LAMISIL 250 MG TABS 1 po daily TERBINAFINE HCL 22643140630 No Longer Active Love Perla Garcianer DIFLUCAN 100 MG TAB as directed and again on the FLUCONAZOLE 86572538176 No Longer Active Love Perla Garcianer LAMISIL 250 MG TABS 1 po daily TERBINAFINE HCL 92296900917 No Longer Active Love Perla Garcianer LAMISIL 250 MG TABS 1 po daily TERBINAFINE HCL 05825121062 No Longer Active Love Perla Reyes MULTIVITAMINS TABS 1 po daily MULTIPLE VITAMIN 53702945072 No Longer Active Love Perla Reyes CELEXA 40 MG TABS 2 tabs po daily CITALOPRAM HYDROBROMIDE 51544054974 No Longer Active Love Perla Reyes VIOXX 25 MG TABS ROFECOXIB 92258357744 No Longer Active Love Perlaneela Chambers FLEXERIL 10 MG TAB 1 PO TID prn CYCLOBENZAPRINE HCL 82835314915 No Longer Active Love Perla Reyes CELEBREX 200 MG CAPS 1 po qd prn CELECOXIB 07157000610 No Longer Active Love Perlaneela Chambers MERIDIA 10 MG CAPS 1 PO QAM SIBUTRAMINE HCL MONOHYDRATE 85813362701 No Longer Active Love Perlaneela Chambers ZYPREXA 5 MG TABS 1 PO QD for 3 days then dc OLANZAPINE 11148931593 No Longer Active Love Perlaneela Chambers GEODON 80 MG CAPS 1 PO BID ZIPRASIDONE HCL 86183981799 No Longer Active Love Perla Chambers GEODON 40 MG CAPS 2 PO BID for 3 days then 80mg PO BID ZIPRASIDONE HCL 55258310019 No Longer Active Love Perla Chambers ZYPREXA 10 MG TABS 1 po daily OLANZAPINE 24355500545 No Longer Active Love Perla Chambers ZITHROMAX Z-FRENCH 250 MG TABS as directed AZITHROMYCIN 40815379636 No Longer Active Love Perla Chambers ROBITUSSIN A-C 10-100 MG/5ML SYRUP 5cc PO Q 4-6 hr prn ROBITUSSIN A-C 10-100 MG/5ML SYRUP 13501081424 No Longer Active Love Perla Chambers YONAS 180 MG TABS 1 po daily FEXOFENADINE HCL 37928240906 No Longer Active E Extra COZAAR 100 MG TABS 1 po daily LOSARTAN POTASSIUM 80938763455 No Longer Active E Extra Vital Signs [...] /[LPF] Encounters Code Encounter Date Provider Facility CPT-85562 Ofc Vst, Est Level IV 16:11:20 CDT Love Chambers [place] [facility] CPT-56153 Ofc Vst, Est Level III 19:44:03 CDT Love Chambers DO, FACP CPT-50070 Ofc Vst, Est Level IV 13:30:56 MARINE ENGINE DRIVER Love Chambers DO, FACP CPT-08858 Ofc Vst, Est Level IV 21:25:51 MARINE ENGINE DRIVER Love Chambers DO, FACP CPT-84946 Ofc Vst, Est Level IV 16:11:11 CDT Love Perla Chambers Love S Chambers, DO, FACP CPT-70656 Ofc Vst, Est Level IV 14:32:22 CDT Love Perla Spivey Chambers, DO, FACP CPT-50032 Ofc Vst, Est Level IV 15:27:30 CDT Love Perla Spivey Chambers, DO, FACP CPT-08473 Ofc Vst, Est Level IV 14:37:33 CDT Love Perla Spivey Chambers, DO, FACP CPT-00687 Ofc Vst, Est Level IV 15:32:09 CDT Loverina Spivey Reyes, DO, FACP CPT-33217 Ofc Vst, Est Level IV 16:00:22 CDT Loverina Spivey Reyes, DO, FACP CPT-66088 Ofc Vst, Est Level IV 15:32:51 CDT Love Perla Spivey Chambers, DO, FACP CPT-13432 Ofc Vst, Est Level V 15:25:22 MARINE ENGINE DRIVER Love Chambers [facility] CPT-58460 Ofc Vst, Est Level V 15:28:03 MARINE ENGINE DRIVER Love Spivey Chambers, DO, FACP CPT-93956 Ofc Vst, Est Level IV 16:40:35 CDT Loverina Chambers [facility] CPT-50179 Ofc Vst, Est Level IV 16:33:24 CDT Loverina Spivey Reyes, DO, FACP CPT-90062 Ofc Vst, Est Level IV 17:15:32 MARINE ENGINE DRIVER Love Spivey Reyes, DO, FACP CPT-23291 Ofc Vst, Est Level IV 16:56:58 MARINE ENGINE DRIVER Love Spivey Reyes, DO, FACP CPT-18475 Ofc Vst, Est Level IV 15:16:21 CDT Love Perla Reyes [facility] [place] CPT-32006 Ofc Vst, Est Level IV 18:11:14 MARINE ENGINE DRIVER Love Oneillannstephon GarciaChambers [facility] [place] CPT-56150 Ofc Vst, Est Level III 17:02:57 CDT Love Perla Chambers [facility] [place] CPT-93614 Ofc Vst, Est Level IV 14:18:56 MARINE ENGINE DRIVER Love Oneillanne Chambers [facility] [place] CPT-13521 Ofc Vst, Est Level IV 17:13:05 MARINE ENGINE DRIVER Love Perla Chambers [facility] [place] CPT-87838 Ofc Vst, Est Level IV 18:05:16 CDT Love Perla Chambers [facility] [place] CPT-64145 Ofc Vst, Est Level III 14:56:10 MARINE ENGINE DRIVER Love Oneillanne Reyes [facility] [place] CPT-83055 Ofc Vst, Est Level III 15:24:17 MARINE ENGINE DRIVER Love [facility]phon [facility] [place] CPT-64124 Ofc Vst, Est Level III 15:58:31 MARINE ENGINE DRIVER Love Oneillanne Reyes [facility] [place] CPT-81319 Ofc Vst, New Level III 14:58:51 MARINE ENGINE DRIVER Love Oneillannstephon GarciaChambers [facility] [place] Procedures Code Procedure Name Date Entry Date Standard Description CPT-81553 Preventive, Est, (40-64) 22:30:22 CDT CPT-73657 Preventive, Est, (40-64) 11:56:00 CDT CPT-03860 Preventive, Est, (40-64) 16:42:03 MARINE ENGINE DRIVER CPT-68361 Preventive, New, (40-64) 14:29:23 MARINE ENGINE DRIVER
--- OUTSIDE RECORDS SUMMARY | 2018-10-17 08:34 | XMS REPORT | Continuity of Care Document ---
Author Organization Unknown Address Unknown Allergies Active Description Code Type Severity Reaction Onset Reported/Identified Relationship to Patient Clinical Status Yes [id number] (SULFA (SULFONAMIDE ANTIBIOTICS)) [id number] (SULFA (SULFONAMIDE ANTIBIOTICS)) Mild RASH 05/19/2009 Yes Penicillins [id number] Drug Allergy Mild N/A 05/19/2009 Yes Sulfa (Sulfonamide Antibiotics) [id number] Drug Allergy Unknown N/A 06/10/2009 Yes OPIOIDS OPIOIDS Unknown N/A 05/09/2017 Medications There is no data. Problems Date Dx Coded Attending Type Code Diagnosis Diagnosed By 08/20/2013 POPPY MARSH DO Ot 346.90 MIGRAINE UNSPECIFIED W/O INTRACT MGRN W/ 08/20/2013 POPPY MARSH DO Ot 401.9 HYPERTENSION NOS 08/20/2013 POPPY MARSH DO Ot 782.0 SKIN SENSATION DISTURB 07/23/2014 SOPHIA JEFFRIES MD Ot 625.9 07/23/2014 SOPHIA JEFFRIES MD Ot 715.36 07/23/2014 SOPHIA JEFFRIES MD Ot 719.46 07/23/2014 SOPHIA JEFFRIES MD Ot 722.52 07/23/2014 SOPHIA JEFFRIES MD Ot 733.90 08/24/2014 BANDAR ANDRADE DO Ot 401.9 10/11/2016 SOPHIA JEFFRIES MD Ot 625.9 FEM GENITAL SYMPTOMS NOS 10/11/2016 SOPHIA JEFFRIES MD Ot 715.36 LOC OSTEOARTH NOS-L/LEG 10/11/2016 SOPHIA JEFFRIES MD Ot 719.46 JOINT PAIN-L/LEG 10/11/2016 SOPHIA JEFFRIES MD Ot 722.52 LUMB/LUMBOSAC DISC DEGEN 10/11/2016 SOPHIA JEFFRIES MD Ot 733.90 BONE CARTILAGE DIS NOS 10/11/2016 BANDAR ANDRADE DO Ot 401.9 HYPERTENSION NOS 10/26/2016 BANDAR ANDRADE DO Ot C91.00 ACUTE LYMPHOBLASTIC LEUKEMIA NOT HAVING 05/10/2017 DIAMOND ANNE MD Ot D64.9 ANEMIA, UNSPECIFIED 05/10/2017 DIAMOND ANNE MD Ot D69.6 THROMBOCYTOPENIA, UNSPECIFIED 05/10/2017 DIAMOND ANNE MD Ot F32.9 MAJOR DEPRESSIVE DISORDER, SINGLE EPISOD 05/10/2017 DIAMOND ANNE MD T Ot I10 ESSENTIAL (PRIMARY) HYPERTENSION 05/10/2017 DIAMOND ANNE MD T Ot K92.1 MELENA 05/10/2017 DIAMOND ANNE MD Ot N17.9 ACUTE KIDNEY FAILURE, UNSPECIFIED 05/10/2017 DIAMOND ANNE MD Ot R50.9 FEVER, UNSPECIFIED 05/10/2017 DIAMOND ANNE MD Ot R53.1 WEAKNESS 05/10/2017 DIAMOND ANNE MD T Ot Z85.6 PERSONAL HISTORY OF LEUKEMIA 05/10/2017 OMID LOVE, DIAMOND T Ot Z88.0 ALLERGY STATUS TO PENICILLIN 05/10/2017 DIAMOND ANNE MD T Ot Z88.2 ALLERGY STATUS TO SULFONAMIDES STATUS 05/10/2017 DIAMOND ANNE MD Ot Z88.5 ALLERGY STATUS TO NARCOTIC AGENT STATUS 05/10/2017 DIAMOND ANNE MD Ot Z94.81 BONE MARROW TRANSPLANT STATUS 05/10/2017 DIAMOND ANNE MD Ot Z98.84 BARIATRIC SURGERY STATUS 05/10/2017 BANDAR ANDRADE DO Ot C91.00 ACUTE LYMPHOBLASTIC LEUKEMIA NOT HAVING 05/13/2017 DIAMOND ANNE MD Ot D64.9 ANEMIA, UNSPECIFIED 05/13/2017 DIAMOND ANNE MD Ot D69.6 THROMBOCYTOPENIA, UNSPECIFIED 05/13/2017 DIAMOND ANNE MD Ot F32.9 MAJOR DEPRESSIVE DISORDER, SINGLE EPISOD 05/13/2017 DIAMOND ANNE MD T Ot I10 ESSENTIAL (PRIMARY) HYPERTENSION 05/13/2017 DIAMOND ANNE MD T Ot K92.1 MELENA 05/13/2017 OMID LOVE, DIAMOND Bejarano Ot N17.9 ACUTE KIDNEY FAILURE, UNSPECIFIED 05/13/2017 OMID LOVE, DIAMOND Bejarano Ot R50.9 FEVER, UNSPECIFIED 05/13/2017 OMID LOVE, DIAMOND Bejarano Ot R53.1 WEAKNESS 05/13/2017 OMID LOVE, DIAMOND Bejarano Ot Z85.6 PERSONAL HISTORY OF LEUKEMIA 05/13/2017 OMID LOVE, DIAMOND Bejarano Ot Z88.0 ALLERGY STATUS TO PENICILLIN 05/13/2017 OMID LOVE, DIAMOND Bejarano Ot Z88.2 ALLERGY STATUS TO SULFONAMIDES STATUS 05/13/2017 OMID LOVE, DIAMOND Bejarano Ot Z88.5 ALLERGY STATUS TO NARCOTIC AGENT STATUS 05/13/2017 OMID LOVE, DIAMOND Bejarano Ot Z94.81 BONE MARROW TRANSPLANT STATUS 05/13/2017 OMID LOVE, DIAMOND Bejarano Ot Z98.84 BARIATRIC SURGERY STATUS 05/27/2017 BANDAR ANDRADE DO Ot C91.00 ACUTE LYMPHOBLASTIC LEUKEMIA NOT HAVING 05/30/2017 TAMMY, BOBAN N Ot D64.9 ANEMIA, UNSPECIFIED 05/30/2017 TAMMY, BOBAN N Ot D69.6 THROMBOCYTOPENIA, UNSPECIFIED 06/14/2017 TAMMY, BOBAN N Ot D64.9 ANEMIA, UNSPECIFIED 06/14/2017 TAMMY, BOBAN N Ot D69.6 THROMBOCYTOPENIA, UNSPECIFIED 06/27/2017 TAMMY, BOBAN N Ot N17.9 ACUTE KIDNEY FAILURE, UNSPECIFIED 06/27/2017 TAMMY, BOBAN N Ot N18.9 CHRONIC KIDNEY DISEASE, UNSPECIFIED 08/25/2017 TAMMY, BOBAN N Ot C92.00 ACUTE MYELOBLASTIC LEUKEMIA, NOT HAVING 08/25/2017 TAMMY, BOBAN N Ot D61.818 OTHER PANCYTOPENIA 08/25/2017 TAMMY, BOBAN N Ot E03.9 HYPOTHYROIDISM, UNSPECIFIED 08/25/2017 TAMMY, BOBAN N Ot N18.4 CHRONIC KIDNEY DISEASE, STAGE 4 (SEVERE) 08/25/2017 TAMMY, BOBAN N Ot Z79.899 OTHER SENIOR LIVING (CURRENT) DRUG THERAPY 08/27/2017 TAMMY, BOBAN N Ot C92.00 ACUTE MYELOBLASTIC LEUKEMIA, NOT HAVING 08/27/2017 SEAN MUNOZ N Ot D61.818 OTHER PANCYTOPENIA 08/27/2017 SEAN MUNOZ N Ot E03.9 HYPOTHYROIDISM, UNSPECIFIED 08/27/2017 SEAN MUNOZ N Ot N18.4 CHRONIC KIDNEY DISEASE, STAGE 4 (SEVERE) 08/27/2017 SEAN MUNOZ N Ot Z79.899 OTHER SENIOR LIVING (CURRENT) DRUG THERAPY 09/12/2017 SEAN MUNOZ N Ot D64.9 ANEMIA, UNSPECIFIED 09/12/2017 SEAN MUNOZ N Ot D69.6 THROMBOCYTOPENIA, UNSPECIFIED 09/17/2017 SEAN MUNOZ N Ot D64.9 ANEMIA, UNSPECIFIED 09/17/2017 SEAN MUNOZ N Ot D69.6 THROMBOCYTOPENIA, UNSPECIFIED 09/30/2017 PAYAL CRANDALL APRN Ot C92.01 ACUTE MYELOBLASTIC LEUKEMIA, IN [facility] 09/30/2017 PAYAL CRANDALL APRN Ot Z94.84 STEM CELLS TRANSPLANT STATUS 10/03/2017 PAYAL CRANDALL APRN Ot C92.01 ACUTE MYELOBLASTIC LEUKEMIA, IN [facility] 10/03/2017 PAYAL CRANDALL APRN Ot Z94.84 STEM CELLS TRANSPLANT STATUS 10/07/2017 PAYAL CRANDALL APRN Ot C92.01 ACUTE MYELOBLASTIC LEUKEMIA, IN [facility] 10/07/2017 PAYAL CRANDALL APRN Ot Z94.84 STEM CELLS TRANSPLANT STATUS 10/07/2017 PAYAL CRANDALL APRN Ot C92.01 ACUTE MYELOBLASTIC LEUKEMIA, IN [facility] 10/07/2017 PAYAL CRANDALL APRN Ot Z94.84 STEM CELLS TRANSPLANT STATUS 10/11/2017 PAYAL CRANDALL APRN Ot C92.01 ACUTE MYELOBLASTIC LEUKEMIA, IN [facility] 10/11/2017 PAYAL CRANDALL APRN Ot Z94.84 STEM CELLS TRANSPLANT STATUS 10/11/2017 PAYAL CRANDALL APRN Ot C92.01 [facility] 10/11/2017 PAYAL CRANDALL APRN Ot Z94.84 STEM CELLS TRANSPLANT STATUS 10/11/2017 PAYAL CRANDALL APRN Ot C92.01 [facility] 10/11/2017 PAYAL CRANDALL APRN Ot Z94.84 STEM CELLS TRANSPLANT STATUS 10/16/2017 TAMMY, BOBAN N Ot C92.00 ACUTE MYELOBLASTIC LEUKEMIA, NOT HAVING 10/16/2017 TAMMY, BOBAN N Ot D61.818 OTHER PANCYTOPENIA 10/16/2017 TAMMY, BOBAN N Ot E03.9 HYPOTHYROIDISM, UNSPECIFIED 10/16/2017 TAMMY, BOBAN N Ot N18.4 CHRONIC KIDNEY DISEASE, STAGE 4 (SEVERE) 10/16/2017 TAMMY, BOBAN N Ot Z79.899 OTHER CUSHION WORKER (CURRENT) DRUG THERAPY 10/23/2017 PAYAL CRANDALL TOMBSTONE ERECTOR HELPER Ot C92.01 ACUTE MYELOBLASTIC LEUKEMIA, IN [facility] 10/23/2017 PAYAL CRANDALL TOMBSTONE ERECTOR HELPER Ot Z94.84 STEM CELLS TRANSPLANT STATUS 11/21/2017 TAMMY, BOBAN N Ot C92.00 ACUTE MYELOBLASTIC LEUKEMIA, NOT HAVING 11/21/2017 TAMMY, BOBAN N Ot D61.818 OTHER PANCYTOPENIA 11/21/2017 TAMMY, BOBAN N Ot E03.9 HYPOTHYROIDISM, UNSPECIFIED 11/21/2017 TAMMY, BOBAN N Ot N18.4 CHRONIC KIDNEY DISEASE, STAGE 4 (SEVERE) 11/21/2017 TAMMY, BOBAN N Ot Z79.899 OTHER CUSHION WORKER (CURRENT) DRUG THERAPY 12/15/2017 TAMMY, BOBAN N Ot C92.00 ACUTE MYELOBLASTIC LEUKEMIA, NOT HAVING 12/15/2017 TAMMY, BOBAN N Ot D61.818 OTHER PANCYTOPENIA 12/15/2017 TAMMY, BOBAN N Ot E03.9 HYPOTHYROIDISM, UNSPECIFIED 12/15/2017 TAMMY, BOBAN N Ot L60.0 INGROWING NAIL 12/15/2017 TAMMY, BOBAN N Ot N18.4 CHRONIC KIDNEY DISEASE, STAGE 4 (SEVERE) 12/15/2017 TAMMY, BOBAN N Ot R19.7 DIARRHEA, UNSPECIFIED 12/15/2017 TAMMY, BOBAN N Ot R63.4 ABNORMAL WEIGHT LOSS 12/15/2017 TAMMY, BOBAN N Ot Z79.899 OTHER SENIOR LIVING (CURRENT) DRUG THERAPY 12/15/2017 TAMMY, BOBAN N Ot Z98.84 BARIATRIC SURGERY STATUS 12/17/2017 TAMMY, BOBAN N Ot C92.00 ACUTE MYELOBLASTIC LEUKEMIA, NOT HAVING 12/17/2017 TAMMY, BOBAN N Ot D61.818 OTHER PANCYTOPENIA 12/17/2017 TAMMY, BOBAN N Ot E03.9 HYPOTHYROIDISM, UNSPECIFIED 12/17/2017 TAMMY, BOBAN N Ot L60.0 INGROWING NAIL 12/17/2017 TAMMY, BOBAN N Ot N18.4 CHRONIC KIDNEY DISEASE, STAGE 4 (SEVERE) 12/17/2017 TAMMY, BOBAN N Ot R19.7 DIARRHEA, UNSPECIFIED 12/17/2017 TAMMY, BOBAN N Ot R63.4 ABNORMAL WEIGHT LOSS 12/17/2017 TAMMY, BOBAN N Ot Z79.899 OTHER CUSHION WORKER (CURRENT) DRUG THERAPY 12/17/2017 TAMMY, BOBAN N Ot Z98.84 BARIATRIC SURGERY STATUS 12/18/2017 TAMMY, BOBAN N Ot C92.00 ACUTE MYELOBLASTIC LEUKEMIA, NOT HAVING 12/18/2017 TAMMY, BOBAN N Ot D61.818 OTHER PANCYTOPENIA 12/18/2017 TAMMY, BOBAN N Ot E03.9 HYPOTHYROIDISM, UNSPECIFIED 12/18/2017 TAMMY, BOBAN N Ot N18.4 CHRONIC KIDNEY DISEASE, STAGE 4 (SEVERE) 12/18/2017 TAMMY, BOBAN N Ot Z79.899 OTHER SENIOR LIVING (CURRENT) DRUG THERAPY 12/29/2017 TAMMY, BOBAN N Ot C92.00 ACUTE MYELOBLASTIC LEUKEMIA, NOT HAVING 12/29/2017 TAMMY, BOBAN N Ot D61.818 OTHER PANCYTOPENIA 12/29/2017 TAMMY, BOBAN N Ot E03.9 HYPOTHYROIDISM, UNSPECIFIED 12/29/2017 TAMMY, BOBAN N Ot N18.4 CHRONIC KIDNEY DISEASE, STAGE 4 (SEVERE) 12/29/2017 TAMMY, BOBAN N Ot Z79.899 OTHER CUSHION WORKER (CURRENT) DRUG THERAPY 12/31/2017 TAMMY, BOBAN N Ot C92.00 ACUTE MYELOBLASTIC LEUKEMIA, NOT HAVING 12/31/2017 TAMMY, BOBAN N Ot D61.818 OTHER PANCYTOPENIA 12/31/2017 TAMMY, BOBAN N Ot E03.9 HYPOTHYROIDISM, UNSPECIFIED 12/31/2017 TAMMY, BOBAN N Ot N18.4 CHRONIC KIDNEY DISEASE, STAGE 4 (SEVERE) 12/31/2017 TAMMY, BOBAN N Ot Z79.899 OTHER SENIOR LIVING (CURRENT) DRUG THERAPY 01/10/2018 WENDY CRANDALLE TOMBSTONE ERECTOR HELPER Ot C92.01 ACUTE MYELOBLASTIC LEUKEMIA, IN [facility] 01/10/2018 KARLEYPAYAL TOMBSTONE ERECTOR HELPER Ot Z94.84 STEM CELLS TRANSPLANT STATUS 02/12/2018 ANDRADECRISTINE ADAME DOI Ot C91.00 ACUTE LYMPHOBLASTIC LEUKEMIA NOT HAVING 02/12/2018 TAMMYCOLLEEN DUTTAAN N Ot N18.9 CHRONIC KIDNEY DISEASE, UNSPECIFIED 02/12/2018 KARLEYPAYAL TOMBSTONE ERECTOR HELPER Ot C92.01 ACUTE MYELOBLASTIC LEUKEMIA, IN [facility] 02/12/2018 KARLEY PAYAL TOMBSTONE ERECTOR HELPER Ot Z94.84 STEM CELLS TRANSPLANT STATUS 02/12/2018 TAMMY, BOBAN N Ot D61.818 OTHER PANCYTOPENIA 02/12/2018 TAMMY, BOBAN N Ot E03.9 HYPOTHYROIDISM, UNSPECIFIED 02/12/2018 TAMMY, BOBAN N Ot N18.4 CHRONIC KIDNEY DISEASE, STAGE 4 (SEVERE) 02/12/2018 TAMMY, BOBAN N Ot Z79.899 OTHER SENIOR LIVING (CURRENT) DRUG THERAPY 02/12/2018 RAYMOND FLORES BANDAR Ot C91.00 ACUTE LYMPHOBLASTIC LEUKEMIA NOT HAVING 02/12/2018 TAMMY BOBAN N Ot N18.9 CHRONIC KIDNEY DISEASE, UNSPECIFIED 02/12/2018 KARLEYPAYAL TOMBSTONE ERECTOR HELPER Ot C92.01 ACUTE MYELOBLASTIC LEUKEMIA, IN [facility] 02/12/2018 KARLEYWENYDE TOMBSTONE ERECTOR HELPER Ot Z94.84 STEM CELLS TRANSPLANT STATUS 02/12/2018 TAMMYCOLLEEN DUTTAAN N Ot D61.818 OTHER PANCYTOPENIA 02/12/2018 TAMMY BOBAN N Ot E03.9 HYPOTHYROIDISM, UNSPECIFIED 02/12/2018 TAMMY, BOBAN N Ot N18.4 CHRONIC KIDNEY DISEASE, STAGE 4 (SEVERE) 02/12/2018 TAMMY, BOBAN N Ot Z79.899 OTHER SENIOR LIVING (CURRENT) DRUG THERAPY 02/13/2018 RAYMOND FLORES BANDAR Ot C91.00 ACUTE LYMPHOBLASTIC LEUKEMIA NOT HAVING 02/13/2018 TAMMY, BOBAN N Ot N18.9 CHRONIC KIDNEY DISEASE, UNSPECIFIED 02/13/2018 KARLEYPAYAL TOMBSTONE ERECTOR HELPER Ot C92.01 ACUTE MYELOBLASTIC LEUKEMIA, IN [facility] 02/13/2018 KARLEYPAYAL TOMBSTONE ERECTOR HELPER Ot Z94.84 STEM CELLS TRANSPLANT STATUS 02/13/2018 TAMMY, BOBAN N Ot D61.818 OTHER PANCYTOPENIA 02/13/2018 TAMMY, BOBAN N Ot E03.9 HYPOTHYROIDISM, UNSPECIFIED 02/13/2018 TAMMY, BOBAN N Ot N18.4 CHRONIC KIDNEY DISEASE, STAGE 4 (SEVERE) 02/13/2018 TAMMY, BOBAN N Ot Z79.899 OTHER SENIOR LIVING (CURRENT) DRUG THERAPY 02/14/2018 BANDAR ANDRADE DO Ot C91.00 ACUTE LYMPHOBLASTIC LEUKEMIA NOT HAVING 02/14/2018 TAMMY, BOBAN N Ot N18.9 CHRONIC KIDNEY DISEASE, UNSPECIFIED 02/14/2018 PAYAL CRANDALL APRN Ot C92.01 ACUTE MYELOBLASTIC LEUKEMIA, IN [facility] 02/14/2018 PAYAL CRANDALL TOMBSTONE ERECTOR HELPER Ot Z94.84 STEM CELLS TRANSPLANT STATUS 02/14/2018 TAMMY, BOBAN N Ot D61.818 OTHER PANCYTOPENIA 02/14/2018 TAMMY, BOBAN N Ot E03.9 HYPOTHYROIDISM, UNSPECIFIED 02/14/2018 TAMMY, BOBAN N Ot N18.4 CHRONIC KIDNEY DISEASE, STAGE 4 (SEVERE) 02/14/2018 TAMMY, BOBAN N Ot Z79.899 OTHER CUSHION WORKER (CURRENT) DRUG THERAPY 04/01/2018 TAMMY, BOBAN N Ot D61.818 OTHER PANCYTOPENIA 04/01/2018 TAMMY, BOBAN N Ot E03.9 HYPOTHYROIDISM, UNSPECIFIED 04/01/2018 TAMMY, BOBAN N Ot N18.4 CHRONIC KIDNEY DISEASE, STAGE 4 (SEVERE) 04/01/2018 TAMMY, BOBAN N Ot Z79.899 OTHER SENIOR LIVING (CURRENT) DRUG THERAPY 04/02/2018 TAMMY, BOBAN N Ot D61.818 OTHER PANCYTOPENIA 04/02/2018 TAMMY, BOBAN N Ot E03.9 HYPOTHYROIDISM, UNSPECIFIED 04/02/2018 TAMMY, BOBAN N Ot N18.4 CHRONIC KIDNEY DISEASE, STAGE 4 (SEVERE) 04/02/2018 TAMMY, BOBAN N Ot Z79.899 OTHER CUSHION WORKER (CURRENT) DRUG THERAPY 04/02/2018 TAMMY, BOBAN N Ot D61.818 OTHER PANCYTOPENIA 04/02/2018 TAMMY, BOBAN N Ot E03.9 HYPOTHYROIDISM, UNSPECIFIED 04/02/2018 TAMMY, BOBAN N Ot N18.4 CHRONIC KIDNEY DISEASE, STAGE 4 (SEVERE) 04/02/2018 TAMMY, BOBAN N Ot Z79.899 OTHER SENIOR LIVING (CURRENT) DRUG THERAPY 04/08/2018 TAMMY, BOBAN N Ot D61.818 OTHER PANCYTOPENIA 04/08/2018 TAMMY, BOBAN N Ot E03.9 HYPOTHYROIDISM, UNSPECIFIED 04/08/2018 TAMMY, BOBAN N Ot N18.4 CHRONIC KIDNEY DISEASE, STAGE 4 (SEVERE) 04/08/2018 TAMMY, BOBAN N Ot Z79.899 OTHER CUSHION WORKER (CURRENT) DRUG THERAPY 04/10/2018 TAMMY, BOBAN N Ot D61.818 OTHER PANCYTOPENIA 04/10/2018 TAMMY, BOBAN N Ot E03.9 HYPOTHYROIDISM, UNSPECIFIED 04/10/2018 TAMMY, BOBAN N Ot N18.4 CHRONIC KIDNEY DISEASE, STAGE 4 (SEVERE) 04/10/2018 TAMMY, BOBAN N Ot Z79.899 OTHER CUSHION WORKER (CURRENT) DRUG THERAPY 04/11/2018 TAMMY, BOBAN N Ot D61.818 OTHER PANCYTOPENIA 04/11/2018 TAMMY, BOBAN N Ot E03.9 HYPOTHYROIDISM, UNSPECIFIED 04/11/2018 TAMMY, BOBAN N Ot N18.4 CHRONIC KIDNEY DISEASE, STAGE 4 (SEVERE) 04/11/2018 TAMMY, BOBAN N Ot Z79.899 OTHER SENIOR LIVING (CURRENT) DRUG THERAPY 05/14/2018 TAMMY, BOBAN N Ot D61.818 OTHER PANCYTOPENIA 05/14/2018 TAMMY, BOBAN N Ot E03.9 HYPOTHYROIDISM, UNSPECIFIED 05/14/2018 TAMMY, BOBAN N Ot N18.4 CHRONIC KIDNEY DISEASE, STAGE 4 (SEVERE) 05/14/2018 TAMMY, BOBAN N Ot Z79.899 OTHER SENIOR LIVING (CURRENT) DRUG THERAPY 06/18/2018 RAYMOND FLORES, BANDAR Ot R05 COUGH 07/09/2018 TAMMY, BOBAN N Ot D61.818 OTHER PANCYTOPENIA 07/09/2018 TAMMY, BOBAN N Ot E03.9 HYPOTHYROIDISM, UNSPECIFIED 07/09/2018 TAMMY, BOBAN N Ot N18.4 CHRONIC KIDNEY DISEASE, STAGE 4 (SEVERE) 07/09/2018 TAMMY, BOBAN N Ot Z79.899 OTHER SENIOR LIVING (CURRENT) DRUG THERAPY 07/10/2018 TAMMY, SEAN N Ot D61.818 OTHER PANCYTOPENIA 07/10/2018 TAMMY SEAN N Ot E03.9 HYPOTHYROIDISM, UNSPECIFIED 07/10/2018 TAMMY, SEAN N Ot N18.4 CHRONIC KIDNEY DISEASE, STAGE 4 (SEVERE) 07/10/2018 TAMMY SEAN N Ot Z79.899 OTHER CUSHION WORKER (CURRENT) DRUG THERAPY 07/23/2018 SUJEY CLAY MD Ot E04.2 NONTOXIC MULTINODULAR GOITER 07/23/2018 SUJEY CLAY MD Ot Z01.818 ENCOUNTER FOR OTHER PREPROCEDURAL EXAMIN 07/29/2018 RAYMOND FLORES BANDAR Ot C91.00 ACUTE LYMPHOBLASTIC LEUKEMIA NOT HAVING 07/29/2018 SEAN MUNOZ Ot N18.9 CHRONIC KIDNEY DISEASE, UNSPECIFIED 07/29/2018 PAYAL CRANDALL APRN Ot C92.01 ACUTE MYELOBLASTIC LEUKEMIA, IN [facility] 07/29/2018 PAYAL CRANDALL APRN Ot Z94.84 STEM CELLS TRANSPLANT STATUS 07/29/2018 RAYMOND FLORES BANDAR Ot R05 COUGH 07/29/2018 SUJEY CLAY MD Ot E04.2 NONTOXIC MULTINODULAR GOITER 07/29/2018 SUJEY CLAY MD Ot Z01.818 ENCOUNTER FOR OTHER PREPROCEDURAL EXAMIN 07/29/2018 TAMMYSEAN N Ot D61.818 OTHER PANCYTOPENIA 07/29/2018 TAMMYSEAN N Ot E03.9 HYPOTHYROIDISM, UNSPECIFIED 07/29/2018 TAMMYSEAN N Ot N18.4 CHRONIC KIDNEY DISEASE, STAGE 4 (SEVERE) 07/29/2018 TAMMYSEAN DUTTA N Ot Z79.899 OTHER SENIOR LIVING (CURRENT) DRUG THERAPY 08/06/2018 SUJEY CLAY MD Ot E04.2 NONTOXIC MULTINODULAR GOITER 08/06/2018 SUJEY CLAY MD Ot Z01.818 ENCOUNTER FOR OTHER PREPROCEDURAL EXAMIN 09/08/2018 TAMMYSEAN N Ot D61.818 OTHER PANCYTOPENIA 09/08/2018 TAMMY SEAN N Ot E03.9 HYPOTHYROIDISM, UNSPECIFIED 09/08/2018 TAMMYSEAN N Ot N18.4 CHRONIC KIDNEY DISEASE, STAGE 4 (SEVERE) 09/08/2018 SEAN MUNOZ Ot Z79.899 OTHER SENIOR LIVING (CURRENT) DRUG THERAPY 09/10/2018 SEAN MUNOZ Ot D61.818 OTHER PANCYTOPENIA 09/10/2018 SEAN MUNOZ Ot E03.9 HYPOTHYROIDISM, UNSPECIFIED 09/10/2018 SEAN MUNOZ N Ot N18.4 CHRONIC KIDNEY DISEASE, STAGE 4 (SEVERE) 09/10/2018 SEAN MUNOZ Ot Z79.899 OTHER SENIOR LIVING (CURRENT) DRUG THERAPY 09/11/2018 QUICK DO, VIDYA D Ot C92.00 ACUTE MYELOBLASTIC LEUKEMIA, NOT HAVING 09/11/2018 QUICK DO, VIDYA D Ot E03.9 HYPOTHYROIDISM, UNSPECIFIED 09/11/2018 QUICK DO, VIDYA D Ot I12.9 HYPERTENSIVE CHRONIC KIDNEY DISEASE W ST 09/11/2018 QUICK DO, VIDYA D Ot N18.4 CHRONIC KIDNEY DISEASE, STAGE 4 (SEVERE) 09/11/2018 QUICK DO, VIDYA D Ot Z79.899 OTHER SENIOR LIVING (CURRENT) DRUG THERAPY 09/11/2018 QUICK DO, VIDYA D Ot Z01.818 ENCOUNTER FOR OTHER PREPROCEDURAL EXAMIN 09/11/2018 QUICK DO, VIDYA D Ot Z01.818 ENCOUNTER FOR OTHER PREPROCEDURAL EXAMIN 09/17/2018 QUICK DO, VIDYA D Ot C92.00 ACUTE MYELOBLASTIC LEUKEMIA, NOT HAVING 09/17/2018 QUICK DO, VIDYA D Ot E03.9 HYPOTHYROIDISM, UNSPECIFIED 09/17/2018 QUICK DO, VIDYA D Ot I12.9 HYPERTENSIVE CHRONIC KIDNEY DISEASE W ST 09/17/2018 QUICK DO, VIDYA D Ot N18.4 CHRONIC KIDNEY DISEASE, STAGE 4 (SEVERE) 09/17/2018 QUICK DO, VIDYA D Ot Z79.899 OTHER CUSHION WORKER (CURRENT) DRUG THERAPY 10/07/2018 SOPHIA JEFFRIES MD Ot 625.9 FEM GENITAL SYMPTOMS NOS 10/07/2018 SOPHIA JEFFRIES MD Ot 715.36 LOC OSTEOARTH NOS-L/LEG 10/07/2018 SOPHIA JEFFRIES MD Ot 719.46 JOINT PAIN-L/LEG 10/07/2018 SOPHIA JEFFRIES MD Ot 722.52 LUMB/LUMBOSAC DISC DEGEN 10/07/2018 MERVIN LOVE, SOPHIA Adhikari Ot 733.90 BONE CARTILAGE DIS NOS 10/07/2018 BANDAR ANDRADE DO Ot 401.9 HYPERTENSION NOS Procedures There is no data. Results Test Result Range Pathologist review of blood test by comment - 10/11/16 14:22 Blood leukocytes automated count (number/volume) 2.2 10*3/uL 4.3-11.0 Blood erythrocytes automated count (number/volume) 1.73 10*6/uL 4.35-5.85 Venous blood hemoglobin measurement (mass/volume) 5.9 g/dL 11.5-16.0 Blood hematocrit (volume fraction) 19 % 35-52 Automated erythrocyte mean corpuscular volume 108 [foz_us] 80-99 Automated erythrocyte mean corpuscular hemoglobin (mass per erythrocyte) 34 pg 25-34 Automated erythrocyte mean corpuscular hemoglobin concentration measurement (mass/volume) 32 g/dL 32-36 Automated erythrocyte distribution width ratio 14.2 % 10.0- 14.5 Automated blood platelet count (count/volume) 120 10*3/uL 130-400 Automated blood platelet mean volume measurement 11.2 [foz_us] 7.4-10.4 Automated blood neutrophils/100 leukocytes 3 % 42-75 Automated blood lymphocytes/100 leukocytes 82 % 12-44 Blood monocytes/100 leukocytes 12 % NRG Automated blood eosinophils/100 leukocytes 0 % 0-10 Automated blood basophils/100 leukocytes 0 % 0-10 Blood neutrophils automated count (number/volume) 0.1 10*3 1.8-7.8 Blood lymphocytes automated count (number/volume) 1.8 10*3 1.0-4.0 Blood monocytes automated count (number/volume) 0.3 10*3 0.0- 1.0 Automated eosinophil count 0.0 10*3/uL 0.0-0.3 Automated blood basophil count (count/volume) 0.0 10*3/uL 0.0-0.1 Manual blood segmented neutrophils/100 leukocytes 2 % NRG Blood band neutrophils/100 leukocytes 0 % NRG Manual blood lymphocytes/100 leukocytes 78 % NRG Manual eosinophils/100 leukocytes in nose 0 % NRG Manual blood basophils/100 leukocytes 0 % NRG Manual blood lymphocytes variant/100 leukocytes 8 % NRG Blood anisocytosis detection by light microscopy SLIGHT NRG Blood macrocytes detection by light microscopy SLIGHT NRG Blood ovalocytes detection by light microscopy SLIGHT NRG Blood reticulocytes count (number/volume) 5 10*9/L 24-90 Blood reticulocytes/100 erythrocytes 0.31 % 0.50-2.40 Blood dacrocytes detection by light microscopy SLIGHT NRG Complete blood count (CBC) with automated white blood cell (WBC) differential - 05/10/17 00:23 Blood leukocytes automated count (number/volume) 4.8 10*3/uL 4.3-11.0 Blood erythrocytes automated count (number/volume) 1.24 10*6/uL 4.35-5.85 Venous blood hemoglobin measurement (mass/volume) 4.4 g/dL 11.5-16.0 Blood hematocrit (volume fraction) 12 % 35-52 Automated erythrocyte mean corpuscular volume 100 [foz_us] 80-99 Automated erythrocyte mean corpuscular hemoglobin (mass per erythrocyte) 35 pg 25-34 Automated erythrocyte mean corpuscular hemoglobin concentration measurement (mass/volume) 36 g/dL 32-36 Automated erythrocyte distribution width ratio 21.6 % 10.0- 14.5 Automated blood platelet count (count/volume) 29 10*3/uL 130- 400 Automated blood platelet mean volume measurement 12.3 [foz_us] 7.4-10.4 Automated blood neutrophils/100 leukocytes 66 % 42-75 Automated blood lymphocytes/100 leukocytes 24 % 12-44 Blood monocytes/100 leukocytes 10 % 0-12 Automated blood eosinophils/100 leukocytes 0 % 0-10 Automated blood basophils/100 leukocytes 0 % 0-10 Blood neutrophils automated count (number/volume) 3.2 10*3 1.8-7.8 Blood lymphocytes automated count (number/volume) 1.2 10*3 1.0-4.0 Blood monocytes automated count (number/volume) 0.5 10*3 0.0- 1.0 Automated eosinophil count 0.0 10*3/uL 0.0-0.3 Automated blood basophil count (count/volume) 0.0 10*3/uL 0.0-0.1 Comprehensive metabolic panel - 05/10/17 00:23 Serum or plasma sodium measurement (moles/volume) 133 mmol/L 135-145 Serum or plasma potassium measurement (moles/volume) 5.4 mmol/L 3.6-5.0 Serum or plasma chloride measurement (moles/volume) 114 mmol/L 98-107 Carbon dioxide 10 mmol/L 21-32 Serum or plasma anion gap determination (moles/volume) 9 mmol/L 5-14 Serum or plasma urea nitrogen measurement (mass/volume) 41 mg/dL 7-18 Serum or plasma creatinine measurement (mass/volume) 1.78 mg/dL 0.60-1.30 Serum or plasma urea nitrogen/creatinine mass ratio 23 NRG Serum or plasma creatinine measurement with calculation of estimated glomerular filtration rate 29 NRG Serum or plasma glucose measurement (mass/volume) 132 mg/dL 70-105 Serum or plasma calcium measurement (mass/volume) 8.9 mg/dL 8.5-10.1 Serum or plasma total bilirubin measurement (mass/volume) 0.6 mg/dL 0.1-1.0 Serum or plasma alkaline phosphatase measurement (enzymatic activity/volume) 72 U/L 40-136 Serum or plasma aspartate aminotransferase measurement (enzymatic activity/volume) 19 U/L 5-34 Serum or plasma alanine aminotransferase measurement (enzymatic activity/volume) 31 U/L 0-55 Serum or plasma protein measurement (mass/volume) 5.2 g/dL 6.4-8.2 Serum or plasma albumin measurement (mass/volume) 3.4 g/dL 3.2-4.5 Magnesium - 05/10/17 00:23 Magnesium 1.9 mg/dL 1.8-2.4 Complete urinalysis with reflex to culture - 05/10/17 00:23 Urine color determination YELLOW NRG Urine clarity determination CLEAR NRG Urine pH measurement by test strip 5 5-9 Specific gravity of urine by test strip 1.020 1.016-1.022 Urine protein assay by test strip, semi-quantitative NEGATIVE NEGATIVE Urine glucose detection by automated test strip NEGATIVE NEGATIVE Erythrocytes detection in urine sediment by light microscopy NEGATIVE NEGATIVE Urine ketones detection by automated test strip NEGATIVE NEGATIVE Urine nitrite detection by test strip NEGATIVE NEGATIVE Urine total bilirubin detection by test strip NEGATIVE NEGATIVE Urine urobilinogen measurement by automated test strip (mass/volume) NORMAL NORMAL Urine leukocyte esterase detection by dipstick NEGATIVE NEGATIVE Automated urine sediment erythrocyte count by microscopy (number/high power field) NONE NRG Automated urine sediment leukocyte count by microscopy (number/high power field) NONE NRG Bacteria detection in urine sediment by light microscopy TRACE NRG Squamous epithelial cells detection in urine sediment by light microscopy 2-5 NRG Crystals detection in urine sediment by light microscopy NONE NRG Casts detection in urine sediment by light microscopy NONE NRG Mucus detection in urine sediment by light microscopy NEGATIVE NRG Complete urinalysis with reflex to culture NO NRG Fibrin D-dimer FEU measurement in platelet poor plasma (mass/volume) - 05/10/17 01:15 Fibrin D-dimer FEU measurement in platelet poor plasma (mass/volume) 0.65 ug/mL 0.00-0.49 RED CELLS LEUKO REDUCED AS1 - 05/10/17 01:15 RED CELLS LEUKO REDUCED AS1 PRSMD TRFSD 05/10/17 0721 NRG Blood type T Indirect antibody screen panel - 05/10/17 01:15 ABO+Rh group AP NRG Transfusion band number [id number] NRG Blood group antibody screen NEGATIVE NRG Pathologist review of blood test by comment - 05/10/17 01:15 Blood leukocytes automated count (number/volume) 3.7 10*3/uL 4.3-11.0 Blood erythrocytes automated count (number/volume) 1.20 10*6/uL 4.35-5.85 Venous blood hemoglobin measurement (mass/volume) 4.3 g/dL 11.5-16.0 Blood hematocrit (volume fraction) 12 % 35-52 Automated erythrocyte mean corpuscular volume 101 [foz_us] 80-99 Automated erythrocyte mean corpuscular hemoglobin (mass per erythrocyte) 36 pg 25-34 Automated erythrocyte mean corpuscular hemoglobin concentration measurement (mass/volume) 36 g/dL 32-36 Automated erythrocyte distribution width ratio 21.7 % 10.0- 14.5 Automated blood platelet count (count/volume) 25 10*3/uL 130- 400 Automated blood platelet mean volume measurement 13.0 [foz_us] 7.4-10.4 Automated blood neutrophils/100 leukocytes 72 % 42-75 Automated blood lymphocytes/100 leukocytes 18 % 12-44 Blood monocytes/100 leukocytes 9 % NRG Automated blood eosinophils/100 leukocytes 0 % 0-10 Automated blood basophils/100 leukocytes 0 % 0-10 Blood neutrophils automated count (number/volume) 2.7 10*3 1.8-7.8 Blood lymphocytes automated count (number/volume) 0.7 10*3 1.0-4.0 Blood monocytes automated count (number/volume) 0.4 10*3 0.0- 1.0 Automated eosinophil count 0.0 10*3/uL 0.0-0.3 Automated blood basophil count (count/volume) 0.0 10*3/uL 0.0-0.1 Manual blood segmented neutrophils/100 leukocytes 82 % NRG Blood band neutrophils/100 leukocytes 2 % NRG Manual blood lymphocytes/100 leukocytes 7 % NRG Blood anisocytosis detection by light microscopy MARKED NRG Blood macrocytes detection by light microscopy MODERATE NRG Blood microcytes detection by light microscopy MODERATE NRG Blood reticulocytes count (number/volume) 19 10*9/L 24-90 Blood reticulocytes/100 erythrocytes 1.54 % 0.50-2.40 PT panel in platelet poor plasma by coagulation assay - 05/10/17 01:15 Prothrombin time (PT) in platelet poor plasma by coagulation assay 16.0 s 12.2-14.7 INR in platelet poor plasma or blood by coagulation assay 1.3 0.8-1.4 Activated partial thromboplastin time (aPTT) in platelet poor plasma bycoagulation assay - 05/10/17 01:15 Activated partial thromboplastin time (aPTT) in platelet poor plasma bycoagulation assay 25 s 24-35 Fibrinogen measurement in platelet poor plasma by coagulation assay (mass/volume) - 05/10/17 01:15 Fibrinogen measurement in platelet poor plasma by coagulation assay (mass/volume) 164 mg/dL 221-496 Lactate dehydrogenase 1 [enzymatic activity/volume] in serum or plasma - 05/10/17 01:15 Lactate dehydrogenase 1 [enzymatic activity/volume] in serum or plasma 108 U/L 125-220 PLATELET PHERESIS LR - 05/10/17 01:15 PLATELET PHERESIS LR PRSHI TRFSD 05/10/17 0708 NRG Direct antiglobulin test.XXX reagent - 05/10/17 01:15 Direct antiglobulin test.IgG specific reagent NEGATIVE NRG Direct antiglobulin test.complement C3 specific re NEGATIVE NRG Serum or plasma haptoglobin measurement (mass/volume) - 05/10/17 01:15 Haptoglobin [mass/volume] in serum or plasma 100.0 % 37.0- 184.0 Automated blood complete blood count (hemogram) panel - 05/10/17 06:00 Blood leukocytes automated count (number/volume) 3.5 10*3/uL 4.3-11.0 Blood erythrocytes automated count (number/volume) 2.51 10*6/uL 4.35-5.85 Venous blood hemoglobin measurement (mass/volume) 7.7 g/dL 11.5-16.0 Blood hematocrit (volume fraction) 22 % 35-52 Automated erythrocyte mean corpuscular volume 87 [foz_us] 80-99 Automated erythrocyte mean corpuscular hemoglobin (mass per erythrocyte) 31 pg 25-34 Automated erythrocyte mean corpuscular hemoglobin concentration measurement (mass/volume) 35 g/dL 32-36 Automated erythrocyte distribution width ratio 18.7 % 10.0- 14.5 Automated blood platelet count (count/volume) 19 10*3/uL 130- 400 Automated blood platelet mean volume measurement 11.7 [foz_us] 7.4-10.4 Blood lactic acid measurement (moles/volume) - 05/10/17 06:00 Blood lactic acid measurement (moles/volume) 0.78 mmol/L 0.50- 2.00 Bacterial blood culture - 05/10/17 06:00 Bacterial blood culture [facility] Influenza virus A and B antigen detection - 05/10/17 06:03 FLU RESULT NEGATIVE FOR INFLUENZA A AND B ANTIGENS BY [facility] Bacterial blood culture - 05/10/17 06:03 Bacterial blood culture [facility] Complete blood count (CBC) with automated white blood cell (WBC) differential - 01/07/18 16:03 Blood leukocytes automated count (number/volume) 6.3 10*3/uL 4.3-11.0 Blood erythrocytes automated count (number/volume) 2.99 10*6/uL 4.35-5.85 Venous blood hemoglobin measurement (mass/volume) 9.9 g/dL 11.5-16.0 Blood hematocrit (volume fraction) 31 % 35-52 Automated erythrocyte mean corpuscular volume 104 [foz_us] 80-99 Automated erythrocyte mean corpuscular hemoglobin (mass per erythrocyte) 33 pg 25-34 Automated erythrocyte mean corpuscular hemoglobin concentration measurement (mass/volume) 32 g/dL 32-36 Automated erythrocyte distribution width ratio 18.2 % 10.0- 14.5 Automated blood platelet count (count/volume) 184 10*3/uL 130-400 Automated blood platelet mean volume measurement 9.0 [foz_us] 7.4-10.4 Automated blood neutrophils/100 leukocytes 63 % 42-75 Automated blood lymphocytes/100 leukocytes 20 % 12-44 Blood monocytes/100 leukocytes 15 % 0-12 Automated blood eosinophils/100 leukocytes 2 % 0-10 Automated blood basophils/100 leukocytes 0 % 0-10 Blood neutrophils automated count (number/volume) 4.0 10*3 1.8-7.8 Blood lymphocytes automated count (number/volume) 1.2 10*3 1.0-4.0 Blood monocytes automated count (number/volume) 0.9 10*3 0.0- 1.0 Automated eosinophil count 0.1 10*3/uL 0.0-0.3 Automated blood basophil count (count/volume) 0.0 10*3/uL 0.0-0.1 Comprehensive metabolic panel - 06/25/18 15:24 Serum or plasma sodium measurement (moles/volume) 138 mmol/L 135-145 Serum or plasma potassium measurement (moles/volume) 3.6 mmol/L 3.6-5.0 Serum or plasma chloride measurement (moles/volume) 99 mmol/L 98-107 Carbon dioxide 29 mmol/L 21-32 Serum or plasma anion gap determination (moles/volume) 10 mmol/L 5-14 Serum or plasma urea nitrogen measurement (mass/volume) 16 mg/dL 7-18 Serum or plasma creatinine measurement (mass/volume) 2.79 mg/dL 0.60-1.30 Serum or plasma urea nitrogen/creatinine mass ratio 6 NRG Serum or plasma creatinine measurement with calculation of estimated glomerular filtration rate 17 NRG Serum or plasma glucose measurement (mass/volume) 112 mg/dL 70-105 Serum or plasma calcium measurement (mass/volume) 9.7 mg/dL 8.5-10.1 Serum or plasma total bilirubin measurement (mass/volume) 0.5 mg/dL 0.1-1.0 Serum or plasma alkaline phosphatase measurement (enzymatic activity/volume) 90 U/L 40-136 Serum or plasma aspartate aminotransferase measurement (enzymatic activity/volume) 20 U/L 5-34 Serum or plasma alanine aminotransferase measurement (enzymatic activity/volume) 16 U/L 0-55 Serum or plasma protein measurement (mass/volume) 7.1 g/dL 6.4-8.2 Serum or plasma albumin measurement (mass/volume) 4.2 g/dL 3.2-4.5 CALCIUM CORRECTED 9.5 mg/dL 8.5-10.1 Complete blood count (CBC) with automated white blood cell (WBC) differential - 06/25/18 15:24 Blood leukocytes automated count (number/volume) 6.9 10*3/uL 4.3-11.0 Blood erythrocytes automated count (number/volume) 2.91 10*6/uL 4.35-5.85 Venous blood hemoglobin measurement (mass/volume) 10.2 g/dL 11.5-16.0 Blood hematocrit (volume fraction) 31 % 35-52 Automated erythrocyte mean corpuscular volume 107 [foz_us] 80-99 Automated erythrocyte mean corpuscular hemoglobin (mass per erythrocyte) 35 pg 25-34 Automated erythrocyte mean corpuscular hemoglobin concentration measurement (mass/volume) 33 g/dL 32-36 Automated erythrocyte distribution width ratio 16.3 % 10.0- 14.5 Automated blood platelet count (count/volume) 164 10*3/uL 130-400 Automated blood platelet mean volume measurement 9.1 [foz_us] 7.4-10.4 Automated blood neutrophils/100 leukocytes 72 % 42-75 Automated blood lymphocytes/100 leukocytes 15 % 12-44 Blood monocytes/100 leukocytes 12 % 0-12 Automated blood eosinophils/100 leukocytes 1 % 0-10 Automated blood basophils/100 leukocytes 0 % 0-10 Blood neutrophils automated count (number/volume) 4.9 10*3 1.8-7.8 Blood lymphocytes automated count (number/volume) 1.1 10*3 1.0-4.0 Blood monocytes automated count (number/volume) 0.8 10*3 0.0- 1.0 Automated eosinophil count 0.1 10*3/uL 0.0-0.3 Automated blood basophil count (count/volume) 0.0 10*3/uL 0.0-0.1 Methicillin resistant Staphylococcus aureus (MRSA) screening culture - 09/08/18 12:26 Methicillin resistant Staphylococcus aureus (MRSA) screening culture NEG NRG Encounters ACCT No. Visit Date/Time Discharge Status Pt. Type Provider Facility Loc./Unit Complaint [id number] 09/11/2018 06:10:00 09/11/2018 11:20:00 DIS Outpatient VIDYA QUICK DO [facility] END STAGE KIDNEY DISEASE [id number] 09/09/2018 15:07:00 09/09/2018 23:59:59 CLS Outpatient SEAN MUNOZ N [facility] ONC [id number] 09/08/2018 12:09:00 09/08/2018 12:40:00 DIS Outpatient VIDYA QUICK DO [place] [facility] PREOP END STAGE KIDNEY DISEAASE [id number] 08/04/2018 13:18:00 08/04/2018 23:59:59 CLS Outpatient SUJEY CLAY MD [facility] RAD PRE TRANSPLANT EVAL FOR KIDNEY TRANSPLANT [id number] 07/23/2018 14:24:00 07/23/2018 23:59:59 CLS Outpatient SUJEY CLAY MD [facility] RAD PRE TRANSPLANT EVAL FOR KIDNEY TRANSPLANT [id number] 06/25/2018 14:55:00 07/09/2018 00:01:00 DIS Outpatient SEAN MUNOZ N [facility] ONC [id number] 06/02/2018 15:42:00 06/02/2018 23:59:59 CLS Outpatient BADNAR ANDRADE DO [facility] RAD COUGH [id number] 03/14/2018 13:10:00 04/01/2018 00:01:00 DIS Outpatient SEAN MUNOZ N [facility] ONC [id number] 12/24/2017 15:05:00 12/29/2017 00:01:00 DIS Outpatient SEAN MUNOZ N [facility] ONC [id number] 12/10/2017 10:12:00 12/15/2017 00:01:00 DIS Outpatient SEAN MUNOZ N [facility] ONC [id number] 09/24/2017 16:11:00 09/24/2017 23:59:59 CLS Outpatient PAYAL CRANDALL APRN [facility] LAB [id number] 08/19/2017 14:51:00 08/25/2017 00:01:00 DIS Outpatient SEAN MUNOZ N [facility] ONC [id number] 06/26/2017 13:38:00 06/26/2017 23:59:59 CLS Outpatient SEAN MUNOZ [facility] RAD CHRONIC KIDNEY DISEASE [id number] 05/09/2017 21:31:00 05/10/2017 07:31:00 DIS Emergency OMID LOVE, DIAMOND Bejarano [facility] ER WEAKNESS [id number] 10/11/2016 14:08:00 10/11/2016 23:59:59 CLS Outpatient BANDAR ANDRADE DO [facility] LAB C91.0 [id number] 07/23/2014 15:59:00 07/23/2014 23:59:59 CLS Outpatient BANDAR ANDRADE DO [facility] CARD HYPERTENSION [id number] 08/20/2013 20:50:00 08/20/2013 22:46:00 DIS Emergency POPPY MARSH DO [facility] ER L SIDE NUMBNESS [id number] 07/07/2013 12:45:00 07/07/2013 23:59:59 CLS Outpatient SOPHIA JEFFRIES MD [facility] RAD LUMBAGO [id number] 12/03/2012 11:40:00 12/03/2012 23:59:59 CLS Outpatient [id number] 10/16/2018 14:10:00 Document Registration
== END 2018-10-16 16:15 | disposition home or self-care (01) ==
LOC: SDC 12:58
PROVIDERS: ATTEND Surgery
DX: I12.9 Hypertensive chronic kidney disease with stage 1 through stage 4 chronic kidney disease, or unspecified chronic kidney disease (principal); N18.4 Chronic kidney disease, stage 4 (severe); M47.896 Other spondylosis, lumbar region; M17.0 Bilateral primary osteoarthritis of knee; E03.9 Hypothyroidism, unspecified; C92.91 Myeloid leukemia, unspecified in remission; K21.9 Gastro-esophageal reflux disease without esophagitis; G43.909 Migraine, unspecified, not intractable, without status migrainosus; G62.9 Polyneuropathy, unspecified; Z88.0 Allergy status to penicillin; Z88.1 Allergy status to other antibiotic agents; Z88.2 Allergy status to sulfonamides; Z94.81 Bone marrow transplant status
CPT/HCPCS: 87081

== ENCOUNTER 2018-12-09 14:37 | Outpatient (RCR) | payer BC, MEDICARE ==
[2018-12-09 14:50] LABS: BASOPHILS % (AUTO) 0 % (0-10); EOSINOPHILS # (AUTO) 0.1 10^3/uL (0.0-0.3); EOSINOPHILS % (AUTO) 3 % (0-10); HEMATOCRIT 29 % (35-52); HEMOGLOBIN 9.4 G/DL (11.5-16.0); LYMPHOCYTES # (AUTO) 1.4 X 10^3 (1.0-4.0); LYMPHOCYTES % (AUTO) 26 % (12-44); MEAN CORPUSCULAR HEMOGLOBIN 36 PG (25-34); MEAN CORPUSCULAR HGB CONC 33 G/DL (32-36); MEAN CORPUSCULAR VOLUME 110 FL (80-99); MEAN PLATELET VOLUME 8.9 FL (7.4-10.4); MONOCYTES # (AUTO) 0.6 X 10^3 (0.0-1.0); MONOCYTES % (AUTO) 10 % (0-12); NEUTROPHILS # (AUTO) 3.4 X 10^3 (1.8-7.8); NEUTROPHILS % (AUTO) 61 % (42-75); PLATELET COUNT 211 10^3/uL (130-400); WHITE BLOOD COUNT 5.6 10^3/uL (4.3-11.0)
[2018-12-09 15:08] LABS: ALBUMIN 4.1 GM/DL (3.2-4.5); BILIRUBIN,TOTAL 0.4 MG/DL (0.1-1.0); CALCIUM 9.5 MG/DL (8.5-10.1); CREATININE SERUM 4.47 MG/DL (0.60-1.30); POTASSIUM 4.1 MMOL/L (3.6-5.0); TOTAL PROTEIN 6.9 GM/DL (6.4-8.2)
== END 2019-03-09 | disposition still patient (30) ==
LOC: ONC 14:37
PROVIDERS: ATTEND Internal Medicine Hematology & Oncology
DX: D61.818 Other pancytopenia (principal); N18.4 Chronic kidney disease, stage 4 (severe); E03.9 Hypothyroidism, unspecified; Z79.899 Other long term (current) drug therapy
CPT/HCPCS: 36415; 80053; 83615; 85025; 99213

== ENCOUNTER → 2019-03-05 | Outpatient (CLI) | payer BC, MEDICARE ==
--- NOTE | 2019-03-05 14:39 | Diagnostic Imaging Report ---
PROCEDURE: US Non-ob pelvis comp/trans. TECHNIQUE: Multiple realtime grayscale images were obtained of the pelvis in various projections endovaginally. Transabdominal imaging was also performed. INDICATION: Uterine fibroid and ovarian cyst. Comparison is made with pelvic ultrasound from 05/20/2009. Uterus measures approximate 5.2 x 4.8 x 3.0 cm. Endometrium is 3 mm in thickness. Small nabothian cyst is present. There are several uterine fibroids present. A right anterior uterine fibroid is approximately 2.2 cm in diameter. Left posterior fibroid is 2.5 x 1.9 cm. Left lower uterine fibroid is approximately 1.4 x 1.1 cm. Left ovary was not visualized. Right ovary measures 2.2 x 1.2 x 1.1 cm. No adnexal mass is seen. There is some free fluid in the pelvis. IMPRESSION: 1. Fibroid uterus. 2. No other significant abnormality is detected. Dictated by: Dictated on workstation # [id number]
== END ==
LOC: RAD 13:02
PROVIDERS: ATTEND Obstetrics & Gynecology
DX: D25.9 Leiomyoma of uterus, unspecified (principal); R10.2 Pelvic and perineal pain
CPT/HCPCS: 76830; 76856

== ENCOUNTER → 2019-04-13 | Outpatient (CLI) | payer MEDICARE, BC ==
--- NOTE | 2019-04-13 15:45 | Diagnostic Imaging Report ---
PROCEDURE: US Thyroid. TECHNIQUE: Multiple real-time grayscale images were obtained of the thyroid in various projections. INDICATION: Thyroid nodule, follow-up. Correlation is made with prior thyroid ultrasound from 07/23/2018. FINDINGS: Right lobe of the thyroid measures 4.5 x 1.4 x 2.0 cm and the left lobe measures 6.1 x 2.2 x 1.8 cm. Isthmus is not well visualized. Bilateral thyroid nodules are again noted. Largest nodule is hypoechoic in the lower pole of left lobe measuring 2.2 x 1.3 x 1.8 cm compared with 2.3 x 1.6 x 1.9 cm. Nodule in the mid aspect is unchanged at 1.1 x 0.8 x 0.9 cm. There is a questionable elongated ovoid nodule along the medial aspect of the left upper pole measuring 2.4 x 0.9 x 1.5 cm. This was likely present on prior exam but was not measured. It is uncertain if this is a true nodule versus heterogeneous thyroid tissue. Nodule in the upper pole of right lobe is again noted measuring 1.4 x 0.8 x 0.9 cm compared with 1.2 x 0.8 x 0.6 cm. IMPRESSION: Bilateral thyroid nodules. The dominant nodule in the lower pole of left lobe is stable. The nodule in the upper pole of right lobe may be minimally larger by 1 to 2 mm. Continued follow-up is recommended to confirm stability. Dictated by: Dictated on workstation # [id number]
== END ==
LOC: RAD 14:05
PROVIDERS: ATTEND Nurse Practitioner
DX: E04.2 Nontoxic multinodular goiter (principal)
CPT/HCPCS: 76536

== ENCOUNTER 2019-05-12 14:53 | Outpatient (RCR) | payer BC, MEDICARE ==
[~2019-05-12 14:53] MED LIST changes: -CETI10TA20 PO; +CETI10TA21 PO; -VALA1000 PO; +VALA10007 PO
[2019-05-12 15:08] LABS: BASOPHILS % (AUTO) 0 % (0-10); EOSINOPHILS # (AUTO) 0.1 10^3/uL (0.0-0.3); EOSINOPHILS % (AUTO) 2 % (0-10); HEMATOCRIT 31 % (35-52); HEMOGLOBIN 10.2 G/DL (11.5-16.0); LYMPHOCYTES # (AUTO) 1.5 X 10^3 (1.0-4.0); LYMPHOCYTES % (AUTO) 23 % (12-44); MEAN CORPUSCULAR HEMOGLOBIN 35 PG (25-34); MEAN CORPUSCULAR HGB CONC 33 G/DL (32-36); MEAN CORPUSCULAR VOLUME 108 FL (80-99); MEAN PLATELET VOLUME 9.3 FL (7.4-10.4); MONOCYTES # (AUTO) 0.7 X 10^3 (0.0-1.0); MONOCYTES % (AUTO) 10 % (0-12); NEUTROPHILS # (AUTO) 4.2 X 10^3 (1.8-7.8); NEUTROPHILS % (AUTO) 65 % (42-75); PLATELET COUNT 186 10^3/uL (130-400); RED CELL DISTRIBUTION WIDTH 14.3 % (10.0-14.5); WHITE BLOOD COUNT 6.5 10^3/uL (4.3-11.0)
[2019-05-12 15:30] LABS: ALBUMIN 3.9 GM/DL (3.2-4.5); BILIRUBIN,TOTAL 0.3 MG/DL (0.1-1.0); CALCIUM 9.2 MG/DL (8.5-10.1); CREATININE SERUM 3.75 MG/DL (0.60-1.30); POTASSIUM 3.8 MMOL/L (3.6-5.0); TOTAL PROTEIN 6.7 GM/DL (6.4-8.2)
== END 2019-08-10 | disposition home or self-care (01) ==
LOC: ONC 14:53
PROVIDERS: ATTEND Internal Medicine Hematology & Oncology
DX: D61.818 Other pancytopenia (principal); N18.4 Chronic kidney disease, stage 4 (severe); E03.9 Hypothyroidism, unspecified; Z79.899 Other long term (current) drug therapy
CPT/HCPCS: 80053; 82728; 83615; 85025; 99213

== ENCOUNTER → 2019-05-18 | Outpatient (CLI) | payer BC, MEDICARE ==
[~2019-05-18] MED LIST changes: +CETI10TA20 PO; -CETI10TA21 PO; +VALA1000 PO; -VALA10007 PO
== END ==
LOC: RAD 14:23
PROVIDERS: ATTEND Internal Medicine Hematology & Oncology
DX: Z12.31 Encounter for screening mammogram for malignant neoplasm of breast (principal)
CPT/HCPCS: 77067

== ENCOUNTER → 2019-05-26 | Outpatient (CLI) | payer BC, MEDICARE ==
[~2019-05-26] MED LIST changes: -CETI10TA20 PO; +CETI10TA21 PO; -VALA1000 PO; +VALA10007 PO
== END ==
LOC: RAD 13:15
PROVIDERS: ATTEND Student in an Organized Health Care Education/Training Program
DX: E04.1 Nontoxic single thyroid nodule (principal)

== ENCOUNTER → 2019-09-01 | Outpatient (CLI) | payer BC, MEDICARE ==
--- NOTE | 2019-09-01 11:31 | Diagnostic Imaging Report ---
Supine abdomen at 1101 hours. INDICATION: Catheter placement. There are no recent exams available for comparison. FINDINGS: There is a radiopaque catheter looped on itself overlying the right lower quadrant. The distal most portion of the line is coiled on itself several times as well. There are numerous surgical sutures overlying the left upper quadrant. There is no other radiopaque foreign body identified. There is some gas in both large and small bowel in a nonspecific fashion. There is no sign of bowel obstruction. There is no mass or organomegaly or pathological calcification evident. There is a vague calcific density in the soft tissues lateral to the anterior superior iliac spine on the right. This could be a sequela of prior trauma to the attachment of the sartorius or tensa fascia lisa. IMPRESSION: 1. There is a radiopaque line overlying the right lower quadrant. The tip of the line is coiled on itself several times. 2. There is no evidence for an acute abnormality of the abdomen. Dictated by: Dictated on workstation # [id number]
== END ==
LOC: RAD 10:16
PROVIDERS: ATTEND Internal Medicine Nephrology
DX: Z49.02 Encounter for fitting and adjustment of peritoneal dialysis catheter (principal); N18.6 End stage renal disease
CPT/HCPCS: 74018

== ENCOUNTER → 2019-09-10 | Outpatient (CLI) | payer BC, MEDICARE ==
--- NOTE | 2019-09-10 14:33 | Diagnostic Imaging Report ---
INDICATION: Malfunctioning peritoneal dialysis catheter. Patient brought to the fluoroscopy suite placed on the table in the supine position. Amplatz superstiff guidewire was advanced through the patient's peritoneal dialysis catheter to the end. The loop in the distal portion of the peritoneal dialysis catheter was maneuvered slightly to the left portion of the pelvis. Upon wire removal there was improved flow of clear fluid through the catheter. Patient tolerated the procedure well. Total of 2 minutes and 6 seconds of fluoroscopic time was utilized. IMPRESSION: Peritoneal dialysis catheter manipulation utilizing fluoroscopy, as described. Dictated by: Dictated on workstation # [id number]
== END ==
LOC: RAD 10:11
PROVIDERS: ATTEND Surgery
DX: T85.691A Other mechanical complication of intraperitoneal dialysis catheter, initial encounter (principal)
CPT/HCPCS: 76000; C1769

== ENCOUNTER 2019-10-08 14:02 | Outpatient (RCR) | payer BC, MEDICARE ==
[~2019-10-08 14:02] MED LIST changes: -CETI10TA21 PO; +CETI10TA49 PO; -PANT40TA3 PO; +PANT40TA52 PO
[2019-10-08 14:12] LABS: BASOPHILS % (AUTO) 0 % (0-10); EOSINOPHILS # (AUTO) 0.2 10^3/uL (0.0-0.3); EOSINOPHILS % (AUTO) 2 % (0-10); HEMATOCRIT 32 % (35-52); HEMOGLOBIN 10.9 G/DL (11.5-16.0); LYMPHOCYTES # (AUTO) 1.7 X 10^3 (1.0-4.0); LYMPHOCYTES % (AUTO) 20 % (12-44); MEAN CORPUSCULAR HEMOGLOBIN 37 PG (25-34); MEAN CORPUSCULAR HGB CONC 34 G/DL (32-36); MEAN CORPUSCULAR VOLUME 111 FL (80-99); MEAN PLATELET VOLUME 9.6 FL (7.4-10.4); MONOCYTES # (AUTO) 0.9 X 10^3 (0.0-1.0); MONOCYTES % (AUTO) 10 % (0-12); NEUTROPHILS # (AUTO) 5.8 X 10^3 (1.8-7.8); NEUTROPHILS % (AUTO) 67 % (42-75); PLATELET COUNT 235 10^3/uL (130-400); WHITE BLOOD COUNT 8.6 10^3/uL (4.3-11.0)
[2019-10-08 14:28] LABS: ALBUMIN 4.2 GM/DL (3.2-4.5); BILIRUBIN,TOTAL 0.4 MG/DL (0.1-1.0); CALCIUM 10.1 MG/DL (8.5-10.1); CREATININE SERUM 4.35 MG/DL (0.60-1.30); POTASSIUM 3.5 MMOL/L (3.6-5.0); TOTAL PROTEIN 7.1 GM/DL (6.4-8.2)
== END 2020-01-06 | disposition home or self-care (01) ==
LOC: ONC 14:02
PROVIDERS: ATTEND Internal Medicine Hematology & Oncology
DX: D61.818 Other pancytopenia (principal); N18.4 Chronic kidney disease, stage 4 (severe); E03.9 Hypothyroidism, unspecified; Z79.899 Other long term (current) drug therapy
CPT/HCPCS: 80053; 83615; 85025; G0463; 99213

== ENCOUNTER → 2020-01-08 | Outpatient (CLI) | payer BC, MEDICARE ==
--- NOTE | 2020-01-08 14:28 | Diagnostic Imaging Report ---
EXAMINATION: CT Chest without contrast. TECHNIQUE: Multiple contiguous axial images were obtained through the chest without the use of intravenous contrast. All CT scans use one or more of the following dose optimizing techniques: automated exposure control, MA and/or KvP adjustment based on a patient size and exam type, or iterative reconstruction. HISTORY: Pulmonary nodules. COMPARISON: 08/04/2018. FINDINGS: There is no edema or pneumonia. No pleural effusion. No pneumothorax. A 3 mm right lower lobe superior segment nodule is unchanged. No new nodules are seen. There is no axillary or supraclavicular lymphadenopathy. There is no mediastinal lymphadenopathy. Heart size is normal. There are mild coronary artery calcifications. No pericardial effusion. Aorta is normal in caliber. Limited views of the upper abdomen show postsurgical changes at the gastroesophageal junction. There are no suspicious osseous lesions. IMPRESSION: 1. Stable tiny pulmonary nodules, these can be considered benign given stability. Dictated by: Dictated on workstation # [id number]
== END ==
LOC: RAD 13:45
PROVIDERS: ATTEND Internal Medicine
DX: R91.8 Other nonspecific abnormal finding of lung field (principal)
CPT/HCPCS: 71250

== ENCOUNTER → 2020-02-03 | Outpatient (CLI) | payer BC, MEDICARE ==
[~2020-02-03] MED LIST changes: +AMLO-250 PO; -AMLO5TAB9 PO
--- NOTE | 2020-02-03 14:58 | Diagnostic Imaging Report ---
PROCEDURE: US thyroid. TECHNIQUE: Multiple real-time grayscale images were obtained of the thyroid in various projections. INDICATION: Thyroid nodule compared with study of 07/15/2019. FINDINGS: Right thyroid lobe measures 4.7 x 1.1 x 1.8 cm. It contains a relatively isoechoic solid mass in its upper pole measuring 1.4 cm long axis unchanged. The left thyroid lobe measures 5.4 x 1.5 x 2.0 cm it contains a hypoechoic nodule in its lower pole, measuring 1.9 cm maximal, previously 2.1 cm. A second mass in its midpole is solid hypoechoic at 1.4 cm maximal, stable. 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 ACR guidelines for a Ti-Rads 4 lesion of greater than 1.5 cm are for biopsy. Dictated by: Dictated on workstation # [id number]
== END ==
LOC: RAD 13:45
PROVIDERS: ATTEND Student in an Organized Health Care Education/Training Program
DX: E04.1 Nontoxic single thyroid nodule (principal)
CPT/HCPCS: 76536

== ENCOUNTER → 2020-02-16 | Outpatient (CLI) | payer BC, MEDICARE | LOC: CARD 13:00 | PROVIDERS: ATTEND Internal Medicine Cardiovascular Disease | DX: C92.00 Acute myeloblastic leukemia, not having achieved remission (principal); I12.0 Hypertensive chronic kidney disease with stage 5 chronic kidney disease or end stage renal disease; N18.5 Chronic kidney disease, stage 5; G89.29 Other chronic pain | CPT/HCPCS: 93306; 93351 ==

== ENCOUNTER → 2020-02-16 | Outpatient (CLI) | payer BC, MEDICARE ==
--- NOTE | 2020-02-16 13:59 | Diagnostic Imaging Report ---
INDICATION: Osteopenia, postmenopausal female. COMPARISON: None. FINDINGS: AP Spine L1-L4: [BMD (g/cm2): 1.524] [T-Score: 2.7] [Z-Score: 3.7]] LT Hip Neck: [BMD (g/cm2): 0.830] [T-Score: -1.5] [Z-Score: -0.4] LT Hip Total: [BMD (g/cm2):0.912] [T-Score:-0.8] [Z-Score: 0.0] RT Hip Neck: [BMD (g/cm2):0.738] [T-Score:-2.2] [Z-Score:-1.1] RT Hip Total: [BMD (g/cm2):0.881] [T-score:-1.0] [Z-Score:-0.2] *Indicates significant change from prior examination based on 95% confidence level. World Health Organization criteria for BMD interpretation classify patients as Normal (T-score at or above -1.0), Osteopenic (T-score between -1.0 and -2.5) or Osteoporotic (T-score at or below -2.5). LIMITATIONS AND MODIFICATION: None. FRACTURE RISK (FRAX SCORE): The ten year probability of (%): Major Osteoporotic Fracture: [NA] Hip Fracture: [NA] IMPRESSION: 1. Osteopenia (Low bone mass). 2. Baseline examination. 3. See below National Osteoporosis Foundation guidelines on when to potentially initiate pharmacologic therapy. Based on the National Osteoporosis Foundation Guidelines, pharmacologic treatment should be initiated in any of the following, unless clinical conditions suggest otherwise: * Any patient with prior fragility fracture of the hip or vertebrae. A spine fracture indicates 5X risk for subsequent spine fracture and 2X risk for subsequent hip fracture. * Osteoporosis (T-score <-2.5). * Postmenopausal women and men age 50 and older with low bone mass/osteopenia (T-score between -1.0 and -2.5) by DXA and 10-year major osteoporotic fracture greater than 20% or a 10-year probability of hip fracture greater than 3%. These fracture risks are supplied above in the FRAX score, if applicable. * Clinician judgement and/or patient preferences may indicate treatment for people with 10-year fracture probabilities above or below these levels. Dictated by: Dictated on workstation # [id number]
== END ==
LOC: RAD 12:03
PROVIDERS: ATTEND Internal Medicine
DX: M85.89 Other specified disorders of bone density and structure, multiple sites (principal); Z78.0 Asymptomatic menopausal state
CPT/HCPCS: 77080

== ENCOUNTER 2020-05-19 13:32 | Outpatient (RCR) | payer MEDICARE ==
[2020-05-19 13:30] LABS: BASOPHILS % (AUTO) 0 % (0-10); EOSINOPHILS # (AUTO) 0.2 10^3/uL (0.0-0.3); EOSINOPHILS % (AUTO) 2 % (0-10); HEMATOCRIT 33 % (35-52); HEMOGLOBIN 11.3 g/dL (11.5-16.0); LYMPHOCYTES # (AUTO) 1.5 10^3/uL (1.0-4.0); LYMPHOCYTES % (AUTO) 16 % (12-44); MEAN CORPUSCULAR HEMOGLOBIN 38 pg (25-34); MEAN CORPUSCULAR HGB CONC 34 g/dL (32-36); MEAN CORPUSCULAR VOLUME 111 fL (80-99); MONOCYTES # (AUTO) 0.8 10^3/uL (0.0-1.0); MONOCYTES % (AUTO) 9 % (0-12); NEUTROPHILS # (AUTO) 6.8 10^3/uL (1.8-7.8); NEUTROPHILS % (AUTO) 72 % (42-75); PLATELET COUNT 235 10^3/uL (130-400); WHITE BLOOD COUNT 9.4 10^3/uL (4.3-11.0)
[~2020-05-19 13:32] MED LIST changes: +ACYC-112; -ACYC800T
[2020-05-19 13:52] LABS: ALBUMIN 4.4 GM/DL (3.2-4.5); BILIRUBIN,TOTAL 0.4 MG/DL (0.1-1.0); CREATININE SERUM 3.5 MG/DL (0.60-1.30); POTASSIUM 3.3 MMOL/L (3.6-5.0); TOTAL PROTEIN 7.2 GM/DL (6.4-8.2)
== END 2020-08-17 | disposition home or self-care (01) ==
LOC: ONC 13:32
PROVIDERS: ATTEND Internal Medicine Hematology & Oncology
DX: C92.01 Acute myeloblastic leukemia, in remission (principal); D61.818 Other pancytopenia; N18.5 Chronic kidney disease, stage 5; E03.9 Hypothyroidism, unspecified; Z79.899 Other long term (current) drug therapy; Z86.16 Personal history of COVID-19
CPT/HCPCS: 80053; 83615; 85025; G0463; 99213

== ENCOUNTER → 2020-05-19 | Outpatient (CLI) | payer BC, MEDICARE ==
--- NOTE | 2020-05-20 09:51 | Diagnostic Imaging Report ---
INDICATION: Routine screening. COMPARISON is made with prior mammograms of 05/18/2019 and 03/06/2018. 2-D and 3-D bilateral screening mammography was performed with CAD. Scattered fibroglandular densities are identified bilaterally. There are scattered benign calcifications throughout both breasts. No mass or malignant appearing microcalcifications are seen. Axillae are unremarkable. IMPRESSION: BI-RADS Category 2 No mammographic features suspicious for malignancy are identified. Dictated by: Dictated on workstation # [id number]
== END ==
LOC: RAD 15:30
PROVIDERS: ATTEND Internal Medicine
DX: Z12.31 Encounter for screening mammogram for malignant neoplasm of breast (principal)
CPT/HCPCS: 77063; 77067

== ENCOUNTER 2020-12-14 10:33 | Outpatient (RCR) | payer MEDICARE ==
[2020-09-21 10:37] LABS: ABSOLUTE RETIC # 59 10e9/uL (24-90); BASOPHILS % (AUTO) 0 % (0-10); EOSINOPHILS % (AUTO) 1 % (0-10); HEMATOCRIT 26 % (35-52); HEMOGLOBIN 8.3 g/dL (11.5-16.0); LYMPHOCYTES # (AUTO) 1.5 10^3/uL (1.0-4.0); LYMPHOCYTES % (AUTO) 28 % (12-44); MEAN CORPUSCULAR HEMOGLOBIN 36 pg (25-34); MEAN CORPUSCULAR HGB CONC 31 g/dL (32-36); MEAN CORPUSCULAR VOLUME 113 fL (80-99); MEAN PLATELET VOLUME 10.3 fL (9.0-12.2); MONOCYTES # (AUTO) 0.4 10^3/uL (0.0-1.0); MONOCYTES % (AUTO) 8 % (0-12); NEUTROPHILS # (AUTO) 2.6 10^3/uL (1.8-7.8); NEUTROPHILS % (AUTO) 51 % (42-75); PLATELET COUNT 192 10^3/uL (130-400); RETICULOCYTE % 2.51 % (0.50-2.40); WHITE BLOOD COUNT 5.1 10^3/uL (4.3-11.0)
[2020-09-21 10:54] LABS: ALBUMIN 3.7 GM/DL (3.2-4.5); BILIRUBIN,TOTAL 0.4 MG/DL (0.1-1.0); CALCIUM 9.3 MG/DL (8.5-10.1); CREATININE SERUM 1.71 MG/DL (0.60-1.30); POTASSIUM 4.1 MMOL/L (3.6-5.0); TOTAL PROTEIN 5.5 GM/DL (6.4-8.2)
[2020-09-28 12:26] LABS: BASOPHILS % (AUTO) 1 % (0-10); EOSINOPHILS % (AUTO) 1 % (0-10); HEMATOCRIT 28 % (35-52); HEMOGLOBIN 8.6 g/dL (11.5-16.0); LYMPHOCYTES # (AUTO) 1.1 10^3/uL (1.0-4.0); LYMPHOCYTES % (AUTO) 21 % (12-44); MEAN CORPUSCULAR HEMOGLOBIN 34 pg (25-34); MEAN CORPUSCULAR HGB CONC 30 g/dL (32-36); MEAN CORPUSCULAR VOLUME 113 fL (80-99); MEAN PLATELET VOLUME 10.7 fL (9.0-12.2); MONOCYTES # (AUTO) 0.3 10^3/uL (0.0-1.0); MONOCYTES % (AUTO) 5 % (0-12); NEUTROPHILS % (AUTO) 58 % (42-75); PLATELET COUNT 175 10^3/uL (130-400); WHITE BLOOD COUNT 5.2 10^3/uL (4.3-11.0)
[2020-10-05 13:45] LABS: MONOCYTES # (AUTO) 0.2 10^3/uL (0.0-1.0); MONOCYTES % (AUTO) 4 % (0-12)
[2020-10-05 13:47] LABS: BASOPHILS % (AUTO) 1 % (0-10); EOSINOPHILS % (AUTO) 1 % (0-10); HEMATOCRIT 25 % (35-52); LYMPHOCYTES # (AUTO) 0.6 10^3/uL (1.0-4.0); LYMPHOCYTES % (AUTO) 12 % (12-44); MEAN CORPUSCULAR HEMOGLOBIN 36 pg (25-34); MEAN CORPUSCULAR HGB CONC 32 g/dL (32-36); MEAN CORPUSCULAR VOLUME 112 fL (80-99); MEAN PLATELET VOLUME 11.1 fL (9.0-12.2); NEUTROPHILS # (AUTO) 3.4 10^3/uL (1.8-7.8); NEUTROPHILS % (AUTO) 66 % (42-75); PLATELET COUNT 132 10^3/uL (130-400); WHITE BLOOD COUNT 5.2 10^3/uL (4.3-11.0)
[2020-10-12 13:15] LABS: ABSOLUTE RETIC # 31 10e9/uL (24-90); BASOPHILS % (AUTO) 1 % (0-10); EOSINOPHILS % (AUTO) 1 % (0-10); HEMATOCRIT 24 % (35-52); HEMOGLOBIN 7.3 g/dL (11.5-16.0); LYMPHOCYTES % (AUTO) 35 % (12-44); MEAN CORPUSCULAR HEMOGLOBIN 34 pg (25-34); MEAN CORPUSCULAR HGB CONC 31 g/dL (32-36); MEAN CORPUSCULAR VOLUME 110 fL (80-99); MEAN PLATELET VOLUME 11.5 fL (9.0-12.2); MONOCYTES # (AUTO) 0.3 10^3/uL (0.0-1.0); MONOCYTES % (AUTO) 11 % (0-12); NEUTROPHILS # (AUTO) 1.3 10^3/uL (1.8-7.8); NEUTROPHILS % (AUTO) 45 % (42-75); PLATELET COUNT 154 10^3/uL (130-400); RETICULOCYTE % 1.44 % (0.50-2.40); WHITE BLOOD COUNT 2.9 10^3/uL (4.3-11.0)
[2020-10-19 11:41] LABS: BASOPHILS % (AUTO) 1 % (0-10); EOSINOPHILS # (AUTO) 0.1 10^3/uL (0.0-0.3); EOSINOPHILS % (AUTO) 1 % (0-10); HEMATOCRIT 24 % (35-52); HEMOGLOBIN 7.6 g/dL (11.5-16.0); LYMPHOCYTES # (AUTO) 0.9 10^3/uL (1.0-4.0); LYMPHOCYTES % (AUTO) 24 % (12-44); MEAN CORPUSCULAR HEMOGLOBIN 35 pg (25-34); MEAN CORPUSCULAR HGB CONC 32 g/dL (32-36); MEAN CORPUSCULAR VOLUME 111 fL (80-99); MEAN PLATELET VOLUME 10.7 fL (9.0-12.2); MONOCYTES # (AUTO) 0.4 10^3/uL (0.0-1.0); MONOCYTES % (AUTO) 11 % (0-12); NEUTROPHILS # (AUTO) 2.1 10^3/uL (1.8-7.8); NEUTROPHILS % (AUTO) 53 % (42-75); PLATELET COUNT 230 10^3/uL (130-400); WHITE BLOOD COUNT 3.9 10^3/uL (4.3-11.0)
[2020-10-26 11:46] LABS: BASOPHILS % (AUTO) 1 % (0-10); EOSINOPHILS # (AUTO) 0.1 10^3/uL (0.0-0.3); EOSINOPHILS % (AUTO) 2 % (0-10); HEMATOCRIT 21 % (35-52); LYMPHOCYTES # (AUTO) 1.2 10^3/uL (1.0-4.0); LYMPHOCYTES % (AUTO) 33 % (12-44); MEAN CORPUSCULAR HEMOGLOBIN 35 pg (25-34); MEAN CORPUSCULAR HGB CONC 31 g/dL (32-36); MEAN CORPUSCULAR VOLUME 112 fL (80-99); MEAN PLATELET VOLUME 11.3 fL (9.0-12.2); MONOCYTES # (AUTO) 0.2 10^3/uL (0.0-1.0); MONOCYTES % (AUTO) 7 % (0-12); NEUTROPHILS # (AUTO) 1.6 10^3/uL (1.8-7.8); NEUTROPHILS % (AUTO) 47 % (42-75); PLATELET COUNT 180 10^3/uL (130-400); WHITE BLOOD COUNT 3.5 10^3/uL (4.3-11.0)
[2020-10-26 11:49] LABS: HEMOGLOBIN 6.4 g/dL (11.5-16.0)
[2020-11-07 10:55] LABS: BASOPHILS % (AUTO) 1 % (0-10); EOSINOPHILS # (AUTO) 0.1 10^3/uL (0.0-0.3); EOSINOPHILS % (AUTO) 2 % (0-10); HEMATOCRIT 24 % (35-52); HEMOGLOBIN 7.2 g/dL (11.5-16.0); LYMPHOCYTES # (AUTO) 1.4 10^3/uL (1.0-4.0); LYMPHOCYTES % (AUTO) 28 % (12-44); MEAN CORPUSCULAR HEMOGLOBIN 33 pg (25-34); MEAN CORPUSCULAR HGB CONC 31 g/dL (32-36); MEAN CORPUSCULAR VOLUME 108 fL (80-99); MEAN PLATELET VOLUME 10.2 fL (9.0-12.2); MONOCYTES # (AUTO) 0.5 10^3/uL (0.0-1.0); MONOCYTES % (AUTO) 11 % (0-12); NEUTROPHILS # (AUTO) 2.6 10^3/uL (1.8-7.8); NEUTROPHILS % (AUTO) 53 % (42-75); PLATELET COUNT 262 10^3/uL (130-400); WHITE BLOOD COUNT 4.9 10^3/uL (4.3-11.0)
[2020-11-17 12:15] LABS: BASOPHILS % (AUTO) 1 % (0-10); EOSINOPHILS # (AUTO) 0.1 10^3/uL (0.0-0.3); EOSINOPHILS % (AUTO) 2 % (0-10); HEMATOCRIT 24 % (35-52); HEMOGLOBIN 7.1 g/dL (11.5-16.0); LYMPHOCYTES # (AUTO) 1.1 10^3/uL (1.0-4.0); LYMPHOCYTES % (AUTO) 33 % (12-44); MEAN CORPUSCULAR HEMOGLOBIN 32 pg (25-34); MEAN CORPUSCULAR HGB CONC 30 g/dL (32-36); MEAN CORPUSCULAR VOLUME 107 fL (80-99); MEAN PLATELET VOLUME 10.5 fL (9.0-12.2); MONOCYTES # (AUTO) 0.4 10^3/uL (0.0-1.0); MONOCYTES % (AUTO) 10 % (0-12); NEUTROPHILS # (AUTO) 1.7 10^3/uL (1.8-7.8); NEUTROPHILS % (AUTO) 49 % (42-75); PLATELET COUNT 248 10^3/uL (130-400); WHITE BLOOD COUNT 3.4 10^3/uL (4.3-11.0)
[2020-11-21 11:03] LABS: BASOPHILS % (AUTO) 1 % (0-10); EOSINOPHILS # (AUTO) 0.1 10^3/uL (0.0-0.3); EOSINOPHILS % (AUTO) 2 % (0-10); HEMATOCRIT 23 % (35-52); LYMPHOCYTES # (AUTO) 1.1 10^3/uL (1.0-4.0); LYMPHOCYTES % (AUTO) 32 % (12-44); MEAN CORPUSCULAR HEMOGLOBIN 33 pg (25-34); MEAN CORPUSCULAR HGB CONC 30 g/dL (32-36); MEAN CORPUSCULAR VOLUME 110 fL (80-99); MEAN PLATELET VOLUME 10.5 fL (9.0-12.2); MONOCYTES # (AUTO) 0.4 10^3/uL (0.0-1.0); MONOCYTES % (AUTO) 12 % (0-12); NEUTROPHILS # (AUTO) 1.8 10^3/uL (1.8-7.8); NEUTROPHILS % (AUTO) 52 % (42-75); PLATELET COUNT 244 10^3/uL (130-400); WHITE BLOOD COUNT 3.5 10^3/uL (4.3-11.0)
[2020-11-21 11:08] LABS: HEMOGLOBIN 6.9 g/dL (11.5-16.0)
[2020-11-30 10:08] LABS: BASOPHILS # (AUTO) 0.1 10^3/uL (0.0-0.1); BASOPHILS % (AUTO) 1 % (0-10); EOSINOPHILS # (AUTO) 0.1 10^3/uL (0.0-0.3); EOSINOPHILS % (AUTO) 2 % (0-10); HEMATOCRIT 33 % (35-52); HEMOGLOBIN 9.5 g/dL (11.5-16.0); LYMPHOCYTES % (AUTO) 22 % (12-44); MEAN CORPUSCULAR HEMOGLOBIN 32 pg (25-34); MEAN CORPUSCULAR HGB CONC 29 g/dL (32-36); MEAN CORPUSCULAR VOLUME 108 fL (80-99); MEAN PLATELET VOLUME 10.3 fL (9.0-12.2); MONOCYTES # (AUTO) 0.5 10^3/uL (0.0-1.0); MONOCYTES % (AUTO) 10 % (0-12); NEUTROPHILS # (AUTO) 2.7 10^3/uL (1.8-7.8); NEUTROPHILS % (AUTO) 59 % (42-75); PLATELET COUNT 229 10^3/uL (130-400); WHITE BLOOD COUNT 4.5 10^3/uL (4.3-11.0)
[2020-11-30 14:51] LABS: ABSOLUTE RETIC # 106 10e9/uL (24-90); RETICULOCYTE % 3.57 % (0.50-2.40)
[~2020-12-14 10:33] MED LIST changes: +DARBEPOETIN 100 MCG/ML (ARANESP) 1 ML VIAL SC SCH; +DARBEPOETIN 40 MCG/ML (ARANESP) 1 ML VIAL SC SCH; +DARBEPOETIN 60 MCG/ML ARANESP (CANCER CTR) INJ SCH; +NS (IVPB) CANCER CENTER 250 ML ONE; +SODIUM CHLORIDE ONE
[2020-12-14 11:06] LABS: BASOPHILS # (AUTO) 0.1 10^3/uL (0.0-0.1); BASOPHILS % (AUTO) 1 % (0-10); EOSINOPHILS # (AUTO) 0.2 10^3/uL (0.0-0.3); EOSINOPHILS % (AUTO) 3 % (0-10); HEMATOCRIT 36 % (35-52); HEMOGLOBIN 10.8 g/dL (11.5-16.0); LYMPHOCYTES # (AUTO) 1.2 10^3/uL (1.0-4.0); LYMPHOCYTES % (AUTO) 20 % (12-44); MEAN CORPUSCULAR HEMOGLOBIN 32 pg (25-34); MEAN CORPUSCULAR HGB CONC 30 g/dL (32-36); MEAN CORPUSCULAR VOLUME 108 fL (80-99); MEAN PLATELET VOLUME 10.2 fL (9.0-12.2); MONOCYTES # (AUTO) 0.8 10^3/uL (0.0-1.0); MONOCYTES % (AUTO) 13 % (0-12); NEUTROPHILS # (AUTO) 3.7 10^3/uL (1.8-7.8); NEUTROPHILS % (AUTO) 62 % (42-75); PLATELET COUNT 221 10^3/uL (130-400); WHITE BLOOD COUNT 5.9 10^3/uL (4.3-11.0)
== END 2020-12-20 | disposition home or self-care (01) ==
LOC: ONC 10:33
PROVIDERS: ATTEND Internal Medicine Hematology & Oncology
DX: C92.01 Acute myeloblastic leukemia, in remission (principal); N18.5 Chronic kidney disease, stage 5; D63.1 Anemia in chronic kidney disease; I10 Essential (primary) hypertension; E03.9 Hypothyroidism, unspecified; E66.01 Morbid (severe) obesity due to excess calories; Z94.0 Kidney transplant status; D84.9 Immunodeficiency, unspecified; R80.8 Other proteinuria; Z87.898 Personal history of other specified conditions; Z79.899 Other long term (current) drug therapy
CPT/HCPCS: 80053; 82728; 83540; 83550; 85025; 85045; 96372; G0463; 36415; 36430; 80197; 81000; 82607; 82746; 83735; 84100; 84156; 84550; 86850; 86900; 86901; 86920; 86945; 86999; 87799; 87910

== ENCOUNTER 2020-12-30 05:28 | Outpatient (RCR) | payer MEDICARE ==
[~2020-12-30] VITALS: Ht 160 cm; Wt 60.0 kg
[~2020-12-30 05:28] MED LIST changes: +CARV6.252 PO; +CYCL5TAB PO; +DARB100D IJ; -DARBEPOETIN 100 MCG/ML (ARANESP) 1 ML VIAL SC SCH; -DARBEPOETIN 40 MCG/ML (ARANESP) 1 ML VIAL SC SCH; -DARBEPOETIN 60 MCG/ML ARANESP (CANCER CTR) INJ SCH; +FLUT9.9S NS; +MYCO180T PO; -NS (IVPB) CANCER CENTER 250 ML ONE; +PRD1T PO; -SODIUM CHLORIDE ONE; +TACR1CAP24 PO
== END 2020-12-30 09:01 | disposition home or self-care (01) ==
LOC: PREOP 05:28
PROVIDERS: ATTEND Surgery
DX: Z01.812 Encounter for preprocedural laboratory examination (principal); Z20.822 Contact with and (suspected) exposure to COVID-19
CPT/HCPCS: 87635

== ENCOUNTER 2021-01-03 11:51 | Day surgery (SDC) | payer MEDICARE ==
[~2021-01-03] VITALS: Ht 160 cm; Wt 60.0 kg
[~2021-01-03 11:51] MED LIST changes: -FLUT9.9S NS; +FLUT9.9S NSEACH
[2021-01-03] MEDS ORDERED: LACTATED RINGERS 1,000 ML IV ONE (11:55)
[2021-01-03] MEDS ORDERED: LACTATED RINGERS 1,000 ML IV STA (11:59)
[2021-01-03] MEDS ORDERED: HURRICAINE EXT TUBE (BENZOCAINE) XX PRN (12:00)
[2021-01-03 12:10] VITALS: BP 135/87
--- NOTE | 2021-01-03 12:36 | Progress Note-Pre Operative ---
Pre-Operative Progress Note H&P Reviewed The H&P was reviewed, patient examined and no changes noted. Date Seen by Provider: Jan 03, 2021 Time Seen by Provider: 12:36 Date H&P Reviewed: Jan 03, 2021 Time H&P Reviewed: 12:36 Pre-Operative Diagnosis: iron def anemia, blood in stools VIDYA QUICK DO Jan 03, 2021 12:36
[2021-01-03] MEDS ORDERED: PROPOFOL INJECTION 50 ML IV ONE (13:11)
[2021-01-03 13:45] VITALS: BP 111/67
[2021-01-03 13:50] VITALS: BP 113/74
--- NOTE | 2021-01-03 13:54 | Progress Note-Post Operative ---
Post-Operative Progess Note Surgeon (s)/Wrapper Dipper (s) Surgeon VIDYA QUICK DO Wrapper Dipper: na Pre-Operative Diagnosis iron def anemia, blood in stools Post-Operative Diagnosis hiatal hernia, sigmoid colon polyp Procedure & Operative Findings Date of Procedure 01/03/21 Procedure Performed/Findings egd, colonoscopy c hot bx polypectomy x1 Anesthesia Type per tracer powder blender Estimated Blood Loss Estimated blood loss (mL): none Specimens/Packing Specimens Removed colon polyp VIDYA QUICK DO Jan 03, 2021 13:54
[2021-01-03 13:55] VITALS: BP 133/85
--- NOTE | 2021-01-03 13:56 | Discharge Inst-Simple/Standard ---
Discharge Inst-Standard Patient Instructions/Follow Up Plan of Care/Instructions/FU: 2 weeks Randy Activity as Tolerated: Yes Discharge Diet: Regular Diet VIDYA QUICK DO Jan 03, 2021 13:56
[2021-01-03 14:00] VITALS: BP 133/85
--- NOTE | 2021-01-03 14:20 | Anesthesia-General Post-Op ---
MAC Patient Condition Mental Status/LOC: Same as Preop Cardiovascular: Satisfactory Nausea/Vomiting: Absent Respiratory: Satisfactory Pain: Controlled Complications: Absent Post Op Complications Complications None Follow Up Care/Instructions Patient Instructions None needed. Anesthesiology Discharge Order Discharge Order Patient is doing well, no complaints, stable vital signs, no apparent adverse anesthesia problems. No complications reported per nursing. RL CARDONA CRNA Jan 03, 2021 14:20
[2021-01-03 14:28] VITALS: BP 135/87
--- NOTE | 2021-01-03 21:59 | OPERATIVE REPORT ---
DATE OF SERVICE: 01/03/2021 PREOPERATIVE DIAGNOSIS: Iron deficiency anemia, blood in stools. POSTOPERATIVE DIAGNOSES: Hiatal hernia, sigmoid colon polyp and some internal hemorrhoids. SURGEON: Vidya Padilla DO ANESTHESIA: Per KICKING MACHINE OPERATOR. PROCEDURE: EGD and colonoscopy with hot biopsy polypectomy x1. ESTIMATED BLOOD LOSS: None. COMPLICATIONS: None. INDICATIONS: The patient is a 60-year-old female who found to have some iron deficiency anemia and having some blood in stool. She understands risks and benefits of procedure and wished to proceed with procedure. Consent was signed in the chart. DESCRIPTION OF PROCEDURE: The patient was taken to the endoscopy suite, placed in left lateral recumbent position. Timeout was performed. Scope was inserted in mouth, down the esophagus, stomach and into the duodenum without difficulty. There were no polyps, masses or ulcerations within the duodenum. Scope was slowly retracted back into the stomach where it was further insufflated. No polyps, masses or ulcerations within the stomach. Scope was retroflexed noting a hiatal hernia, no other pathology. Scope was returned to its normal position, slowly withdrawn to distal esophagus, which had normal appearance. No polyps, masses or ulcerations. Scope was slowly retracted back until completely removed. Digital rectal exam was performed noting some internal hemorrhoids. Scope was inserted and advanced all the way to cecum with minimal difficulty. Prep was adequate. Scope was slowly retracted back. There were no polyps, masses or ulcerations within the cecum, ascending, transverse and descending colon. In the sigmoid colon, a small polyp was present, which hot biopsy polypectomy was performed. Scope was then slowly retracted back until the rectum, where it was also retroflexed noting internal hemorrhoids. No other pathology. Scope was returned to its normal position, slowly withdrawn until completely removed. The patient tolerated procedure well without any complications. She was taken to recovery room in stable condition. RECOMMENDATIONS: The patient will need repeat colonoscopy in 5 years. Any issues before that be seen at that time. The patient will follow up on pathology in a couple of weeks. Any issues be seen at that time. She is to continue on current medications. Job ID: [id number] DocumentID: [id number] Dictated Date: 01/03/2021 13:59:06 Rubberizing Mechanic Date: 01/03/2021 21:58:12 Dictated By: VIDYA PADILLA DO
[2021-01-04] MEDS ORDERED: LACT460C PO (16:08)
[2021-01-04] MEDS ORDERED: CEPH500C PO (16:08)
[2021-01-04] MEDS ORDERED: VALA500T7 PO (16:08)
[2021-01-04] MEDS ORDERED: PRED5TAB PO (16:43)
[2021-01-04] MEDS ORDERED: ATOV750O4 PO (16:43)
[2021-01-04] MEDS ORDERED: TACR0.5C6 PO (16:43)
[2021-01-05] MEDS ORDERED: DIPH1TAB PO (11:24)
[2021-01-05] MEDS ORDERED: CHOL4PAC16 PO (11:24)
== END 2021-01-03 14:38 | disposition home or self-care (01) ==
LOC: ENDO 11:51
PROVIDERS: ATTEND Surgery
DX: K63.5 Polyp of colon (principal); K44.9 Diaphragmatic hernia without obstruction or gangrene; K64.8 Other hemorrhoids; E03.9 Hypothyroidism, unspecified; I12.0 Hypertensive chronic kidney disease with stage 5 chronic kidney disease or end stage renal disease; N18.5 Chronic kidney disease, stage 5; K92.1 Melena; J30.2 Other seasonal allergic rhinitis; K21.9 Gastro-esophageal reflux disease without esophagitis; Z79.899 Other long term (current) drug therapy; Z94.0 Kidney transplant status; Z98.84 Bariatric surgery status; Z91.040 Latex allergy status; Z88.1 Allergy status to other antibiotic agents; Z88.0 Allergy status to penicillin; Z88.2 Allergy status to sulfonamides; Z79.890 Hormone replacement therapy; Z85.6 Personal history of leukemia

== ENCOUNTER 2021-01-04 09:36 | Observation (INO) | payer MEDICARE ==
[~2021-01-04] VITALS: Ht 160 cm; Wt 68.0 kg
[2021-01-04] MEDS ORDERED: LACTATED RINGERS 1,000 ML IV ONE (10:24)
[2021-01-04] MEDS ORDERED: LOPERAMIDE 2 MG (IMODIUM) TABLET PO ONE (10:30)
[2021-01-04] MEDS ORDERED: LACTATED RINGERS 1,000 ML IV SCH ×2 (10:30→11:45)
--- NOTE | 2021-01-04 10:32 | ED GI ---
General Chief Complaint: Abdominal/GI Problems Stated Complaint: KURTZ,DIARRHEA Nursing Triage Note: PT AMB TO [facility] PT C/O OF NAUSEA, DIARRHEA, PT HAD COLONOSCOPY YESTERDAY. PT MOUTH DRY. 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 Source of Information: Patient Exam Limitations: No Limitations History of Present Illness Date Seen by Provider: Jan 04, 2021 Time Seen by Provider: 10:28 Initial Comments To ER by private vehicle with reports of nausea and diarrhea. Follows with [facility] status post bone marrow and kidney transplant. Nancy szymanski had a colonoscopy done yesterday here by Dr. Padilla, she actually started with diarrhea on 12/30/2020 even before the bowel prep. She had an outpatient C. difficile done at [facility] lab which I called to confirm was negative. She is on prophylactic cephalexin until January of this year she states as directed by [facility] Timing/Duration: 3-4 Days Severity/Quality: Moderate Radiation: No Radiation Activities at Onset: None Associated Symptoms: Nausea/Vomiting Allergies and Home Medications Allergies Coded Allergies: Penicillins (Unverified Allergy, Mild, 05/19/09) Sulfa (Sulfonamide Antibiotics) (Verified Allergy, Unknown, 06/10/09) Patient Home Medication List Home Medication List Reviewed: Yes Amlodipine Besylate (Amlodipine Besylate) 5 Mg Tablet, 5 MG PO DAILY, (Reported) Entered as Reported by: LOUISA CALLAWAY on 09/08/18 1558 Calcium Polycarbophil (Fiber) 625 Mg Tablet, 625 MG PO DAILY, (Reported) Entered as Reported by: LOUISA CALLAWAY on 09/08/18 155 Carvedilol (Carvedilol) 6.25 Mg Tablet, 6.25 MG PO BID, (Reported) Entered as Reported by: RAH MENDEZ on 12/27/20 1607 Cetirizine HCl (Zyrtec) 10 Mg Tablet, 10 MG PO DAILY, (Reported) Entered as Reported by: LOUISA CALLAWAY on 09/08/18 1558 Cyclobenzaprine HCl (Cyclobenzaprine HCl) 5 Mg Tablet, 5 MG PO DAILY, (Reported) Entered as Reported by: RAH MENDEZ on 12/27/20 1607 Darbepoetin Amor in Polysorbat (Aranesp) 100 Mcg/0.5 Ml Syringe, 100 MCG IJ WEEK, (Reported) Entered as Reported by: RAH MENDEZ on 12/27/20 160 Fluticasone Propionate (Flonase Allergy Relief) 9.9 Ml [place].susp, 1 SPRAY NS DAILY, (Reported) Entered as Reported by: RAH MENDEZ on 12/27/201606 Levothyroxine Sodium (Levothyroxine Sodium) 100 Mcg Tablet, 100 MCG PO DAILY, (Reported) Entered as Reported by: LOUISA CALLAWAY on 09/08/181557 Mycophenolate Sodium (Myfortic) 180 Mg Tablet.dr, 180 MG PO BID, (Reported) Entered as Reported by: RAH MENDEZ on 12/27/201606 Pantoprazole Sodium (Pantoprazole Sodium) 40 Mg Tablet.dr, 40 MG PO DAILY, (Reported) Entered as Reported by: LOUISA CALLAWAY on 09/08/181557 Prednisone (Prednisone) 1 Mg Tab, 0.5 MG PO DAILY, (Reported) Entered as Reported by: RAH MENDEZ on 12/27/201606 Tacrolimus (Prograf) 1 Mg Capsule, 3 MG PO DAILY, (Reported) Entered as Reported by: RAH MENDEZ on 12/27/201606 Turmeric Root Extract (Turmeric) 538 Mg Capsule, 538 MG PO DAILY, (Reported) Entered as Reported by: LOUISA CALLAWAY on 09/08/181557 Valacyclovir HCl (Valacyclovir) 1,000 Mg Tablet, 1,000 MG PO DAILY, (Reported) Entered as Reported by: LOUISA CALLAWAY on 09/08/181557 Review of Systems Review of Systems Constitutional: see HPI EENTM: No Symptoms Reported Respiratory: No Symptoms Reported Cardiovascular: No Symptoms Reported Gastrointestinal: See HPI; Denies Abdominal Pain; Diarrhea, Nausea Genitourinary: No Symptoms Reported Musculoskeletal: no symptoms reported Skin: no symptoms reported Psychiatric/Neurological: No Symptoms Reported Endocrine: No Symptoms Reported Hematologic/Lymphatic: No Symptoms Reported Past Usedcoc-Kackyn-Fzlmwq Hx Patient Social History Tobacco Use?: No Substance use?: No Alcohol Use?: No Immunizations Up To Date PED Vaccines UTD: Yes First/Initial COVID19 Vaccinat: 06/2020 Second COVID19 Vaccination Artemio: 06/2020 Seasonal Allergies Seasonal Allergies: Yes Past Medical History Surgeries: Yes (mini gastric bypass then reversal, belt lipectomy, bone marrow transplant, ) Eye Surgery Respiratory: No Cardiac: Yes Hypertension Neurological: Yes Headaches /Migraines Reproductive Disorders: No Sexually Transmitted Disease: Yes (TRIC) Genitourinary: Yes (KIDNEY TRANSPLANT) Dialysis Gastrointestinal: No Musculoskeletal: Yes Arthritis Endocrine: Yes Hypothyroidsim HEENT: No Cataract Cancer: Yes (bone marrow transplant) Leukemia What Type of Treatment Did You: Chemotherapy Psychosocial: Yes Depression Integumentary: No 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 0.0oz. [id number]; 26.00 BMI Method:Stated General Appearance: WD/WN, no apparent distress HEENT: PERRL/EOMI, normal ENT inspection Respiratory: no respiratory distress, no accessory muscle use Gastrointestinal: normal bowel sounds, non tender, soft Extremities: normal range of motion, non-tender Neurologic/Psychiatric: alert, normal mood/affect, oriented x 3 Skin: normal color, warm/dry Progress/Results/Core Measures Results/Orders Lab Results Laboratory Tests Test 01/04/21 10:36 Range/Units White Blood Count 7.2 4.3-11.0 10^3/uL Red Blood Count 4.30 3.80-5.11 10^6/uL Hemoglobin 13.9 11.5-16.0 g/dL Hematocrit 44 35-52 % Mean Corpuscular Volume 102 H 80-99 fL Mean Corpuscular Hemoglobin 32 25-34 pg Mean Corpuscular Hemoglobin Concent 32 32-36 g/dL Red Cell Distribution Width 15.9 H 10.0-14.5 % Platelet Count 200 130-400 10^3/uL Mean Platelet Volume 10.1 9.0-12.2 fL Immature Granulocyte % (Auto) 2 % Neutrophils (%) (Auto) 74 42-75 % Lymphocytes (%) (Auto) 12 12-44 % Monocytes (%) (Auto) 11 0-12 % Eosinophils (%) (Auto) 1 0-10 % Basophils (%) (Auto) 0 0-10 % Neutrophils # (Auto) 5.3 1.8-7.8 10^3/uL Lymphocytes # (Auto) 0.9 L 1.0-4.0 10^3/uL Monocytes # (Auto) 0.8 0.0-1.0 10^3/uL Eosinophils # (Auto) 0.0 0.0-0.3 10^3/uL Basophils # (Auto) 0.0 0.0-0.1 10^3/uL Immature Granulocyte # (Auto) 0.1 0.0-0.1 10^3/uL Sodium Level 132 L 135-145 MMOL/L Potassium Level 3.5 L 3.6-5.0 MMOL/L Chloride Level 105 98-107 MMOL/L Carbon Dioxide Level 12 L 21-32 MMOL/L Anion Gap 15 H 5-14 MMOL/L Blood Urea Nitrogen 36 H 7-18 MG/DL Creatinine 2.18 H 0.60-1.30 MG/DL Estimat Glomerular Filtration Rate 23 BUN/Creatinine Ratio 17 Glucose Level 100 70-105 MG/DL Calcium Level 10.1 8.5-10.1 MG/DL Corrected Calcium 8.5-10.1 MG/DL Total Bilirubin 0.5 0.1-1.0 MG/DL Aspartate Amino Transf (AST/SGOT) 19 5-34 U/L Alanine Aminotransferase (ALT/SGPT) 12 0-55 U/L Alkaline Phosphatase 508 H 40-136 U/L Total Protein 7.3 6.4-8.2 GM/DL Albumin 4.7 H 3.2-4.5 GM/DL My Orders Orders - MONIE HASKINS APRN Cbc With Automated Diff (01/04/21 10:22) Comprehensive Metabolic Panel (01/04/21 10:22) Ed Iv/Invasive Line Start (01/04/21 10:22) Lactated Ringers (Lr 1000 Ml Iv Solution (01/04/21 10:30) Loperamide Tablet (Imodium Tablet) (01/04/21 10:30) Lactated Ringers (Lr 1000 Ml Iv Solution (01/04/21 10:24) Ondansetron Injection (Zofran Injectio (01/04/21 10:45) Ondansetron Injection (Zofran Injectio (01/04/21 10:33) Lactated Ringers (Lr 1000 Ml Iv Solution (01/04/21 11:45) Medications Given in ED Current Medications Medications Dose Ordered Sig/Brian Route Start Time Stop Time Status Last Admin Dose Admin Loperamide HCl 4 mg ONCE ONCE PO 01/04/21 10:30 01/04/21 10:31 DC 01/04/21 10:29 4 MG Ondansetron HCl 8 mg ONCE ONCE IVP 01/04/21 10:45 01/04/21 10:46 DC 01/04/21 10:35 8 MG Vital Signs/I&O 01/04/21 09:50 Temp 36.7 Pulse 90 Resp 18 B/P (MAP) 165/105 (125) Pulse Ox 99 Blood Pressure Mean: 125 Departure Communication (Admissions) With Dr. Andrade, will admit hydrate and recheck labs in the morning. Impression Primary Impression: Nausea and vomiting Additional Impressions: Diarrhea MARY (acute kidney injury) Disposition: ADMITTED INPATIENT Condition: Stable Admissions Decision to Admit Reason: Admit from ER (General) Decision to Admit/Date: Jan 04, 2021 Time/Decision to Admit Time: 11:42 Departure-Patient Inst. Referrals: BANDAR ANDRADE DO (PCP/Family) Primary Care Physician MONIE HASKINS APRN Jan 04, 2021 10:32
[2021-01-04] MEDS ORDERED: ONDANSETRON 4 MG/2 ML (SDV) Z0FRAN ONE (10:33)
[2021-01-04 10:43] LABS: BASOPHILS % (AUTO) 0 % (0-10); EOSINOPHILS % (AUTO) 1 % (0-10); HEMATOCRIT 44 % (35-52); HEMOGLOBIN 13.9 g/dL (11.5-16.0); LYMPHOCYTES # (AUTO) 0.9 10^3/uL (1.0-4.0); LYMPHOCYTES % (AUTO) 12 % (12-44); MEAN CORPUSCULAR HEMOGLOBIN 32 pg (25-34); MEAN CORPUSCULAR HGB CONC 32 g/dL (32-36); MEAN CORPUSCULAR VOLUME 102 fL (80-99); MEAN PLATELET VOLUME 10.1 fL (9.0-12.2); MONOCYTES # (AUTO) 0.8 10^3/uL (0.0-1.0); MONOCYTES % (AUTO) 11 % (0-12); NEUTROPHILS # (AUTO) 5.3 10^3/uL (1.8-7.8); NEUTROPHILS % (AUTO) 74 % (42-75); PLATELET COUNT 200 10^3/uL (130-400); WHITE BLOOD COUNT 7.2 10^3/uL (4.3-11.0)
[2021-01-04] MEDS ORDERED: ONDANSETRON 4 MG/2 ML (SDV) Z0FRAN IVP ONE (10:45)
[2021-01-04 10:53] LABS: ALBUMIN 4.7 GM/DL (3.2-4.5); CHLORIDE 105 MMOL/L (98-107); POTASSIUM 3.5 MMOL/L (3.6-5.0); SODIUM 132 MMOL/L (135-145)
[2021-01-04 10:54] LABS: CALCIUM 10.1 MG/DL (8.5-10.1)
[2021-01-04 10:56] LABS: GLUCOSE 100 MG/DL (70-105); TOTAL PROTEIN 7.3 GM/DL (6.4-8.2)
[2021-01-04 10:57] LABS: CARBON DIOXIDE 12 MMOL/L (21-32)
[2021-01-04 10:58] LABS: BILIRUBIN,TOTAL 0.5 MG/DL (0.1-1.0)
[2021-01-04 10:59] LABS: ALKALINE PHOSPHATASE 508 U/L (40-136); CREATININE SERUM 2.18 MG/DL (0.60-1.30); GFR ESTIMATED 23
[2021-01-04 11:01] LABS: BUN/CREATININE RATIO 17
[2021-01-04 11:02] LABS: ALANINE AMINOTRANSFERASE 12 U/L (0-55)
[2021-01-04 13:52] VITALS: BP 165/105
[2021-01-04] MEDS: LACTATED RINGERS 1,000 ML IV SCH ×2 (13:52→22:02)
[2021-01-04] MEDS ORDERED: ONDANSETRON 4 MG/2 ML (SDV) Z0FRAN IV PRN (14:00)
[2021-01-04] MEDS ORDERED: RT-ALBUTEROL SULF 2.5 MG/3 ML PRE-MIX VIAL INH PRN (14:00)
[2021-01-04] MEDS ORDERED: CATHETER FLUSH 10 ML SYR IV PRN (14:00)
--- NOTE | 2021-01-04 15:23 | History & Physical ---
NOHEMYMICHAEL 01/04/21 1523: History of Present Illness History of Present Illness Reason for visit/HPI CC: diarrhea, N/V, KURTZ 60 yo female w hx of bone marrow transplant, kidney transplant, and YASMINE (08/19) presents to ER with nausea, dry heaving, and diarrhea since Saturday. Pt had colonoscopy with Dr. Padilla on Saturday to evaluate severe YASMINE. The colonoscopy required removal of a polyp but showed no GI bleed. Pt tested negative for CDiff at that time. Today, the dry heaving became more persistent and the patient developed a KURTZ. Her transplant team at recommended she come to the ER for evaluation. Pt had a midline PICC placed and received 2 bags of fluid thus far; has had no bowel movements or vomiting since admission. Pt states she is feeling better and was even able to eat lunch today. Pertinent Labs: BUN 36 Cr 2.18 AlkPhos 508 Albumin 4.7 Date of Admission Jan 04, 2021 at 11:41 Date Seen by a Provider: Jan 04, 2021 Time Seen by a Provider: 12:00 I consulted on this patient on 01/04/21 15:16 Attending Physician Love Andrade DO Admitting Physician Love Andrade DO Consult Allergies and Home Medications Allergies Coded Allergies: Penicillins (Unverified Allergy, Mild, 01/04/21) Sulfa (Sulfonamide Antibiotics) (Verified Allergy, Unknown, 01/04/21) Patient Home Medication List Amlodipine Besylate (Amlodipine Besylate) 5 Mg Tablet, 5 MG PO DAILY, (Reported) Entered as Reported by: LOUISA CALLAWAY on 09/08/181557 Last Action: Continued Atovaquone (Atovaquone) 750 Mg/5 Ml Oral.susp, 10 ML PO DAILY, (Reported) Entered as Reported by: YUNIOR RAMIREZ on 01/04/21 1643 Last Action: Converted Calcium Polycarbophil (Fiber) 625 Mg Tablet, 625 MG PO HS, (Reported) Entered as Reported by: LOUISA CALLAWAY on 09/08/181557 Last Action: Continued Carvedilol (Carvedilol) 6.25 Mg Tablet, 6.25 MG PO BID, (Reported) Entered as Reported by: RAH MENDZE on 12/27/20 1607 Last Action: Continued Cephalexin (Cephalexin) 500 Mg Capsule, 500 MG PO BID, (Reported) Entered as Reported by: YUNIOR RAMIREZ on 01/04/211607 Last Action: Converted Cetirizine HCl (Zyrtec) 10 Mg Tablet, 10 MG PO HS, (Reported) Entered as Reported by: LOUISA CALLAWAY on 09/08/181557 Last Action: Converted Cyclobenzaprine HCl (Cyclobenzaprine HCl) 5 Mg Tablet, 5 MG PO HS PRN for MUSCLE SPASMS, (Reported) Entered as Reported by: RAH MENDEZ on 12/27/201606 Last Action: Converted Darbepoetin Amor in Polysorbat (Aranesp) 100 Mcg/0.5 Ml Syringe, 100 MCG IJ WEEK, (Reported) Entered as Reported by: RAH MENDEZ on 12/27/201606 Last Action: Converted Fluticasone Propionate (Flonase Allergy Relief) 9.[address]susp, 1-2 SPRAY NSEACH DAILY, (Reported) Entered as Reported by: RAH MENDEZ on 12/27/201606 Last Action: Converted Lactobacillus Acidophilus (Florajen Acidophilus) 1 Each Capsule, 1 EACH PO DAILY, (Reported) Entered as Reported by: YUNIOR RAMIREZ on 01/04/211607 Last Action: Converted Levothyroxine Sodium (Levothyroxine Sodium) 100 Mcg Tablet, 100 MCG PO DAILY, (Reported) Entered as Reported by: LOUISA CALLAWAY on 09/08/181557 Last Action: Continued Mycophenolate Sodium (Myfortic) 180 Mg Tablet.dr, 360 MG PO BID, (Reported) Entered as Reported by: RAH MENDEZ on 12/27/201606 Last Action: Converted Pantoprazole Sodium (Pantoprazole Sodium) 40 Mg Tablet.dr, 40 MG PO HS, (Reported) Entered as Reported by: LOUISA CALLAWAY on 09/08/181557 Last Action: Continued Prednisone (Prednisone) 5 Mg Tablet, 5 MG PO DAILY, (Reported) Entered as Reported by: YUNIOR RAMIREZ on 01/04/21 1643 Last Action: Continued Tacrolimus (Prograf) 1 Mg Capsule, 1 MG PO BID, (Reported) Entered as Reported by: RAH MENDEZ on 12/27/201606 Last Action: Continued Tacrolimus (Tacrolimus) 0.5 Mg Capsule, 0.5 MG PO DAILY, (Reported) Entered as Reported by: YUNIOR RAMIREZ on 01/04/21 1643 Last Action: Continued Turmeric Root Extract (Turmeric) 538 Mg Capsule, 538 MG PO HS, (Reported) Entered as Reported by: LOUISA CALLAWAY on 09/08/181557 Last Action: Converted Valacyclovir HCl (Valacyclovir) 500 Mg Tablet, 500 MG PO HS, (Reported) Entered as Reported by: YUNIOR RAMIREZ on 01/04/21 160 Last Action: Continued Discontinued Medications Prednisone (Prednisone) 1 Mg Tab, 0.5 MG PO DAILY, (Reported) Discontinued Reason: Prescription changed Entered as Reported by: RAH MENDEZ on 12/27/201606 Last Action: Last Taken Edited Valacyclovir HCl (Valacyclovir) 1,000 Mg Tablet, 1,000 MG PO DAILY, (Reported) Discontinued Reason: Duplicate Order Entered as Reported by: LOUISA CALLAWAY on 09/08/181557 Last Action: Discontinued Past Dvpjivk-Aoerby-Bayljs Hx Patient Social History Tobacco Use?: No Substance use?: No Alcohol Use?: No Immunizations Up To Date Date of Influenza Vaccine: Jan 10, 2017 First/Initial COVID19 Vaccinat: 06/2020 Second COVID19 Vaccination Atremio: 06/2020 PED Vaccines UTD: Yes Seasonal Allergies Seasonal Allergies: Yes Current Status status: No Advance Directives: No Communicates: Verbally Primary Language: Thai Preferred Spoken Language: Thai Is interpretation needed?: No Implanted or Applied Medical D: None Past Medical History Surgeries: Eye Surgery, Kidney Transplant Hypertension Headaches /Migraines Sexually Transmitted Disease: Yes (TRIC) Dialysis Arthritis Hypothyroidsim Cataract Leukemia What Type of Treatment Did You: Chemotherapy Depression 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 0.0oz. 62.700661wg; 26.00 BMI Method:Stated General Appearance: No Apparent Distress, WD/WN Respiratory: No Accessory Muscle Use, No Respiratory Distress Cardiovascular: No Edema Neurologic/Psychiatric: Alert, Oriented x3 Skin: Normal Color Assessment/Plan Assessment and Plan Assessment: N/V Diarrhea HTN Hx kidney transplant Hx bone marrow transplant Hx of YASMINE Plan: Continue to monitor for progress Continue loperamide, ondansetron, and fluids Consider additional antihypertensive Hgb WNL Consider discharge if continued improvement LOVE ANDRADE 01/05/21 0543: History of Present Illness History of Present Illness Reason for visit/HPI CC: Dehydration from diarrhea HPI: This is a 63yoWF clinic pt of mine s/p recent renal transplant previously on dialysis from chemotherapy related issues sustained after 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 She had a colonoscopy yesterday by Dr. Padilla pursued due to evaluation for anemia. They did not find any source of any bleed. At this time we will continue aggressive treatment. Allergies and Home Medications Allergies Coded Allergies: Penicillins (Unverified Allergy, Mild, 01/04/21) Sulfa (Sulfonamide Antibiotics) (Verified Allergy, Unknown, 01/04/21) Patient Home Medication List Home Medication List Reviewed: Yes Amlodipine Besylate (Amlodipine Besylate) 5 Mg Tablet, 5 MG PO DAILY, (Reported) Entered as Reported by: LOUISA CALLAWAY on 09/08/181557 Last Action: Continued Atovaquone (Atovaquone) 750 Mg/5 Ml Oral.susp, 10 ML PO DAILY, (Reported) Entered as Reported by: YUNIOR RAMIREZ on 01/04/21 0913 Last Action: Converted Calcium Polycarbophil (Fiber) 625 Mg Tablet, 625 MG PO HS, (Reported) Entered as Reported by: LOUISA CALLAWAY on 09/08/181557 Last Action: Continued Carvedilol (Carvedilol) 6.25 Mg Tablet, 6.25 MG PO BID, (Reported) Entered as Reported by: RAH MENDEZ on 12/27/201606 Last Action: Continued Cephalexin (Cephalexin) 500 Mg Capsule, 500 MG PO BID, (Reported) Entered as Reported by: YUNIOR RAMIREZ on 01/04/211607 Last Action: Converted Cetirizine HCl (Zyrtec) 10 Mg Tablet, 10 MG PO HS, (Reported) Entered as Reported by: LOUISA CALLAWAY on 09/08/181557 Last Action: Converted Cyclobenzaprine HCl (Cyclobenzaprine HCl) 5 Mg Tablet, 5 MG PO HS PRN for MUSCLE SPASMS, (Reported) Entered as Reported by: RAH MENDEZ on 12/27/201606 Last Action: Converted Darbepoetin Amor in Polysorbat (Aranesp) 100 Mcg/0.5 Ml Syringe, 100 MCG IJ WEEK, (Reported) Entered as Reported by: RAH MENDEZ on 12/27/201606 Last Action: Converted Fluticasone Propionate (Flonase Allergy Relief) 9.[address]susp, 1-2 SPRAY NSEACH DAILY, (Reported) Entered as Reported by: RAH MENDEZ on 12/27/201606 Last Action: Converted Lactobacillus Acidophilus (Florajen Acidophilus) 1 Each Capsule, 1 EACH PO DAILY, (Reported) Entered as Reported by: YUNIOR RAMIREZ on 01/04/211607 Last Action: Converted Levothyroxine Sodium (Levothyroxine Sodium) 100 Mcg Tablet, 100 MCG PO DAILY, (Reported) Entered as Reported by: LOUISA CALLAWAY on 09/08/181557 Last Action: Continued Mycophenolate Sodium (Myfortic) 180 Mg Tablet.dr, 360 MG PO BID, (Reported) Entered as Reported by: RAH MENDEZ on 12/27/201606 Last Action: Converted Pantoprazole Sodium (Pantoprazole Sodium) 40 Mg Tablet.dr, 40 MG PO HS, (Reported) Entered as Reported by: LOUISA CALLAWAY on 09/08/181557 Last Action: Continued Prednisone (Prednisone) 5 Mg Tablet, 5 MG PO DAILY, (Reported) Entered as Reported by: YUNIOR RAMIREZ on 01/04/21 1643 Last Action: Continued Tacrolimus (Prograf) 1 Mg Capsule, 1 MG PO BID, (Reported) Entered as Reported by: RAH MENDEZ on 12/27/201606 Last Action: Continued Tacrolimus (Tacrolimus) 0.5 Mg Capsule, 0.5 MG PO DAILY, (Reported) Entered as Reported by: YUNIOR RAMIREZ on 01/04/21 1643 Last Action: Continued Turmeric Root Extract (Turmeric) 538 Mg Capsule, 538 MG PO HS, (Reported) Entered as Reported by: LOUISA CALLAWAY on 09/08/181557 Last Action: Converted Valacyclovir HCl (Valacyclovir) 500 Mg Tablet, 500 MG PO HS, (Reported) Entered as Reported by: YUNIOR RAMIREZ on 01/04/211607 Last Action: Continued Discontinued Medications Prednisone (Prednisone) 1 Mg Tab, 0.5 MG PO DAILY, (Reported) Discontinued Reason: Prescription changed Entered as Reported by: RAH MENDEZ on 12/27/201606 Last Action: Last Taken Edited Valacyclovir HCl (Valacyclovir) 1,000 Mg Tablet, 1,000 MG PO DAILY, (Reported) Discontinued Reason: Duplicate Order Entered as Reported by: LOUISA CALLAWAY on 09/08/181557 Last Action: Discontinued Past Nsdfxvt-Eomruh-Qfbjrx Hx Patient Social History Marrital Status: Employed/Student: employed Smoking Status: Never a Smoker Past Medical History Hypertension Hypothyroidsim Review of Systems Constitutional: see HPI, malaise, weakness EENTM: no symptoms reported Respiratory: no symptoms reported Cardiovascular: no symptoms reported Gastrointestinal: diarrhea, loss of appetite, nausea, vomiting Genitourinary: no symptoms reported Musculoskeletal: no symptoms reported Skin: no symptoms reported Psychiatric/Neurological: No Symptoms Reported All Other Systems Reviewed Negative Unless Noted: Yes Physical Exam General Appearance: WD/WN, Anxious, Chronically ill, Mild Distress Eyes: Bilateral Eye Normal Inspection, Bilateral Eye PERRL, Bilateral Eye EOMI HEENT: PERRL/EOMI, Normal ENT Inspection, Pharynx Normal Neck: Full Range of Motion, Normal Inspection, Non Tender, Supple, Carotid Bruit Respiratory: Chest Non Tender, Lungs Clear, Normal Breath Sounds, No Accessory Muscle Use, No Respiratory Distress Cardiovascular: Regular Rate, Rhythm, No Edema, No Gallop, No JVD, No Murmur, Normal Peripheral Pulses Gastrointestinal: Normal Bowel Sounds, No Organomegaly, No Pulsatile Mass, Non Tender, Soft Back: Normal Inspection, No CVA Tenderness, No Vertebral Tenderness Extremity: Normal Capillary Refill, Normal Inspection, Normal Range of Motion, Non Tender, No Calf Tenderness, No Pedal Edema Neurologic/Psychiatric: Alert, Oriented x3, No Motor/Sensory Deficits, Normal Mood/Affect Skin: Normal Color, Warm/Dry Lymphatic: No Adenopathy Assessment/Plan Assessment and Plan Assessment: Severe diarrhea with volume depletion Acute kidney injury and recent renal transplant patient History of anemia status post colonoscopy yesterday Hypothyroidism History of leukemia status post bone marrow transplant Plan: IV fluids Monitor hemoglobin Monitor kidneys Problems: (1) MARY (acute kidney injury) Status: Acute (2) Nausea and vomiting Status: Acute (3) Diarrhea Status: Acute Admission Diagnosis Admission Status: Observation Supervisory-Addendum Brief Verification & Attestation Participated in pt care: history, MDM, physical Personally performed: exam, history, MDM, supervision of care Care discussed with: Medical Student Procedures: n/a Results interpretation: Verified all documentation Verification and Attestation of Medical Student E/M Service A medical student performed and documented this service in my presence. I reviewed and verified all information documented by the medical student and made modifications to such information, when appropriate. I personally performed the physical exam and medical decision making. Love Andrade, Jan 05, 2021,05:43 MICHAEL SLATER Jan 04, 2021 15:23 LOVE ANDRADE DO Jan 05, 2021 05:43
[2021-01-04 15:33] VITALS: BP 129/80
[2021-01-04] MEDS ORDERED: CEPH500C PO (16:08)
[2021-01-04] MEDS ORDERED: LACT460C PO (16:08)
[2021-01-04] MEDS ORDERED: VALA500T7 PO (16:08)
[2021-01-04] MEDS ORDERED: PRED5TAB PO (16:43)
[2021-01-04] MEDS ORDERED: ATOV750O4 PO (16:43)
[2021-01-04] MEDS ORDERED: TACR0.5C6 PO (16:43)
[2021-01-04 19:32] VITALS: BP 137/77
[2021-01-04] MEDS: LOPERAMIDE 2 MG (IMODIUM) TABLET PO SCH (20:14)
[2021-01-04] MEDS ORDERED: NON-FORMULARY MEDICATION 1 EA EA (Turmeric Root Extract (Turmeric) 538 MG) PO SCH (21:00)
[2021-01-04] MEDS ORDERED: CAL. POLYCARBOPHIL 625 MG (FIBERCON) TAB PO SCH (21:00)
[2021-01-04] MEDS ORDERED: TACROLIMUS 1 MG (PROGRAF) CAP NON-FORMULARY PO SCH (21:00)
[2021-01-04] MEDS ORDERED: VALACYCLOVIR 500 MG TAB (VALTREX) PO SCH (21:00)
[2021-01-04] MEDS ORDERED: PANTOPRAZOLE 40 MG (PROTONIX) TAB PO SCH (21:00)
[2021-01-04] MEDS ORDERED: MYCOPHENOLATE SODIUM 360 MG PO SCH (21:00)
[2021-01-04] MEDS ORDERED: DARBEPOETIN ALFA IN POLYSORBAT 100 MCG IJ SCH (21:00)
[2021-01-04] MEDS ORDERED: CYCLOBENZAPRINE 10 MG (FLEXERIL) TAB PO PRN (22:00)
[2021-01-04] MEDS ORDERED: PATIENT MAY USE OWN MEDS, ALL MC SCH (22:30)
[2021-01-04 23:08] VITALS: BP 153/87
[2021-01-05 03:48] VITALS: BP 119/75
[2021-01-05] MEDS: LACTATED RINGERS 1,000 ML IV SCH (05:14)
[2021-01-05 05:38] LABS: BASOPHILS % (AUTO) 0 % (0-10); EOSINOPHILS % (AUTO) 1 % (0-10); HEMATOCRIT 35 % (35-52); HEMOGLOBIN 11.1 g/dL (11.5-16.0); LYMPHOCYTES # (AUTO) 1.3 10^3/uL (1.0-4.0); LYMPHOCYTES % (AUTO) 22 % (12-44); MEAN CORPUSCULAR HEMOGLOBIN 32 pg (25-34); MEAN CORPUSCULAR HGB CONC 32 g/dL (32-36); MEAN CORPUSCULAR VOLUME 102 fL (80-99); MEAN PLATELET VOLUME 10.5 fL (9.0-12.2); MONOCYTES # (AUTO) 0.8 10^3/uL (0.0-1.0); MONOCYTES % (AUTO) 13 % (0-12); NEUTROPHILS # (AUTO) 3.6 10^3/uL (1.8-7.8); NEUTROPHILS % (AUTO) 63 % (42-75); PLATELET COUNT 178 10^3/uL (130-400); WHITE BLOOD COUNT 5.7 10^3/uL (4.3-11.0)
[2021-01-05 05:55] LABS: ALBUMIN 3.7 GM/DL (3.2-4.5)
[2021-01-05 05:56] LABS: POTASSIUM 3.4 MMOL/L (3.6-5.0)
[2021-01-05 05:57] LABS: CALCIUM 9.3 MG/DL (8.5-10.1)
[2021-01-05 05:58] LABS: TOTAL PROTEIN 5.7 GM/DL (6.4-8.2)
[2021-01-05 06:00] LABS: BILIRUBIN,TOTAL 0.4 MG/DL (0.1-1.0)
[2021-01-05 06:02] LABS: CREATININE SERUM 1.66 MG/DL (0.60-1.30)
[2021-01-05 08:03] VITALS: BP 113/71
[2021-01-05] MEDS: LOPERAMIDE 2 MG (IMODIUM) TABLET PO SCH ×2 (08:38→13:13)
[2021-01-05] MEDS ORDERED: FLUTICASONE NASAL SPRAY (FLONASE) 16 GM BTL NS SCH (09:00)
[2021-01-05] MEDS ORDERED: CEPHALEXIN 250 MG (KEFLEX) CAP PO SCH (09:00)
[2021-01-05] MEDS ORDERED: TACROLIMUS 0.5 MG (PROGRAF) CAP NON-FORMULARY PO SCH (09:00)
[2021-01-05] MEDS ORDERED: ATOVAQUONE PO SCH (09:00)
[2021-01-05] MEDS ORDERED: LACTOBACILLUS ACIDOPHILUS (PROBIOTIC) CAPSULE PO SCH (09:00)
[2021-01-05] MEDS ORDERED: amLODIPine 5 MG (NORVASC) TAB PO SCH (09:00)
[2021-01-05] MEDS ORDERED: predniSONE 5 MG TAB PO SCH (09:00)
[2021-01-05] MEDS ORDERED: LORATADINE (CLARITIN) 10 MG TAB PO SCH ×2 (09:00→21:00)
[2021-01-05] MEDS ORDERED: LEVOTHYROXINE 100 MCG (LEVOTHROID) TAB PO SCH (09:00)
[2021-01-05] MEDS ORDERED: CHOL4PAC16 PO (11:24)
[2021-01-05] MEDS ORDERED: DIPH1TAB PO (11:24)
--- NOTE | 2021-01-05 11:25 | Discharge Summary ---
Diagnosis/Chief Complaint Date of Admission Jan 04, 2021 at 11:41 Date of Discharge Discharge Date: Jan 05, 2021 Discharge Diagnosis Acute kidney injury Dehydration Severe diarrhea recurrent in type normal colonoscopy C. 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 She had a colonoscopy yesterday by Dr. Padilla pursued due to evaluation for anemia. They did not find any source of any bleed. At this time we will continue aggressive treatment. Discharge Summary Discharge Physical Examination Allergies: Coded Allergies: Penicillins (Unverified Allergy, Mild, 01/04/21) Sulfa (Sulfonamide Antibiotics) (Verified Allergy, Unknown, 01/04/21) Vitals & I&Os Vital Signs Date Time Temp Pulse Resp B/P (MAP) Pulse Ox O2 Delivery O2 Flow Rate FiO2 01/05/21 13:59 01/05/21 12:00 36.0 77 18 97 Room Air 01/04/21 13:52 21 General Appearance: Alert, Oriented X3, Cooperative Respiratory: Clear to Auscultation Cardiovascular: Regular Rate Neuro: Normal Gait, Normal Speech, Strength at 5/5 X4 Ext Psych/Mental Status: Mental Status NL Hospital Course Was the Problem List Reviewed?: Yes 60 yo female with recent renal transplant previously on dialysis from chemotherapy related issues 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 Pt was dehydrated (Cr 2.1) in need of aggressive hydration to protect the kidney. Pt had a midline PICC placed in the ER and was transferred up to ICU. Pt had a colonoscopy the day prior to admission (performed by Dr. Padilla) to investigate severe YASMINE. The colonoscopy required removal of a polyp, but showed no GI bleed. Pt tested negative for CDiff at that time. The pt's nausea and dry heaving improved with fluids and ondansetron, though the diarrhea continued. Pt was prescribed Questran Lite Powder 3-4x/day, Lamotil 1x/day, and continuation of Imodium prior to discharge. Cr was 1.66 and Hgb was 11.1 at discharge. Pt has a clinic f/u with Dr. Chambers next week. MICHAEL SLATER Labs (last 24 hrs) Laboratory Tests 01/04/21 10:36: White Blood Count 7.2, Red Blood Count 4.30, Hemoglobin 13.9, Hematocrit 44, Mean Corpuscular Volume 102H, Mean Corpuscular Hemoglobin 32, Mean Corpuscular H emoglobin Concent 32, Red Cell Distribution Width 15.9H, Platelet Count 200, Mean Platelet Volume 10.1, Immature Granulocyte % (Auto) 2, Neutrophils (%) (Auto) 74, Lymphocytes (%) (Auto) 12, Monocytes (%) (Auto) 11, Eosinophils (%) (Auto) 1, Basophils (%) (Auto) 0, Neutrophils # (Auto) 5.3, Lymphocytes # (Auto) 0.9L, Monocytes # (Auto) 0.8, Eosinophils # (Auto) 0.0, Basophils # (Auto) 0.0, Immature Granulocyte # (Auto) 0.1, Sodium Level 132L, Potassium Level 3.5L, Chloride Level 105, Carbon Dioxide Level 12L, Anion Gap 15H, Blood Urea Nitrogen 36H, Creatinine 2.18H, Estimat Glomerular Filtration Rate 23, BUN/Creatinine Ratio 17, Glucose Level 100, Calcium Level 10.1, Corrected Calcium , Total Bilirubin 0.5, Aspartate Amino Transf (AST/SGOT) 19, Alanine Aminotransferase (ALT/SGPT) 12, Alkaline Phosphatase 508H, Total Protein 7.3, Albumin 4.7H 01/05/21 05:29: White Blood Count 5.7, Red Blood Count 3.44L, Hemoglobin 11.1#L, Hematocrit 35, Mean Corpuscular Volume 102H, Mean Corpuscular Hemoglobin 32, Mean Corpuscular Hemoglobin Concent 32, Red Cell Distribution Width 16.0H, Platelet Count 178, Mean Platelet Volume 10.5, Immature Granulocyte % (Auto) 1, Neutrophils (%) (Auto) 63, Lymphocytes (%) (Auto) 22, Monocytes (%) (Auto) 13H, Eosinophils (%) (Auto) 1, Basophils (%) (Auto) 0, Neutrophils # (Auto) 3.6, Lymphocytes # (Auto) 1.3, Monocytes # (Auto) 0.8, Eosinophils # (Auto) 0.0, Basophils # (Auto) 0.0, Immature Granulocyte # (Auto) 0.1, Sodium Level 136, Potassium Level 3.4L, Chloride Level 111H, Carbon Dioxide Level 13L, Anion Gap 12, Blood Urea Nitrogen 25H, Creatinine 1.66H, Estimat Glomerular Filtration Rate 32, BUN/Creatinine Ratio 15, Glucose Level 85, Calcium Level 9.3, Corrected Calcium 9.5, Total Bilirubin 0.4, Aspartate Amino Transf (AST/SGOT) 14, Alanine Aminotransferase (ALT/SGPT) 9, Alkaline Phosphatase 363H, Total Protein 5.7L, Albumin 3.7, Thyroid Stimulating Hormone (TSH) 0.49 Pending Labs Laboratory Tests 01/04/21 10:36: White Blood Count 7.2, Red Blood Count 4.30, Hemoglobin 13.9, Hematocrit 44, Mean Corpuscular Volume 102, Mean Corpuscular Hemoglobin 32, Mean Corpuscular Hemoglobin Concent 32, Red Cell Distribution Width 15.9, Platelet Count 200, Mean Platelet Volume 10.1, Immature Granulocyte % (Auto) 2, Neutrophils (%) (Auto) 74, Lymphocytes (%) (Auto) 12, Monocytes (%) (Auto) 11, Eosinophils (%) (Auto) 1, Basophils (%) (Auto) 0, Neutrophils # (Auto) 5.3, Lymphocytes # (Auto) 0.9, Monocytes # (Auto) 0.8, Eosinophils # (Auto) 0.0, Basophils # (Auto) 0.0, Immature Granulocyte # (Auto) 0.1, Sodium Level 132, Potassium Level 3.5, Chloride Level 105, Carbon Dioxide Level 12, Anion Gap 15, Blood Urea Nitrogen 36, Creatinine 2.18, Estimat Glomerular Filtration Rate 23, BUN/Creatinine Ratio 17, Glucose Level 100, Calcium Level 10.1, Corrected Calcium , Total Bilirubin 0.5, Aspartate Amino Transf (AST/SGOT) 19, Alanine Aminotransferase (ALT/SGPT) 12, Alkaline Phosphatase 508, Total Protein 7.3, Albumin 4.7 01/05/21 05:29: White Blood Count 5.7, Red Blood Count 3.44, Hemoglobin 11.1, Hematocrit 35, Mean Corpuscular Volume 102, Mean Corpuscular Hemoglobin 32, Mean Corpuscular Hemoglobin Concent 32, Red Cell Distribution Width 16.0, Platelet Count 178, Mean Platelet Volume 10.5, Immature Granulocyte % (Auto) 1, Neutrophils (%) (Auto) 63, Lymphocytes (%) (Auto) 22, Monocytes (%) (Auto) 13, Eosinophils (%) (Auto) 1, Basophils (%) (Auto) 0, Neutrophils # (Auto) 3.6, Lymphocytes # (Auto) 1.3, Monocytes # (Auto) 0.8, Eosinophils # (Auto) 0.0, Basophils # (Auto) 0.0, Immature Granulocyte # (Auto) 0.1, Sodium Level 136, Potassium Level 3.4, Chloride Level 111, Carbon Dioxide Level 13, Anion Gap 12, Blood Urea Nitrogen 25, Creatinine 1.66, Estimat Glomerular Filtration Rate 32, BUN/Creatinine Ratio 15, Glucose Level 85, Calcium Level 9.3, Corrected Calcium 9.5, Total Bilirubin 0.4, Aspartate Amino Transf (AST/SGOT) 14, Alanine Aminotransferase (ALT/SGPT) 9, Alkaline Phosphatase 363, Total Protein 5.7, Albumin 3.7, Thyroid Stimulating Hormone (TSH) 0.49 Discharge Home Medications: Active Scripts Active Lomotil 2.5-0.025 mg Tablet (Diphenoxylate HCl/Atropine) 1 Each Tablet 1 Each PO BID Questran Packet (Cholestyramine (with Sugar)) 4 Gm Powd.pack 4 Gm PO ACHS Reported Tacrolimus 0.5 Mg Capsule 0.5 Mg PO DAILY TAKES 0.5MG +1MG TO EQUAL 1.5MG DAILY, ALSO TAKES 1MG PM Atovaquone 750 Mg/5 Ml Oral.susp 10 Ml PO DAILY Prednisone 5 Mg Tablet 5 Mg PO DAILY Florajen Acidophilus (Lactobacillus Acidophilus) 1 Each Capsule 1 Each PO DAILY Valacyclovir (Valacyclovir HCl) 500 Mg Tablet 500 Mg PO HS Cephalexin 500 Mg Capsule 500 Mg PO BID Prograf (Tacrolimus) 1 Mg Capsule 1 Mg PO BID TAKES 0.5MG +1MG TO EQUAL 1.5MG DAILY, ALSO TAKES 1MG PM Myfortic (Mycophenolate Sodium) 180 Mg Tablet.dr 360 Mg PO BID TAKES 2 (180MG) TABS Flonase Allergy Relief (Fluticasone Propionate) 9.9 Ml [place].susp 1-2 [place] NSEA CH DAILY Cyclobenzaprine HCl 5 Mg Tablet 5 Mg PO HS PRN Carvedilol 6.25 Mg Tablet 6.25 Mg PO BID Aranesp (Darbepoetin Amor in Polysorbat) 100 Mcg/0.5 Ml Syringe 100 Mcg IJ WEEK Turmeric (Turmeric Root Extract) 538 Mg Capsule 538 Mg PO HS Zyrtec (Cetirizine HCl) 10 Mg Tablet 10 Mg PO HS Fiber (Calcium Polycarbophil) 625 Mg Tablet 625 Mg PO HS Pantoprazole Sodium 40 Mg Tablet.dr 40 Mg PO HS Levothyroxine Sodium 100 Mcg Tablet 100 Mcg PO DAILY Amlodipine Besylate 5 Mg Tablet 5 Mg PO DAILY Instructions to patient/family Please see electronic discharge instructions given to patient. Diagnosis/Problems Diagnosis/Problems (1) MARY (acute kidney injury) Status: Acute (2) Nausea and vomiting Status: Acute (3) Diarrhea Status: Acute BANDAR CHAMBERS DO Jan 05, 2021 11:25
[2021-01-05 12:00] VITALS: BP 99/55
[2021-01-05] MEDS ORDERED: CHOLESTYRAMINE 4 GM (QUESTRAN LITE, PREVALITE) PKT PO ONE (12:15)
--- NOTE | 2021-01-05 17:18 | Progress Note ---
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 Pt was dehydrated (Cr 2.1) in need of aggressive hydration to protect the kidney. Pt had a midline PICC placed in the ER and was transferred up to ICU. Pt had a colonoscopy the day prior to admission (performed by Dr. Padilla) to investigate severe YASMINE. The colonoscopy required removal of a polyp, but showed no GI bleed. Pt tested negative for CDiff at that time. The pt's nausea and dry heaving improved with fluids and ondansetron, though the diarrhea continued. Pt was prescribed Questran Lite Powder 3-4x/day, Lamotil 1x/day, and continuation of Imodium prior to discharge. Cr was 1.66 and Hgb was 11.1 at discharge. Pt has a clinic f/u with Dr. Chambers next week. LOVE CHAMBERS DO 01/05/21 2030: Supervisory-Addendum Brief Verification & Attestation Participated in pt care: history, MDM, physical Personally performed: exam, history, MDM, supervision of care Care discussed with: Medical Student Procedures: n/a Results interpretation: Verified all documentation Verification and Attestation of Medical Student E/M Service A medical student performed and documented this service in my presence. I reviewed and verified all information documented by the medical student and made modifications to such information, when appropriate. I personally performed the physical exam and medical decision making. Love Chambers Jan 05, 2021,20:30 MICHAEL SLATER Jan 05, 2021 17:18 LOVE CHAMBERS DO Jan 05, 2021 20:30
== END 2021-01-05 13:55 | disposition home or self-care (01) ==
LOC: EDUNIT# 09:36 → ER 09:38 → 4TH 11:41
PROVIDERS: ADMIT Internal Medicine; ATTEND Internal Medicine
DX: N17.9 Acute kidney failure, unspecified (principal); E86.0 Dehydration; R19.7 Diarrhea, unspecified; I10 Essential (primary) hypertension; G43.909 Migraine, unspecified, not intractable, without status migrainosus; M19.90 Unspecified osteoarthritis, unspecified site; E03.9 Hypothyroidism, unspecified; F32.9 Major depressive disorder, single episode, unspecified; Z94.0 Kidney transplant status; Z79.890 Hormone replacement therapy; Z79.899 Other long term (current) drug therapy; Z85.6 Personal history of leukemia; Z99.2 Dependence on renal dialysis; Z94.81 Bone marrow transplant status; Z92.21 Personal history of antineoplastic chemotherapy
CPT/HCPCS: 36410; 76937; 80053 ×2; 84443; 85025 ×2; 94760; 99284; C1751; G0378; 36415

== ENCOUNTER 2021-01-13 10:29 | Outpatient (RCR) | payer MEDICARE ==
[2020-10-19 11:43] LABS: BASOPHILS % (AUTO) 1 % (0-10); BILIRUBIN,URINE NEGATIVE (NEGATIVE); CLARITY,URINE CLEAR; COLOR,URINE YELLOW; EOSINOPHILS # (AUTO) 0.1 10^3/uL (0.0-0.3); EOSINOPHILS % (AUTO) 1 % (0-10); GLUCOSE, URINE (UA) NEGATIVE (NEGATIVE); HEMATOCRIT 24 % (35-52); HEMOGLOBIN 7.6 g/dL (11.5-16.0); KETONES,URINE NEGATIVE (NEGATIVE); LEUKOCYTE ESTERASE ,URINE NEGATIVE (NEGATIVE); LYMPHOCYTES # (AUTO) 0.9 10^3/uL (1.0-4.0); LYMPHOCYTES % (AUTO) 24 % (12-44); MEAN CORPUSCULAR HEMOGLOBIN 35 pg (25-34); MEAN CORPUSCULAR HGB CONC 32 g/dL (32-36); MEAN CORPUSCULAR VOLUME 111 fL (80-99); MEAN PLATELET VOLUME 10.7 fL (9.0-12.2); MONOCYTES # (AUTO) 0.4 10^3/uL (0.0-1.0); MONOCYTES % (AUTO) 11 % (0-12); NEUTROPHILS # (AUTO) 2.1 10^3/uL (1.8-7.8); NEUTROPHILS % (AUTO) 53 % (42-75); NITRITE,URINE NEGATIVE (NEGATIVE); PH,URINE 5.5 (5-9); PLATELET COUNT 230 10^3/uL (130-400); PROTEIN,URINE NEGATIVE (NEGATIVE); WHITE BLOOD COUNT 3.9 10^3/uL (4.3-11.0)
[2020-10-19 11:56] LABS: BACTERIA,URINE NEGATIVE /HPF; CALCIUM OXALATE CRYSTALS,UR RARE /LPF; SQUAMOUS EPITHELIAL CELL,UR 0-2 /HPF; WBC,URINE RARE /HPF
[2020-10-19 11:59] LABS: ALBUMIN 4.1 GM/DL (3.2-4.5); BILIRUBIN,TOTAL 0.4 MG/DL (0.1-1.0); CALCIUM 9.3 MG/DL (8.5-10.1); CREATININE SERUM 1.6 MG/DL (0.60-1.30); MAGNESIUM 1.7 MG/DL (1.6-2.4); PHOSPHORUS 2.9 MG/DL (2.3-4.7); POTASSIUM 4.1 MMOL/L (3.6-5.0); TOTAL PROTEIN 5.9 GM/DL (6.4-8.2); URIC ACID 6.9 MG/DL (2.6-7.2)
[2020-10-19 23:20] LABS: FK506 13.6 ng/mL
[2020-10-26 11:25] LABS: BILIRUBIN,URINE NEGATIVE (NEGATIVE); CLARITY,URINE CLEAR; COLOR,URINE YELLOW; GLUCOSE, URINE (UA) NEGATIVE (NEGATIVE); KETONES,URINE NEGATIVE (NEGATIVE); LEUKOCYTE ESTERASE ,URINE TRACE (NEGATIVE); NITRITE,URINE NEGATIVE (NEGATIVE); PH,URINE 5.5 (5-9); PROTEIN,URINE NEGATIVE (NEGATIVE)
[2020-10-26 11:42] LABS: BACTERIA,URINE TRACE /HPF; WBC,URINE 0-2 /HPF
[2020-10-26 11:45] LABS: ALBUMIN 3.7 GM/DL (3.2-4.5); BILIRUBIN,TOTAL 0.5 MG/DL (0.1-1.0); CREATININE SERUM 1.57 MG/DL (0.60-1.30); MAGNESIUM 1.6 MG/DL (1.6-2.4); PHOSPHORUS 3.3 MG/DL (2.3-4.7); POTASSIUM 4.3 MMOL/L (3.6-5.0); TOTAL PROTEIN 5.9 GM/DL (6.4-8.2); URIC ACID 6.6 MG/DL (2.6-7.2)
[2020-10-26 11:52] LABS: BASOPHILS % (AUTO) 1 % (0-10); EOSINOPHILS # (AUTO) 0.1 10^3/uL (0.0-0.3); EOSINOPHILS % (AUTO) 1 % (0-10); HEMATOCRIT 21 % (35-52); LYMPHOCYTES # (AUTO) 1.2 10^3/uL (1.0-4.0); LYMPHOCYTES % (AUTO) 34 % (12-44); MEAN CORPUSCULAR HEMOGLOBIN 33 pg (25-34); MEAN CORPUSCULAR HGB CONC 30 g/dL (32-36); MEAN CORPUSCULAR VOLUME 111 fL (80-99); MEAN PLATELET VOLUME 11.1 fL (9.0-12.2); MONOCYTES # (AUTO) 0.3 10^3/uL (0.0-1.0); MONOCYTES % (AUTO) 8 % (0-12); NEUTROPHILS # (AUTO) 1.9 10^3/uL (1.8-7.8); NEUTROPHILS % (AUTO) 53 % (42-75); PLATELET COUNT 173 10^3/uL (130-400); WHITE BLOOD COUNT 3.6 10^3/uL (4.3-11.0)
[2020-10-26 11:53] LABS: HEMOGLOBIN 6.2 g/dL (11.5-16.0)
[2020-11-07 10:54] LABS: BASOPHILS % (AUTO) 1 % (0-10); EOSINOPHILS # (AUTO) 0.1 10^3/uL (0.0-0.3); EOSINOPHILS % (AUTO) 2 % (0-10); HEMATOCRIT 24 % (35-52); HEMOGLOBIN 7.2 g/dL (11.5-16.0); LYMPHOCYTES # (AUTO) 1.4 10^3/uL (1.0-4.0); LYMPHOCYTES % (AUTO) 28 % (12-44); MEAN CORPUSCULAR HEMOGLOBIN 33 pg (25-34); MEAN CORPUSCULAR HGB CONC 31 g/dL (32-36); MEAN CORPUSCULAR VOLUME 108 fL (80-99); MEAN PLATELET VOLUME 10.2 fL (9.0-12.2); MONOCYTES # (AUTO) 0.5 10^3/uL (0.0-1.0); MONOCYTES % (AUTO) 11 % (0-12); NEUTROPHILS # (AUTO) 2.6 10^3/uL (1.8-7.8); NEUTROPHILS % (AUTO) 53 % (42-75); PLATELET COUNT 262 10^3/uL (130-400); WHITE BLOOD COUNT 4.9 10^3/uL (4.3-11.0)
[2020-11-07 10:58] LABS: BILIRUBIN,URINE NEGATIVE (NEGATIVE); CLARITY,URINE CLEAR; COLOR,URINE YELLOW; GLUCOSE, URINE (UA) NEGATIVE (NEGATIVE); KETONES,URINE NEGATIVE (NEGATIVE); LEUKOCYTE ESTERASE ,URINE NEGATIVE (NEGATIVE); NITRITE,URINE NEGATIVE (NEGATIVE); PH,URINE 5.5 (5-9); PROTEIN,URINE NEGATIVE (NEGATIVE)
[2020-11-07 11:13] LABS: BACTERIA,URINE TRACE /HPF; RBC,URINE RARE /HPF; SQUAMOUS EPITHELIAL CELL,UR 0-2 /HPF; WBC,URINE RARE /HPF
[2020-11-07 11:15] LABS: ALBUMIN 3.5 GM/DL (3.2-4.5); BILIRUBIN,TOTAL 0.3 MG/DL (0.1-1.0); CALCIUM 9.9 MG/DL (8.5-10.1); CREATININE SERUM 1.43 MG/DL (0.60-1.30); MAGNESIUM 1.7 MG/DL (1.6-2.4); PHOSPHORUS 3.7 MG/DL (2.3-4.7); POTASSIUM 4.2 MMOL/L (3.6-5.0); TOTAL PROTEIN 6.2 GM/DL (6.4-8.2); URIC ACID 7.3 MG/DL (2.6-7.2)
[2020-11-07 23:29] LABS: FK506 10.2 ng/mL
[2020-11-17 12:19] LABS: BASOPHILS % (AUTO) 1 % (0-10); EOSINOPHILS # (AUTO) 0.1 10^3/uL (0.0-0.3); EOSINOPHILS % (AUTO) 2 % (0-10); HEMATOCRIT 23 % (35-52); HEMOGLOBIN 7.2 g/dL (11.5-16.0); LYMPHOCYTES # (AUTO) 1.1 10^3/uL (1.0-4.0); LYMPHOCYTES % (AUTO) 32 % (12-44); MEAN CORPUSCULAR HEMOGLOBIN 33 pg (25-34); MEAN CORPUSCULAR HGB CONC 31 g/dL (32-36); MEAN CORPUSCULAR VOLUME 107 fL (80-99); MEAN PLATELET VOLUME 10.1 fL (9.0-12.2); MONOCYTES # (AUTO) 0.4 10^3/uL (0.0-1.0); MONOCYTES % (AUTO) 12 % (0-12); NEUTROPHILS # (AUTO) 1.6 10^3/uL (1.8-7.8); NEUTROPHILS % (AUTO) 47 % (42-75); PLATELET COUNT 249 10^3/uL (130-400); WHITE BLOOD COUNT 3.3 10^3/uL (4.3-11.0)
[2020-11-17 12:28] LABS: ALBUMIN 3.9 GM/DL (3.2-4.5); BILIRUBIN,TOTAL 0.5 MG/DL (0.1-1.0); CALCIUM 10.1 MG/DL (8.5-10.1); CREATININE SERUM 1.33 MG/DL (0.60-1.30); MAGNESIUM 1.9 MG/DL (1.6-2.4); PHOSPHORUS 3.5 MG/DL (2.3-4.7); POTASSIUM 4.1 MMOL/L (3.6-5.0); TOTAL PROTEIN 6.3 GM/DL (6.4-8.2); URIC ACID 7.1 MG/DL (2.6-7.2)
[2020-11-17 12:58] LABS: BILIRUBIN,URINE NEGATIVE (NEGATIVE); CLARITY,URINE CLEAR; COLOR,URINE YELLOW; GLUCOSE, URINE (UA) NEGATIVE (NEGATIVE); KETONES,URINE NEGATIVE (NEGATIVE); LEUKOCYTE ESTERASE ,URINE NEGATIVE (NEGATIVE); NITRITE,URINE NEGATIVE (NEGATIVE); PH,URINE 5.5 (5-9); PROTEIN,URINE NEGATIVE (NEGATIVE)
[2020-11-17 13:10] LABS: BACTERIA,URINE TRACE /HPF
[2020-11-17 13:11] LABS: AMORPHOUS SEDIMENT,UR FEW AMOR URATES /LPF; HYALINE CASTS, URINE 0-2 /LPF
[2020-11-21 11:06] LABS: BILIRUBIN,URINE NEGATIVE (NEGATIVE); CLARITY,URINE CLEAR; COLOR,URINE YELLOW; GLUCOSE, URINE (UA) NEGATIVE (NEGATIVE); KETONES,URINE NEGATIVE (NEGATIVE); LEUKOCYTE ESTERASE ,URINE NEGATIVE (NEGATIVE); NITRITE,URINE NEGATIVE (NEGATIVE); PH,URINE 5.5 (5-9); PROTEIN,URINE NEGATIVE (NEGATIVE)
[2020-11-21 11:07] LABS: BASOPHILS # (AUTO) 0.1 10^3/uL (0.0-0.1); BASOPHILS % (AUTO) 1 % (0-10); EOSINOPHILS # (AUTO) 0.1 10^3/uL (0.0-0.3); EOSINOPHILS % (AUTO) 2 % (0-10); HEMATOCRIT 23 % (35-52); LYMPHOCYTES # (AUTO) 1.1 10^3/uL (1.0-4.0); LYMPHOCYTES % (AUTO) 32 % (12-44); MEAN CORPUSCULAR HEMOGLOBIN 33 pg (25-34); MEAN CORPUSCULAR HGB CONC 30 g/dL (32-36); MEAN CORPUSCULAR VOLUME 110 fL (80-99); MEAN PLATELET VOLUME 10.5 fL (9.0-12.2); MONOCYTES # (AUTO) 0.4 10^3/uL (0.0-1.0); MONOCYTES % (AUTO) 12 % (0-12); NEUTROPHILS # (AUTO) 1.7 10^3/uL (1.8-7.8); NEUTROPHILS % (AUTO) 48 % (42-75); PLATELET COUNT 238 10^3/uL (130-400); WHITE BLOOD COUNT 3.5 10^3/uL (4.3-11.0)
[2020-11-21 11:09] LABS: HEMOGLOBIN 6.8 g/dL (11.5-16.0)
[2020-11-21 11:15] LABS: BACTERIA,URINE TRACE /HPF; RBC,URINE RARE /HPF; SQUAMOUS EPITHELIAL CELL,UR 0-2 /HPF; WBC,URINE 0-2 /HPF
[2020-11-21 11:32] LABS: ALBUMIN 3.9 GM/DL (3.2-4.5); BILIRUBIN,TOTAL 0.3 MG/DL (0.1-1.0); CALCIUM 9.7 MG/DL (8.5-10.1); CREATININE SERUM 1.39 MG/DL (0.60-1.30); MAGNESIUM 1.9 MG/DL (1.6-2.4); PHOSPHORUS 3.7 MG/DL (2.3-4.7); POTASSIUM 4.1 MMOL/L (3.6-5.0); URIC ACID 7.9 MG/DL (2.6-7.2)
[2020-11-30 10:17] LABS: BILIRUBIN,URINE NEGATIVE (NEGATIVE); CLARITY,URINE CLEAR; COLOR,URINE YELLOW; GLUCOSE, URINE (UA) NEGATIVE (NEGATIVE); KETONES,URINE NEGATIVE (NEGATIVE); LEUKOCYTE ESTERASE ,URINE NEGATIVE (NEGATIVE); NITRITE,URINE NEGATIVE (NEGATIVE); PH,URINE 5.5 (5-9); PROTEIN,URINE TRACE (NEGATIVE)
[2020-11-30 10:26] LABS: ALBUMIN 4.2 GM/DL (3.2-4.5); BILIRUBIN,TOTAL 0.5 MG/DL (0.1-1.0); CALCIUM 9.7 MG/DL (8.5-10.1); CREATININE SERUM 1.39 MG/DL (0.60-1.30); PHOSPHORUS 3.7 MG/DL (2.3-4.7); TOTAL PROTEIN 6.4 GM/DL (6.4-8.2); URIC ACID 7.5 MG/DL (2.6-7.2)
[2020-11-30 10:26] LABS: BACTERIA,URINE TRACE /HPF
[2020-12-14 11:04] LABS: BASOPHILS # (AUTO) 0.1 10^3/uL (0.0-0.1); BASOPHILS % (AUTO) 1 % (0-10); EOSINOPHILS # (AUTO) 0.2 10^3/uL (0.0-0.3); EOSINOPHILS % (AUTO) 3 % (0-10); HEMATOCRIT 36 % (35-52); HEMOGLOBIN 10.8 g/dL (11.5-16.0); LYMPHOCYTES # (AUTO) 1.1 10^3/uL (1.0-4.0); LYMPHOCYTES % (AUTO) 19 % (12-44); MEAN CORPUSCULAR HEMOGLOBIN 32 pg (25-34); MEAN CORPUSCULAR HGB CONC 30 g/dL (32-36); MEAN CORPUSCULAR VOLUME 108 fL (80-99); MEAN PLATELET VOLUME 10.1 fL (9.0-12.2); MONOCYTES # (AUTO) 0.8 10^3/uL (0.0-1.0); MONOCYTES % (AUTO) 13 % (0-12); NEUTROPHILS # (AUTO) 3.8 10^3/uL (1.8-7.8); NEUTROPHILS % (AUTO) 62 % (42-75); PLATELET COUNT 220 10^3/uL (130-400)
[2020-12-14 11:06] LABS: BILIRUBIN,URINE NEGATIVE (NEGATIVE); CLARITY,URINE CLEAR; COLOR,URINE YELLOW; GLUCOSE, URINE (UA) NEGATIVE (NEGATIVE); KETONES,URINE NEGATIVE (NEGATIVE); LEUKOCYTE ESTERASE ,URINE NEGATIVE (NEGATIVE); NITRITE,URINE NEGATIVE (NEGATIVE); PROTEIN,URINE NEGATIVE (NEGATIVE)
[2020-12-14 11:26] LABS: ALBUMIN 4.1 GM/DL (3.2-4.5); BILIRUBIN,TOTAL 0.4 MG/DL (0.1-1.0); CALCIUM 10.1 MG/DL (8.5-10.1); CREATININE SERUM 1.28 MG/DL (0.60-1.30); MAGNESIUM 2.1 MG/DL (1.6-2.4); PHOSPHORUS 3.4 MG/DL (2.3-4.7); POTASSIUM 4.3 MMOL/L (3.6-5.0); TOTAL PROTEIN 6.1 GM/DL (6.4-8.2); URIC ACID 6.7 MG/DL (2.6-7.2)
[2020-12-14 11:30] LABS: BACTERIA,URINE NEGATIVE /HPF; RBC,URINE RARE /HPF; SQUAMOUS EPITHELIAL CELL,UR 0-2 /HPF; WBC,URINE RARE /HPF
[2020-12-15 00:45] LABS: FK506 5.8 ng/mL
[2020-12-21 11:48] LABS: BASOPHILS # (AUTO) 0.1 10^3/uL (0.0-0.1); BASOPHILS % (AUTO) 1 % (0-10); EOSINOPHILS # (AUTO) 0.1 10^3/uL (0.0-0.3); EOSINOPHILS % (AUTO) 2 % (0-10); HEMATOCRIT 40 % (35-52); HEMOGLOBIN 11.7 g/dL (11.5-16.0); LYMPHOCYTES # (AUTO) 1.3 10^3/uL (1.0-4.0); LYMPHOCYTES % (AUTO) 20 % (12-44); MEAN CORPUSCULAR HEMOGLOBIN 32 pg (25-34); MEAN CORPUSCULAR HGB CONC 29 g/dL (32-36); MEAN CORPUSCULAR VOLUME 109 fL (80-99); MONOCYTES # (AUTO) 0.7 10^3/uL (0.0-1.0); MONOCYTES % (AUTO) 11 % (0-12); NEUTROPHILS # (AUTO) 4.4 10^3/uL (1.8-7.8); NEUTROPHILS % (AUTO) 64 % (42-75); PLATELET COUNT 227 10^3/uL (130-400); WHITE BLOOD COUNT 6.8 10^3/uL (4.3-11.0)
[2020-12-21 12:05] LABS: BILIRUBIN,TOTAL 0.4 MG/DL (0.1-1.0); CALCIUM 9.8 MG/DL (8.5-10.1); CREATININE SERUM 1.27 MG/DL (0.60-1.30); MAGNESIUM 1.9 MG/DL (1.6-2.4); PHOSPHORUS 4.4 MG/DL (2.3-4.7); POTASSIUM 4.4 MMOL/L (3.6-5.0); TOTAL PROTEIN 6.4 GM/DL (6.4-8.2); URIC ACID 6.4 MG/DL (2.6-7.2)
[2020-12-21 12:19] LABS: BILIRUBIN,URINE NEGATIVE (NEGATIVE); CLARITY,URINE CLEAR; COLOR,URINE YELLOW; GLUCOSE, URINE (UA) NEGATIVE (NEGATIVE); KETONES,URINE NEGATIVE (NEGATIVE); LEUKOCYTE ESTERASE ,URINE NEGATIVE (NEGATIVE); NITRITE,URINE NEGATIVE (NEGATIVE); PROTEIN,URINE NEGATIVE (NEGATIVE)
[2020-12-21 12:36] LABS: BACTERIA,URINE NEGATIVE /HPF; SQUAMOUS EPITHELIAL CELL,UR 0-2 /HPF
[2021-01-04 10:44] LABS: BASOPHILS % (AUTO) 0 % (0-10); EOSINOPHILS % (AUTO) 0 % (0-10); HEMATOCRIT 45 % (35-52); HEMOGLOBIN 13.7 g/dL (11.5-16.0); LYMPHOCYTES # (AUTO) 0.9 10^3/uL (1.0-4.0); LYMPHOCYTES % (AUTO) 12 % (12-44); MEAN CORPUSCULAR HEMOGLOBIN 32 pg (25-34); MEAN CORPUSCULAR HGB CONC 31 g/dL (32-36); MEAN CORPUSCULAR VOLUME 104 fL (80-99); MONOCYTES # (AUTO) 0.8 10^3/uL (0.0-1.0); MONOCYTES % (AUTO) 11 % (0-12); NEUTROPHILS # (AUTO) 5.5 10^3/uL (1.8-7.8); NEUTROPHILS % (AUTO) 74 % (42-75); PLATELET COUNT 183 10^3/uL (130-400); WHITE BLOOD COUNT 7.4 10^3/uL (4.3-11.0)
[2021-01-04 11:00] LABS: ALANINE AMINOTRANSFERASE 14 U/L (0-55); ALBUMIN 4.7 GM/DL (3.2-4.5); ALKALINE PHOSPHATASE 502 U/L (40-136); BILIRUBIN,TOTAL 0.5 MG/DL (0.1-1.0); BUN/CREATININE RATIO 17; CALCIUM 10.2 MG/DL (8.5-10.1); CARBON DIOXIDE 11 MMOL/L (21-32); CHLORIDE 104 MMOL/L (98-107); CREATININE SERUM 2.17 MG/DL (0.60-1.30); GFR ESTIMATED 23; GLUCOSE 100 MG/DL (70-105); PHOSPHORUS 4.8 MG/DL (2.3-4.7); POTASSIUM 3.5 MMOL/L (3.6-5.0); SODIUM 131 MMOL/L (135-145); TOTAL PROTEIN 7.3 GM/DL (6.4-8.2); URIC ACID 11.6 MG/DL (2.6-7.2)
[2021-01-12 11:55] LABS: BASOPHILS % (AUTO) 1 % (0-10); EOSINOPHILS # (AUTO) 0.1 10^3/uL (0.0-0.3); EOSINOPHILS % (AUTO) 1 % (0-10); HEMATOCRIT 37 % (35-52); HEMOGLOBIN 11.5 g/dL (11.5-16.0); LYMPHOCYTES # (AUTO) 1.1 10^3/uL (1.0-4.0); LYMPHOCYTES % (AUTO) 27 % (12-44); MEAN CORPUSCULAR HEMOGLOBIN 32 pg (25-34); MEAN CORPUSCULAR HGB CONC 31 g/dL (32-36); MEAN CORPUSCULAR VOLUME 104 fL (80-99); MEAN PLATELET VOLUME 10.5 fL (9.0-12.2); MONOCYTES # (AUTO) 0.4 10^3/uL (0.0-1.0); MONOCYTES % (AUTO) 11 % (0-12); NEUTROPHILS # (AUTO) 2.3 10^3/uL (1.8-7.8); NEUTROPHILS % (AUTO) 59 % (42-75); PLATELET COUNT 184 10^3/uL (130-400)
[2021-01-12 12:13] LABS: BILIRUBIN,TOTAL 0.5 MG/DL (0.1-1.0); CALCIUM 9.5 MG/DL (8.5-10.1); CREATININE SERUM 2.32 MG/DL (0.60-1.30); MAGNESIUM 1.6 MG/DL (1.6-2.4); PHOSPHORUS 3.4 MG/DL (2.3-4.7); POTASSIUM 3.9 MMOL/L (3.6-5.0); URIC ACID 11.4 MG/DL (2.6-7.2)
[2021-01-12 12:14] LABS: BILIRUBIN,URINE NEGATIVE (NEGATIVE); CLARITY,URINE CLEAR; COLOR,URINE YELLOW; GLUCOSE, URINE (UA) NEGATIVE (NEGATIVE); KETONES,URINE NEGATIVE (NEGATIVE); LEUKOCYTE ESTERASE ,URINE NEGATIVE (NEGATIVE); NITRITE,URINE NEGATIVE (NEGATIVE); PROTEIN,URINE TRACE (NEGATIVE)
[2021-01-12 12:25] LABS: BACTERIA,URINE NEGATIVE /HPF; RBC,URINE RARE /HPF; WBC,URINE 0-2 /HPF
[2021-01-13 01:10] LABS: FK506 21.9 ng/mL
[~2021-01-13 10:29] MED LIST changes: +ATOV750O4 PO; +CEPH500C PO; +CHOL4PAC16 PO; +DIPH1TAB PO; +LACT460C PO; +PRED5TAB PO; +TACR0.5C6 PO; +VALA500T7 PO
[2021-01-13 13:45] LABS: FK506 TNP:Duplicate Order
== END 2021-01-17 | disposition home or self-care (01) ==
LOC: LAB 10:29
PROVIDERS: ATTEND Specialist
DX: D84.9 Immunodeficiency, unspecified (principal); R80.8 Other proteinuria; Z87.898 Personal history of other specified conditions; Z94.0 Kidney transplant status; Z79.899 Other long term (current) drug therapy
CPT/HCPCS: 36415; 80053; 80197; 81000; 83735; 84100; 84156; 84550; 85025; 87799; 87910

== ENCOUNTER 2021-01-18 14:00 | Outpatient (RCR) | payer MEDICARE ==
[~2021-01-18 14:00] MED LIST changes: +MULT-1054 PO; -MULT-985 PO; +POTA-164; -POTA10TA14
[2021-01-18 16:45] LABS: BASOPHILS % (AUTO) 0 % (0-10); EOSINOPHILS % (AUTO) 0 % (0-10); HEMATOCRIT 36 % (35-52); HEMOGLOBIN 11.2 g/dL (11.5-16.0); LYMPHOCYTES # (AUTO) 0.3 10^3/uL (1.0-4.0); LYMPHOCYTES % (AUTO) 6 % (12-44); MEAN CORPUSCULAR HEMOGLOBIN 32 pg (25-34); MEAN CORPUSCULAR HGB CONC 31 g/dL (32-36); MEAN CORPUSCULAR VOLUME 104 fL (80-99); MEAN PLATELET VOLUME 11.3 fL (9.0-12.2); MONOCYTES # (AUTO) 0.3 10^3/uL (0.0-1.0); MONOCYTES % (AUTO) 6 % (0-12); NEUTROPHILS # (AUTO) 4.7 10^3/uL (1.8-7.8); NEUTROPHILS % (AUTO) 87 % (42-75); PLATELET COUNT 142 10^3/uL (130-400); WHITE BLOOD COUNT 5.4 10^3/uL (4.3-11.0)
[2021-01-18 17:08] LABS: ALBUMIN 3.9 GM/DL (3.2-4.5); BILIRUBIN,TOTAL 0.4 MG/DL (0.1-1.0); CALCIUM 8.5 MG/DL (8.5-10.1); CREATININE SERUM 2.5 MG/DL (0.60-1.30); MAGNESIUM 1.5 MG/DL (1.6-2.4); PHOSPHORUS 3.4 MG/DL (2.3-4.7); POTASSIUM 3.6 MMOL/L (3.6-5.0); URIC ACID 10.2 MG/DL (2.6-7.2)
== END 2021-03-31 | disposition home or self-care (01) ==
LOC: LAB 14:00
PROVIDERS: ATTEND Specialist
DX: D84.9 Immunodeficiency, unspecified (principal); B25.8 Other cytomegaloviral diseases; R80.8 Other proteinuria; Z94.0 Kidney transplant status; Z79.899 Other long term (current) drug therapy; Z87.898 Personal history of other specified conditions
CPT/HCPCS: 36415; 80053; 80197; 82570; 83735; 84100; 84156; 84550; 85025

== ENCOUNTER 2021-01-18 16:29 | Outpatient (RCR) | payer MEDICARE ==
[2020-12-21 11:47] LABS: BASOPHILS # (AUTO) 0.1 10^3/uL (0.0-0.1); BASOPHILS % (AUTO) 1 % (0-10); EOSINOPHILS # (AUTO) 0.1 10^3/uL (0.0-0.3); EOSINOPHILS % (AUTO) 2 % (0-10); HEMATOCRIT 40 % (35-52); HEMOGLOBIN 11.7 g/dL (11.5-16.0); LYMPHOCYTES # (AUTO) 1.3 10^3/uL (1.0-4.0); LYMPHOCYTES % (AUTO) 19 % (12-44); MEAN CORPUSCULAR HEMOGLOBIN 32 pg (25-34); MEAN CORPUSCULAR HGB CONC 30 g/dL (32-36); MEAN CORPUSCULAR VOLUME 109 fL (80-99); MEAN PLATELET VOLUME 9.8 fL (9.0-12.2); MONOCYTES # (AUTO) 0.8 10^3/uL (0.0-1.0); MONOCYTES % (AUTO) 12 % (0-12); NEUTROPHILS # (AUTO) 4.4 10^3/uL (1.8-7.8); NEUTROPHILS % (AUTO) 64 % (42-75); PLATELET COUNT 218 10^3/uL (130-400); WHITE BLOOD COUNT 6.8 10^3/uL (4.3-11.0)
[2021-01-04 10:44] LABS: BASOPHILS % (AUTO) 0 % (0-10); EOSINOPHILS % (AUTO) 0 % (0-10); HEMATOCRIT 44 % (35-52); HEMOGLOBIN 13.7 g/dL (11.5-16.0); LYMPHOCYTES # (AUTO) 0.9 10^3/uL (1.0-4.0); LYMPHOCYTES % (AUTO) 12 % (12-44); MEAN CORPUSCULAR HEMOGLOBIN 32 pg (25-34); MEAN CORPUSCULAR HGB CONC 31 g/dL (32-36); MEAN CORPUSCULAR VOLUME 103 fL (80-99); MEAN PLATELET VOLUME 10.2 fL (9.0-12.2); MONOCYTES # (AUTO) 0.8 10^3/uL (0.0-1.0); MONOCYTES % (AUTO) 11 % (0-12); NEUTROPHILS # (AUTO) 5.1 10^3/uL (1.8-7.8); NEUTROPHILS % (AUTO) 72 % (42-75); PLATELET COUNT 194 10^3/uL (130-400); WHITE BLOOD COUNT 7.1 10^3/uL (4.3-11.0)
[2021-01-12 11:53] LABS: BASOPHILS % (AUTO) 0 % (0-10); EOSINOPHILS # (AUTO) 0.1 10^3/uL (0.0-0.3); EOSINOPHILS % (AUTO) 1 % (0-10); HEMATOCRIT 37 % (35-52); HEMOGLOBIN 11.5 g/dL (11.5-16.0); LYMPHOCYTES # (AUTO) 1.1 10^3/uL (1.0-4.0); LYMPHOCYTES % (AUTO) 26 % (12-44); MEAN CORPUSCULAR HEMOGLOBIN 33 pg (25-34); MEAN CORPUSCULAR HGB CONC 31 g/dL (32-36); MEAN CORPUSCULAR VOLUME 104 fL (80-99); MEAN PLATELET VOLUME 10.3 fL (9.0-12.2); MONOCYTES # (AUTO) 0.4 10^3/uL (0.0-1.0); MONOCYTES % (AUTO) 11 % (0-12); NEUTROPHILS # (AUTO) 2.5 10^3/uL (1.8-7.8); NEUTROPHILS % (AUTO) 61 % (42-75); PLATELET COUNT 174 10^3/uL (130-400); WHITE BLOOD COUNT 4.1 10^3/uL (4.3-11.0)
[~2021-01-18 16:29] MED LIST changes: +DARBEPOETIN 100 MCG/ML (ARANESP) 1 ML VIAL SC SCH
[2021-01-18 16:43] LABS: BASOPHILS % (AUTO) 1 % (0-10); EOSINOPHILS % (AUTO) 0 % (0-10); HEMATOCRIT 36 % (35-52); HEMOGLOBIN 11.1 g/dL (11.5-16.0); LYMPHOCYTES # (AUTO) 0.4 10^3/uL (1.0-4.0); LYMPHOCYTES % (AUTO) 6 % (12-44); MEAN CORPUSCULAR HEMOGLOBIN 32 pg (25-34); MEAN CORPUSCULAR HGB CONC 31 g/dL (32-36); MEAN CORPUSCULAR VOLUME 104 fL (80-99); MEAN PLATELET VOLUME 11.2 fL (9.0-12.2); MONOCYTES # (AUTO) 0.3 10^3/uL (0.0-1.0); MONOCYTES % (AUTO) 5 % (0-12); NEUTROPHILS # (AUTO) 4.7 10^3/uL (1.8-7.8); NEUTROPHILS % (AUTO) 83 % (42-75); PLATELET COUNT 139 10^3/uL (130-400); WHITE BLOOD COUNT 5.6 10^3/uL (4.3-11.0)
== END 2021-03-21 | disposition home or self-care (01) ==
LOC: ONC 16:29
PROVIDERS: ATTEND Internal Medicine Hematology & Oncology
DX: I12.9 Hypertensive chronic kidney disease with stage 1 through stage 4 chronic kidney disease, or unspecified chronic kidney disease (principal); N18.30 Chronic kidney disease, stage 3 unspecified; D63.1 Anemia in chronic kidney disease; E03.9 Hypothyroidism, unspecified; E66.01 Morbid (severe) obesity due to excess calories; Z94.0 Kidney transplant status; Z87.898 Personal history of other specified conditions; Z79.899 Other long term (current) drug therapy
CPT/HCPCS: 85025

== ENCOUNTER 2021-01-22 13:24 | Emergency (ER) | payer MEDICARE ==
[~2021-01-22] VITALS: Ht 152.4 cm; Wt 63.5 kg
[~2021-01-22 13:24] MED LIST changes: -DARBEPOETIN 100 MCG/ML (ARANESP) 1 ML VIAL SC SCH; -MULT-1054 PO; +MULT-985 PO; -POTA-164; +POTA10TA14
[2021-01-22 13:57] LABS: BASOPHILS % (AUTO) 0 % (0-10); EOSINOPHILS % (AUTO) 0 % (0-10); MONOCYTES # (AUTO) 0.8 10^3/uL (0.0-1.0)
[2021-01-22 13:59] LABS: HEMATOCRIT 31 % (35-52); HEMOGLOBIN 10.3 g/dL (11.5-16.0); LYMPHOCYTES # (AUTO) 0.3 10^3/uL (1.0-4.0); LYMPHOCYTES % (AUTO) 5 % (12-44); MEAN CORPUSCULAR HEMOGLOBIN 32 pg (25-34); MEAN CORPUSCULAR HGB CONC 33 g/dL (32-36); MEAN CORPUSCULAR VOLUME 98 fL (80-99); MEAN PLATELET VOLUME 11.7 fL (9.0-12.2); MONOCYTES % (AUTO) 12 % (0-12); NEUTROPHILS # (AUTO) 3.3 10^3/uL (1.8-7.8); NEUTROPHILS % (AUTO) 53 % (42-75); PLATELET COUNT 93 10^3/uL (130-400); WHITE BLOOD COUNT 6.2 10^3/uL (4.3-11.0)
[2021-01-22 14:08] LABS: ALBUMIN 3.3 GM/DL (3.2-4.5); POTASSIUM 3.5 MMOL/L (3.6-5.0)
[2021-01-22 14:09] LABS: CALCIUM 9.5 MG/DL (8.5-10.1)
[2021-01-22 14:11] LABS: TOTAL PROTEIN 5.8 GM/DL (6.4-8.2)
[2021-01-22 14:12] LABS: BILIRUBIN,TOTAL 0.6 MG/DL (0.1-1.0); INR 2.4 (0.8-1.4); PROTHROMBIN TIME PATIENT 26.1 SEC (12.2-14.7)
[2021-01-22 14:14] LABS: CREATININE SERUM 4.04 MG/DL (0.60-1.30)
[2021-01-22 14:34] LABS: CLARITY,URINE CLOUDY; COLOR,URINE YELLOW; GLUCOSE, URINE (UA) NEGATIVE (NEGATIVE); KETONES,URINE TRACE (NEGATIVE); LEUKOCYTE ESTERASE ,URINE 3+ (NEGATIVE); NITRITE,URINE NEGATIVE (NEGATIVE); PROTEIN,URINE 1+ (NEGATIVE)
[2021-01-22 14:44] LABS: BAND NEUTROPHILS 5 %; LYMPHOCYTES % (MANUAL) 7 %; METAMYELOCYTES % 5 %; MONOCYTES % (MANUAL) 10 %; MYELOCYTES % 2 %; NEUTROPHILS % (MANUAL) 71 %; RBC MORPH NORMAL
[2021-01-22 14:52] LABS: WBC,URINE >100 /HPF
--- NOTE | 2021-01-22 14:52 | Diagnostic Imaging Report ---
INDICATION: Sepsis. EXAMINATION: Chest 01/22/2021 COMPARISON: 06/02/2018 Single view chest FINDINGS: The cardiomediastinal silhouette is unremarkable. The pulmonary vasculature is within normal limits. The lungs and pleural spaces are clear. IMPRESSION: No evidence of an acute cardiopulmonary process. Dictated by: Dictated on workstation # [id number]
[2021-01-22 14:54] LABS: BACTERIA,URINE LARGE /HPF
[2021-01-22 14:55] LABS: BILIRUBIN,URINE 1+ (NEGATIVE)
[2021-01-22] MEDS ORDERED: LACTATED RINGERS 1,000 ML IV ONE (15:00)
[2021-01-22] MEDS ORDERED: CEFEPIME INJECTION 1,000 MG in WATER (STERILE) FOR INJECTION 10 ML IV ONE (15:00)
[2021-01-22 15:27] LABS: ABG BASE EXCESS -18.5 MMOL/L (-2.5-2.5); ABG OXYGEN SATURATION 99 % (94-100); ABG PO2 116 MMHG (79-93)
[2021-01-22 15:32] LABS: ABG PCO2 16 MMHG (35-45); ABG PH 7.28 (7.37-7.43); ABG TCO2 7.7 MMOL/L (21.0-31.0); ALLENS TEST YES-POS; INSPIRED O2 ROOM AIR; VENTILATOR NO
--- NOTE | 2021-01-22 16:33 | ED General ---
General Chief Complaint: Abdominal/GI Problems Stated Complaint: N/V Nursing Triage Note: PT TO RM 9 VIA [facility] EMS W REPORTS OF N/V/D, SOA, FEVER, AND FATIGUE SX December, DENIES PAIN. PT A&OX4. EMS INITIATED 20G LEFT WRIST SL W 1L NS. Source of Information: Patient, EMS, Old Records Exam Limitations: No Limitations History of Present Illness Date Seen by Provider: Jan 22, 2021 Time Seen by Provider: 13:31 Initial Comments This is a 61-year-old woman presents to the emergency room via EMS from home where she has been struggling with nausea, vomiting, diarrhea, shortness of breath, and fever. Symptoms started initially with diarrhea on December 30. Over the past couple of days she has had progression of the vomiting, diarrhea, shortness of breath, and development of fever up to 102 F. She is a renal transplant patient. Her transplant team is at [facility]. Transplant was earlier this year in July. She has missed some doses of her immunosuppressive medications due to the vomiting and diarrhea. She has been fully vaccinated for COVID-19 and received a booster. She has not yet received an influenza vaccine this year. She denies cough. She denies any new pain. She continues to make urine. Blood pressures are soft but she is not hypotensive. Allergies and Home Medications Allergies Coded Allergies: Penicillins (Unverified Allergy, Mild, 01/04/21) Sulfa (Sulfonamide Antibiotics) (Verified Allergy, Unknown, 01/04/21) Patient Home Medication List Home Medication List Reviewed: Yes Amlodipine Besylate (Amlodipine Besylate) 5 Mg Tablet, 5 MG PO DAILY, (Reported) Entered as Reported by: LOUISA CALLAWAY on 09/08/18 1558 Atovaquone (Atovaquone) 750 Mg/5 Ml Oral.susp, 10 ML PO DAILY, (Reported) Entered as Reported by: YUNIOR RAMIREZ on 01/04/21 1643 Calcium Polycarbophil (Fiber) 625 Mg Tablet, 625 MG PO HS, (Reported) Entered as Reported by: LOUISA CALLAWAY on 09/08/18 1558 Carvedilol (Carvedilol) 6.25 Mg Tablet, 6.25 MG PO BID, (Reported) Entered as Reported by: RAH MENDEZ on 12/27/20 1607 Cephalexin (Cephalexin) 500 Mg Capsule, 500 MG PO BID, (Reported) Entered as Reported by: YUNIOR RAMIREZ on 01/04/21 160 Cetirizine HCl (Zyrtec) 10 Mg Tablet, 10 MG PO HS, (Reported) Entered as Reported by: LOUISA CALLAWAY on 09/08/18 155 Cholestyramine (with Sugar) (Questran Packet) 4 Gm Powd.pack, 4 GM PO ACHS Prescribed by: BANDAR ANDRADE on 01/05/21 112 Cyclobenzaprine HCl (Cyclobenzaprine HCl) 5 Mg Tablet, 5 MG PO HS PRN for MUSCLE SPASMS, (Reported) Entered as Reported by: RAH MENDEZ on 12/27/20 160 Darbepoetin Amor in Polysorbat (Aranesp) 100 Mcg/0.5 Ml Syringe, 100 MCG IJ WEEK, (Reported) Entered as Reported by: RAH MENDEZ on 12/27/20 160 Diphenoxylate HCl/Atropine (Lomotil 2.5-0.025 mg Tablet) 1 Each Tablet, 1 EACH PO BID Prescribed by: BANDAR ANDRADE on 01/05/21 112 Fluticasone Propionate (Flonase Allergy Relief) 9.9 Ml [place].susp, 1-2 SPRAY NSE ACH DAILY, (Reported) Entered as Reported by: RAH MENDEZ on 12/27/20 160 Lactobacillus Acidophilus (Florajen Acidophilus) 1 Each Capsule, 1 EACH PO DAILY, (Reported) Entered as Reported by: YUNIOR RAMIREZ on 01/04/21 160 Levothyroxine Sodium (Levothyroxine Sodium) 100 Mcg Tablet, 100 MCG PO DAILY, (Reported) Entered as Reported by: LOUISA CALLAWAY on 09/08/18 155 Mycophenolate Sodium (Myfortic) 180 Mg Tablet.dr, 360 MG PO BID, (Reported) Entered as Reported by: RAH MENDEZ on 12/27/20 160 Pantoprazole Sodium (Pantoprazole Sodium) 40 Mg Tablet.dr, 40 MG PO HS, (Reported) Entered as Reported by: LOUISA CALLAWAY on 09/08/18 155 Prednisone (Prednisone) 5 Mg Tablet, 5 MG PO DAILY, (Reported) Entered as Reported by: YUNIOR RAMIREZ on 01/04/21 1643 Tacrolimus (Prograf) 1 Mg Capsule, 1 MG PO BID, (Reported) Entered as Reported by: RAH MENDEZ on 12/27/20 1607 Tacrolimus (Tacrolimus) 0.5 Mg Capsule, 0.5 MG PO DAILY, (Reported) Entered as Reported by: YUNIOR RAMIREZ on 01/04/21 1643 Turmeric Root Extract (Turmeric) 538 Mg Capsule, 538 MG PO HS, (Reported) Entered as Reported by: LOUISA CALLAWAY on 09/08/18 1558 Valacyclovir HCl (Valacyclovir) 500 Mg Tablet, 500 MG PO HS, (Reported) Entered as Reported by: YUNIOR RAMIREZ on 01/04/21 1608 Review of Systems Review of Systems Constitutional: see HPI EENTM: other (Dry mucous membranes) Respiratory: see HPI Cardiovascular: no symptoms reported Gastrointestinal: see HPI : No Musculoskeletal: no symptoms reported Skin: no symptoms reported Psychiatric/Neurological: No Symptoms Reported Hematologic/Lymphatic: No Symptoms Reported Immunological/Allergic: no symptoms reported Past Pjsgkog-Utqbtg-Jrrfbh Hx Patient Social History Tobacco Use?: No Use of E-Cig and/or Vaping dev: No Substance use?: No Alcohol Use?: No Immunizations Up To Date PED Vaccines UTD: Yes First/Initial COVID19 Vaccinat: 2020 Second COVID19 Vaccination Artemio: 2020 Third COVID19 Vaccination Date: 2020 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 Seasonal Allergies Seasonal Allergies: Yes Past Medical History Surgery/Hospitalization HX: HX KIDNEY TRANSPLANT JULY 2020 Surgeries: Yes (mini gastric bypass then reversal, belt lipectomy, bone marrow transplant, ) Eye Surgery, Kidney Transplant Respiratory: No Cardiac: Yes Hypertension Neurological: Yes Headaches /Migraines : No Reproductive Disorders: No Sexually Transmitted Disease: Yes (TRIC) Genitourinary: Yes (KIDNEY TRANSPLANT) Renal Failure, Dialysis Gastrointestinal: No Musculoskeletal: Yes Arthritis Endocrine: Yes Hypothyroidsim HEENT: Yes Cataract Cancer: Yes (bone marrow transplant) Leukemia (AML) Did You Recieve Any Treatments: Yes (Bone marrow transplant) What Type of Treatment Did You: Chemotherapy Psychosocial: Yes Depression Integumentary: No Blood Disorders: Yes (AML status post bone marrow transplant) Adverse Reaction/Blood Tranf: No Physical Exam-Suspected Sepsis Physical Exam Vital Signs Vital Signs - First Documented 01/22/21 13:27 Temp 38.0 Pulse 93 Resp 20 B/P (MAP) 105/67 (80) Pulse Ox 98 O2 Delivery Room Air Capillary Refill : Less Than 3 Seconds Blood Pressure Mean: 80 Height, Weight, BMI Height: 5'2.00" Weight: 138lbs. 0.0oz. 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 Has some difficulty with reporting aspects of her history. She is conversational) Skin: normal color, warm/dry Focused Exam Lactate Level 01/22/21 13:40: Lactic Acid Level 0.75 Lactic Acid Level Progress/Results/Core Measures Suspected Sepsis SIRS Temperature: Pulse: 93 Respiratory Rate: 20 Laboratory Tests 01/22/21 13:40: White Blood Count 6.2 Blood Pressure 105 /67 Mean: 80 01/22/21 13:40: Lactic Acid Level 0.75 Laboratory Tests 01/22/21 13:40: Creatinine 4.04#H, INR Comment 2.4H, Platelet Count 93L, Total Bilirubin 0.6 Results/Orders Lab Results Laboratory Tests Test 01/22/21 13:40 01/22/21 14:21 01/22/21 15:20 Range/Units White Blood Count 6.2 4.3-11.0 10^3/uL Red Blood Count 3.19 L 3.80-5.11 10^6/uL Hemoglobin 10.3 L 11.5-16.0 g/dL Hematocrit 31 L 35-52 % Mean Corpuscular Volume 98 80-99 fL Mean Corpuscular Hemoglobin 32 25-34 pg Mean Corpuscular Hemoglobin Concent 33 32-36 g/dL Red Cell Distribution Width 15.1 H 10.0-14.5 % Platelet Count 93 L 130-400 10^3/uL Mean Platelet Volume 11.7 9.0-12.2 fL Immature Granulocyte % (Auto) 29 % Neutrophils (%) (Auto) 53 42-75 % Lymphocytes (%) (Auto) 5 L 12-44 % Monocytes (%) (Auto) 12 0-12 % Eosinophils (%) (Auto) 0 0-10 % Basophils (%) (Auto) 0 0-10 % Neutrophils # (Auto) 3.3 1.8-7.8 10^3/uL Lymphocytes # (Auto) 0.3 L 1.0-4.0 10^3/uL Monocytes # (Auto) 0.8 0.0-1.0 10^3/uL Eosinophils # (Auto) 0.0 0.0-0.3 10^3/uL Basophils # (Auto) 0.0 0.0-0.1 10^3/uL Immature Granulocyte # (Auto) 1.8 H 0.0-0.1 10^3/uL Neutrophils % (Manual) 71 % Lymphocytes % (Manual) 7 % Monocytes % (Manual) 10 % Metamyelocytes % 5 % Myelocytes % 2 % Band Neutrophils 5 % Percent Immature Platelet Fraction 5.0 0.0-7.6 % Blood Morphology Comment NORMAL Prothrombin Time 26.1 H 12.2-14.7 SEC INR Comment 2.4 H 0.8-1.4 Activated Partial Thromboplast Time 46 H 24-35 SEC Sodium Level 125 *L 135-145 MMOL/L Potassium Level 3.5 L 3.6-5.0 MMOL/L Chloride Level 102 98-107 MMOL/L Carbon Dioxide Level 7 *L 21-32 MMOL/L Anion Gap 16 H 5-14 MMOL/L Blood Urea Nitrogen 52 H 7-18 MG/DL Creatinine 4.04 #H 0.60-1.30 MG/DL Estimat Glomerular Filtration Rate 11 BUN/Creatinine Ratio 13 Glucose Level 105 70-105 MG/DL Lactic Acid Level 0.75 0.50-2.00 MMOL/L Calcium Level 9.5 8.5-10.1 MG/DL Corrected Calcium 10.1 8.5-10.1 MG/DL Total Bilirubin 0.6 0.1-1.0 MG/DL Aspartate Amino Transf (AST/SGOT) 19 5-34 U/L Alanine Aminotransferase (ALT/SGPT) 15 0-55 U/L Alkaline Phosphatase 833 H 40-136 U/L C-Reactive Protein High Sensitivity 22.72 H 0.00-0.50 MG/DL Total Protein 5.8 L 6.4-8.2 GM/DL Albumin 3.3 3.2-4.5 GM/DL Procalcitonin 6.61 H <0.10 NG/ML Influenza Type A (RT-PCR) Not Detected Not Detecte Influenza Type B (RT-PCR) Not Detected Not Detecte SARS-CoV-2 RNA (RT-PCR) Not Detected Not Detecte Urine Color YELLOW Urine Clarity CLOUDY Urine pH 6.0 5-9 Urine Specific [place] 1.015 L 1.016-1.022 Urine Protein 1+ H NEGATIVE Urine Glucose (UA) NEGATIVE NEGATIVE Urine Ketones TRACE H NEGATIVE Urine Nitrite NEGATIVE NEGATIVE Urine Bilirubin 1+ H NEGATIVE Urine Urobilinogen 0.2 < = 1.0 MG/DL Urine Leukocyte Esterase 3+ H NEGATIVE Urine RBC (Auto) 2+ H NEGATIVE Urine RBC 2-5 H /HPF Urine WBC >100 H /HPF Urine Crystals NONE /LPF Urine Bacteria LARGE H /HPF Urine Casts PRESENT /LPF Urine Granular Casts 2-5 H /LPF Urine Mucus NEGATIVE /LPF Urine Culture Indicated CULTURE PENDING Blood Gas Puncture Site RT RAD Blood Gas Patient Temperature 38.0 Arterial Blood pH 7.28 *L 7.37-7.43 Arterial Blood Partial Pressure CO2 16 *L 35-45 MMHG Arterial Blood Partial Pressure O2 116 H 79-93 MMHG Arterial Blood HCO3 7 *L 23-27 MMOL/L Arterial Blood Total CO2 7.7 *L 21.0-31.0 MMOL/L Arterial Blood Oxygen Saturation 99 94-100 % Arterial Blood Base Excess -18.5 L -2.5-2.5 MMOL/L Nader Test YES-POS Blood Gas Ventilator Setting NO Blood Gas Inspired Oxygen ROOM AIR Micro Results Microbiology 01/22/21 Fecal Leukocyte Stain - Final, Resulted 01/22/21 C. difficile GDH Antigen & Toxins - Final, Resulted 01/22/21 Stool Culture, Resulted Pending My Orders Orders - DIAMOND ANNE MD Cbc With Automated Diff (01/22/21 13:45) Comprehensive Metabolic Panel (01/22/21 13:45) Blood Culture (01/22/21 13:45) Sputum Culture (01/22/21 13:45) Urinalysis (01/22/21 13:45) Urine Culture (01/22/21 13:45) Protime With Inr (01/22/21 13:45) Partial Thromboplastin Time (01/22/21 13:45) Chest 1 View, Ap/Pa Only (01/22/21 13:45) Ed Iv/Invasive Line Start (01/22/21 13:45) Ed Iv/Invasive Line Start (01/22/21 13:45) Vital Signs Adult Sepsis Patie Q15M (01/22/21 13:45) O2 (01/22/21 13:45) Remove Rings In Anticipation O (01/22/21 13:45) Lactic Acid Analyzer (01/22/21 13:45) Procalcitonin (Pct) (01/22/21 13:45) Hs C Reactive Protein (01/22/21 13:45) Influenza A And B By Pcr (01/22/21 13:45) Covid 19 Inhouse Test (01/22/21 13:45) Manual Differential (01/22/21 13:40) Stool Culture (01/22/21 14:26) Fecal Wbc (01/22/21 14:26) C Difficile Ag + Toxin A/B. (01/22/21 14:26) Lactated Ringers (Lr 1000 Ml Iv Solution (01/22/21 15:00) Cefepime Injection (Maxipime Injection) (01/22/21 15:00) Arterial Blood Gas (01/22/21 15:11) Medications Given in ED Current Medications Medications Dose Ordered Sig/Brian Route Start Time Stop Time Status Last Admin Dose Admin Cefepime HCl 1000 mg/Sterile Water 10 ml @ 200 mls/hr ONCE ONCE IV 01/22/21 15:00 01/22/21 15:02 DC 01/22/21 15:27 200 MLS/HR Lactated Ringer's 1,000 ml @ 0 mls/hr Q0M ONCE IV 01/22/21 15:00 01/22/21 15:01 DC 01/22/21 15:27 0 MLS/HR Vital Signs/I&O 01/22/21 01/22/21 13:27 17:35 Temp 38.0 Pulse 93 83 Resp 20 18 B/P (MAP) 105/67 (80) 97/65 Pulse Ox 98 99 O2 Delivery Room Air Room Air Capillary Refill : Less Than 3 Seconds Blood Pressure Mean: 80 Progress Note : Time: 16:35 Progress Note Patient completed a liter of IV normal saline as initiated by EMS. Septic work- up was pursued. COVID-19 and influenza swabs were negative. Urinary tract infection was identified as source. She has acute on chronic renal failure. Her baseline creatinine from prior visit here was 2.5. Creatinine today is 4.0. She is still making urine. I discussed the situation with Dr. Eliceo Gonzalez, transplant physician at [facility]. He is recommending initiating empiric antibiotic therapy with cefepime. He also requested ABG and IV hydration with LR. Patient remains stable. She has had a couple of hypotensive measurements that were positional in nature. When lying in the supine position with her arms at her side she remains normotensive. She has not required any supplemental oxygen or or other respiratory support. Transfer to [facility] is being accepted with Dr. Newell as the attending provider. Diagnostic Imaging Diagonstic Imaging: Xray Plain Films/CT/US/NM/MRI: chest Comments Chest x-ray viewed by me and report reviewed. See report below: NAME: DAI HERNANDEZ [facility] REC#: [id number] PT STATUS: REG ER : 1960 PHYSICIAN: DIAMOND ANNE MD ADMIT DATE: 01/22/21/ER Signed Date of Exam:01/22/21 CHEST 1 VIEW, AP/PA ONLY INDICATION: Sepsis. EXAMINATION: Chest 01/22/2021 COMPARISON: 06/02/2018 Single view chest FINDINGS: The cardiomediastinal silhouette is unremarkable. The pulmonary vasculature is within normal limits. The lungs and pleural spaces are clear. IMPRESSION: No evidence of an acute cardiopulmonary process. Dictated by: Dictated on workstation # [id number] Dict: 01/22/21 1450 Trans: 01/22/21 1602 CVB [id number] Interpreted by: DIANE MITTAL MD Electronically signed by: DIANE MITTAL MD 01/22/21 1609 Departure Impression Primary Impression: Severe sepsis Additional Impressions: Ywwnm-ei-dazhnox renal failure Qualified Codes: N17.9 - Acute kidney failure, unspecified; N18.9 - Chronic kidney disease, unspecified Urinary tract infection Qualified Codes: N39.0 - Urinary tract infection, site not specified History of renal transplant Nausea vomiting and diarrhea Hyponatremia Disposition: XFER SHT-TRM HOSP Condition: Stable Transfer Transfer Reason: Exceeds level of care Time Spoke to Accepting Phy: 14:55 Transfer Progress Notes Transfer accepted and recommended by Dr. Eliceo Gonzalez with the transplant service. Attending physician will be Dr. Solis Newell. Transfer Time: 17:35 Transfer Facility: [facility] Method of Transfer: EMS Departure-Patient Inst. Referrals: BANDAR ANDRADE DO (PCP/Family) Primary Care Physician DIAMOND ANNE MD Jan 22, 2021 16:33
[2021-01-22 17:35] VITALS: BP 97/65
== END 2021-01-22 17:35 | disposition short-term general hospital (02) ==
LOC: EDUNIT# 13:24 → ER 13:31
DX: I12.9 Hypertensive chronic kidney disease with stage 1 through stage 4 chronic kidney disease, or unspecified chronic kidney disease (principal); N18.9 Chronic kidney disease, unspecified; R65.21 Severe sepsis with septic shock; N39.0 Urinary tract infection, site not specified; R19.7 Diarrhea, unspecified; E87.1 Hypo-osmolality and hyponatremia; E03.9 Hypothyroidism, unspecified; Z94.0 Kidney transplant status; Z20.822 Contact with and (suspected) exposure to COVID-19; Z79.890 Hormone replacement therapy; Z79.52 Long term (current) use of systemic steroids; Z79.899 Other long term (current) drug therapy
CPT/HCPCS: 36415; 71045; 80053; 81000; 82805; 83605; 84145; 85007; 85027; 85610; 85730; 86141; 87015; 87040; 87045; 87046; 87077; 87088; 87186; 87324; 87449; 87636; 87899; 89055; 96361; 96374; 99291

== ENCOUNTER 2021-02-22 12:01 | Outpatient (RCR) | payer MEDICARE ==
[2021-01-18 14:05] VITALS: BP 99/65
[2021-01-18] MEDS: NS IV 1000 ML 1,000 ML IV SCH ×2 (14:13→15:15)
[2021-02-01] MEDS: NS IV 1000 ML 1,000 ML IV SCH (11:31)
[2021-02-01 12:35] VITALS: BP 97/66
[2021-02-08 12:50] VITALS: BP 107/68
[2021-02-08] MEDS: NS IV 1000 ML 1,000 ML IV SCH (13:00)
[2021-02-15 12:25] VITALS: BP 133/76
[2021-02-15] MEDS: NS IV 1000 ML 1,000 ML IV SCH (12:40)
[~2021-02-22] VITALS: Ht 152 cm; Wt 68.0 kg
[~2021-02-22 12:01] MED LIST changes: +MULT-1054 PO; -MULT-985 PO; +NS IV 1000 ML 1,000 ML ONE; +POTA-164; -POTA10TA14
[2021-02-22] MEDS ORDERED: NS IV 1000 ML 1,000 ML ONE (12:05)
[2021-02-22 12:46] VITALS: BP 136/83
== END 2021-02-22 13:25 | disposition home or self-care (01) ==
LOC: SDC 12:01
PROVIDERS: ATTEND Specialist
DX: E86.0 Dehydration (principal); B25.8 Other cytomegaloviral diseases; D84.9 Immunodeficiency, unspecified; R80.8 Other proteinuria; Z94.0 Kidney transplant status; Z79.899 Other long term (current) drug therapy; Z87.898 Personal history of other specified conditions
CPT/HCPCS: 96360; 96361

== ENCOUNTER → 2021-12-26 | Outpatient (CLI) | payer MEDICARE ==
[~2021-12-26] MED LIST changes: +LEVO750T; -LEVO750T39; -NS IV 1000 ML 1,000 ML ONE
== END ==
LOC: CARD 13:00
PROVIDERS: ATTEND Internal Medicine Cardiovascular Disease
DX: I08.0 Rheumatic disorders of both mitral and aortic valves (principal)
CPT/HCPCS: 93306

== ENCOUNTER → 2021-12-26 | Outpatient (CLI) | payer MEDICARE ==
--- NOTE | 2021-12-26 16:26 | Diagnostic Imaging Report ---
INDICATION: Routine screening. Comparison is made with prior mammograms from 05/19/2020 and 05/18/2019. 2-D and 3-D bilateral screening mammography was performed with CAD. Scattered fibroglandular densities are identified bilaterally. Scattered benign calcifications are noted bilaterally. No mass or malignant appearing microcalcifications are seen. Axillae are unremarkable. IMPRESSION: No mammographic features suspicious for malignancy are identified. ACR BI-RADS Category 2: Benign findings. Result letter will be mailed to the patient. Note: At least 10% of breast cancer is not imaged by mammography. BI-RADS Category 2 Dictated by: Dictated on workstation # [id number]
== END ==
LOC: RAD 12:28
PROVIDERS: ATTEND Internal Medicine
DX: Z12.31 Encounter for screening mammogram for malignant neoplasm of breast (principal)
CPT/HCPCS: 77063; 77067

== ENCOUNTER → 2023-03-07 | Outpatient (CLI) | payer MEDICARE ==
--- NOTE | 2023-03-07 17:50 | Diagnostic Imaging Report ---
HISTORY: Right foot pain TECHNIQUE: 3 views of the right foot COMPARISON: None FINDINGS: No acute fracture seen in the right foot. Alignment appears normal. Joint spaces are generally preserved. There does appear to be some sclerosis and degenerative change at the right hallux sesamoid metatarsal interface. There is cortical thickening of the 2nd, 3rd and 4th metatarsal shafts. This does not appear to be aggressive periosteal reaction. There is posterior and plantar calcaneal enthesopathy. IMPRESSION: 1. Chronic findings in the right foot with no acute osseous abnormality seen. 2. Cortical thickening in the 2nd through 4th metatarsals does not appear aggressive and could be due to venous insufficiency or stress reaction. Dictated by: Dictated on workstation # [id number]
== END ==
LOC: RAD 15:00
PROVIDERS: ATTEND Internal Medicine
DX: M79.671 Pain in right foot (principal)
CPT/HCPCS: 73630